=== PATIENT | male | born 1945 | race Caucasian/White ===

== ENCOUNTER 2020-09-16 08:37 | Day surgery (SDC) | payer MEDICARE, OTHER, SELFPAY ==
[2020-09-10 15:46] VITALS: BMI 24.3
--- NOTE | 2020-09-11 16:49 | MHC.SHP ---
Pre-Procedural Eval Section A The patient is an INPATIENT: No The History & Physical has been completed within 30 days and I have reviewed it.: Yes Section B Chief Complaint: Right Eye cataract Allergies: Allergies Allergy/AdvReac Type Severity Reaction Status Date / Time Penicillins Allergy Mild HIVES/FEVER Unverified 01/25/20 16:00 Plan Diagnosis/Plan: Unchanged I have reviewed the history and physical and performed a pertinent physical examination on my patient. No changes have occurred unless specified.
--- NOTE | 2020-09-13 09:45 | HO.ANESPROP2 ---
Documented by User: Danielle Parks 09/13/20 09:50 HPI - Anesthesia Eval Consult details Narrative: 75yo M for Right Cataract Extraction IOL Insertion PCP cleared No prev cataract on record PMFSH Past Medical History Medical History Allergic rhinitis Anxiety COVID-19 vaccine series completed Depression Diabetes mellitus Erectile dysfunction History of Clostridioides difficile colitis History of diverticulosis History of ETOH abuse Hx of varicose veins Hypercholesterolemia Osteoarthritis Raynauds syndrome Smoker Surgical History Surgical History History of esophagogastroduodenoscopy (EGD) Hx of appendectomy Hx of colonoscopy Hx of inguinal hernia repair Social History Social History Alcohol intake: former Year quit: 2018 Smoking Status: Current every day smoker Tobacco Type: Cigar Are you DNR?: No Advance Directives: No Advance Directives Information Provided: No Advance Directives on File: No Meds Allergies Allergy/AdvReac Type Severity Reaction Status Date / Time Penicillins Allergy Mild HIVES/FEVER Verified 09/16/20 09:52 Home Medications Medication Instructions Recorded Confirmed Last Taken Type atorvastatin 10 tab PO BEDTIME 09/10/20 09/10/20 Unknown History cetirizine 1 tab PO DAILY 09/10/20 09/10/20 Unknown History citalopram 20 tab PO DAILY 09/10/20 09/16/20 09/16/20 08:00 History disulfiram 1 tab PO DAILY 09/10/20 09/10/20 Unknown History metformin 500 tab PO BID 09/10/20 09/10/20 Unknown History Exam Exam Date and Time: September 13, 2020 0945 Height,Weight and Vital Signs: Height 5 ft 7 in Weight 70.307 kg Assessment and Plan Assessment Anesthesia Assessment: Chart Reviewed Documented by User: Coleen Coyle 09/16/20 10:38 PMFSH Past Medical History Medical History Allergic rhinitis Anxiety COVID-19 vaccine series completed Depression Diabetes mellitus Erectile dysfunction History of Clostridioides difficile colitis History of diverticulosis History of ETOH abuse Hx of varicose veins Hypercholesterolemia Osteoarthritis Raynauds syndrome Smoker Surgical History Surgical History History of esophagogastroduodenoscopy (EGD) Hx of appendectomy Hx of colonoscopy Hx of inguinal hernia repair Social History Social History Alcohol intake: former Year quit: 2018 Smoking Status: Current every day smoker Tobacco Type: Cigar Are you DNR?: No Advance Directives: No Advance Directives Information Provided: No Advance Directives on File: No Meds Allergies Allergy/AdvReac Type Severity Reaction Status Date / Time Penicillins Allergy Mild HIVES/FEVER Verified 09/16/20 09:52 Home Medications Medication Instructions Recorded Confirmed Last Taken Type atorvastatin 10 tab PO BEDTIME 09/10/20 09/10/20 Unknown History cetirizine 1 tab PO DAILY 09/10/20 09/10/20 Unknown History citalopram 20 tab PO DAILY 09/10/20 09/16/20 09/16/20 08:00 History disulfiram 1 tab PO DAILY 09/10/20 09/10/20 Unknown History metformin 500 tab PO BID 09/10/20 09/10/20 Unknown History Exam Airway Mallampati Class: I TM Dist: >3cm Neck ROM: Full Heart: RRR Lungs: CTA
[2020-09-16 09:54] VITALS: BP 121/67; PULSE 52; RESP 16; TEMP 35.9; O2SAT 96
[2020-09-16 09:59] LABS: Glucose, Whole Blood 113 mg/dL (60-115)
[2020-09-16] MEDS: Lactated Ringers 500 ML 50 ML IV (10:03)
[2020-09-16] MEDS: Tetracaine HCl/PF 0.5% Oph Sol 4 ML DROPS 1 DROP EYE-RIGHT (10:05)
[2020-09-16] MEDS: Tropicamide 1 % Ophth Sol 3 ML BTL 1 DROP EYE-RIGHT ×3 (10:07→10:13)
[2020-09-16] MEDS: Phenylephrine HCL 2.5% Oph SoL 2 ML BOTTLE 1 DROP EYE-RIGHT ×3 (10:09→10:15)
--- NOTE | 2020-09-16 11:05 | HO.PNOPHT ---
Ophthalmology Procedure Procedure Date of Service: 09/16/20 Ophthalmology Viscoelastic: Healon Duet Dual Pack Pro Ophthalmology Lenses: TECNIS [id number] (24) Procedure Notes: PREOPERATIVE DIAGNOSIS: Decreased visual acuity right eye secondary to cataract POSTOPERATIVE DIAGNOSIS: Same PROCEDURE: Right cataract extraction with multifocal intraocular lens insertion SURGEON: Luis Manuel Graves M.D. ANESTHESIA: Topical/MAC ESTIMATED BLOOD LOSS: None COMPLICATIONS: None After obtaining informed consent, the patient was brought to the operating room suite and placed in the supine position. After adequate sedation per anesthesia, topical drops of Tetracaine were given to the right eye. The eye was then prepped and draped in the usual sterile fashion. The operating room microscope was then positioned over the operative eye and a lid speculum placed. A paracentesis was created. Viscoelastic was then instilled into the anterior chamber. A three plane incision was then created temporally, utilizing a 2.85 mm keratome. Capsulotomy forceps were then utilized to create a circular tear capsulotomy. Hydrodissection and hydrodelineation were carried out until adequate mobilization of the nucleus occurred. Phacoemulsification was then utilized to remove the dense central nucleus followed by removal of the cortical material utilizing the automated aspiration irrigation unit. Viscoelastic was instilled into the posterior capsular bag followed by placement of a multifocal posterior chamber intraocular lens without difficulty. The residual Viscoelastic was then removed utilizing the automated IA machine. The wound was checked and found to be watertight. The patient tolerated the procedure well and the lid speculum was removed. Intracameral injection of Vigamox 0.1 mL followed by a subtenon injection of Kenalog-40 0.2 mL were administered. The patient will be seen in the a.m.
[2020-09-16 11:30] VITALS: BP 125/68; PULSE 56; RESP 20; TEMP 36.3; O2SAT 100
--- NOTE | 2020-09-16 12:57 | HO.POSTANES ---
Post Anesthesia Evaluation Post Anesthesia Evaluation Vital Signs: Vital Signs Temp Pulse Resp BP Pulse Ox 09/16/20 11:30 97.4 F 56 20 125/68 100 09/16/20 09:54 96.7 F L 52 16 121/67 96 Anesthesia: TIVA Mental Status: Awake Pain Control: Satisfactory Nausea/Vomiting: None Hydration: Adequate Anesthesia-Related Issues: No Anes. Related Issues
== END 2020-09-16 11:57 | disposition home or self-care (01) ==
PROVIDERS: PCP Internal Medicine; Visit Provider Ophthalmology
PROC: (CPT 66984; principal; 2020-09-16 11:40)
DX: H25.11 Age-related nuclear cataract, right eye (principal); H54.7 Unspecified visual loss; H35.4 Peripheral retinal degeneration; F32.9 Major depressive disorder, single episode, unspecified; I10 Essential (primary) hypertension; E11.9 Type 2 diabetes mellitus without complications; Z79.84 Long term (current) use of oral hypoglycemic drugs; Z79.899 Other long term (current) drug therapy; F17.200 Nicotine dependence, unspecified, uncomplicated; F10.10 Alcohol abuse, uncomplicated
CPT/HCPCS: 66984; 82947; J2250; J3300; V2788

== ENCOUNTER 2020-09-30 09:13 | Day surgery (SDC) | payer MEDICARE, OTHER, SELFPAY ==
[2020-09-10 15:48] VITALS: BMI 24.3
--- NOTE | 2020-09-26 08:17 | MHC.SHP ---
Pre-Procedural Eval Section A The patient is an INPATIENT: No The History & Physical has been completed within 30 days and I have reviewed it.: Yes Section B Chief Complaint: Left Eye Cataract Allergies: Allergies Allergy/AdvReac Type Severity Reaction Status Date / Time Penicillins Allergy Mild HIVES/FEVER Verified 09/16/20 09:52 Plan Diagnosis/Plan: Unchanged I have reviewed the history and physical and performed a pertinent physical examination on my patient. No changes have occurred unless specified.
--- NOTE | 2020-09-27 08:38 | HO.ANESPROP2 ---
Documented by User: Danielle Parks 09/27/20 08:38 HPI - Anesthesia Eval Consult details Narrative: 75yo M for Left Cataract Extraction IOL Insertion PCP cleared Right eye done 09/16/20: Midaz 2 PMFSH Past Medical History Medical History Allergic rhinitis Anxiety COVID-19 vaccine series completed Depression Diabetes mellitus Erectile dysfunction History of Clostridioides difficile colitis History of diverticulosis History of ETOH abuse Hx of varicose veins Hypercholesterolemia Osteoarthritis Raynauds syndrome Smoker Surgical History Surgical History History of esophagogastroduodenoscopy (EGD) Hx of appendectomy Hx of colonoscopy Hx of inguinal hernia repair Social History Social History Alcohol intake: former Year quit: 2018 Smoking Status: Current every day smoker Tobacco Type: Cigar Use of substances other than those prescribed or required for medical reasons: No Are you DNR?: No Advance Directives: No Advance Directives Information Provided: No Advance Directives on File: No Meds Allergies Allergy/AdvReac Type Severity Reaction Status Date / Time Penicillins Allergy Mild HIVES/FEVER Verified 09/30/20 09:30 Active Medications: Current Medications Generic Name Dose Route Start Last Admin Trade Name Freq PRN Reason Stop Dose Admin Povidone Iodine 1 appl 09/26/20 08:18 Povidone Iodine 5 % Ophth Soln 30 Ml Bottle EYE-LEFT PREOP PRN Pre-Op Surgical Implant Prophy Tetracaine HCl 1 drop 09/30/20 00:01 Tetracaine Hcl/Pf 0.5% Oph Gricel 4 Ml Drops EYE-LEFT 09/30/20 00:02 PREOP ONE Home Medications Medication Instructions Recorded Confirmed Last Taken Type atorvastatin 10 tab PO BEDTIME 09/10/20 09/10/20 Unknown History cetirizine 1 tab PO DAILY 09/10/20 09/10/20 09/30/20 07:30 History citalopram 20 tab PO DAILY 09/10/20 09/16/20 09/30/20 07:30 History disulfiram 1 tab PO DAILY 09/10/20 09/10/20 Unknown History metformin 500 tab PO BID 09/10/20 09/10/20 Unknown History Exam Exam Date and Time: September 27, 2020 0838 Height,Weight and Vital Signs: Height 5 ft 7 in Weight 70.307 kg Assessment and Plan Assessment Anesthesia Assessment: Chart Reviewed Documented by User: Yenny Anti 09/30/20 09:43 [facility] Past Medical History Medical History Allergic rhinitis Anxiety COVID-19 vaccine series completed Depression Diabetes mellitus Erectile dysfunction History of Clostridioides difficile colitis History of diverticulosis History of ETOH abuse Hx of varicose veins Hypercholesterolemia Osteoarthritis Raynauds syndrome Smoker Surgical History Surgical History History of esophagogastroduodenoscopy (EGD) Hx of appendectomy Hx of colonoscopy Hx of inguinal hernia repair Social History Social History Alcohol intake: former Year quit: 2018 Smoking Status: Current every day smoker Tobacco Type: Cigar Use of substances other than those prescribed or required for medical reasons: No Are you DNR?: No Advance Directives: No Advance Directives Information Provided: No Advance Directives on File: No Meds Allergies Allergy/AdvReac Type Severity Reaction Status Date / Time Penicillins Allergy Mild HIVES/FEVER Verified 09/30/20 09:30 Home Medications Medication Instructions Recorded Confirmed Last Taken Type atorvastatin 10 tab PO BEDTIME 09/10/20 09/10/20 Unknown History cetirizine 1 tab PO DAILY 09/10/20 09/10/20 09/30/20 07:30 History citalopram 20 tab PO DAILY 09/10/20 09/16/20 09/30/20 07:30 History disulfiram 1 tab PO DAILY 09/10/20 09/10/20 Unknown History metformin 500 tab PO BID 09/10/20 09/10/20 Unknown History Exam Airway Mallampati Class: II TM Dist: >3cm Neck ROM: Full Loose/Missing/Broken Teeth: No Heart: RRR Lungs: CTA Assessment and Plan Assessment Anesthesia Assessment: Anesthesia Plan Discussed Final Anesthetic Review NPO: Yes ASA Class: II Final Preanesthetic Review: Meds/Allgs Chart Reviewed, Consent Obtained/Reviewed and Anes Risks/Benef Reviewed Patient Risk: Low Procedure Risk: Low Anesthetic Plan Anesthetic Plan: MAC: Disposition: Standard PACU
[2020-09-30 09:47] VITALS: BP 132/68; PULSE 47; RESP 18; TEMP 36.3; O2SAT 99
[2020-09-30] MEDS: Lactated Ringers 500 ML 50 ML IV (09:57)
[2020-09-30] MEDS: Tetracaine HCl/PF 0.5% Oph Sol 4 ML DROPS 1 DROP EYE-LEFT (09:58)
[2020-09-30] MEDS: Tropicamide 1 % Ophth Sol 3 ML BTL 1 DROP EYE-LEFT ×3 (10:00→10:06)
[2020-09-30] MEDS: Phenylephrine HCL 2.5% Oph SoL 2 ML BOTTLE 1 DROP EYE-LEFT ×3 (10:02→10:08)
[2020-09-30 10:15] LABS: Glucose, Whole Blood 111 mg/dL (60-115)
--- NOTE | 2020-09-30 10:36 | HO.PNOPHT ---
Ophthalmology Procedure Procedure Date of Service: 09/30/20 Ophthalmology Viscoelastic: Healon Duet Dual Pack Pro Ophthalmology Lenses: TECNIS [id number] (24) Procedure Notes: PREOPERATIVE DIAGNOSIS: Decreased visual acuity left eye secondary to cataract POSTOPERATIVE DIAGNOSIS: Same PROCEDURE: Left cataract extraction with toric multifocal intraocular lens insertion axia 180 SURGEON: Luis Manuel Graves M.D. ANESTHESIA: Topical/MAC ESTIMATED BLOOD LOSS: None COMPLICATIONS: None After obtaining informed consent, the patient was brought to the operation room suite and placed in the supine position. After adequate sedation per anesthesia, topical drops of Tetracaine were given to the left eye. The eye was then prepped and draped in the usual sterile fashion. The operating room microscope was then positioned over the operative eye and a lid speculum placed. A paracentesis was created. Viscoelastic was then instilled into the anterior chamber. A three plane incision was then created temporally, utilizing a 2.85 mm keratome. Capsulotomy forceps were then utilized to create a circular tear capsulotomy. Hydrodissection and hydrodelineation were carried out until adequate mobilization of the nucleus occurred. Phacoemulsification was then utilized to remove the dense central nucleus followed by removal of the cortical material utilizing the automated aspiration irrigation unit. Viscoelastic was instilled into the posterior capsular bag followed by placement of a toric multifocal posterior chamber intraocular lens axis 180 degrees without difficulty. The residual Viscoelastic was then removed utilizing the automated IA machine. The wound was check and found to be watertight. The patient tolerated the procedure well and the lid speculum was removed. Intracameral injection of Vigamox 0.1 mL followed by a subtenon injection of Kenalog-40 0.2 mL were administered. The patient will be seen in the a.m.
[2020-09-30 11:07] VITALS: BP 144/7; PULSE 54; RESP 16; TEMP 36.2; O2SAT 98
== END 2020-09-30 11:09 | disposition home or self-care (01) ==
PROVIDERS: PCP Internal Medicine; Visit Provider Ophthalmology
PROC: (CPT 66984; principal; 2020-09-30 11:40)
DX: H25.12 Age-related nuclear cataract, left eye (principal); H54.7 Unspecified visual loss; I10 Essential (primary) hypertension; I73.00 Raynaud's syndrome without gangrene; J30.9 Allergic rhinitis, unspecified; G47.33 Obstructive sleep apnea (adult) (pediatric); F10.10 Alcohol abuse, uncomplicated; E11.9 Type 2 diabetes mellitus without complications; Z79.84 Long term (current) use of oral hypoglycemic drugs; Z79.899 Other long term (current) drug therapy; Z99.89 Dependence on other enabling machines and devices; Z88.0 Allergy status to penicillin; F17.200 Nicotine dependence, unspecified, uncomplicated
CPT/HCPCS: 66984; 82947; J2250; J3300; V2788

== ENCOUNTER 2021-03-13 15:00 | Outpatient (RCR) | payer MEDICARE, OTHER, SELFPAY | END 2021-04-02 16:00 | disposition home or self-care (01) | LOC: HO.OT 15:00 | PROVIDERS: PCP Internal Medicine; Visit Provider Plastic Surgery | DX: S66.222D Laceration of extensor muscle, fascia and tendon of left thumb at wrist and hand level, subsequent encounter (principal) | CPT/HCPCS: 97110; 97165; 97760 ==

== ENCOUNTER 2022-10-07 15:51 | Emergency (ER) | payer MEDICARE, OTHER, SELFPAY ==
--- NOTE | ~2022-10-07 | XR_ITS ---
EXAMINATION: XR first finger, RIGHT CLINICAL INFORMATION: Laceration COMPARISON: None available. TECHNIQUE: Three views of the right thumb. FINDINGS: There is calcification of the triangular fibrocartilage. There is some degenerative change with spurring about the first carpal metacarpal joint. There is soft tissue edema seen about the first interphalangeal joint and distal first finger. No radiopaque foreign body is seen and no gas within the soft tissues is evident. Soft tissue defect about the volar aspect of the first distal phalanx is noted. XR/XR finger RT min 2V IMPRESSION: Soft tissue laceration about the volar aspect of the distal phalanx of the thumb without underlying bony abnormality or radiopaque foreign body.
--- NOTE | 2022-10-07 16:02 | ED_ITS ---
HPI - General Adult General Chief complaint: Wound/Laceration Stated complaint: Wound on right thumb Time Seen by Provider: 10/07/22 19:11 Source: patient, RN notes reviewed and old records reviewed Mode of arrival: ambulatory Limitations: no limitations History of Present Illness HPI narrative: 77-year-old male presents for evaluation of a laceration to his right thumb. Patient reports that he was using a table saw when his hand slipped and he accidentally cut his right thumb Bleeding is controlled with dressing He reports his tetanus is up-to-date He is able to move the finger He reports mild, 6/10 pain Related Data Home Medications Medication Instructions Recorded Confirmed atorvastatin 10 mg tablet 10 tab PO BEDTIME 09/10/20 09/10/20 cetirizine 10 mg tablet 1 tab PO DAILY 09/10/20 09/10/20 citalopram 20 mg tablet 20 tab PO DAILY 09/10/20 09/16/20 disulfiram 250 mg tablet 1 tab PO DAILY 09/10/20 09/10/20 metformin 500 mg tablet 500 tab PO BID 09/10/20 09/10/20 Allergies Allergy/AdvReac Type Severity Reaction Status Date / Time Penicillins Allergy Mild HIVES/FEVER Verified 09/30/20 09:30 Review of Systems Integumentary/Breasts: Comments: Laceration to right thumb PMFSH Past Medical History Medical History Allergic rhinitis Anxiety COVID-19 vaccine series completed Depression Diabetes mellitus Erectile dysfunction History of Clostridioides difficile colitis History of diverticulosis History of ETOH abuse Hx of varicose veins Hypercholesterolemia Osteoarthritis Raynauds syndrome Smoker Surgical History History of esophagogastroduodenoscopy (EGD) Hx of appendectomy Hx of colonoscopy Hx of inguinal hernia repair Social History Social History Alcohol intake: former Year quit: 2019 Advance Directives: No Advance Directives Information Provided: No Physical Exam ED Vital Signs: Vital Signs - 24 hr 10/07/22 16:06 10/07/22 19:31 Temperature 98 F 98.0 F Pulse Rate 109 H 61 Respiratory Rate 18 18 Blood Pressure 109/63 157/93 H Pulse Oximetry 97 97 Oxygen Delivery Method Room Air Room Air BMI result Body Mass Index 25.8 Skin Other: 5 cm, jagged laceration to the ventral surface of the right thumb. There is visible subcutaneous tissue but no visible bone Extrem Other: Patient has full range of motion with flexion and extension of the right thumb at the MCP and interphalangeal joints. Course Course Course Narrative: This is an RME: Additional HPI, ROS, PE not included below will be deferred to primary provider. This is a [id number]-male, with a history of diabetes, presenting to the emergency department with a complaint of right thumb laceration which occurred 30 minutes ago. He cut his right thumb on a table saw at his home. Full thickne ss laceration to the right thumb distal end. No active bleeding. Distal sensation and circulation intact. Will need sutures. TDAP UTD. Plan: Xray right thumb ordered. Medications Administered Discontinued Medications Generic Name Dose Route Start Last Admin Trade Name Juan Daniel PRN Reason Stop Dose Admin Lidocaine HCl 5 ml 10/07/22 19:22 10/07/22 19:44 Lidocaine Hcl 1 % 20 Ml Vial INFILTRATI 10/07/22 19:23 5 ml ONCE ONE Administration Procedures Laceration Laceration 1: Site: hand Side (If applicable): right (Some) Size (cm): 5 Description: linear, irregular and contaminated Local Anesthetic: lidocaine 1% Amount of anesthesia used (mL): 8 Pre-repair: wound explored and irrigated extensively Skin layer closed with: nylon Size (cm): 5-0 Number of sutures: 6 Technique: simple, interrupted Medical Decision Making Medical Decision Making MDM Narrative: See procedure note for wound repair. Patient's tetanus is up-to-date per his report Discharge Plan Discharge Clinical Impression: Laceration Patient Disposition: Home, Self-Care Instructions: Laceration (ED) Additional Instructions: You had 6 sutures placed today. These can come out in 10 days You can do this with your primary doctor or by returning to the ER Keep the area clean and dry in the meantime Follow-up with your primary doctor Prescriptions: No Action metformin 500 mg tablet 500 tab PO BID cetirizine 10 mg tablet 1 tab PO DAILY atorvastatin 10 mg tablet 10 tab PO BEDTIME disulfiram 250 mg tablet 1 tab PO DAILY citalopram 20 mg tablet 20 tab PO DAILY
[2022-10-07 16:06] VITALS: BP 109/63; PULSE 109; RESP 18; TEMP 36.6; O2SAT 97; BMI 25.8
[2022-10-07 19:31] VITALS: BP 157/93; PULSE 61; RESP 18; TEMP 36.7; O2SAT 97
[2022-10-07] MEDS: Lidocaine HCl 1 % 20 ML VIAL 5 ML INFILTRATI (19:44)
== END 2022-10-07 20:39 | disposition home or self-care (01) ==
PROVIDERS: Emergency Provider Student in an Organized Health Care Education/Training Program; PCP Internal Medicine
DX: S61.011A Laceration without foreign body of right thumb without damage to nail, initial encounter (principal); W31.2XXA Contact with powered woodworking and forming machines, initial encounter; E11.9 Type 2 diabetes mellitus without complications; E78.00 Pure hypercholesterolemia, unspecified; Z87.891 Personal history of nicotine dependence; Y93.89 Activity, other specified; Y92.019 Unspecified place in single-family (private) house as the place of occurrence of the external cause; Y99.9 Unspecified external cause status
CPT/HCPCS: 12042; 73140; 99282; 99284

== ENCOUNTER 2023-10-06 10:56 | Emergency (ER) | payer MEDICARE, OTHER, SELFPAY ==
--- NOTE | 2023-10-06 | ECG_ITS ---
Test Reason : DIZZINESS Blood Pressure : / mmHG Vent. Rate : 071 BPM Atrial Rate : 071 BPM P-R Int : 152 ms QRS Dur : 100 ms QT Int : 432 ms P-R-T Axes : 073 074 061 degrees QTc Int : 469 ms Normal sinus rhythm Normal ECG When compared with ECG of 10-OCT-2008 12:56, No significant change was found Referred By: Generic ED Physician Electronically Signed By:ORI AMARAL
--- NOTE | ~2023-10-06 | CT_ITS ---
EXAMINATION: CT CERVICAL SPINE WITHOUT CONTRAST CLINICAL INFORMATION: Fall. Head trauma. COMPARISON: Cervical spine x-ray from 2006. TECHNIQUE: Axial images through the cervical spine without IV contrast. Sagittal and coronal reconstructions on the technologist workstation were performed. This CT examination was performed using dose optimization techniques as appropriate, variously including the following: *Automated exposure control *Adjustment of mA and/or kV according to patient size (this includes techniques or standardized protocols for targeted exams where dose is matched to indication/reason for exam; i.e. extremities or head) *Use of iterative reconstruction technique DLP: 295 mGy-cm FINDINGS: There is 4 mm anterior subluxation of C4 with respect to C5 and C7 with respect to T1. There is 2 mm anterior subluxation of C5 with respect to C6. This may be degenerative in nature. Bone alignment is otherwise normal. No fracture or dislocation. Multilevel degenerative spondylosis and degenerative disc disease greatest at C3-C4, and C7-T1. Degenerative changes at the C1 dens articulation. Bilateral multilevel facet arthritis. Prevertebral soft tissues are normal. There is bilateral carotid calcification. There is biapical pleural and parenchymal scarring. Lung apices are otherwise clear. CT/CT cervical spine wo IV con IMPRESSION: No fracture or dislocation. 4 mm anterior subluxation of C4 with respect to C5 C7 with respect to T1 and 2 mm anterior subluxation of C5 with respect to C6. This may be degenerative in nature. If there is clinical suspicion of acute soft tissue injury, cervical spine MRI would be recommended. Multilevel degenerative changes. Fleischner guidelines were followed.
--- NOTE | ~2023-10-06 | CT_ITS ---
EXAMINATION: CT HEAD WITHOUT CONTRAST CLINICAL INFORMATION: Fall. Head trauma. COMPARISON: Previous brain MRI from 2020 TECHNIQUE: Contiguous axial imaging was performed from the skull base to vertex without intravenous administration of contrast. This CT examination was performed using dose optimization techniques as appropriate, variously including the following: *Automated exposure control *Adjustment of mA and/or kV according to patient size (this includes techniques or standardized protocols for targeted exams where dose is matched to indication/reason for exam; i.e. extremities or head) *Use of iterative reconstruction technique DLP: 744 mGy-cm FINDINGS: There is no evidence of an extra-axial collection. There is no evidence of intra or extra-axial hemorrhage. The ventricles and extra-axial CSF spaces are slightly prominent suggestive of mild generalized atrophy. There is mild nonspecific periventricular white matter disease. No mass, mass effect or infarct. No skull fracture. Visualized paranasal sinuses, mastoid air cells and middle ears are clear. CT/CT head/brain wo IV con IMPRESSION: No acute findings.
[2023-10-06 11:04] VITALS: BP 100/58; BP 111/53; PULSE 70; PULSE 75; RESP 16; TEMP 36.6; O2SAT 97; O2SAT 98; BMI 25.8
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
[2023-10-06 11:31] LABS: MANUAL DIFF FLAG NO
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
[2023-10-06 11:33] LABS: Basophils Percent Auto 0.3 % (0-2); Eosinophils Absolute Auto 0.1 X10*3/uL (0.0-0.4); Eosinophils Percent Auto 1.7 % (0-4); Hematocrit 41.4 % (42.0-52.0); Hemoglobin 14.4 g/dl (14.0-18.0); Imm Gran Abs Auto 0.02 X10*3/uL (0.00-0.03); Imm Gran Pct Auto 0.3 % (0.0-0.4); Lymphocytes Absolute Auto 1.8 X10*3/uL (1.2-4.9); Lymphocytes Percent Auto 30.4 % (20-40); Mean Corpuscular HGB Conc 34.8 g/dl (31.0-36.0); Mean Corpuscular Hemoglobin 32.7 pg (27.0-33.0); Mean Corpuscular Volume 93.9 fL (80.0-98.0); Mean Platelet Volume 10.6 fL (9.4-12.4); Monocytes Absolute Auto 0.6 X10*3/uL (0.1-1.2); Monocytes Percent Auto 9.2 % (2-11); Neutrophils Absolute Auto 3.5 x10*3/uL (2.0-8.3); Neutrophils Percent Auto 58.1 % (45-73); Platelet Count 203 X10*3/uL (160-400); Red Blood Count 4.41 X10*6/uL (4.60-5.80); Red Cell Distribution Width 13.2 % (11.0-16.0)
[2023-10-06 11:51] LABS: Alanine Aminotransferase 26 U/L (0-40); Albumin Level 3.7 g/dL (3.5-5.0); Alkaline Phosphatase 72 U/L (39-117); Anion Gap 14 (12-20); Aspartate Amino Transferase 20 U/L (5-37); Bilirubin Total 0.2 mg/dL (0.0-1.0); Blood Urea Nitrogen 22 mg/dL (9-16); Calcium 9.6 mg/dL (8.4-10.2); Carbon Dioxide 22 mmol/L (22-29); Chloride 108 mmol/L (96-108); Creatinine Clr Calc Pharmacy 49.4; Estimated Glomerular Filt Rate > 60; Ethanol 25 mg/dL; Glucose Random 112 mg/dL (60-115); Sodium 140 mmol/L (135-145); Total Protein 6.4 g/dL (6.5-8.0)
[2023-10-06 12:02] LABS: Troponin-I High Sensitivity < 2.7 ng/L (<3.5-35.0)
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
--- OUTSIDE RECORDS SUMMARY | 2023-10-06 12:02 | XMS_ITS | Continuity of Care Document ---
Author Organization [facility] Josh Stevens Jorge lt Address [address] [place] [address]- Care Team Providers Care Coal Loader Name Role Phone Hansa URIAS, Pravin Hidalgo Primary Care Physician [phone] [facility]counter [facility]): 04/13/23 - 04/20/23 [facility] Josh Stevens Adult [address] [place] [address]- Encounter Diagnosis History of empyema of pleura(Discharge Diagnosis) - 04/13/23 History of community acquired pneumonia(Discharge Diagnosis) - 04/13/23 Constipation(Discharge Diagnosis) - 04/13/23 Attending Physician: Елена Kelly NP Allergies, Adverse Reactions, Alerts Substance Reaction Severity Status penicillins hives, itchiness Active Immunizations Given and Recorded Vaccine Date Status Refusal Reason SARS-CoV-2(COVID-19)mRNA-LNP vac([id number]) 03/08/23 Recorded influenza virus vaccine, inactivated 1 03/02/23 Gi avelina influenza virus vaccine, inactivated 02/20/22 Jaxson rded influenza virus vaccine, inactivated 02/21/21 Jaxson rded influenza virus vaccine, inactivated 02/07/20 Give [...] corded pneumococcal 20-valent conjugate vaccine 10/20/22 Given [id number] 12y+ bivalent booster vax 02/11/22 Recorded SARS-CoV-2 mRNA (nbxykkk-ovhz-sbmfi) vax 08/21/21 Recorded SARS-CoV-2 (COVID-19) mRNA BNT-162b2 [...] Pertussis (oldterm) 08/02/10 Give n 1Result Comment: [facility]: [id number] 2Location History: SHAM 3Result Comment: [facility]: [phone] EXP: [id number] 4Result Comment: [12/19/2013] #2 5Result Comment: [10/19/2013] #1 6Result Comment: [12/19/2013] #2 7Admin Note: [facility] Medications Aller-Brenton 10 mg oral tablet 1 tablet, By Mouth, Daily, # 90 tablet, 1 Refills, Maintenance, 01/14/23 10:32:00 EDT, [facility] #[id number], 170, cm, 11/12/22 8:55:00 EDT, Height, 73, kg, 05/28/22 13:32:00 EST, Dry Weight Start Date: 01/14/23 Status: Ordered aspirin 81 mg oral tablet 1 tablet = 81 mg, By Mouth, Daily, # 30 tablet, 0 Refills, Maintenance, Tablet Start Date: 08/03/11 Status: Ordered atorvastatin 10 mg oral tablet 1 tablet, By Mouth, Daily, # 90 tablet, 1 Refills, Maintenance, 02/21/23 21:20:00 EDT, [facility], 171, cm, 02/21/23 20:09:00 EDT, Height, 72, kg, 02/19/23 13:52:00 EDT, Dry Weight Start Date: 02/21/23 Status: Ordered citalopram 20 mg oral tablet See Instructions, TAKE 1 TABLET BY MOUTH EVERY DAY, # 90 tablet, 3 Refills, Maintenance, 12/21/22 15:35:00 EDT, [facility]/pharmacy #[id number], 170, cm, 11/12/22 8:55:00 [...] Daily, # 90 tablet, 3 Refills, Maintenance, 07/23/22 12:10:00 EDT, [facility], 170, cm, 05/28/22 13:32:00 EST, Height, 73, kg, 05/28/22 13:32:00 EST, Dry Weight Start Date: 07/23/22 Status: Ordered Fish Oil By Mouth, Daily, 0 Refills, Maintenance, 04/26/18 10:26:55 EST Start Date: 04/26/18 Status: Ordered Garlic Daily, 0 Refills, Maintenance, 04/26/18 10:28:16 EST Start Date: 04/26/18 Status: Ordered Gingko Biloba Daily, 0 Refills, Maintenance, 04/26/18 10:28:41 EST Start Date: 04/26/18 Status: Ordered Glucosamine & Chondroitin with MSM Daily, 0 Refills, Maintenance, 04/26/18 10:27:15 EST Start Date: 04/26/18 Status: Ordered metFORMIN 500 mg oral tablet 1 tablet = 500 mg, By Mouth, Daily, # 90 tablet, 3 Refills, Maintenance, 04/13/23 15:29:00 EST, [facility]/pharmacy #[id number], 171, cm, 04/13/23 15:06:00 [...] DM (diabetes mellitus), type 2 Confirmed Active Esophagogastroduodenoscopy [egd] with Closed Biopsy [...] 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 3colo 2008 polyp, repeat 2013 4colo 2018 5egd 2012 nl per pt. report 6colo 2018 7Abnormal MRI cervical spine, followed by Dr. De Leon. [id number] Diagnosis Diagnosis Type Effective Dates Health Status Clinical Service Informant History of empyema of pleura Discharge Diagnosis 04/13/23 History of community acquired pneumonia Discharge Diagnosis 04/13/23 Constipation Discharge Diagnosis 04/13/23 Vital Signs Most recent to oldest [Reference Range]: 1 Height 171 cm (04/13/23 3:06 PM) Weight 71.0 kg (04/13/23 3:06 PM) Oxygen Saturation [94-100 %] 97 % (04/13/23 3:06 PM) Pulse Rate [55-90 bpm] 62 bpm (04/13/23 3:06 PM) Body Mass Index [18.5-24.99 kg/m2] 24.28 kg/m2 (04/13/23 3:06 PM) Blood Pressure [90-138/55-84 mm Hg] 96/5 0mm Hg (04/13/23 3:06 PM) Respiratory Rate [16-30 br/min] 12 br/mi n *L* (04/13/23 3:06 PM) Temperature [96.8-100.4 DegF] 98.0 DegF (04/13/23 3:06 PM) Mode of Delivery (Oxygen) Room air (04/13/23 3:06 PM) Blood pressure sites Arm, left (04/13/23 3:06 PM) Temperature Route Oral (04/13/23 3:06 PM) Weight Obtained Via Standing scale (04/13/23 3:06 PM) Social History Social History Type Response Smoking Status Former smoker, quit more than 30 days ago entered on: 03/02/23 Sex Patient Care team information Care Team Personnel Name: Chelsea López RN Position: S RN Member Role: Primary Care Nurse Name: Miranda Castrejon RN Position: [facility] RN Member Role: Primary Care Nurse Name: Alexia Ortiz RN Position: S RN Member Role: Primary Care Nurse Name: Zoe Nunez Position: S RN Member Role: Primary Care Nurse Name: Robby Servin RN Position: S RN Member Role: Primary Care Nurse Name: Pravin Santo MD Position: [facility] Physician - Primary Care Member Role: PCP Address: Address: [address] [place] [address]- Name: Alyse Mckinney RN Position: [facility] RN Member Role: Primary Care Nurse Care Team Related Persons Name: JANNET BECK Address: home [address] [place] [address]
--- OUTSIDE RECORDS SUMMARY | 2023-10-06 12:02 | XMS_ITS | Continuity of Care Document ---
Author Organization [facility] Address [address] [place] [address] Matt se[address], [address] [place] [address]- Care Team Providers Care Clinical Systems Educator Name Role Phone Pravin Santo MD Primary Care Physician [facility]): 07[facility]07[facility]23 - 08/06/23 [facility] [address] [place] [address] Drive [address] [place] [address]- Attending Physician: Admchelsea, Brian Admitting Physician: Admtr, Brian Referring Physician: Admtr, Ar8 Allergies, Adverse Reactions, Alerts Substance Reaction Severity Status penicillins hives, itchiness Active Immunizations Given and Recorded Vaccine Date Status Refusal Reason SARS-CoV-2(COVID-19)mRNA-LNP vac([id number]) 03/08/23 Recorded influenza virus vaccine, inactivated 1 [...] corded pneumococcal 20-valent conjugate vaccine 10/20/22 Given [id number]-[id number] 12y+ bivalent booster vax 02/11/22 Recorded SARS-CoV-2 mRNA (bqajphc-gxbe-dicnc) vax 08/21/21 Recorded SARS-CoV-2 (COVID-19) mRNA BNT-162b2 [...] Pertussis (oldterm) 08/02/10 Give n 1Result Comment: [facility]: [id number] 2Location History: SHAM 3Result Comment: [facility]: [id number] EXP: [id number] 4Result Comment: [12/19/2013] #2 5Result Comment: [10/19/2013] #1 6Result Comment: [12/19/2013] #2 7Admin Note: [facility] Medications Albuterol (Eqv-Proventil HFA) 90 mcg/inh inhalation aerosol 2 puffs, Inhalation, Every 4 hours, PRN Wheezing/Shortness of Breath, # 1 each, 0 Refills, Maintenance, 06/29/23 9:56:00 EST, [facility], Partial fill upon patient request if the prescription is for a schedule II opioid drug., 171, cm, 0... Start Date: 06/29/23 Stop Date: 07/29/23 Status: Ordered Aller-Brenton 10 mg oral tablet 1 tablet, By Mouth, Daily, # 90 tablet, 1 Refills, Maintenance, 01/14/23 10:32:00 EDT, [facility] #[id number], 170, cm, 11/12/22 8:55:00 EDT, Height, 73, kg, 05/28/22 13:32:00 EST, Dry Weight Start Date: 01/14/23 Status: Ordered aspirin 81 mg oral tablet 1 tablet = 81 mg, By Mouth, Daily, # 30 tablet, 0 Refills, Maintenance, Tablet Start Date: 08/03/11 Status: Ordered atorvastatin 10 mg oral tablet 1 tablet, By Mouth, Daily, # 90 tablet, 1 Refills, Maintenance, 06/28/23 8:01:00 EST, [facility] ST[facility] 2020[facility], 171, cm, 06/22/23 7:29:00 EST, Height, 72, kg, 02/19/23 13:52:00 EDT, Dry Weight Start Date: 06/28/23 Status: Ordered betamethasone-clotrimazole 0.05%-1% topical cream 1 application, Topically, 2 times a day, # 45 Gm, 0 Refills, Maintenance, 05/27/23 9:29:00 EST, Cream, [facility]/pharmacy #[id number], Partial fill upon patient request if the prescription is for a schedule II opioid drug., 1 application Topically 2 times a day,... Start Date: 05/27/23 Status: Ordered citalopram 20 mg oral tablet See Instructions, TAKE 1 TABLET BY MOUTH EVERY DAY, # 90 tablet, 3 Refills, Maintenance, 12/21/22 15:35:00 EDT, [facility]/pharmacy #[id number], 170, cm, 11/12/22 8:55:00 EDT, Height, [...] tablet, 3 Refills, Maintenance, 06/01/23 9:17:00 EST, [facility] STORE 88433, 171, cm, 05/27/23 8:55:00 EST, Height, 72, kg, 02/19/23 13:52:00 EDT, Dry Weight Start Date: 06/01/23 Status: Ordered Fish Oil By Mouth, Daily, 0 Refills, Maintenance, 04/26/18 10:26:55 EST Start Date: 04/26/18 Status: Ordered Flonase Sensimist 27.5 mcg/inh nasal spray See Instructions, SPRAY 2 SPRAY INTO EACH NOSTRIL DAILY NEEDED FOR ALLERGY SYMPTOMS, # 9.1 mL, 11 Refills, Maintenance, 08/02/23 8:30:00 EDT, [facility] STORE 97828, 30, SPRAY 2 SPRAY INTO EACH NOSTRIL DAILY NEEDED FOR ALLERGY SYMPTOMS, 171, cm, ... Start Date: 08/02/23 Status: Ordered Garlic Daily, 0 Refills, Maintenance, [...] 06/29/23 9:46:00 EST, Tablet, [facility], Partial fill upon patient request if the prescription is for a schedule II opioid drug., 171, cm, 06/22/23 7:29:0... 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 3colo 2008 polyp, repeat 2012 4colo 2018 5egd 2012 nl per pt. [...] Care Nurse Name: Ángel Castrejon RN Position: S RN Member Role: Primary Care Nurse Name: Alexia Ortiz RN Position: S RN Member Role: Primary Care Nurse Name: Zoe Nunez Position: S RN Member Role: Primary Care Nurse Name: Pravin Santo MD Position: [facility] Physician - Primary Care Member Role: PCP Address: Address: [address] [place] [address]- Name: Alyse Mckinney RN Position: [facility] RN Member Role: Primary Care Nurse Care Team Related Persons Name: JANNET BECK Address: home [address] [place] [address]
--- OUTSIDE RECORDS SUMMARY | 2023-10-06 12:02 | XMS_ITS | Continuity of Care Document ---
Author Organization [facility] Josh Stevens Jorge lt Address [address] [place] [address]- Care Team Providers Care Transformer Inspector Name Role Phone Hansa URIAS, Pravin Hidalgo Primary Care Physician [facility]): 03/15/23 - 04/14/23 [facility] Josh Stevens Adult [address] [place] [address]- Allergies, Adverse Reactions, Alerts Substance Reaction Severity Status penicillins hives, itchiness Active Immunizations Given and Recorded Vaccine Date Status Refusal Reason SARS-CoV-2(COVID-19)mRNA-LNP vac([id number]) 03/08/23 Recorded influenza virus vaccine, inactivated 1 [...] corded pneumococcal 20-valent conjugate vaccine 10/20/22 Given [id number] 12y+ bivalent booster vax 02/11/22 Recorded SARS-CoV-2 mRNA (rxzrwmx-ljbo-swezg) vax 08/21/21 Recorded SARS-CoV-2 (COVID-19) mRNA BNT-162b2 [...] (oldterm) 08/02/10 Give n 1Result Comment: [facility]: [id number] 2Location History: SHAM 3Result Comment: [facility]: [id number] EXP: [id number] 4Result Comment: [12/19/2013] #2 5Result Comment: [10/19/2013] #1 6Result Comment: [12/19/2013] #2 7Admin Note: [facility] Medications Aller-Brenton 10 mg oral tablet 1 tablet, By Mouth, Daily, # 90 tablet, 1 Refills, Maintenance, 01/14/23 10:32:00 EDT, [facility] #[id number], 170, cm, 11/12/22 8:55:00 EDT, Height, 73, kg, 05/28/22 13:32:00 EST, Dry Weight Start Date: 01/14/23 Status: Ordered aspirin 81 mg oral tablet 1 tablet = 81 mg, By Mouth, Daily, # 30 tablet, 0 Refills, Maintenance, Tablet Start Date: 08/03/11 Status: Ordered atorvastatin 10 mg oral tablet 1 tablet, By Mouth, Daily, # 90 tablet, 1 Refills, Maintenance, 02/21/23 21:20:00 EDT, [facility] STORE 63158, 171, cm, 02/21/23 20:09:00 EDT, Height, 72, kg, 02/19/23 13:52:00 EDT, Dry Weight Start Date: 02/21/23 Status: Ordered citalopram 20 mg oral tablet See Instructions, TAKE 1 TABLET BY MOUTH EVERY DAY, # 90 tablet, 3 Refills, Maintenance, 12/21/22 15:35:00 EDT, [facility]/pharmacy #[id number], 170, cm, 11/12/22 [...] Refills, Maintenance, 07/23/22 12:10:00 EDT, [facility], 170, cm, 05/28/22 13:32:00 EST, Height, 73, [...] tablet, 3 Refills, Maintenance, 04/13/23 15:29:00 EST, [facility]/pharmacy #[id number], 171, cm, 04/13/23 [...] 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 3colo 2008 polyp, repeat 2012 4colo 2018 5egd 2012 nl per pt. report [id number] 7Abnormal MRI cervical spine, followed by Dr. De Leon. [id number] Social History Social History Type Response Smoking Status Former smoker, quit more than 30 days ago entered on: 03/02/23 Sex Patient Care team information Care Team Personnel Name: Chelsea López RN Position: S RN Member Role: Primary Care Nurse Name: Miranda Castrejon RN Position: S RN Member Role: Primary Care Nurse Name: Alexia Ortiz RN Position: S RN Member Role: Primary Care Nurse Name: Zoe Nunez Position: S RN Member Role: Primary Care Nurse Name: Robby Servin RN Position: S RN Member Role: Primary Care Nurse Name: Pravin Santo MD Position: S Physician - Primary Care Member Role: PCP Address: Address: [address] [place] [address]- Name: Alyse Mckinney RN Position: S RN Member Role: Primary Care Nurse Care Team Related Persons Name: JANNET BECK Address: home [address] [place] [address]
--- OUTSIDE RECORDS SUMMARY | 2023-10-06 12:02 | XMS_ITS | Continuity of Care Document ---
Author Organization [facility] Josh Stevens Jorge lt Address [address] [place] [address]- Care Team Providers Care Loom Cleaner Name Role Phone Hansa URIAS, Pravin Hidalgo Primary Care Physician [phone] [facility] 03[facility]10[facility]23 - 04/09/23 [facility] Josh Stevens Adult [address] [place] [address]- Allergies, Adverse Reactions, Alerts Substance Reaction Severity Status penicillins hives, itchiness Active Immunizations Given and Recorded Vaccine Date Status Refusal Reason SARS-CoV-2(COVID-19)mRNA-LNP vac([id number]) 03/08/23 Recorded influenza virus vaccine, inactivated 1 [...] corded pneumococcal 20-valent conjugate vaccine 10/20/22 Given [id number] 12y+ bivalent booster vax 02/11/22 Recorded SARS-CoV-2 mRNA (ezyuriv-swfs-dvhyh) vax 08/21/21 Recorded SARS-CoV-2 (COVID-19) mRNA BNT-162b2 [...] Pertussis (oldterm) 08/02/10 Give n 1Result Comment: [facility]: [id number] 2Location History: SHAM 3Result Comment: [facility]: 55471-466-96 EXP: [id number] 4Result Comment: [12/19/2013] #2 5Result Comment: [10/19/2013] #1 6Result Comment: [12/19/2013] #2 7Admin Note: [facility] Medications Aller-Brenton 10 mg oral tablet 1 tablet, By Mouth, Daily, # 90 tablet, 1 Refills, Maintenance, 01/14/23 10:32:00 EDT, [facility] #[id number], 170, cm, 11/12/22 8:55:00 EDT, Height, 73, kg, 05/28/22 13:32:00 EST, Dry Weight Start Date: 01/14/23 Status: Ordered aspirin 81 mg oral tablet 1 tablet = 81 mg, By Mouth, Daily, # 30 tablet, 0 Refills, Maintenance, Tablet Start Date: 08/03/11 Status: Ordered atorvastatin 10 mg oral tablet 1 tablet, By Mouth, Daily, # 90 tablet, 1 Refills, Maintenance, 02/21/23 21:20:00 EDT, [facility] STORE 93931, 171, cm, 02/21/23 20:09:00 EDT, Height, 72, kg, 02/19/23 13:52:00 EDT, Dry Weight Start Date: 02/21/23 Status: Ordered citalopram 20 mg oral tablet See Instructions, TAKE 1 TABLET BY MOUTH EVERY DAY, # 90 tablet, 3 Refills, Maintenance, 12/21/22 15:35:00 EDT, [facility]/pharmacy #[id number], 170, cm, 11/12/22 8:55:00 EDT, Height, [...] Refills, Maintenance, 07/23/22 12:10:00 EDT, [facility], 170, cm, 05/28/22 13:32:00 EST, Height, 73, [...] DAY, # 90 tablet, 3 Refills, Maintenance, 11/12/22 9:13:00 EDT, [facility], 170, cm, 11/12/22 8:55:00 EDT, Height, 73, kg, 05/28/22 13:32:00 EST, Dry Weight Start Date: 11/12/22 Status: Ordered Multivitamin Daily, Centrum silver, 0 Refills, Maintenance, 04/26/18 10:26:38 EST Start Date: 04/26/18 Status: Ordered turmeric By Mouth, Daily, 0 [...] inguinal hernia repair Confirmed Active History of varicose veins Confirmed [...] 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 [...] Primary Care Nurse Name: Zoe Nunez Position: [facility] RN Member Role: Primary Care Nurse Name: Robby Servin RN Position: [facility] RN Member Role: Primary Care Nurse Name: Pravin Santo MD Position: [facility] Physician - Primary Care Member Role: PCP Address: Address: [address] [place] [id number]- Name: Alyse Mckinney RN Position: [facility] RN Member Role: Primary Care Nurse Care Team Related Persons Name: ROSEMARYARASH JANNET Address: home [address] [place] [address]
--- OUTSIDE RECORDS SUMMARY | 2023-10-06 12:02 | XMS_ITS | Continuity of Care Document ---
Author Organization [facility] Josh Stevens Jorge lt Address [address] [place] [address]- Care Team Providers Care Group Insurance Specialist Name Role Phone Hansa URIAS, Pravin Hidalgo Primary Care Physician [phone] [facility] 05/[facility]23 - 06/30/23 [facility] Josh Stevens Adult [address] [place] [address]- Allergies, Adverse Reactions, Alerts Substance Reaction Severity Status penicillins hives, itchiness Active Immunizations Given and Recorded Vaccine Date Status Refusal Reason SARS-CoV-2(COVID-19)mRNA-LNP vac([id number]) 03/08/23 Recorded influenza virus vaccine, inactivated 1 [...] corded pneumococcal 20-valent conjugate vaccine 10/20/22 Given [id number]-DcH-6bTOE 12y+ bivalent booster vax 02/11/22 Recorded SARS-CoV-2 mRNA (twlsjwi-cndv-asjif) vax 08/21/21 Recorded SARS-CoV-2 (COVID-19) mRNA BNT-162b2 [...] Pertussis (oldterm) 08/02/10 Give n 1Result Comment: [facility]: [id number] 2Location History: SHAM 3Result Comment: [facility]: [phone] EXP: [id number] 4Result Comment: [12/19/2013] #2 5Result Comment: [10/19/2013] #1 6Result Comment: [12/19/2013] #2 7Admin Note: [facility] Medications Albuterol (Eqv-Proventil HFA) 90 mcg/inh inhalation [...] tablet, 1 Refills, Maintenance, 01/14/23 10:32:00 EDT, [facility] #[id number], 170, cm, 11/12/22 8:55:00 EDT, Height, 73, kg, 05/28/22 13:32:00 EST, Dry Weight Start Date: 01/14/23 Status: Ordered aspirin 81 mg oral tablet 1 tablet = 81 mg, By Mouth, Daily, # 30 tablet, 0 Refills, Maintenance, Tablet Start Date: 08/03/11 Status: Ordered atorvastatin 10 mg oral tablet 1 tablet, By Mouth, Daily, # 90 tablet, 1 Refills, Maintenance, 06/28/23 8:01:00 EST, [facility] STORE 38509, 171, cm, 06/22/23 7:29:00 EST, Height, 72, kg, 02/19/23 13:52:00 EDT, Dry Weight Start Date: 06/28/23 Status: Ordered betamethasone-clotrimazole 0.05%-1% topical cream 1 application, Topically, 2 times a day, # 45 Gm, 0 Refills, Maintenance, 05/27/23 9:29:00 EST, Cream, [facility]/pharmacy #[id number], Partial fill upon patient request if the prescription is for a schedule II opioid drug., 1 application Topically 2 times a day,... Start Date: 05/27/23 Status: Ordered citalopram 20 mg oral tablet See Instructions, TAKE 1 TABLET BY MOUTH EVERY DAY, # 90 tablet, 3 Refills, Maintenance, 12/21/22 15:35:00 EDT, [facility]/pharmacy #7111, 170, cm, 11/12/22 8:55:00 EDT, Height, [...] tablet, 3 Refills, Maintenance, 06/01/23 9:17:00 EST, [facility] STORE 37389, 171, cm, 05/27/23 8:55:00 EST, Height, 72, [...] 06/29/23 9:46:00 EST, Tablet, [facility], Partial fill upon patient request if the prescription is for a schedule II opioid drug., 171, cm, 06/22/23 7:29:0... Start Date: 06/29/23 Stop Date: 07/13/23 Status: Ordered metFORMIN 500 mg oral tablet 1 tablet = 500 mg, By Mouth, Daily, # 90 tablet, 3 Refills, Maintenance, 04/13/23 15:29:00 EST, [facility]/pharmacy #[id number], 171, cm, 04/13/23 15:06:00 EST, Height, 72, kg, 02/19/23 13:52:00 EDT, Dry Weight Start Date: 04/13/23 Status: Ordered Multivitamin Daily, Centrum silver, 0 Refills, Maintenance, 04/26/18 10:26:38 EST Start Date: 04/26/18 Status: Ordered Nucific Bior 4 Nucific Bior 4, See Instructions, Refills 0, Maintenance, 04/13/23 15:05:00 EST, Supply Start Date: 04/13/23 Status: Ordered predniSONE 20 mg oral tablet 2 tablet = 40 mg, By Mouth, Daily, for 7 days, # 14 tablet, 0 Refills, Acute 07/06/23 9:56:00 EST, 06/29/23 9:56:00 EST, Tablet, [facility], Partial fill upon patient request if the prescription is for a schedule II opioid drug., 171, cm... 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 [...] Team Personnel Name: Chelsea López RN Position: [facility] RN Member Role: Primary Care Nurse Name: Ángel Castrejon RN Position: S RN Member Role: Primary Care Nurse Name: Alexia Ortiz RN Position: S RN Member Role: Primary Care Nurse Name: Zoe Nunez Position: S RN Member Role: Primary Care Nurse Name: Pravin Santo MD Position: [facility] Physician - Primary Care Member Role: PCP Address: Address: [address] [place] [address]- Name: Alyse Mckinney RN Position: [facility] RN Member Role: Primary Care Nurse Care Team Related Persons Name: JANNET BECK Address: home [address] [place] [address]
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
--- OUTSIDE RECORDS SUMMARY | 2023-10-06 12:03 | XMS_ITS | Continuity of Care Document ---
Author Organization [facility] Address [address] [place] [address], [address] [place] [address]- Care Team Providers Care Medical Lab Tech Instructor Name Role Phone Hansa URIAS, Pravin Hidalgo Primary Care Physician [phone] Encounter [facility] Date(s): 04/05/23 - 04/12/23 [facility] [address] [place] [address], [address] [place], [place] [address] Attending Physician: Rom Henry DO Allergies, Adverse Reactions, Alerts Substance Reaction Severity Status penicillins hives, itchiness Active Immunizations Given and Recorded Vaccine Date Status Refusal Reason SARS-CoV-2(COVID-19)mRNA-LNP vac([id number]) 03/08/23 Recorded influenza virus vaccine, inactivated 1 [...] corded pneumococcal 20-valent conjugate vaccine 10/20/22 Given [id number] 12y+ bivalent booster vax 02/11/22 Recorded SARS-CoV-2 mRNA ([id number]) vax 08/21/21 Recorded SARS-CoV-2 (COVID-19) mRNA BNT-162b2 [...] Pertussis (oldterm) 08/02/10 Give n 1Result Comment: [facility]: [id number] 2Location History: SHAM 3Result Comment: [facility]: [id number] EXP: [id number] 4Result Comment: [12/19/2013] #2 5Result Comment: [10/19/2013] #1 6Result Comment: [12/19/2013] #2 7Admin Note: [facility] Medications Aller-Brenton 10 mg oral tablet 1 tablet, By Mouth, Daily, # 90 tablet, 1 Refills, Maintenance, 01/14/23 10:32:00 EDT, [facility][id number], 170, cm, 11/12/22 8:55:00 EDT, Height, 73, [...] Refills, Maintenance, 02/21/23 21:20:00 EDT, [facility], 171, cm, 02/21/23 20:09:00 EDT, Height, 72, kg, 02/19/23 13:52:00 EDT, Dry Weight Start Date: 02/21/23 Status: Ordered citalopram 20 mg oral tablet See Instructions, TAKE 1 TABLET BY MOUTH EVERY DAY, # 90 tablet, 3 Refills, Maintenance, 12/21/22 15:35:00 EDT, [facility]/pharmacy #[id number], 170, cm, 11/12/22 8:55:00 EDT, Height, [...] tablet, 3 Refills, Maintenance, 07/23/22 12:10:00 EDT, [facility] 47[facility], 170, cm, 05/28/22 13:32:00 EST, Height, 73, [...] DAY, # 90 tablet, 3 Refills, Maintenance, 04/12/23 12:27:00 EST, [facility], 171, cm, 04/05/23 16:01:00 EST, Height, 72, kg, 02/19/23 13:52:00 EDT, Dry Weight Start Date: 04/12/23 Status: Ordered Multivitamin Daily, Centrum silver, 0 [...] dependent type 2 diabetes mellitus Confirmed Active 75524; repeat 2023 2Colonoscopy 2013 normal, repeat 2018. 3colo 2008 polyp, repeat 2013 4colo 2018 5egd 2012 nl per pt. report 6colo 2018 7Abnormal MRI cervical spine, followed by Dr. De Leon. 8colo 2019 Vital Signs Most recent to oldest [Reference Range]: 1 Height 171 cm (04/05/23 4:01 PM) Weight 71.7 kg (04/05/23 4:01 PM) Oxygen Saturation [94-100 %] 96 % (04/05/23 4:01 PM) Pulse Rate [55-90 bpm] 83 bpm (04/05/23 4:01 PM) Body Mass Index [18.5-24.99 kg/m2] 24.52 kg/m2 (04/05/23 4:01 PM) Blood Pressure [90-138/55-84 mm Hg] 142/ 64mm Hg *H* (04/05/23 4:01 PM) Temperature [96.8-100.4 DegF] 97.6 DegF (04/05/23 4:01 PM) Mode of Delivery (Oxygen) Room air (04/05/23 4:01 PM) Blood pressure sites Arm, right (04/05/23 4:01 PM) Temperature Route Temporal (04/05/23 4:01 PM) Dry Weight Obtained Via Standing scale (04/05/23 4:01 PM) Social History Social History Type Response Smoking Status Former smoker, quit more than 30 days ago entered on: 03/02/23 Sex Patient Care team information Care Team Personnel Name: Chelsea López RN Position: [facility] RN Member Role: Primary Care Nurse Name: Miranda Castrejon RN Position: S RN Member Role: Primary Care Nurse Name: Alexia Ortiz RN Position: S RN Member Role: Primary Care Nurse Name: Zoe Nunez Position: S RN Member Role: Primary Care Nurse Name: Robby Servin RN Position: S RN Member Role: Primary Care Nurse Name: Pravin Santo MD Position: [facility] Physician - Primary Care Member Role: PCP Address: Address: [address] [place] [id number]- Name: Alyse Mckinney RN Position: [facility] RN Member Role: Primary Care Nurse Care Team Related Persons Name: SORAYASHAZIA STOKESARET Address: home [address] [place] [address]
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
--- OUTSIDE RECORDS SUMMARY | 2023-10-06 12:03 | XMS_ITS | Continuity of Care Document ---
Author Organization [facility] Address [address] [place] [address]- Care Team Providers Care Box Bender Name Role Phone Pravin Leon MD Primary Care Physician Encounter [facility] [place] Date(s): 07/14/19 - 07/24/19 [facility] [address] [place] [address]- [facility] Attending Physician: Brain Jacob Admitting Physician: AdmBrian tran Referring Physician: AdmtrBrian Allergies, Adverse Reactions, Alerts Substance Reaction Severity Status penicillins hives, itchiness Active Immunizations Given and Recorded Vaccine Date Status Refusal Reason Influenza Virus Vaccine (oldterm) 02/22/19 Recorde d zoster vaccine, inactivated 04/05/18 Given influenza virus vaccine, inactivated 02/10/18 Jaxson rded [...] #1 4Result Comment: [12/19/2013] #2 5Admin Note: [facility] Medications Antabuse 250 mg oral tablet 1 tablet = 250 mg, By Mouth, Daily, # 90 tablet, 3 Refills, Maintenance, 09/05/18 9:48:14 EDT, Tablet Start Date: 09/05/18 Status: Ordered aspirin 81 mg oral tablet 1 tablet = 81 mg, By Mouth, Daily, # 30 tablet, 0 Refills, Maintenance, Tablet Start Date: 08/03/11 Status: Ordered atorvastatin 10 mg oral tablet 1 tablet = 10 mg, By Mouth, Daily, # 90 tablet, 1 Refills, Maintenance, 06/22/19 10:52:00 EST, [facility], 170.18, cm, 05/30/19 14:26:00 EST, Height [...] Refills 11, Maintenance,TEST BS TID E11.9 FAX [phone], 01/30/19 11:03:21 EDT, Compound Start Date: 01/30/19 Status: Ordered CeleXA 20 mg oral tablet 20 mg, 1, tablet, By Mouth, Daily, PER DR LEON, # 90 tablet, Refills 3, Tot. Refills 3, Maintenance,10/05/18 16:12:00 EDT, Route to Pharmacy Electronically, [id number], [facility]/pharmacy #[id number] Start Date: 10/05/18 Stop Date: [...] 16 Gm, 6 Refills, Maintenance, 06/25/16 14:12:57, [place], 2 sprays Nares, Both Daily Start Date: 06/25/16 Status: Ordered Lancets See Instructions, # 100 each, Refills 5, Tot. Refills 5, Maintenance, tests bid -tid for dm type 2 250.00, 12/08/12 14:13:50, Compound Start Date: 12/08/12 Status: Ordered metFORMIN 500 mg oral tablet 1 tablet = 500 mg, By Mouth, Daily, # 90 tablet, 1 Refills, Maintenance, 05/07/19 9:36:00 EST, Tablet, [facility]/pharmacy #7111, 170.18, cm, 01/30/19 10:28:00 EDT, Height, 72.27, kg, 06/01/17 12:27:00 EST,Dry Weight Start Date: 05/07/19 Status: Ordered physical therapy physical therapy, See Instructions, # 1 each, Refills 0, Tot. Refills 0, Maintenance, evaluate and treat for left elbow pain, 05/30/19 14:54:00 EST, Compound Start Date: 05/30/19 Status: Ordered Viagra 50 mg oral tablet 1 tablet = 50 mg, By Mouth, Daily, 1 hour before sexual activity, # 10 tablet, 5 Refills, Maintenance, 06/07/19 16:28:00 EST, Tablet, [facility] # [facility], 170.18, cm, 05/30/19 14:26:00 [...] of colon(Confirmed) 8 Active Raynaud's Syndrome(Confirmed) Active Tobacco abuse(Confirmed) Active 94692; repeat 2023 2Colonoscopy 2012 normal, repeat 2017. 3colo 2008 polyp, repeat 2012 4colo 2018 5egd 2012 nl per pt. report 6colo 2019 7Abnormal MRI cervical spine, followed by Dr. De Leon. 8colo 2018 Social History Social History Type Response Smoking Status Current some day smo ker; Other: pipe; entered on: 04/16/14 Sex
--- OUTSIDE RECORDS SUMMARY | 2023-10-06 12:03 | XMS_ITS | Continuity of Care Document ---
Author Organization [facility] Rodney Jorge Address [address] [place] [address]- Care Team Providers Care Carbon Plant Grinder Name Role Phone Pravin Santo MD Primary Care Physician [facility] Date(s): 05/27/23 - 06/03/23 [facility] Adult [address] [place] [address]- Encounter Diagnosis Alcohol Abuse(Discharge Diagnosis) - 05/27/23 DM (diabetes mellitus), type 2(Discharge Diagnosis) - 05/27/23 Hypercholesterolemia(Discharge Diagnosis) - 05/27/23 Anxiety(Discharge Diagnosis) - 05/27/23 Attending Physician: Pravin Santo MD Allergies, Adverse Reactions, Alerts Substance Reaction Severity Status penicillins hives, itchiness Active Immunizations Given and Recorded Vaccine Date Status Refusal Reason SARS-CoV-2(COVID-19)mRNA-LNP vac([id number]) 03/08/23 Recorded influenza virus vaccine, inactivated 1 [...] corded pneumococcal 20-valent conjugate vaccine 10/20/22 Given [id number] 12y+ bivalent booster vax 02/11/22 Recorded SARS-CoV-2 mRNA ([id number]) vax 08/21/21 Recorded SARS-CoV-2 (COVID-19) mRNA BNT-162b2 [...] Pertussis (oldterm) 08/02/10 Give n 1Result Comment: [facility]: 38706-195-65 2Location History: SHAM 3Result Comment: [facility]: 38824-541-80 EXP: [id number] 4Result Comment: [12/19/2013] #2 5Result Comment: [10/19/2013] #1 6Result Comment: [12/19/2013] #2 7Admin Note: [facility] Medications Aller-Brenton 10 mg oral tablet 1 tablet, By Mouth, Daily, # 90 tablet, 1 Refills, Maintenance, 01/14/23 10:32:00 EDT, [id number], 170, cm, 11/12/22 8:55:00 EDT, Height, 73, [...] Refills, Maintenance, 02/21/23 21:20:00 EDT, [facility], 171, cm, 02/21/23 20:09:00 EDT, Height, 72, kg, 02/19/23 13:52:00 EDT, Dry Weight Start Date: 02/21/23 Status: Ordered betamethasone-clotrimazole 0.05%-1% topical cream 1 application, Topically, 2 times a day, # 45 Gm, 0 Refills, Maintenance, 05/27/23 9:29:00 EST, Cream, [facility]/pharmacy #[id number], Partial fill upon patient request if the prescription is for a schedule II opioid drug., 1 application Topically 2 times a day,... Start Date: 05/27/23 Status: Ordered citalopram 20 mg oral tablet See Instructions, TAKE 1 TABLET BY MOUTH EVERY DAY, # 90 tablet, 3 Refills, Maintenance, 12/21/22 15:35:00 EDT, [facility]/pharmacy #[id number], 170, cm, 11/12/22 8:55:00 [...] tablet, 3 Refills, Maintenance, 06/01/23 9:17:00 EST, [facility], 171, cm, 05/27/23 8:55:00 EST, Height, 72, [...] tablet, 3 Refills, Maintenance, 04/13/23 15:29:00 EST, [facility]/pharmacy #[id number], 171, cm, 04/13/23 15:06:00 [...] dependent type 2 diabetes mellitus Confirmed Active 25488; repeat 2023 2Colonoscopy 2012 normal, repeat 2017. 3colo 2007 polyp, repeat 2012 4colo 2018 5egd 2011 nl per pt. report [id number] 7Abnormal MRI cervical spine, followed by Dr. De Leon. [id number] Diagnosis Diagnosis Type Effective Dates Health Status Clinical Service Informant Alcohol Abuse Discharge Diagnosis 05/27/23 DM (diabetes mellitus), type 2 Discharge Diagnosis 05/27/23 Hypercholesterolemia Discharge Diagnosis 05/27/23 Anxiety Discharge Diagnosis 05/27/23 Vital Signs Most recent to oldest [Reference Range]: 1 Height 171 cm (05/27/23 8:55 AM) Weight 73.3 kg (05/27/23 8:55 AM) Oxygen Saturation [94-100 %] 96 % (05/27/23 8:55 AM) Pulse Rate [55-90 bpm] 57 bpm (05/27/23 8:55 AM) Body Mass Index [18.5-24.99 kg/m2] 25.07 kg/m2 *H* (05/27/23 8:55 AM) Blood Pressure [90-138/55-84 mm Hg] 136/ 64mm Hg (05/27/23 8:55 AM) Mode of Delivery (Oxygen) Room air (05/27/23 8:55 AM) Blood pressure sites Arm, left (05/27/23 8:55 AM) Weight Obtained Via Standing scale (05/27/23 8:55 AM) Social History Social History Type Response Smoking Status Former smoker, quit more than 30 days ago entered on: 03/02/23 Sex Note * Tea Thompson: PERFORM, SIGN, VERIFY Event Display: Patient Education/Instruction Authored Date: [id number] [facility] *BMP So Rodney Coreas Clinical Summary Name NATIVIDAD BECK Age 78 Years 1945 PCP Pravin Santo MD [id number] Visit Date 05/27/2023 08:54:00 Additional Instructions: Scheduled Appointments?? Future Appointments ?*[facility] [address] ?[place],??[place],??[address] ?Phone:??--?Fax:??-- ?Appt. Date:??07/05/2023?10:30 AM ?Scheduled Provider:??Rom Henry DO Follow-Up Instructions ?? With: Address: When: Pravin Santo MD In 6 months Comments: Physical examination Diagnosis Pure hypercholesterolemia, unspecified; Anxiety disorder, unspecified; Rash and other nonspecific skin eruption; Type 2 diabetes mellitus without complications; Alcohol abuse, uncomplicated Medications: Please continue your medications until treatment is completed or stopped by your provider. Discuss any questions related to medications with your provider. New Medications [facility]/pharmacy #[id number], [address], [place] [id number], [phone] Betamethasone-Clotrimazole Topical (betamethasone-clotrimazole 0.05%-1% topical cream) 1 joseph Topically twice a day. Refills: 0. Next Dose: Medications to Continue with No Changes These medications were not printed or sent to your pharmacy Aspirin (aspirin 81 mg oral tablet) 1 tab(s) Oral Daily. Refills: 0. Next Dose: Atorvastatin (atorvastatin 10 mg oral tablet) 1 tab(s) Oral Daily. Refills: 1. Next Dose: Calcium Citrate (Citracal Tablet) Daily. Next Dose: Cetirizine (Aller-Brenton 10 mg oral tablet) 1 tab(s) Oral Daily. Refills: 1. Next Dose: Chondroitin/Glucosamine/Methylsulfonylmethane (Glucosamine & Chondroitin with MSM) Daily. Next Dose: Citalopram (citalopram 20 mg oral tablet) TAKE 1 TABLET BY MOUTH EVERY DAY. Refills: 3. Next Dose: Disulfiram (disulfiram 250 mg oral tablet) 1 tab(s) Oral Daily. Refills: 3. Next Dose: Garlic Daily. Next Dose: Ginkgo (Gingko Biloba) Daily. Next Dose: Metformin (metFORMIN 500 mg oral tablet) 1 tab(s) Oral Daily. Refills: 3. Next Dose: Miscellaneous Rx (citirizine HCL 10 MG) Next Dose: Miscellaneous Rx (Nucific Bior 4) Next Dose: Multivitamin Daily. Centrum silver. Next Dose: Griffin-3 Polyunsaturated Fatty Acids (Fish Oil) Oral Daily. Next Dose: turmeric Oral Daily. Next Dose: Vitamin E Oral Daily. Next Dose: Allergy Info:?? penicillins Medications Given This Visit Future Orders ?PSA? Order Date:11/25/23?- Complete by?12/23/23 ?Hemoglobin A1C (Monitoring)? Order Date:11/25/23?- Complete by?12/23/23 ?CBC? Order Date:11/25/23?- Complete by?12/23/23 ?Lipid Panel? Order Date:11/25/23?- Complete by?12/23/23 ?Thyroid Panel? Order Date:11/25/23?- Complete by?12/23/23 ?Comprehensive Metabolic Panel? Order Date:11/25/23?- Complete by?12/23/23 ?Microalbumin Urine? Order Date:11/25/23?- Complete by?12/23/23 Vital Signs Height 171 cm Weight 73.3 kg BMI 25.07 kg/m2 Blood Pressure 136 mm Hg/64 mm Hg Temperature Pulse Rate 57 bpm Respiratory Rate 02 Sat Mode of Delivery 96 %/Room air You can now view a summary of your hospital visit from the comfort of your home through a free online portal called [employer]. [employer] is a website that allows you to securely view your medical information including discharge summary, medications and follow-up visits. ??You can alsosend a secure electronic message to your doctor???s office to request appointments, renew medications or just ask a question. You can enroll at [email or web address] or register during your next office visit. Disclaimer:?? The information provided is of a general nature and is intended to be used in conjunction with the recommendations and advice of your health care practitioner. ??Every effort has been made to ensure that the information provided is accurate and complete at the time it is provided to you however, as your needs change, or, as new ??information becomes available, different or additional instructions may be required. If you have questions, please consult with your primary care provider or pharmacist, as appropriate. ??This information is not intended to serve as substitution for assessment and evaluation by a qualified health care provider. If you do not have a primary care provider, you may find a [facility] provider by calling [facility] Link at [phone]. [facility], in keeping with [facility] guidance, no longer requires face masks for staff, patientsor visitors in most situations. Similar to time spent indoors at other locations, there is the chance that you were exposed to respiratory viruses during your time with us (such as flu or COVID-19).? If you develop symptoms concerning for a viral respiratory infection, please seek testing (and treatment if indicated) from your medical provider or home test kit. For information about the plan of care including goals and instructions for your diagnosis, please see the patient education orders section of this document. Patient Education Materials?? The content of this educational material or handout may have been modified, supplemented, or adapted from its original content and format to support your individualized medical care. Patient Care team information Care Team Personnel Name: Chelsea López RN Position: S RN Member Role: Primary Care Nurse Name: Miranda Castrejon RN Position: S RN Member Role: Primary Care Nurse Name: Alexia Ortiz RN Position: S RN Member Role: Primary Care Nurse Name: Zoe Nunez Position: S RN Member Role: Primary Care Nurse Name: Robby Servin RN Position: [facility] RN Member Role: Primary Care Nurse Name: Hansa URIAS, Pravin Hidalgo Position: S Physician - Primary Care Member Role: PCP Address: Address: [address] [place] [id number]- Name: Alyse Mckinney RN Position: [facility] RN Member Role: Primary Care Nurse Care Team Related Persons Name: KIRAN JANNET Address: home [address] [place] [address]
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
--- OUTSIDE RECORDS SUMMARY | 2023-10-06 12:03 | XMS_ITS | Continuity of Care Document ---
Author Organization [facility] Rodney Jorge lt Address [address] [place] [address]- Care Team Providers Care Wall Covering Installer Name Role Phone Pravin Santo MD Primary Care Physician [place] [facility]18[place]23 - 09/17/23 [facility] Josh Umanaley Adult [address] [place] [address]- Allergies, Adverse Reactions, Alerts Substance Reaction Severity Status penicillins hives, itchiness Active Immunizations Given and Recorded Vaccine Date Status Refusal Reason SARS-CoV-2(COVID-19)mRNA-LNP vac([id number]) 03/08/23 Recorded influenza virus vaccine, inactivated 1 [...] corded pneumococcal 20-valent conjugate vaccine 10/20/22 Given [id number] 12y+ bivalent booster vax 02/11/22 Recorded SARS-CoV-2 mRNA (voziknt-bjta-oyyhv) vax 08/21/21 Recorded SARS-CoV-2 (COVID-19) mRNA BNT-162b2 [...] Pertussis (oldterm) 08/02/10 Give n 1Result Comment: [facility]: [id number] 2Location History: SHAM 3Result Comment: [facility]: [id number] EXP: [id number] 4Result Comment: [12/19/2013] #2 5Result Comment: [10/19/2013] #1 6Result Comment: [12/19/2013] #2 7Admin Note: [facility] Medications Albuterol (Eqv-Proventil HFA) 90 mcg/inh [...] Daily, # 90 tablet, 1 Refills, Maintenance, 08/18/23 5:02:00 EDT, [facility] # 302, 171, cm, 06/22/23 7:29:00 EST, Height, 72, kg, 02/19/23 13:52:00 EDT, Dry Weight Start Date: 08/18/23 Status: Ordered aspirin 81 mg oral tablet 1 tablet = 81 mg, By Mouth, Daily, # 30 tablet, 0 Refills, Maintenance, Tablet Start Date: 08/03/11 Status: Ordered atorvastatin 10 mg oral tablet 1 tablet, By Mouth, Daily, # 90 tablet, 1 Refills, Maintenance, 06/28/23 8:01:00 EST, [facility], 171, cm, 06/22/23 7:29:00 EST, Height, 72, kg, 02/19/23 13:52:00 EDT, Dry Weight Start Date: 06/28/23 Status: Ordered betamethasone-clotrimazole 0.05%-1% topical cream 1 application, Topically, 2 times a day, # 45 Gm, 0 Refills, Maintenance, 05/27/23 9:29:00 EST, Cream, [facility]/pharmacy #[id number], Partial fill upon patient request if the prescription is for a schedule II opioid drug., 1 application Topically 2 times a day,... Start Date: 05/27/23 Status: Ordered citalopram 20 mg oral tablet See Instructions, TAKE 1 TABLET BY MOUTH EVERY DAY, # 90 tablet, 3 Refills, Maintenance, 12/21/22 15:35:00 EDT, [facility]/pharmacy #[id number], 170, cm, 11/12/22 8:55:00 [...] Refills, Maintenance, 06/01/23 9:17:00 EST, [facility], 171, cm, 05/27/23 8:55:00 EST, Height, 72, kg, 02/19/23 13:52:00 EDT, Dry Weight Start Date: 06/01/23 Status: Ordered Fish Oil By Mouth, Daily, 0 Refills, Maintenance, 04/26/18 10:26:55 EST Start Date: 04/26/18 Status: Ordered Flonase Sensimist 27.5 mcg/inh nasal spray See Instructions, SPRAY 2 SPRAY INTO EACH NOSTRIL DAILY NEEDED FOR ALLERGY SYMPTOMS, # 9.1 mL, 11 Refills, Maintenance, 08/02/23 8:30:00 EDT, [facility], 30, SPRAY 2 SPRAY INTO EACH NOSTRIL [...] 06/29/23 9:46:00 EST, Tablet, [facility], Partial fill upon patient request if the prescription is for a schedule II opioid drug., 171, cm, 06/22/23 7:29:0... Start Date: 06/29/23 Stop Date: 07/13/23 Status: Ordered metFORMIN 500 mg oral tablet 1 tablet = 500 mg, By Mouth, Daily, # 90 tablet, 3 Refills, Maintenance, 04/13/23 15:29:00 EST, [facility]/pharmacy #[id number], 171, cm, 04/13/23 15:06:00 [...] dependent type 2 diabetes mellitus Confirmed Active 59843; repeat 2023 2Colonoscopy 2012 normal, repeat 2017. [...] Team Personnel Name: Chelsea López RN Position: [facility] RN Member Role: Primary Care Nurse Name: Ángel Castrejon RN Position: [facility] RN Member Role: Primary Care Nurse Name: Alexia Ortiz RN Position: [facility] RN Member Role: Primary Care Nurse Name: Zoe Nunez Position: [facility] RN Member Role: Primary Care Nurse Name: Robby Servin RN Position: [facility] RN Member Role: Primary Care Nurse Name: Pravin Santo MD Position: [facility] Physician - Primary Care Member Role: PCP Address: Address: [address] [place] [address]- Name: Alyse Mckinney RN Position: [facility] RN Member Role: Primary Care Nurse Care Team Related Persons Name: JANNET BECK Address: home [address] [place] [address]
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
--- OUTSIDE RECORDS SUMMARY | 2023-10-06 12:03 | XMS_ITS | Continuity of Care Document ---
Author Organization [facility] Rodney Jorge Address [address] [place] [address]- Care Team Providers Care Pilot Can Router Name Role Phone Hansa URIAS, Pravin Hidalgo Primary Care Physician [facility] Date(s): 03/02/23 - 03/09/23 [facility] Marcell Adult [address] [place] [address]- Encounter Diagnosis CAP (community acquired pneumonia)(Discharge Diagnosis) - 03/02/23 Unsteady gait(Discharge Diagnosis) - 03/02/23 Hyponatremia(Discharge Diagnosis) - 03/02/23 Hypotension(Discharge Diagnosis) - 03/02/23 Attending Physician: Not on Staff, Attending MD Allergies, Adverse Reactions, Alerts Substance Reaction Severity Status penicillins hives, itchiness Active Immunizations Given and Recorded Vaccine Date Status Refusal Reason influenza virus vaccine, inactivated 1 03/02/23 Gi [...] corded pneumococcal 20-valent conjugate vaccine 10/20/22 Given [id number] 12y+ bivalent booster vax 02/11/22 Recorded SARS-CoV-2 mRNA (ehruhga-ptbe-bmwak) vax 08/21/21 Recorded SARS-CoV-2 (COVID-19) mRNA BNT-162b2 [...] Pertussis (oldterm) 08/02/10 Give n 1Result Comment: [facility]: [id number] 2Location History: SHAM 3Result Comment: [facility]: [id number] EXP: [id number] 4Result Comment: [12/19/2013] #2 5Result Comment: [10/19/2013] #1 6Result Comment: [12/19/2013] #2 7Admin Note: [facility] Medications Aller-Brenton 10 mg oral tablet 1 tablet, By Mouth, Daily, # 90 tablet, 1 Refills, Maintenance, 01/14/23 10:32:00 EDT, [facility] #[id number], 170, cm, 11/12/22 8:55:00 EDT, Height, 73, [...] Refills, Maintenance, 02/21/23 21:20:00 EDT, [facility], 171, cm, 02/21/23 20:09:00 EDT, Height, 72, kg, 02/19/23 13:52:00 EDT, Dry Weight Start Date: 02/21/23 Status: Ordered citalopram 20 mg oral tablet See Instructions, TAKE 1 TABLET BY MOUTH EVERY DAY, # 90 tablet, 3 Refills, Maintenance, 12/21/22 15:35:00 EDT, [facility]/pharmacy #[id number], 170, cm, 11/12/22 8:55:00 [...] Refills, Maintenance, 07/23/22 12:10:00 EDT, [facility], 170, cm, 05/28/22 13:32:00 EST, Height, 73, [...] 750 mg, By Mouth, Every 24 hours, first day will be 02/26. last day will be 04/05 if ID decides on 6 week course, # 39 tablet, 0 Refills, Acute 04/05/23 12:30:00 EST, 02/25/23 13:08:00 EDT, [facility]/pharmacy #7111, Partial fill upon patient requ... 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 3colo 2008 polyp, repeat 2013 4colo 2018 5egd 2012 nl per pt. report 6colo 2018 7Abnormal MRI cervical spine, followed by Dr. De Leon. 8c2018 Diagnosis Diagnosis Type Effective Dates Health Status Clinical Service Informant CAP (community acquired pneumonia) Discharge Diagnosis 03/02/23 Unsteady gait Discharge Diagnosis 03/02/23 Hyponatremia Discharge Diagnosis 03/02/23 Hypotension Discharge Diagnosis 03/02/23 Vital Signs Most recent to oldest [Reference Range]: 1 2 Height 171 cm (03/02/23 9:20 AM) 171 cm (03/02/23 8:55 AM) Weight 67.5 kg (03/02/23 8:55 AM) Oxygen Saturation [94-100 %] 100 % (03/02/23 9:20 AM) Pulse Rate [55-90 bpm] 66 bpm (03/02/23 8:55 AM) Body Mass Index [18.5-24.99 kg/m2] 23.08 kg/m2 (03/02/23 8:55 AM) Blood Pressure [90-138/55-84 mm Hg] 100/ 50mm Hg (03/02/23 8:55 AM) Respiratory Rate [16-30 br/min] 16 br/mi n (03/02/23 8:55 AM) Temperature [96.8-100.4 DegF] 98.0 DegF (03/02/23 8:55 AM) Mode of Delivery (Oxygen) Room air (03/02/23 9:20 AM) Room air (03/02/23 8:55 AM) Blood pressure sites Arm, right (03/02/23 8:55 AM) Temperature Route Oral (03/02/23 8:55 AM) Weight Obtained Via Standing scale (03/02/23 8:55 AM) Social History Social History Type Response Smoking Status Former smoker, quit more than 30 days ago entered on: 03/02/23 Sex Note * Kalli Ventura: PERFORM, SIGN, VERIFY Event Display: Patient Education/Instruction Authored Date: [id number] [facility] *BMP So [facility] Coreas Clinical Summary Name NATIVIDAD BECK Age 77 Years 1945 PCP Pravin Santo MD PCP Visit Date 03/02/2023 08:44:00 Additional Instructions: Scheduled Appointments?? Future Appointments ?[facility] ?[address]??[place],??[place],??[address] ?Phone:??[phone]?Fax:??-- ?Appt. Date:??03/02/2023?7:30 PM ?Scheduled Provider:??[facility] [address] ?[facility] [address] ?[place],??[place],??[address] ?Phone:??--?Fax:??-- ?Appt. Date:??03/29/2023?2:30 PM ?Scheduled Provider:??Elaine REED, Rom Fisher ?*BMP??[facility] ?[address],??[address] ?Phone:??--?Fax:??-- ?Appt. Date:??04/13/2023?3:40 PM ?Scheduled Provider:??Robin RAY , Елена Mike ?*Specialty??S[facility] ?Phone:??--?Fax:??-- ?Appt. Date:??04/15/2023?10:00 AM ?Scheduled Provider:??[employer] [facility] ?*BMP[facility] ?[address]??[facility],??[place],??[address] ?Phone:??--?Fax:??-- ?Appt. Date:??05/27/2023?8:50 AM ?Scheduled Provider:??Hansa URIAS, Pravin Hidalgo Follow-Up Instructions ?? With: Address: When: Robin RAY, Елена Mike [address] [facility] [place] [id number] Business (1) In 1 month Comments: 40 min Diagnosis Pyothorax without fistula Medications: Please continue your medications until treatment is completed or stopped by your provider. Discuss any questions related to medications with your provider. Medications to Continue with No Changes These [...] Dose: Ginkgo (Gingko Biloba) Daily. Next Dose: Levofloxacin (levoFLOXacin 750 mg oral tablet) 1 tab(s) Oral every 24 hours. first day will be 02/26. last day will be 04/05 if ID decides on 6 week course. Refills: 0. Next Dose: Metformin (metFORMIN 500 mg oral tablet) TAKE 1 TABLET BY MOUTH EVERY DAY. Refills: 3. Next Dose: Multivitamin Daily. Centrum silver. Next Dose: Erie-3 Polyunsaturated Fatty Acids (Fish Oil) Oral Daily. Next Dose: turmeric Oral Daily. Next Dose: Vitamin E Oral Daily. Next Dose: Allergy Info:?? penicillins Medications Given This Visit Future Orders ?C Reactive Protein? Order Date:03/02/23?- Complete by?03/04/23 ?Sedimentation Rate? Order Date:03/02/23?- Complete by?03/04/23 ?Comprehensive Metabolic Panel? Order Date:03/02/23?- Complete by?03/04/23 ?CBC w/ Differential? Order Date:03/02/23?- Complete by?03/04/23 ?C Reactive Protein? Order Date:03/09/23?- Complete by?03/11/23 ?CBC w/ Differential? Order Date:03/09/23?- Complete by?03/11/23 ?Comprehensive Metabolic Panel? Order Date:03/09/23?- Complete by?03/11/23 ?Sedimentation Rate? Order Date:03/09/23?- Complete by?03/11/23 ?Sedimentation Rate? Order Date:03/16/23?- Complete by?03/18/23 ?Comprehensive Metabolic Panel? Order Date:03/16/23?- Complete by?03/18/23 ?CBC w/ Differential? Order Date:03/16/23?- Complete by?03/18/23 ?C Reactive Protein? Order Date:03/16/23?- Complete by?03/18/23 ?CBC w/ Differential? Order Date:03/23/23?- Complete by?03/25/23 ?C Reactive Protein? Order Date:03/23/23?- Complete by?03/25/23 ?Comprehensive Metabolic Panel? Order Date:03/23/23?- Complete by?03/25/23 ?Sedimentation Rate? Order Date:03/23/23?- Complete by?03/25/23 Vital Signs Height 171 cm Weight 67.5 kg BMI 23.08 kg/m2 Blood Pressure 100 mm Hg/50 mm Hg Temperature 98.0 DegF Pulse Rate 66 bpm Respiratory Rate 16 br/min 02 Sat Mode of Delivery 100 %/Room air You can now view a summary of your hospital visit from the comfort of your home through a free online portal called [employer]. [employer] is a website that allows you to securely view your medical information including discharge summary, medications and follow-up visits. ??You can alsosend a secure electronic message to your doctor???s office to request appointments, renew medications or just ask a question. You can enroll at [email or web address] or register during your next office visit. [...] primary care provider, you may find a [facility] provider by calling [facility] [employer] Link at [phone]. [facility], in keeping with [facility] guidance, no longer requires face masks for [...] Care Nurse Name: Pravin Santo MD Position: [facility] Physician - Primary Care Member Role: PCP Address: Address: [address] [place] [address]- Name: Alyse Mckinney RN Position: S RN Member Role: Primary Care Nurse Care Team Related Persons Name: JANNET BECK Address: home [address] [place] [address]
--- OUTSIDE RECORDS SUMMARY | 2023-10-06 12:03 | XMS_ITS | Continuity of Care Document ---
Author Organization [facility] Josh Stevens Jorge Address [address] [place] [address]- Care Team Providers Care Lead Manufacturing Engineer Name Role Phone Hansa URIAS, Pravin Hidalgo Primary Care Physician [phone] [facility]counter [facility] Date[facility]s): 02/15/23 - 03/17/23 [facility] Josh Stevens Adult [address] [place] [address]- Allergies, Adverse Reactions, Alerts Substance Reaction Severity [...] corded pneumococcal 20-valent conjugate vaccine 10/20/22 Given [id number] 12y+ bivalent booster vax 02/11/22 Recorded SARS-CoV-2 mRNA (ktooqvn-ufrz-zjfff) vax 08/21/21 Recorded SARS-CoV-2 (COVID-19) mRNA BNT-162b2 [...] Pertussis (oldterm) 08/02/10 Give n 1Result Comment: [facility]: [id number] 2Location History: SHAM 3Result Comment: [facility]: [id number] EXP: [id number] 4Result Comment: [12/19/2013] #2 5Result Comment: [10/19/2013] #1 6Result Comment: [12/19/2013] #2 7Admin Note: [employer] [facility] Medications Aller-Brenton 10 mg oral tablet 1 tablet, By Mouth, Daily, # 90 tablet, 1 Refills, Maintenance, 01/14/23 10:32:00 EDT, [facility] #[id number], 170, cm, 11/12/22 8:55:00 EDT, Height, 73, [...] Refills, Maintenance, 02/21/23 21:20:00 EDT, [facility], 171, cm, 02/21/23 20:09:00 EDT, Height, 72, [...] tablet, 3 Refills, Maintenance, 07/23/22 12:10:00 EDT, [facility] 61520, 170, cm, 05/28/22 13:32:00 EST, Height, 73, [...] Acute 04/05/23 12:30:00 EST, 02/25/23 13:08:00 EDT, [facility]/pharmacy #3132, Partial fill upon patient requ... 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 [...] Care Nurse Name: Robby Servin RN Position: [facility] RN Member Role: Primary Care Nurse Name: Pravin Santo MD Position: [facility] Physician - Primary Care Member Role: PCP Address: Address: [address] [place] [address]- Name: Alyse Mckinney RN Position: [facility] RN Member Role: Primary Care Nurse Care Team Related Persons Name: JANNET BECK Address: home [address] [place] [address]
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
--- OUTSIDE RECORDS SUMMARY | 2023-10-06 12:04 | XMS_ITS | Continuity of Care Document ---
Author Organization [facility] Josh Stevens Jorge lt Address [address] [place] [address]- Care Team Providers Care Knit Goods Press Hand Name Role Phone Hansa URIAS, Pravin Hidalgo Primary Care Physician [facility]): 03/10/23 - 04/09/23 [facility] Josh Stevens Adult [address] [place] [address]- Allergies, Adverse Reactions, Alerts Substance Reaction Severity Status penicillins hives, itchiness Active Immunizations Given and Recorded Vaccine Date Status Refusal Reason SARS-CoV-2(COVID-19)mRNA-LNP vac([id number]) 03/08/23 Recorded influenza virus vaccine, inactivated 1 [...] corded pneumococcal 20-valent conjugate vaccine 10/20/22 Given [id number] 12y+ bivalent booster vax 02/11/22 Recorded SARS-CoV-2 mRNA (gekbgvy-uidh-dmxct) vax 08/21/21 Recorded SARS-CoV-2 (COVID-19) mRNA BNT-162b2 [...] Pertussis (oldterm) 08/02/10 Give n 1Result Comment: [facility]: [id number] 2Location History: SHAM 3Result Comment: [facility]: [id number] EXP: [id number] 4Result Comment: [12/19/2013] #2 5Result Comment: [10/19/2013] #1 6Result Comment: [12/19/2013] #2 7Admin Note: [facility] Medications Aller-Brenton 10 mg oral tablet 1 tablet, By Mouth, Daily, # 90 tablet, 1 Refills, Maintenance, 01/14/23 10:32:00 EDT, [facility] #[id number], 170, cm, 11/12/22 8:55:00 EDT, Height, 73, kg, 05/28/22 13:32:00 EST, Dry Weight Start Date: 01/14/23 Status: Ordered aspirin 81 mg oral tablet 1 tablet = 81 mg, By Mouth, Daily, # 30 tablet, 0 Refills, Maintenance, Tablet Start Date: 08/03/11 Status: Ordered atorvastatin 10 mg oral tablet 1 tablet, By Mouth, Daily, # 90 tablet, 1 Refills, Maintenance, 02/21/23 21:20:00 EDT, [facility] STORE 73428, 171, cm, 02/21/23 20:09:00 EDT, Height, 72, kg, 02/19/23 13:52:00 EDT, Dry Weight Start Date: 02/21/23 Status: Ordered citalopram 20 mg oral tablet See Instructions, TAKE 1 TABLET BY MOUTH EVERY DAY, # 90 tablet, 3 Refills, Maintenance, 12/21/22 15:35:00 EDT, [facility]/pharmacy #[id number], 170, cm, 11/12/22 8:55:00 EDT, [...] Refills, Maintenance, 07/23/22 12:10:00 EDT, [facility], 170, cm, 05/28/22 13:32:00 EST, Height, 73, [...] Refills, Maintenance, 11/12/22 9:13:00 EDT, [facility], 170, cm, 11/12/22 8:55:00 EDT, Height, 73, [...] 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 [...] Primary Care Nurse Name: Zoe Nunez Position: [facility] RN Member Role: Primary Care Nurse Name: Robby Servin RN Position: [facility] RN Member Role: Primary Care Nurse Name: Pravin Santo MD Position: [facility] Physician - Primary Care Member Role: PCP Address: Address: [address] [place] [address]- Name: Alyse Mckinney RN Position: [facility] RN Member Role: Primary Care Nurse Care Team Related Persons Name: ROSEMARYARASH JANNET Address: home [address] [place] [address]
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
--- OUTSIDE RECORDS SUMMARY | 2023-10-06 12:04 | XMS_ITS | Continuity of Care Document ---
Author Organization [facility] Rodney Jorge lt Address [address] [place] [address]- Care Team Providers Care Snow Technician Name Role Phone Pravin Santo MD Primary Care Physician [facility] Date[facility]s): 03/18[facility]23 - 04/17/23 [facility] Josh Umanaley Adult [address] [place] [address]- Allergies, Adverse Reactions, Alerts Substance Reaction Severity Status penicillins hives, itchiness Active Immunizations Given and Recorded Vaccine Date Status Refusal Reason SARS-CoV-2(COVID-19)mRNA-LNP vac([id number]) 03/08/23 Recorded influenza virus vaccine, inactivated 1 [...] corded pneumococcal 20-valent conjugate vaccine 10/20/22 Given [id number] 12y+ bivalent booster vax 02/11/22 Recorded SARS-CoV-2 mRNA (eogfejf-jeur-nmkax) vax 08/21/21 Recorded SARS-CoV-2 (COVID-19) mRNA BNT-162b2 [...] Pertussis (oldterm) 08/02/10 Give n 1Result Comment: [facility]: 05581-646-55 2Location History: SHAM 3Result Comment: [facility]: [id number] EXP: [id number] 4Result Comment: [12/19/2013] #2 5Result Comment: [10/19/2013] #1 6Result Comment: [12/19/2013] #2 7Admin Note: [facility] Medications Aller-Brenton 10 mg oral tablet 1 tablet, By Mouth, Daily, # 90 tablet, 1 Refills, Maintenance, 01/14/23 10:32:00 EDT, [facility] #[id number], 170, cm, 11/12/22 8:55:00 EDT, Height, 73, [...] Refills, Maintenance, 02/21/23 21:20:00 EDT, [facility], 171, cm, 02/21/23 20:09:00 EDT, Height, 72, kg, 02/19/23 13:52:00 EDT, Dry Weight Start Date: 02/21/23 Status: Ordered citalopram 20 mg oral tablet See Instructions, TAKE 1 TABLET BY MOUTH EVERY DAY, # 90 tablet, 3 Refills, Maintenance, 12/21/22 15:35:00 EDT, [facility]/pharmacy #7111, 170, cm, 11/12/22 8:55:00 EDT, [...] Refills, Maintenance, 07/23/22 12:10:00 EDT, [facility], 170, cm, 05/28/22 13:32:00 EST, Height, 73, [...] tablet, 3 Refills, Maintenance, 04/13/23 15:29:00 EST, 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 3colo 2008 polyp, repeat 2013 2018 5egd 2012 nl per pt. report 2018 7Abnormal MRI cervical spine, followed by [...] Care Nurse Name: Robby Servin RN Position: [facility] RN Member Role: Primary Care Nurse Name: Pravin Santo MD Position: [facility] Physician - Primary Care Member Role: PCP Address: Address: [address] [place] [address]- Name: Alyse Mckinney RN Position: S RN Member Role: Primary Care Nurse Care Team Related Persons Name: JANNET BECK Address: home [address] [place] [address]
--- OUTSIDE RECORDS SUMMARY | 2023-10-06 12:04 | XMS_ITS | Continuity of Care Document ---
Author Organization [facility] Josh Stevens Jorge lt Address [address] [place] [address]- Care Team Providers Care Gas Turbine Mechanic Name Role Phone Hansa URIAS, Pravin Hidalgo Primary Care Physician [facility] Date(s): 03/22/23 - 04/21/23 [facility] Josh Stevens Adult [address] [place] [address]- Allergies, Adverse Reactions, Alerts Substance Reaction Severity Status penicillins hives, itchiness Active Immunizations Given and Recorded Vaccine Date Status Refusal Reason SARS-CoV-2(COVID-19)mRNA-LNP vac([id number]) 03/08/23 Recorded influenza virus vaccine, inactivated 1 [...] corded pneumococcal 20-valent conjugate vaccine 10/20/22 Given [id number] 12y+ bivalent booster vax 02/11/22 Recorded SARS-CoV-2 mRNA (hljveih-sbcd-dvacs) vax 08/21/21 Recorded SARS-CoV-2 (COVID-19) mRNA BNT-162b2 [...] (oldterm) 08/02/10 Give n 1Result Comment: [facility]: 70421-926-80 2Location History: SHAM 3Result Comment: [facility]: 52043-363-47 EXP: [id number] 4Result Comment: [12/19/2013] #2 5Result Comment: [10/19/2013] #1 6Result Comment: [12/19/2013] #2 7Admin Note: [facility] Medications Aller-Brenton 10 mg oral tablet 1 tablet, By Mouth, Daily, # 90 tablet, 1 Refills, Maintenance, 01/14/23 10:32:00 EDT, [facility] #[id number], 170, cm, 11/12/22 8:55:00 EDT, Height, 73, kg, 05/28/22 13:32:00 EST, Dry Weight Start Date: 01/14/23 Status: Ordered aspirin 81 mg oral tablet 1 tablet = 81 mg, By Mouth, Daily, # 30 tablet, 0 Refills, Maintenance, Tablet Start Date: 08/03/11 Status: Ordered atorvastatin 10 mg oral tablet 1 tablet, By Mouth, Daily, # 90 tablet, 1 Refills, Maintenance, 02/21/23 21:20:00 EDT, [facility] STORE 52618, 171, cm, 02/21/23 20:09:00 EDT, Height, 72, kg, 02/19/23 13:52:00 EDT, Dry Weight Start Date: 02/21/23 Status: Ordered citalopram 20 mg oral tablet See Instructions, TAKE 1 TABLET BY MOUTH EVERY DAY, # 90 tablet, 3 Refills, Maintenance, 12/21/22 15:35:00 EDT, [facility]/pharmacy #7111, 170, cm, 11/12/22 8:55:00 EDT, [...] Refills, Maintenance, 07/23/22 12:10:00 EDT, [facility], 170, cm, 05/28/22 13:32:00 EST, Height, 73, [...] tablet, 3 Refills, Maintenance, 04/13/23 15:29:00 EST, 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 [...] Primary Care Member Role: PCP Address: Address: [address] [place] [address]- Name: Alyse Mckinney RN Position: S RN Member Role: Primary Care Nurse Care Team Related Persons Name: JANNET BECK Address: home [address] [place] [address]
--- OUTSIDE RECORDS SUMMARY | 2023-10-06 12:04 | XMS_ITS | Continuity of Care Document ---
Author Organization [facility] Address [address] [place] [address]- Care Team Providers Care Rv Technician Name Role Phone Hansa URIAS, Pravin Hidalgo Primary Care Physician [facility]s): 03/02/23 - 04/09/23 [facility] [address] [place] [address]- Attending Physician: Jacques Powell MD Admitting Physician: Jacques Powell MD Allergies, Adverse Reactions, Alerts Substance Reaction Severity Status penicillins hives, itchiness Active Immunizations Given and Recorded Vaccine Date Status Refusal Reason SARS-CoV-2(COVID-19)mRNA-LNP vac([id number]) 03/08/23 Recorded influenza virus vaccine, inactivated 1 [...] corded pneumococcal 20-valent conjugate vaccine 10/20/22 Given [id number]-GxY-3sVAL 12y+ bivalent booster vax 02/11/22 Recorded SARS-CoV-2 mRNA (zzispxi-ijne-yjrgv) vax 08/21/21 Recorded SARS-CoV-2 (COVID-19) mRNA BNT-162b2 [...] Pertussis (oldterm) 08/02/10 Give n 1Result Comment: [facility]: 02428-060-83 2Location History: SHAM 3Result Comment: [facility]: 75039-655-29 EXP: [id number] 4Result Comment: [12/19/2013] #2 5Result Comment: [10/19/2013] #1 6Result Comment: [12/19/2013] #2 7Admin Note: [employer] [facility] [employer] [facility] Medications Aller-Brenton 10 mg oral tablet 1 tablet, By Mouth, Daily, # 90 tablet, 1 Refills, Maintenance, 01/14/23 10:32:00 EDT, [facility] #66003, 170, cm, 11/12/22 8:55:00 EDT, Height, 73, [...] Refills, Maintenance, 02/21/23 21:20:00 EDT, [facility], 171, cm, 02/21/23 20:09:00 EDT, Height, 72, kg, 02/19/23 13:52:00 EDT, Dry Weight Start Date: 02/21/23 Status: Ordered citalopram 20 mg oral tablet See Instructions, TAKE 1 TABLET BY MOUTH EVERY DAY, # 90 tablet, 3 Refills, Maintenance, 12/21/22 15:35:00 EDT, [facility]/pharmacy #7111, 170, cm, 11/12/22 8:55:00 EDT, Height, [...] tablet, 3 Refills, Maintenance, 07/23/22 12:10:00 EDT, [facility] STORE 71962, 170, cm, 05/28/22 13:32:00 EST, Height, 73, [...] Refills, Maintenance, 11/12/22 9:13:00 EDT, [facility], 170, cm, 11/12/22 8:55:00 EDT, Height, 73, [...] dependent type 2 diabetes mellitus Confirmed Active 17870; repeat 2023 2Colonoscopy 2013 normal, repeat 2017. [...] Care Nurse Name: Pravin Santo MD Position: [facility] Physician - Primary Care Member Role: PCP Address: Address: [address] [place] [address]- Name: Alyse Mckinney RN Position: S RN Member Role: Primary Care Nurse Care Team Related Persons Name: JANNET BECK Address: home [address] [place] [address]
--- OUTSIDE RECORDS SUMMARY | 2023-10-06 12:04 | XMS_ITS | Continuity of Care Document ---
Author Organization [facility] Rodney Jorge lt Address [address] [place] [address]- Care Team Providers Care Central Supply Technician Name Role Phone Pravin Santo MD Primary Care Physician [facility]): [facility]23 - 07/22/23 [facility] Rodney Adult [address] [place] [address]- Attending Physician: Admchelsea, Brian Admitting Physician: AdmtrBrian Referring Physician: Admtr, Ar8 Allergies, Adverse Reactions, Alerts Substance Reaction Severity Status penicillins hives, itchiness Active Immunizations Given and Recorded Vaccine Date Status Refusal Reason SARS-CoV-2(COVID-19)mRNA-LNP vac([id number]) 03/08/23 Recorded influenza virus vaccine, inactivated 1 03/02/23 Gi aevlina influenza virus vaccine, inactivated 02/20/22 Jaxson rded [...] corded pneumococcal 20-valent conjugate vaccine 10/20/22 Given [id number] 12y+ bivalent booster vax 02/11/22 Recorded SARS-CoV-2 mRNA (tyzprcg-kano-wfvqg) vax 08/21/21 Recorded SARS-CoV-2 (COVID-19) mRNA BNT-162b2 [...] AFF[facility]: [id number] 2Location History: SHAM 3Result Comment: [facility]: [phone] EXP: [id number] Comment: [12/19/2013] #2 5Result Comment: [10/19/2013] #1 6Result Comment: [12/19/2013] #2 7Admin Note: [facility] Medications Albuterol (Eqv-Proventil HFA) 90 mcg/inh inhalation aerosol 2 puffs, Inhalation, Every 4 hours, PRN Wheezing/Shortness of Breath, # 1 each, 0 Refills, Maintenance, 06/29/23 9:56:00 EST, [facility], Partial fill upon patient request if the prescription is for a schedule II opioid drug., 171, cm, 0... Start Date: 06/29/23 Stop Date: 07/29/23 Status: Ordered Aller-Brenton 10 mg oral tablet 1 tablet, By Mouth, Daily, # 90 tablet, 1 Refills, Maintenance, 01/14/23 10:32:00 EDT, [facility] #[id number], 170, cm, 11/12/22 8:55:00 EDT, Height, 73, kg, 05/28/22 13:32:00 EST, Dry Weight Start Date: 01/14/23 Status: Ordered aspirin 81 mg oral tablet 1 tablet = 81 mg, By Mouth, Daily, # 30 tablet, 0 Refills, Maintenance, Tablet Start Date: 08/03/11 Status: Ordered atorvastatin 10 mg oral tablet 1 tablet, By Mouth, Daily, # 90 tablet, 1 Refills, Maintenance, 06/28/23 8:01:00 EST, [facility] STORE [facility]58, 171, cm, 06/22/23 7:29:00 EST, Height, 72, kg, 02/19/23 13:52:00 EDT, Dry Weight Start Date: 06/28/23 Status: Ordered betamethasone-clotrimazole 0.05%-1% topical cream 1 application, Topically, 2 times a day, # 45 Gm, 0 Refills, Maintenance, 05/27/23 9:29:00 EST, Cream, [facility]/pharmacy #[id number], Partial fill upon patient request if the prescription is for a schedule II opioid drug., 1 application Topically 2 times a day,... Start Date: 05/27/23 Status: Ordered citalopram 20 mg oral tablet See Instructions, TAKE 1 TABLET BY MOUTH EVERY DAY, # 90 tablet, 3 Refills, Maintenance, 12/21/22 15:35:00 EDT, [facility]/pharmacy #[id number], 170, cm, 11/12/22 8:55:00 EDT, [...] tablet, 3 Refills, Maintenance, 06/01/23 9:17:00 EST, [facility] STORE 07907, 171, cm, 05/27/23 8:55:00 EST, Height, 72, [...] 06/29/23 9:46:00 EST, Tablet, [facility], Partial fill upon patient request if the prescription is for a schedule II opioid drug., 171, cm, 06/22/23 7:29:0... 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 3colo 2008 polyp, repeat 2012 4colo 2019 5egd 2012 nl per pt. report 6colo 2018 7Abnormal MRI cervical spine, followed by Dr. De Leon. 8colo 2018 Social History Social History Type Response Smoking Status Former smoker, quit more than 30 days ago entered on: 03/02/23 Sex History and physical note * Monique Neumann: PERFORM Event Display: History and Physical Hospital Authored Date: EKG study * Event Display: EKG Authored Date: Laboratory * Event Display: Non BH Lab Results Authored Date: * Event Display: Non BH Lab Results Authored Date: * Event Display: Non BH Lab Results Authored Date: Radiology * Event Display: MRI Head, Non- BH Authored Date: * Event Display: Radiology Result Scanned Authored Date: * Event Display: Radiology Result Scanned Authored Date: * Madison Wilson: PERFORM Event Display: Radiology Results Scanned Authored Date: Note * Romelia Mariscal RN: VERIFY, PERFORM, SIGN Event Display: Clinical Summary Authored Date: Patient: NATIVIDAD BECK Age: 73 years Sex: Male : 1945 Associated Diagnoses: None Author: Romelia Mariscal RN Dear Natividad : General Lab Results Other Results ALL RESULT SECTIONS 01/19/2018 8:12 EDT Malb/Creat Ratio <3.8 mg/Gm Urine Creat For Micro Alb 157.3 mg/dL Micro-Albumin <6.0 mg/L 01/19/2018 8:11 EDT WBC 6.1 k/mm3 Hgb 16.4 Gm/dL Hct 48.4 % Platelet Count 206 k/mm3 RBC 4.73 m/mm3 MCV 102.3 femtoliters H MCH 34.7 pg H MCHC 33.9 g/dL MPV 10.7 femtoliters Nucleated RBC (Automated) 0.0 #/100 WBC'S RDW-SD 54.0 femtoliters H Abs. NRBC 0.0 k/mm3 Sodium 138 mmol/L Potassium 5.1 mmol/L Chloride 99 mmol/L Bicarbonate Level 26 mmol/L Anion Gap 13 Glucose Level 112 mg/dL H Hemoglobin A1C (Monitoring) 5.9 % BUN 16 mg/dL Creatinine-Blood 0.9 mg/dL Estimated GFR, Non 86 ML/MIN/1.73 M2 Estimated GFR, 99 ML/MIN/1.73 M2 Calcium 9.3 mg/dL Protein, Total 6.3 Gm/dL Albumin 4.2 Gm/dL AG Ratio 2.0 Alkaline Phosphatase 71 units/L AST (SGOT) 36 units/L ALT (SGPT) 39 units/L Bilirubin, Total 0.6 mg/dL Cholesterol 155 mg/dL Triglycerides 54 mg/dL HDL Cholesterol 90 mg/dL LDL Cholesterol 54 mg/dL Non HDL Cholesterol 65 mg/dL TSH 2.48 mIU/mL Free T4 1.35 ng/dL If you have any questions, please call our office. Sincerely, Dr. Santo Patient Care team information Care Team Personnel Name: Chelsea López RN Position: S RN Member Role: Primary Care Nurse Name: Ángel Castrejon RN Position: S RN Member Role: Primary Care Nurse Name: Alexia Ortiz RN Position: S RN Member Role: Primary Care Nurse Name: Zoe Nunez Position: S RN Member Role: Primary Care Nurse Name: Pravin Santo MD Position: [facility] Physician - Primary Care Member Role: PCP Address: Address: [address] [place] [address]- Name: Alyse Mckinney RN Position: [facility] RN Member Role: Primary Care Nurse Care Team Related Persons Name: JANNET BECK Address: home [address] [place] [address]
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
--- OUTSIDE RECORDS SUMMARY | 2023-10-06 12:04 | XMS_ITS | Continuity of Care Document ---
Author Organization [facility] Josh Stevens Jorge lt Address [address] [place] [address]- Care Team Providers Care Resident Services Coordinator Name Role Phone Pravin Santo MD Primary Care Physician [facility] 03[facility]19[facility]23 - 04/18/23 [facility] Josh Stevens Adult [address] [place] [address]- Allergies, Adverse Reactions, Alerts Substance Reaction Severity Status penicillins hives, itchiness Active Immunizations Given and Recorded Vaccine Date Status Refusal Reason SARS-CoV-2(COVID-19)mRNA-LNP vac([id number]) 03/08/23 Recorded influenza virus vaccine, inactivated 1 [...] corded pneumococcal 20-valent conjugate vaccine 10/20/22 Given [id number] 12y+ bivalent booster vax 02/11/22 Recorded SARS-CoV-2 mRNA (ulmrxer-fqvu-ollzv) vax 08/21/21 Recorded SARS-CoV-2 (COVID-19) mRNA BNT-162b2 [...] 08/02/10 Give n 1Result Comment: [facility]: [id number] 2Location History: SHAM 3Result Comment: [facility]: [id number] EXP: [id number] 4Result Comment: [12/19/2013] #2 5Result Comment: [10/19/2013] #1 6Result Comment: [12/19/2013] #2 7Admin Note: [facility] Medications Aller-Brenton 10 mg oral tablet 1 tablet, By Mouth, Daily, # 90 tablet, 1 Refills, Maintenance, 01/14/23 10:32:00 EDT, [facility] #[id number], 170, cm, 11/12/22 8:55:00 EDT, Height, 73, [...] Refills, Maintenance, 02/21/23 21:20:00 EDT, [facility], 171, cm, 02/21/23 20:09:00 EDT, Height, 72, kg, 02/19/23 13:52:00 EDT, Dry Weight Start Date: 02/21/23 Status: Ordered citalopram 20 mg oral tablet See Instructions, TAKE 1 TABLET BY MOUTH EVERY DAY, # 90 tablet, 3 Refills, Maintenance, 12/21/22 15:35:00 EDT, [facility]/pharmacy #[id number], 170, cm, 11/12/22 8:55:00 [...] Refills, Maintenance, 07/23/22 12:10:00 EDT, [facility], 170, cm, 05/28/22 13:32:00 EST, Height, 73, [...] 3 Refills, Maintenance, 04/13/23 15:29:00 EST, [facility]/pharmacy #[id number], 171, cm, 04/13/23 15:06:00 [...] dependent type 2 diabetes mellitus Confirmed Active 79615; repeat 2023 2Colonoscopy 2012 normal, repeat 2017. [...] Primary Care Member Role: PCP Address: Address: [address] [place] [address]- Name: Alyse Mckinney RN Position: S RN Member Role: Primary Care Nurse Care Team Related Persons Name: JANNET BECK Address: home [address] [place] [address]
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
--- OUTSIDE RECORDS SUMMARY | 2023-10-06 12:04 | XMS_ITS | Continuity of Care Document ---
Author Organization [facility] oJsh Stevens Jorge lt Address [address] [place] [address]- Care Team Providers Care Research Chief Engineer Name Role Phone Hansa URIAS, Pravin Hidalgo Primary Care Physician Encounter [facility] [place] Date(s): 10/13/22 - 11/12/22 [facility]ney Adult [address] [place] [address]- Allergies, Adverse Reactions, Alerts Substance Reaction Severity [...] virus vaccine, inactivated 1 01/08/13 Re corded [id number] 12y+ bivalent booster vax 02/11/22 Recorded SARS-CoV-2 mRNA (lwdgnuo-vgta-xfiom) vax 08/21/21 Recorded SARS-CoV-2 (COVID-19) mRNA BNT-162b2 [...] Give n 1Location History: SHAM 2Result Comment: [facility]: [id number] EXP: [id number] 3Result Comment: [12/19/2013] #2 4Result Comment: [10/19/2013] #1 5Result Comment: [12/19/2013] #2 6Admin Note: [employer] [facility] Medications Aller-Brenton 10 mg oral tablet 1 tablet, By Mouth, Daily, # 90 tablet, 1 Refills, Maintenance, 07/23/22 13:04:00 EDT, [facility] #[id number], 170, cm, 05/28/22 13:32:00 EST, Height, 73, kg, 05/28/22 13:32:00 EST, Dry Weight Start Date: 07/23/22 Status: Ordered aspirin 81 mg oral tablet 1 tablet = 81 mg, By Mouth, Daily, # 30 tablet, 0 Refills, Maintenance, Tablet Start Date: 08/03/11 Status: Ordered atorvastatin 10 mg oral tablet 1 tablet, By Mouth, Daily, # 90 tablet, 1 Refills, Maintenance, 08/10/22 13:53:00 EDT, [facility], 170, cm, 08/06/22 8:30:00 EDT, Height, 73, [...] Refills 11, Maintenance,TEST BS TID E11.9 FAX [phone], 01/30/19 11:03:21 EDT, Compound Start Date: 01/30/19 Status: Ordered Cialis 5 mg oral tablet 1 tablet = 5 mg, By Mouth, Daily, at the same time every day, # 90 tablet, 3 Refills, Maintenance, 11/12/22 9:12:00 EDT, Tablet, [facility] # 302, Partial fill upon patient request if the prescription is for a schedule II opioid drug., 170, cm, 0... Start Date: 11/12/22 Stop Date: 11/07/23 Status: Ordered citalopram 20 mg oral tablet See Instructions, TAKE 1 TABLET BY MOUTH EVERY DAY, # 90 tablet, 3 Refills, Maintenance, 11/12/22 9:12:00 EDT, [facility], 170, cm, 11/12/22 8:55:00 EDT, Height, 73, kg, 05/28/22 13:32:00 EST, Dry Weight Start Date: 11/12/22 Status: Ordered Citracal Tablet Daily, Refills 0, [...] tablet, 3 Refills, Maintenance, 07/23/22 12:10:00 EDT, [facility], 170, cm, 05/28/22 13:32:00 EST, Height, 73, kg, 05/28/22 13:32:00 EST, Dry Weight Start Date: 07/23/22 Status: Ordered Fish Oil By Mouth, Daily, 0 Refills, Maintenance, 04/26/18 10:26:55 EST Start Date: 04/26/18 Status: Ordered Flonase 50 mcg/inh nasal spray 2 sprays, Nares, Both, Daily, # 16 Gm, 6 Refills, Maintenance, 06/25/16 14:12:57, [place], 2 sprays Nares, Both Daily Start Date: [...] Refills, Maintenance, 11/12/22 9:13:00 EDT, [facility], 170, cm, 11/12/22 8:55:00 EDT, Height, 73, [...] EST, Supply Start Date: 05/08/22 Status: Ordered turmeric By Mouth, Daily, 0 [...] hypothyroidism Confirmed Active Tobacco abuse Confirmed Active 83254; repeat 2023 2Colonoscopy 2012 normal, repeat 2017. [...] Team Personnel Name: Chelsea López RN Position: [facility] RN Member Role: Primary Care Nurse Name: Pravin Santo MD Position: [facility] Physician - Primary Care Member Role: PCP Address: Address: [address] [place] [address]- Care Team Related Persons Name: JANNET BECK Address: home [address] [place] [address]
--- OUTSIDE RECORDS SUMMARY | 2023-10-06 12:04 | XMS_ITS | Continuity of Care Document ---
Author Organization [facility] Josh Stevens Jorge Address [address] [place] [address]- Care Team Providers Care Industrial Machine Assembler Name Role Phone Pravin Santo MD Primary Care Physician Encounter [facility] [place] Date(s): 02/18/23 - 02/25/23 [facility] Adult [address] [place] [address]- Encounter Diagnosis Pneumonia(Discharge Diagnosis) - 02/18/23 Attending Physician: Rowan RAY, Shy Cardenas Referring Physician: Pravin Santo MD Allergies, Adverse [...] virus vaccine, inactivated 1 01/08/13 Re corded [id number] 12y+ bivalent booster vax 02/11/22 Recorded SARS-CoV-2 mRNA (alwmtew-lxqb-yruks) vax 08/21/21 Recorded SARS-CoV-2 (COVID-19) mRNA BNT-162b2 [...] Give n 1Location History: SHAM 2Result Comment: [facility]: [id number] EXP: [id number] 3Result Comment: [12/19/2013] #2 4Result Comment: [10/19/2013] #1 5Result Comment: [12/19/2013] #2 6Admin Note: [facility] Medications Aller-Brenton 10 mg oral tablet 1 tablet, By Mouth, Daily, # 90 tablet, 1 Refills, Maintenance, 01/14/23 10:32:00 EDT, [facility] #[id number], 170, cm, 11/12/22 8:55:00 EDT, Height, 73, [...] Refills, Maintenance, 02/21/23 21:20:00 EDT, [facility], 171, cm, 02/21/23 20:09:00 EDT, Height, 72, kg, 02/19/23 13:52:00 EDT, Dry Weight Start Date: 02/21/23 Status: Ordered Cialis 5 mg oral tablet 1 tablet = 5 mg, By Mouth, Daily, at the same time every day, # 90 tablet, 3 Refills, Maintenance, 11/12/22 9:12:00 EDT, Tablet, [facility] # 302, Partial fill upon patient request if the prescription is for a schedule II opioid drug., 170, cm, 0... Start Date: 11/12/22 Stop Date: 11/07/23 Status: Ordered citalopram 20 mg oral tablet See Instructions, TAKE 1 TABLET BY MOUTH EVERY DAY, # 90 tablet, 3 Refills, Maintenance, 12/21/22 15:35:00 EDT, [facility]/pharmacy #7111, 170, cm, 11/12/22 8:55:00 EDT, Height, 73, kg, 05/28/22 13:32:00 EST, Dry Weight Start Date: 12/21/22 Status: Ordered Citracal Tablet Daily, Refills 0, Maintenance, 04/26/18 10:30:42 EST Start Date: 04/26/18 Status: Ordered disulfiram 250 mg oral tablet 1 tablet, By Mouth, Daily, # 90 tablet, 3 Refills, Maintenance, 07/23/22 12:10:00 EDT, [facility], 170, cm, 05/28/22 13:32:00 EST, Height, 73, kg, 05/28/22 13:32:00 EST, Dry Weight Start Date: 07/23/22 Status: Ordered Fish Oil By Mouth, Daily, 0 Refills, Maintenance, 04/26/18 10:26:55 EST Start Date: 04/26/18 Status: Ordered fluticasone 27.5 mcg/inh nasal spray 2 sprays, Nares, Both, Daily, PRN for allergy symptoms, # 10 Gm, 0 Refills, Maintenance, 02/04/23 13:13:00 EDT, [place], [facility]/pharmacy #7111, Partial fill upon patient request if the prescription is fora schedule II opioid drug., 2 sprays Nares, Both Da... Start Date: 02/04/23 Status: Ordered Garlic Daily, 0 Refills, Maintenance, [...] Acute 04/05/23 12:30:00 EST, 02/25/23 13:08:00 EDT, [facility]/pharmacy #[id number], Partial fill upon patient requ... Start Date: 02/25/23 Stop Date: 04/05/23 Status: Ordered metFORMIN 500 mg oral tablet See Instructions, TAKE 1 TABLET BY MOUTH EVERY DAY, # 90 tablet, 3 Refills, Maintenance, 11/12/22 9:13:00 EDT, [facility], 170, cm, 11/12/22 8:55:00 EDT, Height, 73, kg, 05/28/22 13:32:00 EST, Dry Weight Start Date: 11/12/22 Status: Ordered Multivitamin Daily, Centrum silver, 0 Refills, Maintenance, 04/26/18 10:26:38 EST Start Date: 04/26/18 Status: Ordered ProAir HFA 90 mcg/inh inhalation aerosol with adapter 2, puffs, Inhalation, Every 6 hours, PRN, # 8.5 Gm, Refills 1, Tot. Refills 1, Maintenance, 02/04/23 13:12:00 EDT, Aerosol, Route to Pharmacy Electronically, [id number], [facility]/pharmacy #[id number], 170, cm, 02/04/23 12:56:00 EDT, Hei... 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 3colo 2008 polyp, repeat 2012 4colo 2018 5egd 2011 nl per pt. report 2018 7Abnormal MRI cervical spine, followed by Dr. De Leon. 8colo 2018 Diagnosis Diagnosis Type Effective Dates Health Status Clini janene Service Informant Pneumonia Discharge Diagnosis 02/18/23 Vital Signs Most recent to oldest [Reference Range]: 1 Height 170 cm (02/18/23 1:15 PM) Weight 70.8 kg (02/18/23 1:15 PM) Oxygen Saturation [94-100 %] 92 % *L* (02/18/23 1:15 PM) Pulse Rate [55-90 bpm] 88 bpm (02/18/23 1:15 PM) Body Mass Index [18.5-24.99 kg/m2] 24.5 kg/m2 (02/18/23 1:15 PM) Blood Pressure [90-138/55-84 mm Hg] 134/ 74mm Hg (02/18/23 1:15 PM) Temperature [96.8-100.4 DegF] 99.9 DegF (02/18/23 1:15 PM) Mode of Delivery (Oxygen) Room air (02/18/23 1:15 PM) Blood pressure sites Arm, left (02/18/23 1:15 PM) Temperature Route Oral (02/18/23 1:15 PM) Weight Obtained Via Standing scale (02/18/23 1:15 PM) Social History Social History Type Response [...] Care Nurse Name: Robby Servin RN Position: [facility] RN Member Role: Primary Care Nurse Name: Pravin Santo MD Position: [facility] Physician - Primary Care Member Role: PCP Address: Address: [address] [place] [id number]- Name: Alyse Mckinney RN Position: [facility] RN Member Role: Primary Care Nurse Care Team Related Persons Name: JANNET BECK Address: home [address] [place] [address]
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
--- OUTSIDE RECORDS SUMMARY | 2023-10-06 12:04 | XMS_ITS | Continuity of Care Document ---
Author Organization [facility] r[facility] Address [address] [place] [address] [address], [address] [place] [address]- Care Team Providers Care Labor Standards Director Name Role Phone Pravin Santo MD Primary Care Physician [phone] Encounter [facility] Date(s): 02/25/23 - 03/27/23 [facility] [address] [place] [address] Drive, [address] [place] [address]- Allergies, Adverse Reactions, Alerts Substance Reaction Severity Status penicillins hives, itchiness Active Immunizations Given and Recorded Vaccine Date Status Refusal Reason SARS-CoV-2(COVID-19)mRNA-LNP vac([id number]) 03/08/23 Recorded influenza virus vaccine, inactivated 1 [...] corded pneumococcal 20-valent conjugate vaccine 10/20/22 Given [id number]-PvZ-3tZAF 12y+ bivalent booster vax 02/11/22 Recorded SARS-CoV-2 mRNA (qpueggn-ecfg-tueez) vax 08/21/21 Recorded SARS-CoV-2 (COVID-19) mRNA BNT-162b2 [...] Pertussis (oldterm) 08/02/10 Give n 1Result Comment: [facility]: [id number] 2Location History: SHAM 3Result Comment: [facility]: [id number] EXP: [id number] 4Result Comment: [12/19/2013] #2 5Result Comment: [10/19/2013] #1 6Result Comment: [12/19/2013] #2 7Admin Note: [employer] [facility] Medications Aller-Brenton 10 mg oral tablet 1 tablet, By Mouth, Daily, # 90 tablet, 1 Refills, Maintenance, 01/14/23 10:32:00 EDT, [facility] #[id number], 170, cm, 11/12/22 8:55:00 EDT, Height, 73, [...] Refills, Maintenance, 02/21/23 21:20:00 EDT, [facility], 171, cm, 02/21/23 20:09:00 EDT, Height, 72, [...] Refills, Maintenance, 07/23/22 12:10:00 EDT, [facility], 170, cm, 05/28/22 13:32:00 EST, Height, 73, [...] Acute 04/05/23 12:30:00 EST, 02/25/23 13:08:00 EDT, [facility]/pharmacy #7111, Partial fill upon patient requ... 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 [...] Care Nurse Name: Pravin Santo MD Position: [facility] Physician - Primary Care Member Role: PCP Address: Address: [address] [place] [address]- Name: Alyse Mckinney RN Position: [facility] RN Member Role: Primary Care Nurse Care Team Related Persons Name: JANNET BECK Address: home [address] [place] [address]
--- OUTSIDE RECORDS SUMMARY | 2023-10-06 12:05 | XMS_ITS | Continuity of Care Document ---
Author Organization [facility] Josh Stevens Jorge lt Address [address] [place] [address]- Care Team Providers Care Looper Operator Name Role Phone Pravin Santo MD Primary Care Physician Encounter [facility] Date(s): 11/12/22 - 11/19/22 [facility] Rodney Adult [address] [place] [address]- Encounter Diagnosis ED (erectile dysfunction)(Discharge Diagnosis) - 11/12/22 Attending Physician: Pravin Santo MD Allergies, Adverse [...] Jaxson rded influenza virus vaccine, inactivated 06/14/17 Jaxosn rded influenza virus vaccine, inactivated 02/25/17 Jaxson rded influenza virus vaccine, inactivated 06/25/16 Give n influenza virus vaccine, inactivated 06/20/15 Give n influenza virus vaccine, inactivated 06/20/14 Give n influenza virus vaccine, inactivated 1 01/08/13 Re corded QZHQ-MpP-3tHZE 12y+ bivalent booster vax 02/11/22 Recorded SARS-CoV-2 mRNA (zhfcexo-qafz-waalz) vax 08/21/21 Recorded SARS-CoV-2 (COVID-19) mRNA BNT-162b2 [...] n 1Location History: SHAM 2Result Comment: [facility]: [id number] EXP: [id number] 3Result Comment: [12/19/2013] #2 4Result Comment: [10/19/2013] #1 5Result Comment: [12/19/2013] #2 6Admin Note: [facility] Medications Aller-Brenton 10 mg oral tablet 1 tablet, By Mouth, Daily, # 90 tablet, 1 Refills, Maintenance, 07/23/22 13:04:00 EDT, [facility] #[id number], 170, cm, 05/28/22 13:32:00 EST, Height, 73, [...] Refills, Maintenance, 08/10/22 13:53:00 EDT, [facility], 170, cm, 08/06/22 8:30:00 EDT, Height, 73, [...] Refills 11, Maintenance,TEST BS TID E11.9 FAX [phone], 01/30/19 11:03:21 EDT, Compound Start Date: 01/30/19 Status: Ordered Cialis 5 mg oral tablet 1 tablet = 5 mg, By Mouth, Daily, at the same time every day, # 90 tablet, 3 Refills, Maintenance, 11/12/22 9:12:00 EDT, Tablet, [facility] # [id number], Partial fill upon patient request if the prescription is for a schedule II opioid drug., 170, cm, 0... Start Date: 11/12/22 Stop Date: 11/07/23 Status: Ordered citalopram 20 mg oral tablet See Instructions, TAKE 1 TABLET BY MOUTH EVERY DAY, # 90 tablet, 3 Refills, Maintenance, 11/12/22 9:12:00 EDT, [facility], 170, cm, 11/12/22 8:55:00 EDT, Height, 73, [...] tablet, 3 Refills, Maintenance, 07/23/22 12:10:00 EDT, [facility], 170, cm, 05/28/22 13:32:00 EST, Height, 73, kg, 05/28/22 13:32:00 EST, Dry Weight Start Date: 07/23/22 Status: Ordered Fish Oil By Mouth, Daily, 0 Refills, Maintenance, 04/26/18 10:26:55 EST Start Date: 04/26/18 Status: Ordered Flonase 50 mcg/inh nasal spray 2 sprays, Nares, Both, Daily, # 16 Gm, 6 Refills, Maintenance, 06/25/16 14:12:57, [place], 2 sprays Nares, Both Daily Start Date: [...] Refills, Maintenance, 11/12/22 9:13:00 EDT, [facility], 170, cm, 11/12/22 8:55:00 EDT, Height, 73, [...] hypothyroidism Confirmed Active Tobacco abuse Confirmed Active 95238; repeat 2023 2Colonoscopy 2013 normal, repeat 2017. 3colo 2008 polyp, repeat 2013 4colo 2018 5egd 2012 nl per pt. report 6colo 2018 7Abnormal MRI cervical spine, followed by Dr. De Leon. [id number] Diagnosis Diagnosis Type Effective Dates Health Status Cl inical Service Informant ED (erectile dysfunction) Discharge Diagnosis 11/12/22 Vital Signs Most recent to oldest [Reference Range]: 1 Height 170 cm (11/12/22 8:55 AM) Weight 73.4 kg (11/12/22 8:55 AM) Oxygen Saturation [94-100 %] 97 % (11/12/22 8:55 AM) Pulse Rate [55-90 bpm] 62 bpm (11/12/22 8:55 AM) Body Mass Index [18.5-24.99 kg/m2] 25.4 kg/m2 *H* (11/12/22 8:55 AM) Blood Pressure [90-138/55-84 mm Hg] 116/ 62mm Hg (11/12/22 8:55 AM) Mode of Delivery (Oxygen) Room air (11/12/22 8:55 AM) Blood pressure sites Arm, left (11/12/22 8:55 AM) Weight Obtained Via Standing scale (11/12/22 8:55 AM) Social History Social History Type Response Smoking Status Cigars or pipes raulito y within last 30 days entered on: 05/28/22 Sex Patient Care team information Care Team Personnel Name: Chelsea López RN Position: [facility] RN Member Role: Primary Care Nurse Name: Pravin Santo MD Position: [facility] Physician - Primary Care Member Role: PCP Address: Address: [address] [place] [address]- Care Team Related Persons Name: JANNET BECK Address: home [address] [place] [address]
--- OUTSIDE RECORDS SUMMARY | 2023-10-06 12:05 | XMS_ITS | Continuity of Care Document ---
Author Organization [facility] Rodney Jorge lt Address [address] [place] [address]- Care Team Providers Care Welding Machine Operator Arc Name Role Phone Pravin Santo MD Primary Care Physician Encounter [facility] Date(s): 04/05/23 - 05/05/23 [facility] Josh Umanaley Adult [address] [place] [address]- Allergies, Adverse Reactions, Alerts Substance Reaction Severity Status penicillins hives, itchiness Active Immunizations Given and Recorded Vaccine Date Status Refusal Reason SARS-CoV-2(COVID-19)mRNA-LNP vac([id number]) 03/08/23 Recorded influenza virus vaccine, inactivated 1 [...] corded pneumococcal 20-valent conjugate vaccine 10/20/22 Given [id number] 12y+ bivalent booster vax 02/11/22 Recorded SARS-CoV-2 mRNA (ymzwqtz-lunu-bsudy) vax 08/21/21 Recorded SARS-CoV-2 (COVID-19) mRNA BNT-162b2 [...] Pertussis (oldterm) 08/02/10 Give n 1Result Comment: [facility]: [id number] 2Location History: SHAM 3Result Comment: [facility]: [id number] EXP: [id number] 4Result Comment: [12/19/2013] #2 5Result Comment: [10/19/2013] #1 6Result Comment: [12/19/2013] #2 7Admin Note: [employer] [facility] Medications Aller-Brenton 10 mg oral tablet 1 tablet, By Mouth, Daily, # 90 tablet, 1 Refills, Maintenance, 01/14/23 10:32:00 EDT, [facility] #[id number], 170, cm, 11/12/22 8:55:00 EDT, Height, 73, [...] Refills, Maintenance, 02/21/23 21:20:00 EDT, [facility], 171, cm, 02/21/23 20:09:00 EDT, Height, 72, kg, 02/19/23 13:52:00 EDT, Dry Weight Start Date: 02/21/23 Status: Ordered citalopram 20 mg oral tablet See Instructions, TAKE 1 TABLET BY MOUTH EVERY DAY, # 90 tablet, 3 Refills, Maintenance, 12/21/22 15:35:00 EDT, [facility]/pharmacy #7111, 170, cm, 11/12/22 8:55:00 EDT, [...] Refills, Maintenance, 07/23/22 12:10:00 EDT, [facility], 170, cm, 05/28/22 13:32:00 EST, Height, 73, [...] tablet, 3 Refills, Maintenance, 04/13/23 15:29:00 EST, [facility]/pharmacy #7111, 171, cm, 04/13/23 15:06:00 EST, [...] 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 [...] Care Nurse Name: Robby Servin RN Position: [facility] RN Member Role: Primary Care Nurse Name: Pravin Santo MD Position: [facility] Physician - Primary Care Member Role: PCP Address: Address: [address] [place] [address]- Name: Alyse Mckinney RN Position: S RN Member Role: Primary Care Nurse Care Team Related Persons Name: JANNET BECK Address: home [address] [place] [address]
--- OUTSIDE RECORDS SUMMARY | 2023-10-06 12:05 | XMS_ITS | Continuity of Care Document ---
Author Organization [facility] Josh Stevens Jorge lt Address [address] [place] [address]- Care Team Providers Care Student Teaching Coordinator Name Role Phone Hansa URIAS, Pravin Hidalgo Primary Care Physician [facility]counter [facility] Date(s): 03/10/23 - 04/09/23 [facility] Josh Stevens Adult [address] [place] [address]- Allergies, Adverse Reactions, Alerts Substance Reaction Severity Status penicillins hives, itchiness Active Immunizations Given and Recorded Vaccine Date Status Refusal Reason SARS-CoV-2(COVID-19)mRNA-LNP vac([id number]) 03/08/23 Recorded influenza virus vaccine, inactivated 1 [...] corded pneumococcal 20-valent conjugate vaccine 10/20/22 Given [id number]-[id number] 12y+ bivalent booster vax 02/11/22 Recorded SARS-CoV-2 mRNA (zrxkfee-epkr-efudi) vax 08/21/21 Recorded SARS-CoV-2 (COVID-19) mRNA BNT-162b2 [...] (oldterm) 08/02/10 Give n 1Result Comment: [facility]: [id number] 2Location History: SHAM 3Result Comment: [facility]: [id number] EXP: [id number] 4Result Comment: [12/19/2013] #2 5Result Comment: [10/19/2013] #1 6Result Comment: [12/19/2013] #2 7Admin Note: [employer] [facility] Medications Aller-Brenton 10 mg oral tablet 1 tablet, By Mouth, Daily, # 90 tablet, 1 Refills, Maintenance, 01/14/23 10:32:00 EDT, [facility] #[id number], 170, cm, 11/12/22 8:55:00 EDT, Height, 73, kg, 05/28/22 13:32:00 EST, Dry Weight Start Date: 01/14/23 Status: Ordered aspirin 81 mg oral tablet 1 tablet = 81 mg, By Mouth, Daily, # 30 tablet, 0 Refills, Maintenance, Tablet Start Date: 08/03/11 Status: Ordered atorvastatin 10 mg oral tablet 1 tablet, By Mouth, Daily, # 90 tablet, 1 Refills, Maintenance, 02/21/23 21:20:00 EDT, [facility] 195[facility], 171, cm, 02/21/23 20:09:00 EDT, Height, 72, kg, 02/19/23 13:52:00 EDT, Dry Weight Start Date: 02/21/23 Status: Ordered citalopram 20 mg oral tablet See Instructions, TAKE 1 TABLET BY MOUTH EVERY DAY, # 90 tablet, 3 Refills, Maintenance, 12/21/22 15:35:00 EDT, [facility]/pharmacy #[id number], 170, cm, 11/12/22 8:55:00 EDT, [...] Refills, Maintenance, 07/23/22 12:10:00 EDT, [facility], 170, cm, 05/28/22 13:32:00 EST, Height, 73, [...] Refills, Maintenance, 11/12/22 9:13:00 EDT, [facility], 170, cm, 11/12/22 8:55:00 EDT, Height, 73, [...] 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 [...] Primary Care Nurse Name: Zoe Nunez Position: [facility] RN Member Role: Primary Care Nurse Name: Robby Servin RN Position: [facility] RN Member Role: Primary Care Nurse Name: Pravin Santo MD Position: [facility] Physician - Primary Care Member Role: PCP Address: Address: [address] [place] [address]- Name: Alyse Mckinney RN Position: [facility] RN Member Role: Primary Care Nurse Care Team Related Persons Name: ROSEMARYARASH JANNET Address: home [address] [place] [address]
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
--- OUTSIDE RECORDS SUMMARY | 2023-10-06 12:06 | XMS_ITS | Continuity of Care Document ---
Author Organization [facility] [place] Jorge lt Address [address] [place] [address]- Care Team Providers Care Manager Traffic Name Role Phone Pravin Santo MD Primary Care Physician [phone] Encounter [facility] Date(s): 05/08/22 - 06/07/22 [facility] [place] Adult [address] [place] [address]- Attending Physician: AdmBrian tran Admitting Physician: AdmtrBrian Referring Physician: Admtr, Ar8 Allergies, Adverse Reactions, Alerts Substance Reaction Severity Status penicillins hives, itchiness Active Immunizations Given and Recorded Vaccine Date Status Refusal Reason influenza virus vaccine, inactivated 02/20/22 Jaxson rded [...] virus vaccine, inactivated 1 01/08/13 Re corded [id number]-[id number] 12y+ bivalent booster vax 02/11/22 Recorded SARS-CoV-2 mRNA (kfxaeiz-gekh-jpxvi) vax 08/21/21 Recorded SARS-CoV-2 (COVID-19) mRNA BNT-162b2 [...] Give n 1Location History: SHAM 2Result Comment: [facility]: [id number] EXP: [id number] 3Result Comment: [12/19/2013] #2 4Result Comment: [10/19/2013] #1 5Result Comment: [12/19/2013] #2 6Admin Note: [facility] Medications Aller-Brenton 10 mg oral tablet 1 tablet, By Mouth, Daily, # 90 tablet, 1 Refills, Maintenance, 01/30/22 12:41:00 EDT, [facility] #[id number], 170, cm, 11/04/21 13:58:00 EDT, Height, 69.4, kg, 12/26/20 9:13:00 EDT, Dry Weight Start Date: 01/30/22 Status: Ordered aspirin 81 mg oral tablet 1 tablet = 81 mg, By Mouth, Daily, # 30 tablet, 0 Refills, Maintenance, Tablet Start Date: 08/03/11 Status: Ordered atorvastatin 10 mg oral tablet 1 tablet, By Mouth, Daily, # 90 tablet, 1 Refills, 02/09/22 12:12:00 EDT, [facility]/pharmacy #7111, 170, cm, 11/04/21 13:58:00 EDT, Height, 69.4, kg, 12/26/20 9:13:00 EDT, Dry Weight Start Date: 02/09/22 Status: Ordered Maria E Ascensia Breeze 2 [...] Refills 11, Maintenance,TEST BS TID E11.9 FAX [phone], 01/30/19 11:03:21 EDT, Compound Start Date: 01/30/19 Status: Ordered citalopram 20 mg oral tablet 1 tablet, By Mouth, Daily, # 90 tablet, 1 Refills, [facility] 10[facility], 170, cm, 11/04/21 13:58:00 EDT,Height, 69.4, kg, 12/26/20 9:13:00 EDT, Dry Weight Start Date: 12/04/21 Status: Ordered Citracal Tablet Daily, Refills 0, [...] Daily, # 90 tablet, 1 Refills, Maintenance, 01/05/22 8:40:00 EDT, [facility], 170, cm, 11/04/21 13:58:00 EDT, Height, 69.4, kg, 12/26/20 9:13:00 EDT, Dry Weight Start Date: 01/05/22 Status: Ordered Fish Oil By Mouth, Daily, 0 Refills, Maintenance, 04/26/18 10:26:55 EST Start Date: 04/26/18 Status: Ordered Flonase 50 mcg/inh nasal spray 2 sprays, Nares, Both, Daily, # 16 Gm, 6 Refills, Maintenance, 06/25/16 14:12:57, [place], 2 sprays Nares, Both Daily Start Date: [...] Daily, # 90 tablet, 1 Refills, Maintenance, 03/14/22 6:22:00 EDT, [facility]/pharmacy #[id number], 170, cm, 11/04/21 13:58:00 EDT, Height, 69.4, kg, 12/26/20 9:13:00 EDT, Dry Weight Start Date: 03/14/22 Status: Ordered Multivitamin Daily, Centrum silver, 0 [...] 5 Refills, Maintenance, 11/04/21 14:16:00 EDT, Tablet, [facility] # 302, Partial fill upon patient [...] inhalation Confirmed Active Tobacco abuse Confirmed Active 17743; repeat 2023 2Colonoscopy 2012 normal, repeat 2017. 3colo 2008 polyp, repeat 2012 4colo 2018 5egd 2012 nl per pt. report 6colo 2018 7Abnormal MRI cervical spine, followed by Dr. De Leon. 8colo 2018 Social History Social History Type Response Smoking Status Cigars or pipes raulito y within last 30 days entered on: 05/28/22 Sex History and physical note * Monique Neumann: PERFORM Event Display: History and Physical Hospital Authored Date: EKG study * Event Display: EKG Authored Date: Note * Event Display: MRI Head, Non- BH Authored Date: * Event Display: Non BH Lab Results Authored Date: * Event Display: Non BH Lab Results Authored Date: * Event Display: Non BH Lab Results Authored Date: * Romelia Mariscal RN: VERIFY, PERFORM, SIGN Event Display: Clinical Summary Authored Date: Patient: ZANDER BECK Age: 73 years Sex: Male : 1945 Associated Diagnoses: None Author: Romelia Mariscal RN Dear Zander : General Lab Results Other Results ALL [...] please call our office. Sincerely, Dr. Santo * Event Display: Radiology Result Scanned Authored Date: * Event Display: Radiology Result Scanned Authored Date: * Madison Wilson: PERFORM Event Display: Radiology Results Scanned Authored Date: [id number] Patient Care team information Care Team Personnel Name: Chelsea López RN Position: [facility] RN Member Role: Primary Care Nurse Name: Pravin Santo MD Position: [facility] Primary Care Physician Member Role: PCP Address: Address: [address] [place] [address]- Care Team Related Persons Name: JANNET BECK Address: home [address] [place] [address]
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
--- OUTSIDE RECORDS SUMMARY | 2023-10-06 12:06 | XMS_ITS | Continuity of Care Document ---
Author Organization [facility] Jorge Address [address] [place] [address]- Care Team Providers Care Maintenance Clerk Name Role Phone Pravin Leon MD Primary Care Physician [phone] Encounter [facility] Date(s): 08/01/19 - 08/08/19 [facility] Adult [address] [place] [address]- [facility] Encounter Diagnosis DM (diabetes mellitus), type 2(Discharge Diagnosis) - 08/01/19 Hypercholesterolemia(Discharge Diagnosis) - 08/01/19 Anxiety(Discharge Diagnosis) - 08/01/19 Depression(Discharge Diagnosis) - 08/01/19 Alcohol Abuse(Discharge Diagnosis) - 08/01/19 Attending Physician: Pravin Leon MD Allergies, Adverse [...] #1 4Result Comment: [12/19/2013] #2 5Admin Note: [employer] [facility] Medications Antabuse 250 mg oral tablet 1 [...] tablet, 1 Refills, Maintenance, 06/22/19 10:52:00 EST, [facility]/pharmacy #7111, 170.18, cm, 05/30/19 14:26:00 EST, [...] Refills 11, Maintenance,TEST BS TID E11.9 FAX [phone], 01/30/19 11:03:21 EDT, Compound Start Date: 01/30/19 Status: Ordered CeleXA 20 mg oral tablet 20 mg, 1, tablet, By Mouth, Daily, PER DR LEON, # 90 tablet, Refills 3, Tot. Refills 3, Maintenance,10/05/18 16:12:00 EDT, Route to Pharmacy Electronically, [id number], [facility]/pharmacy #[id number] Start Date: 10/05/18 Stop Date: [...] 16 Gm, 6 Refills, Maintenance, 06/25/16 14:12:57, [place], 2 sprays Nares, Both Daily Start Date: 06/25/16 Status: Ordered Lancets See Instructions, # 100 each, Refills 5, Tot. Refills 5, Maintenance, tests bid -tid for dm type 2 250.00, 12/08/12 14:13:50, Compound Start Date: 12/08/12 Status: Ordered metFORMIN 500 mg oral tablet 1 tablet = 500 mg, By Mouth, Daily, # 90 tablet, 1 Refills, Maintenance, 05/07/19 9:36:00 EST, Tablet, [facility]/pharmacy #7111, 170.18, cm, 01/30/19 10:28:00 EDT, Height, 72.27, kg, 06/01/17 12:27:00 EST,Dry Weight Start Date: 05/07/19 Status: Ordered Viagra 50 mg oral tablet 1 tablet = 50 mg, By Mouth, Daily, 1 hour before sexual activity, # 10 tablet, 5 Refills, Maintenance, 06/07/19 16:28:00 EST, Tablet, [facility] # [facility], 170.18, cm, 05/30/19 14:26:00 [...] Active Raynaud's Syndrome(Confirmed) Active Tobacco abuse(Confirmed) Active 30123; repeat 2023 2Colonoscopy 2013 normal, repeat 2017. 3colo 2008 polyp, repeat 2012 4colo 2019 5egd 2012 nl per pt. report 6colo 2019 7Abnormal MRI cervical spine, followed by Dr. De Leon. 8colo 2018 Diagnosis Diagnosis Type Effective Dates Health Status Clinical Service Informant DM (diabetes mellitus), type 2 Discharge Diagnosis 08/01/19 Hypercholesterolemia Discharge Diagnosis 08/01/19 Anxiety Discharge Diagnosis 08/01/19 Depression Discharge Diagnosis 08/01/19 Alcohol Abuse Discharge Diagnosis 08/01/19 Vital Signs Most recent to oldest [Reference Range]: 1 Height 170.18 cm (08/01/19 12:21 PM) Weight 77.4 kg (08/01/19 12:21 PM) Oxygen Saturation [94-100 %] 97 % (08/01/19 12: PM) Pulse Rate [55-90 bpm] 90 bpm (08/01/19 12:21 PM) Body Mass Index [18.5-24.99] 26.73 *H* (08/01/19 12: PM) Blood Pressure [90-138/55-84 mm Hg] 110/ 66mm Hg (08/01/19 12:21 PM) Temperature [96.8-100.4 DegF] 98.5 DegF (08/01/19 12:21 PM) Mode of Delivery (Oxygen) Room air (08/01/19 12:21 PM) Blood pressure sites Arm, left (08/01/19 12:21 PM) Temperature Route Oral (08/01/19 12:21 PM) Weight Obtained Via Standing scale (08/01/19 12:21 PM) Social History Social History Type Response Smoking Status Current some day smo ker; Other: pipe; entered on: 04/16/14 Sex
--- OUTSIDE RECORDS SUMMARY | 2023-10-06 12:06 | XMS_ITS | Continuity of Care Document ---
Author Organization [facility] Josh Stevens Jorge lt Address [address] [place] [address]- Care Team Providers Care Automation Lead Name Role Phone Pravin Satno MD Primary Care Physician Encounter [facility] Date(s): 10/20/22 - 10/27/22 [facility] Rodney Adult [address] [place] [address]- Attending Physician: Pravin Santo MD Allergies, Adverse [...] virus vaccine, inactivated 1 01/08/13 Re corded [id number] 12y+ bivalent booster vax 02/11/22 Recorded SARS-CoV-2 mRNA (dftunhx-dbkz-tqwrc) vax 08/21/21 Recorded SARS-CoV-2 (COVID-19) mRNA BNT-162b2 [...] n 1Location History: SHAM 2Result Comment: [facility]: 07117-977-59 EXP: [id number] 3Result Comment: [12/19/2013] #2 4Result Comment: [10/19/2013] #1 5Result Comment: [12/19/2013] #2 6Admin Note: [employer] [facility] Medications Aller-Brenton 10 mg oral tablet 1 tablet, By Mouth, Daily, # 90 tablet, 1 Refills, Maintenance, 07/23/22 13:04:00 EDT, [facility] #[id number], 170, cm, 05/28/22 13:32:00 EST, Height, 73, kg, 05/28/22 13:32:00 EST, Dry Weight Start Date: 07/23/22 Status: Ordered aspirin 81 mg oral tablet 1 tablet = 81 mg, By Mouth, Daily, # 30 tablet, 0 Refills, Maintenance, Tablet Start Date: 08/03/11 Status: Ordered atorvastatin 10 mg oral tablet 1 tablet, By Mouth, Daily, # 90 tablet, 1 Refills, Maintenance, 08/10/22 13:53:00 EDT, [facility], 170, cm, 08/06/22 8:30:00 EDT, Height, 73, [...] Ordered MARIA E BREEZE 2 TEST STRIPS MAIRA E BREEZE 2 TEST STRIPS, See Instructions, # 100 each, Refills 11, Tot. Refills 11, Maintenance,TEST BS TID E11.9 FAX [phone], 01/30/19 11:03:21 EDT, Compound Start Date: 01/30/19 Status: Ordered citalopram 20 mg oral tablet 1 tablet, By Mouth, Daily, # 90 tablet, 1 Refills, 07/03/22 14:35:00 EST, [facility]/pharmacy #7111, 170, cm, 05/28/22 13:32:00 EST, Height, [...] tablet, 3 Refills, Maintenance, 07/23/22 12:10:00 EDT, [facility], 170, cm, 05/28/22 13:32:00 EST, Height, 73, kg, 05/28/22 13:32:00 EST, Dry Weight Start Date: 07/23/22 Status: Ordered Fish Oil By Mouth, Daily, 0 Refills, Maintenance, 04/26/18 10:26:55 EST Start Date: 04/26/18 Status: Ordered Flonase 50 mcg/inh nasal spray 2 sprays, Nares, Both, Daily, # 16 Gm, 6 Refills, Maintenance, 06/25/16 14:12:57, [place], 2 sprays Nares, Both Daily Start Date: [...] tablet, 1 Refills, Maintenance, 09/23/22 16:12:00 EDT, [facility], 170, cm, 08/06/22 8:30:00 EDT, Height, 73, [...] 5 Refills, Maintenance, 11/04/21 14:16:00 EDT, Tablet, [facility] # 302, Partial fill upon patient [...] inhalation Confirmed Active Tobacco abuse Confirmed Active 39248; repeat 2023 2Colonoscopy 2012 normal, repeat 2017. 3colo 2008 polyp, repeat 2012 4colo 2018 5egd 2011 nl per pt. report 6colo 2018 7Abnormal MRI cervical spine, followed by Dr. De Leon. [id number] Vital Signs Most recent to oldest [Reference Range]: 1 Height 170 cm (10/20/22 4:10 PM) Weight 75.5 kg (10/20/22 4:10 PM) Oxygen Saturation [94-100 %] 97 % (10/20/22 4:10 PM) Pulse Rate [55-90 bpm] 72 bpm (10/20/22 4:10 PM) Body Mass Index [18.5-24.99 kg/m2] 26.12 kg/m2 *H* (10/20/22 4:10 PM) Blood Pressure [90-138/55-84 mm Hg] 100/ 66mm Hg (10/20/22 4:10 PM) Mode of Delivery (Oxygen) Room air (10/20/22 4:10 PM) Blood pressure sites Arm, left (10/20/22 4:10 PM) Social History Social History Type Response Smoking Status Cigars or pipes raulito y within last 30 days entered on: 05/28/22 Sex Patient Care team information Care Team Personnel Name: Rene MARIN, [place] Position: [facility] RN Member Role: Primary Care Nurse Name: Hansa URIAS, Pravin Hidalgo Position: [facility] Physician - Primary Care Member Role: PCP Address: Address: [address] [place] [address]- Care Team Related Persons Name: JANNET BECK Address: home [address] [place] [address]
--- OUTSIDE RECORDS SUMMARY | 2023-10-06 12:06 | XMS_ITS | Continuity of Care Document ---
Author Organization [facility] Josh Stevens Jorge lt Address [address] [place] [address]- Care Team Providers Care Director Of Coding Name Role Phone Pravin Santo MD Primary Care Physician [phone] [facility] Date[facility]s): 03/19/23 - 04/18/23 [facility] Josh Stevens Adult [address] [place] [address]- Allergies, Adverse Reactions, Alerts Substance Reaction Severity Status penicillins hives, itchiness Active Immunizations Given and Recorded Vaccine Date Status Refusal Reason SARS-CoV-2(COVID-19)mRNA-LNP vac([id number]) 03/08/23 Recorded influenza virus vaccine, inactivated 1 [...] corded pneumococcal 20-valent conjugate vaccine 10/20/22 Given [id number] 12y+ bivalent booster vax 02/11/22 Recorded SARS-CoV-2 mRNA (bwcpfna-uimm-gxzzp) vax 08/21/21 Recorded SARS-CoV-2 (COVID-19) mRNA BNT-162b2 [...] Pertussis (oldterm) 08/02/10 Give n 1Result Comment: [facility]: 60461-620-20 2Location History: SHAM 3Result Comment: [facility]: [id number] EXP: [id number] 4Result Comment: [12/19/2013] #2 5Result Comment: [10/19/2013] #1 6Result Comment: [12/19/2013] #2 7Admin Note: [employer] [facility] Medications Aller-Brenton 10 mg oral tablet 1 tablet, By Mouth, Daily, # 90 tablet, 1 Refills, Maintenance, 01/14/23 10:32:00 EDT, [facility] #[id number], 170, cm, 11/12/22 8:55:00 EDT, Height, 73, [...] Refills, Maintenance, 02/21/23 21:20:00 EDT, [facility], 171, cm, 02/21/23 20:09:00 EDT, Height, 72, [...] Refills, Maintenance, 07/23/22 12:10:00 EDT, [facility], 170, cm, 05/28/22 13:32:00 EST, Height, 73, [...] dependent type 2 diabetes mellitus Confirmed Active 08384; repeat 2023 2Colonoscopy 2012 normal, repeat 2017. [...] Care Nurse Name: Robby Servin RN Position: [facility] RN Member Role: Primary Care Nurse Name: Pravin Santo MD Position: [facility] Physician - Primary Care Member Role: PCP Address: Address: [address] [place] [id number]- Name: Alyse Mckinney RN Position: S RN Member Role: Primary Care Nurse Care Team Related Persons Name: JANNET BECK Address: home [address] [place] [address]
--- OUTSIDE RECORDS SUMMARY | 2023-10-06 12:06 | XMS_ITS | Continuity of Care Document ---
Author Organization [facility] y Address [address] [place] [address]- Care Team Providers Care Chemist Helper Name Role Phone Pravin Santo MD Primary Care Physician Encounter [facility] Date(s): 02/28/23 - 05/15/23 [facility] [address] [place] [address]- Attending Physician: Jacques Powell MD Admitting Physician: Jacques Powell MD Allergies, Adverse Reactions, Alerts Substance Reaction Severity Status penicillins hives, itchiness Active Immunizations Given and Recorded Vaccine Date Status Refusal Reason SARS-CoV-2(COVID-19)mRNA-LNP vac([id number]) 03/08/23 Recorded influenza virus vaccine, inactivated 1 [...] corded pneumococcal 20-valent conjugate vaccine 10/20/22 Given [id number] 12y+ bivalent booster vax 02/11/22 Recorded SARS-CoV-2 mRNA (fvojxmh-mccu-fymep) vax 08/21/21 Recorded SARS-CoV-2 (COVID-19) mRNA BNT-162b2 [...] Pertussis (oldterm) 08/02/10 Give n 1Result Comment: [facility]: [id number] 2Location History: SHAM 3Result Comment: [facility]: [id number] EXP: [id number] Comment: [12/19/2013] #2 5Result Comment: [10/19/2013] #1 6Result Comment: [12/19/2013] #2 7Admin Note: [facility] Medications Aller-Brenton 10 mg oral tablet 1 tablet, By Mouth, Daily, # 90 tablet, 1 Refills, Maintenance, 01/14/23 10:32:00 EDT, [facility] #46237, 170, cm, 11/12/22 8:55:00 EDT, Height, 73, [...] Refills, Maintenance, 02/21/23 21:20:00 EDT, [facility], 171, cm, 02/21/23 20:09:00 EDT, Height, 72, [...] Refills, Maintenance, 07/23/22 12:10:00 EDT, [facility], 170, cm, 05/28/22 13:32:00 EST, Height, 73, [...] tablet, 3 Refills, Maintenance, 04/13/23 15:29:00 EST, [facility]/pharmacy #7111, 171, cm, 04/13/23 15:06:00 EST, Height, [...] 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 [...] Primary Care Member Role: PCP Address: Address: [address] [place] [id number]- Name: Alyse Mckinney RN Position: S RN Member Role: Primary Care Nurse Care Team Related Persons Name: JANNET BECK Address: home [address] [place] [address]
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
--- OUTSIDE RECORDS SUMMARY | 2023-10-06 12:06 | XMS_ITS | Continuity of Care Document ---
Author Organization [facility] Rodney Jorge lt Address [address] [place] [address]- Care Team Providers Care Linseed Cake Trimmer Name Role Phone Pravin Santo MD Primary Care Physician Encounter [facility] Date(s): 03/30/23 - 04/29/23 [facility] [place] [address] [place] [address]- Allergies, Adverse Reactions, Alerts Substance Reaction Severity Status penicillins hives, itchiness Active Immunizations Given and Recorded Vaccine Date Status Refusal Reason SARS-CoV-2(COVID-19)mRNA-LNP vac([id number]) 03/08/23 Recorded influenza virus vaccine, inactivated 1 [...] corded pneumococcal 20-valent conjugate vaccine 10/20/22 Given [id number] 12y+ bivalent booster vax 02/11/22 Recorded SARS-CoV-2 mRNA ([id number]) vax 08/21/21 Recorded SARS-CoV-2 (COVID-19) mRNA BNT-162b2 [...] Give n 1Result Comment: [facility]: [phone] 2Location History: SHAM 3Result Comment: [facility]: [phone] EXP: [id number] 4Result Comment: [12/19/2013] #2 5Result Comment: [10/19/2013] #1 6Result Comment: [12/19/2013] #2 7Admin Note: [facility] Medications Aller-Brenton 10 mg oral tablet 1 tablet, By Mouth, Daily, # 90 tablet, 1 Refills, Maintenance, 01/14/23 10:32:00 EDT, [id number], 170, cm, 11/12/22 8:55:00 EDT, Height, 73, [...] Refills, Maintenance, 02/21/23 21:20:00 EDT, [facility], 171, cm, 02/21/23 20:09:00 EDT, Height, 72, kg, 02/19/23 13:52:00 EDT, Dry Weight Start Date: 02/21/23 Status: Ordered citalopram 20 mg oral tablet See Instructions, TAKE 1 TABLET BY MOUTH EVERY DAY, # 90 tablet, 3 Refills, Maintenance, 12/21/22 15:35:00 EDT, [facility]/pharmacy #[id number], 170, cm, 11/12/22 8:55:00 EDT, [...] Refills, Maintenance, 07/23/22 12:10:00 EDT, [facility], 170, cm, 05/28/22 13:32:00 EST, Height, 73, [...] tablet, 3 Refills, Maintenance, 04/13/23 15:29:00 EST, [facility]/pharmacy #[id number], 171, cm, 04/13/23 15:06:00 EST, [...] dependent type 2 diabetes mellitus Confirmed Active 57546; repeat 2023 2Colonoscopy 2012 normal, repeat 2017. [...] Care Nurse Name: Robby Servin RN Position: [facility] RN Member Role: Primary Care Nurse Name: Pravin Santo MD Position: [facility] Physician - Primary Care Member Role: PCP Address: Address: [address] [place] [id number]- Name: Alyse Mckinney RN Position: S RN Member Role: Primary Care Nurse Care Team Related Persons Name: JANNET BECK Address: home [address] [place] [address]
--- OUTSIDE RECORDS SUMMARY | 2023-10-06 12:06 | XMS_ITS | Continuity of Care Document ---
Author Organization [facility] ter Address [address] [place] [id number]- Care Team Providers Care Window Dresser Name Role Phone Pravin Santo MD Primary Care Physician Encounter [facility] Date(s): 02/19/23 - 02/25/[address] [id number] Discharge Disposition: A-D/C Home Attending Physician: Christine Collado MD Admitting Physician: Linsey Rooney MD Referring Physician: Not on Staff, Referring [...] virus vaccine, inactivated 1 01/08/13 Re corded [id number] 12y+ bivalent booster vax 02/11/22 Recorded SARS-CoV-2 mRNA ([id number]) vax 08/21/21 Recorded SARS-CoV-2 (COVID-19) mRNA BNT-162b2 [...] 2Result Comment: [facility]: [id number] EXP: [id number] 3Result Comment: [12/19/2013] #2 4Result Comment: [10/19/2013] #1 5Result Comment: [12/19/2013] #2 6Admin Note: [facility] Medications Aller-Brenton 10 mg oral tablet 1 tablet, By Mouth, Daily, # 90 tablet, 1 Refills, Maintenance, 01/14/23 10:32:00 EDT, [facility] #[id number], 170, cm, 11/12/22 8:55:00 EDT, Height, 73, [...] Refills, Maintenance, 02/21/23 21:20:00 EDT, [id number], 171, cm, 02/21/23 20:09:00 EDT, Height, 72, kg, 02/19/23 13:52:00 EDT, Dry Weight Start Date: 02/21/23 Status: Ordered Cialis 5 mg oral tablet 1 tablet = 5 mg, By Mouth, Daily, at the same time every day, # 90 tablet, 3 Refills, Maintenance, 11/12/22 9:12:00 EDT, Tablet, [facility] # [id number], Partial fill [...] Refills, Maintenance, 07/23/22 12:10:00 EDT, [id number], 170, cm, 05/28/22 13:32:00 EST, Height, 73, kg, 05/28/22 13:32:00 EST, Dry Weight Start Date: 07/23/22 Status: Ordered Fish Oil By Mouth, Daily, 0 Refills, Maintenance, 04/26/18 10:26:55 EST Start Date: 04/26/18 Status: Ordered fluticasone 27.5 mcg/inh nasal spray 2 sprays, Nares, Both, Daily, PRN for allergy symptoms, # 10 Gm, 0 Refills, Maintenance, 02/04/23 13:13:00 EDT, [place], [facility]/pharmacy #[id number], Partial fill upon patient [...] Acute 04/05/23 12:30:00 EST, 02/25/23 13:08:00 EDT, [facility]/pharmacy #[id number], Partial fill upon patient requ... Start Date: 02/25/23 Stop Date: 04/05/23 Status: Ordered metFORMIN 500 mg oral tablet See Instructions, TAKE 1 TABLET BY MOUTH EVERY DAY, # 90 tablet, 3 Refills, Maintenance, 11/12/22 9:13:00 EDT, [id number], 170, cm, 11/12/22 8:55:00 EDT, Height, 73, [...] 13:12:00 EDT, Aerosol, Route to Pharmacy Electronically, [id number], [facility]/pharmacy #[id number], 170, cm, 02/04/23 12:56:00 EDT, Hei... 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 3colo 2008 polyp, repeat 2012 4colo 2018 5egd 2011 nl per pt. report [id number] 7Abnormal MRI cervical spine, followed by Dr. De Leon. 8colo 2018 Results Orders for Microbiology Reports Name Date Sputum Culture w/ Gram Smear 02/20/23 Anaerobic Culture 02/20/23 Sterile Body Fluid Culture W/ Gram Smear 02/20/23 Blood Culture 02/19/23 Blood Culture #2 02/19/23 Microbiology Reports TEST:Sputum Culture STATUS:Auth (Verified) BODY SITE: SOURCE:EXPECT COLLECTED DATE/TIME:02/20/23 8:00 PM Sputum Culture SPECIMEN DESCRIPTION : EXPECTORATED SPUTUM SPECIAL REQUESTS : NONE GRAM STAIN : 3+ POLYMORPHONUCLEAR LEUKOCYTES 1+ SQ.EPITHELIAL CELLS 1+ GRAM POSITIVE COCCI 1+ GRAM POSITIVE RODS CULTURE : 2+ NORMAL FANY REPORT STATUS : FINAL 02/23/2023 TEST:Anaerobic Culture STATUS:Auth (Verified) BODY SITE: SOURCE:BODY F COLLECTED DATE/TIME:02/20/23 2:00 PM Anaerobic Culture SPECIMEN DESCRIPTION : BODY FLUID PLEURAL CAVITY LEFT SPECIAL REQUESTS : NONE CULTURE : NO ANAEROBES ISOLATED REPORT STATUS : FINAL 02/22/2023 TEST:Sterile Fluid Culture STATUS:Auth (Verified) BODY SITE: SOURCE:PLEURA COLLECTED DATE/TIME:02/20/23 2:00 PM Sterile Fluid Culture SPECIMEN DESCRIPTION : PLEURAL FLUID LEFT SPECIAL REQUESTS : NONE GRAM STAIN : 3+ POLYMORPHONUCLEAR LEUKOCYTES NO ORGANISMS SEEN CULTURE : 2+ STREPTOCOCCUS INTERMEDIUS This isolate was identified using Maldi-TOF system CRITICAL VALUE CALLED AND VERIFIED BY READBACK FOR: STREPTOCOCCUS INTERMEDIUS TO [id number] AT 1330 02/21/23 AT [id number] BY 157. REPORT STATUS : FINAL 02/23/2023 ORGANISM 2+ STREPTOCOCCUS INTERMEDIUS This isolate was identified using Maldi-TOF system METHOD ETEST GRADIENT STRIP (MCG/ML) PENICILLIN 0.047 SUSCEPTIBLE CEFTRIAXONE 0.064 SUSCEPTIBLE TEST:Blood Culture, Second Order STATUS:Auth (Verified) BODY SITE: SOURCE:Blood COLLECTED DATE/TIME:02/19/23 3:06 PM Blood Culture, Second Order SPECIMEN DESCRIPTION : BLOOD LT HAND SPECIAL REQUESTS : NONE CULTURE : NO GROWTH 5 DAYS. REPORT STATUS : FINAL 02/24/2023 TEST:Blood Culture STATUS:Auth (Verified) BODY SITE: SOURCE:Blood COLLECTED DATE/TIME:02/19/23 3:02 PM Blood Culture SPECIMEN DESCRIPTION : BLOOD RT HAND SPECIAL REQUESTS : NONE CULTURE : NO GROWTH 5 DAYS. REPORT STATUS : FINAL 02/24/2023 Radiology Reports (Most Recent Ten) * Exam Date Time Procedure Performing Provider Status 02/25/23 5:54 AM Chest 2 Views Frontal and Lat Javy Naranjo; Auth (Verified) Notes: (Chest 2 Views Frontal and Lat) Reason For Exam: Follow-Up Pleural Effusion RESULT: Chest 2 Views Frontal and Lat Chest 2 Views Frontal and Lat Reason: Follow-Up Pleural Effusion; Clinical Question(s): Pleural Effusion COMPARISON: CXR 02/23/2023, CT chest 02/24/2023 FINDINGS: LINES AND TUBES: Left basilar thoracostomy tube has been slightly pulled back since the prior examination.. LUNGS AND PLEURA: Unchanged small loculated left hydropneumothorax and left lower lobe consolidation. Hazy opacities in the right lower lobe, most likely atelectasis. No pleural effusion. No pneumothorax. HEART, MEDIASTINUM AND MICHEAL: Heart is normal in size. Normal mediastinal and hilar contour. BONES AND SOFT TISSUES: No acute abnormality. Several old healed left-sided rib fractures are again seen unchanged. IMPRESSION: Unchanged small left hydropneumothorax and left lower lobe consolidation. I have personally reviewed the images and I agree with this report. WSN: [id number] Ordering Physician: Hilda Perez Dictated By: Camacho Zurita MD Dictated Date/Time: 02/25/23 10:10 a Reviewed By: Grady Espitia MD, V Signed By: Grady Espitia MD, V Signed Date/Time: 02/25/23 10:15 am Transcribed By: ADELFO Transcribed Date/Time: 02/25/23 10:05 am * Exam Date Time Procedure Performing Provider Status 02/24/23 6:[address] Chest W/ Contrast Denny Strickland; Auth (Verified) Notes: (CT Chest W/ Contrast) Reason For Exam: Infection RESULT: CT Chest W/ Contrast CT Chest W/ Contrast INDICATION/CLINICAL QUESTION: Infection; Clinical Question(s): Abscess Empyema; Order Comment. COMPARISON: Multiple recent exams. TECHNIQUE: Helical CT scan of the chest with IV contrast, formatted in 3 planes. Weight-based protocol was performed using automatic exposure control. 75 cc Omnipaque 300 contrast. CTDIvol Body: 4.80mGy, DLP Body: 222 mGy*cm. FINDINGS: CELL FEED DEPARTMENT SUPERVISOR VIEW FINDINGS, LINES AND TUBES: Left posterior basilar pleural drain remains in place. TRACHEA AND MAIN BRONCHI: Patent without evidence of tracheal or endobronchial lesion. LUNGS AND PLEURA: Mild/moderate emphysematous changes are suggested. Near complete collapse left lower lobe with central consolidative opacity in the basilar segments largely unchanged from 02/21/2023, marginally improved from 02/19/2023. Decreasing pleural effusion, no pleural thickening or enhancement is identified to suggest an empyema. There are residual loculated foci of pleural fluid, 1 superiorly along the major fissure axial image 40 series 201 measuring 4.4 cm in transverse dimension, fluid extends caudally along the major with 2 loculated components at the left lung base, one medially and one laterally both visualized on axial image 66 series 201. The lateral collection appears to contain a small amount of gas and connects with a more linear loculated hydropneumothorax laterally along the pleural space, best seen axial image 49 series 201. AORTA: No evidence of aortic aneurysm. MEDIASTINUM and MICHEAL: Borderline enlarged subcarinal and left hilar adenopathy, subcarinal region node measuring 1.6 cm short axis dimension. Normal heart size, mild biatrial dilatation with extensive coronary arterial calcification. No pericardial effusion. CHEST WALL SOFT TISSUES: Normal. DIAPHRAGM AND UPPER ABDOMEN: Distal esophagus appears somewhat thickened. BONES: No acute abnormalities, no suspicious osseous lesions. There are some old healed left-sided rib fractures. IMPRESSION: 1. Dramatic improvement in the left-sided pleural effusion with residual loculated hydropneumothorax as noted without evidence of empyema or abscess. 2. Persistent near complete collapse and/or consolidation the left lower lobe concerning for pneumonia. WSN: [id number] Ordering Physician: Hilda Perez Dictated By: Gaston Ha MD Dictated Date/Time: 02/24/23 9:30 am Reviewed By: Gaston Ha MD Signed By: Gaston Ha MD Signed Date/Time: 02/24/23 9:30 am Transcribed By: ADELFO Transcribed Date/Time: 02/24/23 9:17 am * Exam Date Time Procedure Performing Provider Status 02/23/23 5:37 AM Chest 2 Views Frontal and Lat Jaron Pruitt (Verified) Notes: (Chest 2 Views Frontal and Lat) Reason For Exam: Follow-Up Pleural Effusion RESULT: Chest 2 Views Frontal and Lat Chest 2 Views Frontal and Lat CLINICAL INDICATION: Reason: Follow-Up Pleural Effusion; Clinical Question(s): Pleural Effusion COMPARISON: Prior radiographs, most recently 02/22/2023 as well as chest CT from 02/21/2023. FINDINGS: Left basilar pleural pigtail catheter is again seen. Small to moderate residual left pleural effusion is again seen. Tiny bubble of air is seen along the previously loculated component along the lateral hemithorax consistent with hydropneumothorax. Adjacent dense left lower lobe consolidation is noted. Linear atelectasis is seen at the right lateral lung base. The right lung is otherwise clear. Cardiomediastinal silhouette is stable. Hilar contours are normal. No acute osseous abnormality is noted. IMPRESSION: Left hydropneumothorax at the lung base is similar to previous day. WSN: [id number] Ordering Physician: Hilda Perez Dictated By: Mitzi Allen MD Dictated Date/Time: 02/23/23 8:56 am Reviewed By: Mitzi Allen MD Signed By: Mitzi Allen MD Signed Date/Time: 02/23/23 8:56 am Transcribed By: CSB Transcribed Date/Time: 02/23/23 8:54 am * Exam Date Time Procedure Performing Provider Status 02/22/23 6:10 AM Chest 2 Views Frontal and Lat Marnie Fleming; Auth (Verified) Notes: (Chest 2 Views Frontal and Lat) Reason For Exam: Follow-Up Pleural Effusion RESULT: Chest 2 Views Frontal and Lat Chest 2 Views Frontal and Lat Reason: Follow-Up Pleural Effusion; Clinical Question(s): Pleural Effusion COMPARISON: CXR and CT 02/21/2023 FINDINGS: LINES AND TUBES: Left basilar thoracostomy tube. LUNGS AND PLEURA: Previously seen rounded opacity in the left hemithorax representing loculated right pleural effusion has essentially resolved. Small-moderate residual left pleural effusion. Left basilar consolidation/atelectasis unchanged. Clear right lung. No pneumothorax. HEART, MEDIASTINUM AND MICHEAL: Heart is normal in size. Normal mediastinal and hilar contour. BONES AND SOFT TISSUES: No acute abnormality. IMPRESSION: Improved loculated component of the left pleural effusion. Small-moderate residual left layering pleural effusion. Unchanged left basilar consolidation/atelectasis. I have personally reviewed the images and I agree with this report. WSN: [id number] Ordering Physician: Mendy Ramirez Dictated By: Camacho Zurita MD Dictated Date/Time: 02/22/23 11:23 a Reviewed By: Grady Espitia MD, V Signed By: Grady Espitia MD, V Signed Date/Time: 02/22/23 11:28 am Transcribed By: CSB Transcribed Date/Time: 02/22/23 10:57 am * Exam Date Time Procedure Performing Provider Status 02/21/23 7:[address] Chest W/ Contrast Elisa Fleming; Auth (Verified) Notes: (CT Chest W/ Contrast) Reason For Exam: loculated effusion;Other: RESULT: CT Chest W/ Contrast CT Chest W/ Contrast Reason: loculated effusion; Clinical Question(s): Other:; Order Comment: TECHNIQUE: Helical CT scan of the chest with IV contrast, formatted in 3 planes. Weight-based protocol was performed using automatic exposure control. CTDIvol Body: 5.30 mGy, DLP Body: 216 mGy*cm. COMPARISON: CT pleural drainage 02/20/2023, CT chest 02/19/2023 FINDINGS: TOPOGRAM, LINES AND TUBES: Left basilar pleural drainage catheter in place entering between the 9thand 10th ribs. TRACHEA AND MAIN BRONCHI: Mild mucus debris within the trachea. Major airways otherwise patent. LUNGS AND PLEURA: There is a persistent large loculated left pleural effusion with partial collapseof the left upper lobe and near complete collapse of the left lower lobe. There is patchy hypodensity within the left lower lobe atelectasis representing underlying pneumonia. The basilar chest tube is posterior to this collapsed/consolidated left lower lobe, and the pleural effusion at this level is decreased in size, now small and with surrounding post instrumentation foci of gas. However, the remaining larger portion of the loculated pleural effusion throughout the mid-upper hemithorax is similar in size measuring 16.7 cm in superior inferior dimension (series 202 image 54). Smooth pleuralthickening noted about the basilar portion of the pleural collection, similar to prior. Of note, the left basilar pleural effusion does appear contiguous with the larger more superior loculated component. Moderate centrilobular emphysema throughout the right lung. Few few patchy groundglass opacities inthe right upper lobe, unchanged. Scattered areas of right lung linear subsegmental atelectasis. No pneumothorax. MEDIASTINUM AND MICHEAL: Simple fluid density along left anterior mediastinum has decreased in size measuring 1.6 x 5.8 cm (series 201 image 45), previously up to 6.7 cm. Visualized thyroid gland is normal. Multiple mildly prominent lower paratracheal, subcarinal and left perihilar lymph nodes, similar to prior study and presumably reactive. A 1.2 cm centrally hypodense left hilar lymph node is unchanged (series 2 on image 59). Esophagus is nondistended. HEART AND VESSELS: Heart is normal in size. No pericardial effusion. Severe coronary artery calcifications. Thoracic aorta is nonaneurysmal. Mild aortic calcifications. Pulmonary arteries are normal in caliber. DIAPHRAGM AND UPPER ABDOMEN: Subcentimeter left hepatic hypodensity is unchanged. CHEST WALL: Unremarkable. BONES: Multilevel degenerative changes involve the spine. No acute osseous abnormality. IMPRESSION: 1. Status post left basilar pleural drainage tube placement with decrease in basilar component of pleural effusion. Unchanged large loculated component of left pleural effusion involving mid-upper chest measuring 16.7 cm superior inferior dimension. 2. Near-complete collapse of left lower lobe with underlying pneumonia, similar to prior. 3. Presumably reactive mediastinal and left hilar lymphadenopathy. Attention to these lymph nodes recommended at the time of future surveillance imaging. WSN: [id number] Ordering Physician: Mendy Ramirez Dictated By: Reinaldo Cadet MD Dictated Date/Time: 02/21/23 9:22 pm Reviewed By: Reinaldo Cadet MD Signed By: Reinaldo Cadet MD Signed Date/Time: 02/21/23 9:22 pm Transcribed By: ADELFO Transcribed Date/Time: 02/21/23 9:06 pm * Exam Date Time Procedure Performing Provider Status 02/21/23 5:28 AM Chest 2 Views Fronta l and Lat Maribeth Ramsey; Auth (Verified) Notes: (Chest 2 Views Frontal and Lat) Reason For Exam: Follow-Up Pleural Effusion RESULT: Chest 2 Views Frontal and Lat PROCEDURE: Chest 2 Views Frontal and Lat INDICATION: 77 years old Male with Reason: Follow-Up Pleural Effusion; Clinical Question(s): Pleural Effusion. COMPARISON: Chest radiograph 2011 through yesterday, enhanced February 19, 2023. FINDINGS: AP and lateral upright views of the chest obtained. Lines and tubes:New inferior posterior LEFT pleural catheter noted ending posteromedially. Lungs and pleura: New inferior LEFT pleural catheter is likely within the more inferior component of a large previously noted loculated LEFT pleural effusion. Unfortunately, the more superior component which is enlarged, measuring at least 20.6 cm No correlate is unchanged suggesting it does not communicate with the drained portion of the loculated effusion. RIGHT lung remains hyperinflated consistent with emphysema and clear. Mild new linear atelectasis noted laterally in the RIGHT midlung. Consolidation is noted in the LEFT lower lobe inferiorly likely representing is persistent compressiveatelectasis. Lungs otherwise clear. .No evidence of pneumothorax. Heart, mediastinum and micheal: Mild tortuosity and calcification of the thoracic aorta noted. No cardiomegaly or pulmonary venous hypertension. Bones and soft tissues: Mild to moderate degenerative changes of the LEFT AC joint. Evidence of prior partial resection of the lateral aspect of the RIGHT clavicle. Moderate osteopenia. Mild anteriorwedge compression fracture of the mid thoracic vertebra unchanged as 2013. IMPRESSION: 1. Inferior LEFT pleural catheter drains the inferior component of the large loculated LEFT pleuraleffusion but a large component located more superiorly is unchanged. Additional more superior LEFT pleural drainage is likely requested.. No evidence of pneumothorax. Persisting compressive atelectasis inferior LEFT lower lobe. 2. Mild new linear atelectasis RIGHT midlung. 3. Evidence of emphysema. Thank you for allowing me to participate in the care of this patient. An actionable message (Yellow) has been communicated via the [employer] system on 02/21/2023 10:29 AM, Message ID [id number]. WSN: [id number] Ordering Physician: Mendy Ramirez Dictated By: Indio Mann MD Dictated Date/Time: 02/21/23 10:29 a Reviewed By: Indio Mann MD Signed By: Indio Mann MD Signed Date/Time: 02/21/23 10:29 am Transcribed By: ADELFO Transcribed Date/Time: 02/21/23 10:15 am * Exam Date Time Procedure Performing Provider Status 02/20/23 2:23 PM IR End of Case Report Au th (Verified) IR End of Case Report * Exam Date Time Procedure Performing Provider Status 02/20/23 2:[address] Pleural Drainage w/dwelling cath Samaria Fleming; Auth (Verified) Notes: (CT Pleural Drainage w/dwelling cath) Reason For Exam: left pleural effusion CT Pleural Drainage w/dwelling cath Patient: NATIVIDAD BECK Study Date: 02/20/2023 Performing: Isabel Yost MD Referring: : 1945 Age: 77 Gender: MALE PROCEDURE: CT-guided left chest drainage catheter placement. INDICATION: 77 yo patient with persistent pneumonia despite antibiotics, large left pleural effusion on CT, suggestion of locaulation, IR consulted for left chest catheter placement. CASHIER COURTESY BOOTH(S): Isabel Yost MD ANESTHESIA: 1% Lidocaine was administered for local anesthesia. Fentanyl 50 mcg IV RADIATION DOSE: Total Exam DLP: 1014.24 mGy-cm TECHNIQUE: Informed consent was obtained from the patient after discussion of the risks, benefits and alternatives of the procedure. A pre-procedure timeout was performed per protocol, confirming patient identity, planned procedure, laterality and additional relevant details. A limited CT scan of the left chest was performed using automatic tube current modulation to optimize dose parameters. Suitable access site in the left back was identified, marked, prepped, and draped in standard fashion. Maximum sterile barrier technique was used throughout the procedure. 1% Lidocaine was used for local analgesia. After administering local analgesia, a 19 ga introducer needle was advanced into the basilar collection using intermittent CT fluoroscopic guidance. Once needle position was confirmed, an 0.035 guidewire was placed. Wire position was confirmed with imaging. The tract was dilated and a 12 Fr non-locking drainage catheter was placed. Catheter position was confirmed with repeat imaging. Specimen was obtained for requested studies. The catheter was secured to the skin with a 2-0 Prolene suture. A post-procedural scan was obtained, demonstrating the catheter in the expected position, no soft tissue hematoma visualized. The catheter was connected to Pleurevac drainage and a dressing was applied. Estimated blood loss was minimal. A sample was sent for requested studies. COMPLICATIONS: The patient tolerated the procedure well and in stable condition. There were no immediate complications. IMPRESSION: CT-guided placement of a 12 Fr non-locking drainage catheter in the basilar component of a large left pleural effusion. PLAN: Initial catheter care as ordered. Return to [address] and resume care as per the primary team. Thoracic Surgery to utilize catheter for lytic therapy. Signed By Isabel Yost MD On 02/20/2023 14:53:00 Signed By Isabel Yost MD On 02/20/2023 14:53:00 Isabel Yost MD Equipment : [employer] CATHETER 12FR NONLOCK RESOLVE MAQUET ATRIUM PLEURA VAC CHEST TUBE Dictated By: Isabel Yost MD Dictated Date/Time: 02/20/23 2:23 pm Reviewed By: Isabel Yost MD Signed By: Isabel Yost MD Signed Date/Time: 02/20/23 2:23 pm Transcribed By: SP Transcribed Date/Time: 02/20/23 2:23 pm * Exam Date Time Procedure Performing Provider Status 02/20/23 6:15 AM Chest 2 Views Frontal and Lat Marnie Pruitt; Auth (Verified) Notes: (Chest 2 Views Frontal and Lat) Reason For Exam: Shortness of Breath RESULT: Chest 2 Views Frontal and Lat Chest 2 Views Frontal and Lat Reason: Shortness of Breath; Clinical Question(s): Pleural Effusion COMPARISON: [facility], most recent dated 02/19/2023 FINDINGS: LINES AND TUBES: None. LUNGS AND PLEURA: Decrease in the loculated left pleural effusion which is still large in size, with improved aeration of the left upper lung , compared to the recent prior chest regressed. No focal opacity in the right lung. No right pleural effusion. Normal pulmonary vascularity. No pneumothorax. HEART, MEDIASTINUM AND MICHEAL: Heart is normal in size. Normal mediastinal and hilar contour. BONES AND SOFT TISSUES: No acute abnormality. IMPRESSION: Slight interval decrease in size of the large loculated left pleural effusion with improved aeration of the left upper lung when compared to the radiograph from 02/19/2023. Please refer to the recentCT chest for better characterization. No focal opacity in the right lung. No pneumothorax. WSN: [id number] Ordering Physician: Kayy Castillo Dictated By: Mallory Fatima MD Dictated Date/Time: 02/20/23 9:39 am Reviewed By: Mallory Fatima MD Signed By: Mallory Fatima MD Signed Date/Time: 02/20/23 9:39 am Transcribed By: DAELFO Transcribed Date/Time: 02/20/23 9:36 am * Exam Date Time Procedure Performing Provider Status 02/19/23 3:[address] Chest W/ Contrast Meme Dempsey; Auth (Verified) Notes: (CT Chest W/ Contrast) Reason For Exam: ?empyema;Other: RESULT: CT Chest W/ Contrast CT Chest W/ Contrast INDICATION: Pt. reports shortness of breath since x1 week. pt. reports that he was seen in urgent care yesteday and per pt. he was diagnosed with left sided PNA, prescribed levoflaxatin 750mg every 24 hours.; Reason: ?empyema; Clinical Question(s): Interstitial Alveolar Infiltration; TECHNIQUE: Helical CT scan of the chest with IV contrast, formatted in 3 planes. 75 cc of [id number] was administered intravenously. Weight-based protocol was performed using automatic exposure control. CTDIvol Body: 5.00 mGy, DLP Body: 226 mGy*cm. COMPARISON: Chest radiographs from earlier today and 02/18/2023. FINDINGS: Forming And Assembling Supervisor view findings, lines and tubes: None. Trachea and airways: Patent without evidence of tracheal or endobronchial lesion. Lungs and pleura: Significant volume loss within the left hemithorax. There is a large loculated pleural effusion. There is compressive atelectasis involving the left lower lobe as well as areas of heterogeneous low attenuation with possible thick poorly defined wall on image 85 of series 201 and lower lobe air bronchogram. Mild right basilar atelectasis with bandlike scarring. Chronic centrilobular emphysematous changes in the right upper lobe. No pneumothorax. Mediastinum and micheal: There is a simple fluid density extending along the anterior mediastinum measuring 2.6 x 6.7 x 5.5 cm (series 201 cm image 43 and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 BLOOD COUNT & DIFF ? Event Name?? Event Result?? Date/Time?? WBC 21.6 k/mm3??High 02/19/23 12:37:00 RBC 3.91 m/mm3??Low 02/19/23 12:37:00 Hgb 12.8 Gm/dL??Low 02/19/23 12:37:00 Hct 37 %??Low 02/19/23 12:37:00 MCV 94.6 femtoliters??High 02/19/23 12:37:00 MCH 32.7 pg 02/19/23 12:37:00 MCHC 34.6 g/dL 02/19/23 12:37:00 Platelet Count 393 k/mm3 02/19/23 12:37:00 MPV 10 femtoliters 02/19/23 12:37:00 Nucleated RBC (Automated) 0 #/100 WBC'S 02/19/23 12:37:00 ? CHEM GENERAL ? Event Name?? Event Result?? Date/Time?? Sodium 132 mmol/L??Low 02/19/23 12:37:00 Chloride 94 mmol/L??Low 02/19/23 12:37:00 Bicarbonate Level 28 mmol/L 02/19/23 12:37:00 Anion Gap 10 02/19/23 12:37:00 Glucose Level 146 mg/dL??High 02/19/23 12:37:00 BUN 18 mg/dL 02/19/23 12:37:00 Creatinine-Blood 0.9 mg/dL 02/19/23 12:37:00 ? * Rom Henry DO: PERFORM Event Display: Consultation Note Authored Date: [id number] ATTENDING ADDENDUM I have personally seen and examined this patient on 02/20/2023. I agree with the above history and physical exam findings. I have additionally personally reviewed this patient's lab results and imaging studies. I agree with the assessment and plan as documented in the note below with the following addendum. ?? Patient is a 77-year-old male??who has been dealing??with??a pneumonia for the last several weeks.?? He was treated first with azithromycin and then with levofloxacin without success.?? He presented to the ED overnight??after outpatient chest x-ray showed a large left-sided pleural effusion.?? CT chest obtained in the emergency department demonstrates??a large loculated left-sided pleural effusion.?? The patient is complaining subjectively of shortness of breath??which has been ongoing for the last several weeks. ??At this time, recommendation is to proceed with placement of a pigtail pleuraldrain??and likely intrapleural thrombolytic therapy.?? Once the drain is in place, pleural fluid??should be sent for standard pleural fluid studies (pH, glucose, cell count,??LDH, protein), as well as for culture and Gram stain.?? Thoracic surgery will follow for drain management. ??Remainder of care per medical service. ?? Please contact the thoracic surgery service ([phone]) or my office with any questions. ?? Rom Henry DO, FACS Thoracic Surgeon ?? Division of Thoracic Surgery Department of Surgery [address] [place] [address] () [phone] Note * Betty Londono LPN: PERFORM Event Display: Discharge/Transfer Note Hospital Authored Date: [id number] Nursing Discharge Note Entered On: 02/25/2023 18:01 EDT Performed On: 02/25/2023 18:01 EDT by Betty Londono LPN Nursing Discharge Note 2 Discharge Time : 02/25/2023 14:40 EDT Discharge Level of Care at Discharge : Home/[facility] Patient Left Unit Via : Wheelchair Patient Accompanied Off Unit with : Significant other DC Instructions Provided & Signed by Pt : Yes Patient Understands D/C Instructions : Yes Patient Instructions Discharge Signed : Yes Did Pt have Specialty Bed or Wound Vac : No Betty Londono LPN - 02/25/2023 18:01 EDT * Elvia URIAS, Gloria: PERFORM Event Display: Discharge/Transfer Note Hospital Authored Date: [id number] Patient: ??NATIVIDAD BECK ? Age:??77 Years?Sex:??Male?:??1945?? Patient Information Discharge Location: A Primary Care Physician: Pravin Santo MD Admit Date/Time: 02/19/23 16:11 Discharge Disposition Discharge Disposition: Home: No Services Discharge Diagnosis Community acquired pneumonia (J18.9) Empyema of lung (J86.9) Lung abscess (J85.2) Acute respiratory failure with hypoxia (J96.01) Non-insulin dependent type 2 diabetes mellitus (E11.9) ?? _ Discharge Medications Albuterol (ProAir HFA 90 mcg/inh inhalation aerosol with adapter)?2?puff(s)?Inhalation?Every 6 hours?as needed?for wheezing Aspirin (aspirin 81 mg oral tablet)?1?tab(s)?81?Milligram?By Mouth?Daily Atorvastatin (atorvastatin 10 mg oral tablet)?1?tab(s)?By Mouth?Daily Calcium Citrate (Citracal Tablet)?Daily Cetirizine (Aller-Brenton 10 mg oral tablet)?1?tab(s)?By Mouth?Daily Chondroitin/Glucosamine/Methylsulfonylmethane (Glucosamine & Chondroitin with MSM)?Daily Citalopram (citalopram 20 mg oral tablet)?See Instructions?TAKE 1 TABLET BY MOUTH EVERY DAY Disulfiram (disulfiram 250 mg oral tablet)?1?tab(s)?By Mouth?Daily Fluticasone Nasal (fluticasone 27.5 mcg/inh nasal spray)?2?spray(s)?Nares, Both?Daily?as needed?for allergy symptoms Garlic?Daily Ginkgo (Gingko Biloba)?Daily Levofloxacin (levoFLOXacin 750 mg oral tablet)?1?tab(s)?750?Milligram?By Mouth?Every 24 hours?first day will be 02/26. last day will be 04/05 if ID decides on 6 week course Metformin (metFORMIN 500 mg oral tablet)?See Instructions?TAKE 1 TABLET BY MOUTH EVERY DAY Multivitamin?Daily?Centrum silver Hanna-3 Polyunsaturated Fatty Acids (Fish Oil)?By Mouth?Daily tadalafil (Cialis 5 mg oral tablet)?1?tab(s)?5?Milligram?By Mouth?Daily?for 90?Days?at the same time every day turmeric?By Mouth?Daily Vitamin E?By Mouth?Daily ? Durable Medical Equipment CPAP/BiPAP Mask Type: Full (02/23/23) CPAP/BiPAP Mask Size: Large (02/23/23) Ambulatory devices needed: Walker (02/24/23) ? Medications Started Levofloxacin (levoFLOXacin 750 mg oral tablet)?1?tab(s)?750?Milligram?By Mouth?Every 24 hours?first day will be 02/26. last day will be 04/05 if ID decides on 6 week course Medications Discontinued None Doses Changed None PCP Follow-Up/Heads-Up Weekly CBC, BMP, ESR and CRP to check trends before appt with ID 3 weeks after discharge. First??week lab script given to the patient to complete on 03/04 ?? Future Appointments Wednesday 2:30 PM EST ?? With: Elaine REED, Rom Fisher Where: [facility] Thoracic Surgery [address] [place] [address]- Status: Pending Hospital Course Mr. Beck is a 77-year-old male with past medical history of diabetes mellitus type 2, hyperlipidemia, current cigar use,??and alcohol use in remission who presented to??the [facility] ED on 02/19/23??for 3 weeks of persistent cough despite a full course of Z-judd outpatient treatment for pneumonia.??He??was found to have empyema thoracis on the left side.??He underwent chest tube placement with thoracic surgery with tPA/Dornase prophylaxis.??Sterile fluid cultures??resulted in??Streptococcus intermedius and he was transitioned from Vancomycin to Ceftriaxone. Resolution of empyema was tracked with daily chest x- rays and frequent chest CTs with chest tube removal on 02/25/23.??The patient was clinically improved and hemodynamically stable at time of discharge.??Per ID recommendations, he??was discharged on 750 mg PO Levofloxacin for a total of 4- 6 weeks starting on 10/16/23. He will need weekly CBC, BMP, ESR, and CRP as well as outpatient ID??follow-up??in 3 weeks where they will determine length and duration of antibiotic course. ?? Objective Assessment and Plan ?? Acute respiratory failure with hypoxia (J96.01): Community acquired pneumonia (J18.9): Left sided Empyema of lung (J86.9): Patient presented with shortness of breath along with productive cough after outpatient antibiotic therapy for pneumonia. Initial CT chest concerning for left loculated pleural effusion and patient had??thoracocentesis on 02/20/2023 by IR??with indwelling chest tube placement and pleural fluid analysis suggested empyema thoracis.??Preliminary fluid culture grew Streptococcus intermedius. Sensitive to ceftriaxone and PCN. Patient allergic to penicillin so patient was started on course of ceftriaxone. Patient was also on supplemental oxygen??initially and later weaned??to maintain saturation greater than 94%. He also had??treatment with incentive spirometry, pulmonary toilet, acapella. Subsequently the patient did not have much drain output and required tPA/dornase infusions which helped drainage starting on 02/22.??Repeat CT chest on 02/24 reported dramatic improvement in the left-sided pleural effusion with residual loculated hydropneumothorax as noted without evidence of empyema or abscess. The patient's leukocytosis gradually trended down during the hospitalization and normalized at time of discharge. ID recommended total course of 4-6 weeks of antibiotic treatment from time of significant chest tube drainage on 02/22.??They will follow up with the patient 3 weeks after discharge and adjust antibiotic course accordingly. They also recommend weekly CBC,??BMP, ESR, and CRP labwork until they see the patient. - Continue levofloxacin 750mg daily for 4-6 weeks - PCP to do weekly CBC, BMP, ESR and CRP - first set of labs for 03/04 given to the patient upon discharge - F/u with ID outpatient in 3 weeks after discharge ?? Acute moderate hyponatremia Initial Na 132. Likely hypovolemic hyponatremia. Patient was started on NS gentle hydration and daily BMP was monitored. Hyponatremia resolved at time of discharge. - F/u with PCP - Weekly BMP ?? Mood disorder Patient continued on citalopram. F/u with PCP. ?? Hyperlipidemia Patient continued??on statin. F/u with PCP. ? Non-insulin dependent type 2 diabetes mellitus (E11.9): ?? Patient on??sliding scale insulin with hypoglycemic measures. Restarted metformin at discharge. F/uwith PCP. ?? BAILEE Patient started on??CPAP QHS. CT surgery said okay to use with chest tube in place. F/u with PCP. ? . Physical Exam Constitutional: Alert, in no distress. Mental Status: Oriented to person, place and time. Head: Normocephalic. Eyes: Extraocular muscles intact. Ear, Nose and Throat: Oropharynx clear, mucous membranes moist. Ears and nose without masses, lesions or deformities. Trachea midline. Neck: Supple, full range of motion. Respiratory: Clear to auscultation. No wheezing, rales or rhonchi. Cardiovascular: Regular rate and rhythm. No murmurs, rubs or gallops. Gastrointestinal: Abdomen soft, non-tender, non-distended. Normal bowel sounds. Neurologic: Cranial nerves II-XII grossly intact. No focal neurological deficits.??Moves all extremities spontaneously. Skin: No rashes or lesions. No petechiae or purpura.?? Musculoskeletal: No cyanosis or clubbing. No gross deformities. Normal range of motion. Consultants Thoracic surgery Infectious disease Follow-Up Appointments Added Follow Up ?Time Frame ?Comments Rom Henry?03/25/2023 14:30?You need to make an appointment for a CT scan of your chest prior to follow up with Dr Henry. ??Please call [phone] to schedule the appointment. [facility] Infectious Disease?3 ?? Weeks Pravin Santo MD?1 week: call to discuss follow up visit Patient Instructions Diagnosis and what happened in the hospital You came into the hospital because of a cough after completing??a course of antibiotics to treat pneumonia at home. You were found to have a complicated pneumonia that required drainage of a fluid collection surrounding your left lung with a chest tube. You were monitored over several days with X-rays and CAT scans and continuously improved and the chest tube was removed. The infectious disease team recommends??going home to continue a regimen of antibiotics to make sure that the pneumonia is fully treated and does not come back. ?? Antibiotic to take at home They are recommending??levofloxacin 750mg for a total of 4-6 weeks starting 02/22. This is the only??change we are making to your medication list.??There are no interactions with your other medications, however, we would like you not to take??your calcium citrate at the same time because it can interfere with the antibiotic's absorption. Please??separate the two??medications by about 3 hours.??Wewill prescribe 6 weeks worth of the antibiotic and you will need to follow up with infectious disease in 3 weeks to re-evaluate and narrow down the stop date for the antibiotics. ?? Lab work to complete In the meantime, they would like you to coordinate with your primary care physician to complete weekly lab work which we will notify him of. We have given to you a paper prescription with the first set of labs to complete next week in case??you are unable to get an appointment with him next week. Post Discharge Care Discharge ?02/25/23 13:10:00 EDT Discharge Prescriptions ?ePrescribed, only prescribed antibiotic, 02/25/23 13:10:00 EDT Results Discharge Labs BLOOD COUNT & DIFF WBC 10.0 k/mm3 ()?? 02/25/2023 02:55 RBC 3.57 m/mm3 (Low)?? 02/25/2023 02:55 Hgb 11.2 Gm/dL (Low)?? 02/25/2023 02:55 Hct 33.3 % (Low)?? 02/25/2023 02:55 MCV 93.3 femtoliters ()?? 02/25/2023 02:55 MCH 31.4 pg ()?? 02/25/2023 02:55 MCHC 33.6 g/dL ()?? 02/25/2023 02:55 Platelet Count 417 k/mm3 ()?? 02/25/2023 02:55 RDW-SD 45.5 femtoliters ()?? 02/25/2023 02:55 MPV 9.4 femtoliters ()?? 02/25/2023 02:55 Nucleated RBC (Automated) 0.0 #/100 WBC'S ()?? 02/25/2023 02:55 Abs. NRBC 0.0 k/mm3 ()?? 02/25/2023 02:55 Abs. Neut 7.3 k/mm3 (High)?? 02/25/2023 02:55 Abs. Lymph 1.4 k/mm3 ()?? 02/25/2023 02:55 Abs. Rice 0.9 k/mm3 ()?? 02/25/2023 02:55 Abs. Eo 0.2 k/mm3 ()?? 02/25/2023 02:55 Abs. Baso 0.0 k/mm3 ()?? 02/25/2023 02:55 Neut % 73.2 % ()?? 02/25/2023 02:55 Lymph % 14.4 % (Low)?? 02/25/2023 02:55 Rice % 8.5 % ()?? 02/25/2023 02:55 Eos % 1.6 % ()?? 02/25/2023 02:55 Baso % 0.2 % ()?? 02/25/2023 02:55 Band % 2.6 % ()?? 02/19/2023 12:37 Platelet Estimate ADEQUATE ()?? 02/19/2023 12:37 Imm Gran 2.1 % ()?? 02/25/2023 02:55 Abs. Imm Gran 0.2 k/mm3 ()?? 02/25/2023 02:55 ?? CARDIAC High Sensitivity Troponin (HSTnT) 16 ng/L ()?? 02/19/2023 12:37 ? CHEM GENERAL Sodium 134 mmol/L ()?? 02/25/2023 02:55 Potassium 4.3 mmol/L ()?? 02/25/2023 02:55 Chloride 101 mmol/L ()?? 02/25/2023 02:55 Bicarbonate Level 25 mmol/L ()?? 02/25/2023 02:55 Anion Gap 8 ()?? 02/25/2023 02:55 Glucose Level 160 mg/dL (High)?? 02/25/2023 02:55 Glucose, POC 185 mg/dL (High)?? 02/25/2023 11:39 BUN 12 mg/dL ()?? 02/25/2023 02:55 Creatinine-Blood 0.7 mg/dL ()?? 02/25/2023 02:55 Estimated GFR Creatinine 97 ML/MIN/1.73 M2 ()?? 02/25/2023 02:55 Calcium 8.2 mg/dL (Low)?? 02/25/2023 02:55 Phosphorus 3.5 mg/dL ()?? 02/20/2023 03:58 Magnesium 1.9 mg/dL ()?? 02/24/2023 03:47 Protein, Total 4.9 Gm/dL (Low)?? 02/20/2023 03:58 Albumin 2.6 Gm/dL (Low)?? 02/20/2023 03:58 AG Ratio 1.1 ()?? 02/20/2023 03:58 Alkaline Phosphatase 91 units/L ()?? 02/20/2023 03:58 AST (SGOT) 31 units/L ()?? 02/20/2023 03:58 ALT (SGPT) 23 units/L ()?? 02/20/2023 03:58 Bilirubin, Total 0.2 mg/dL ()?? 02/20/2023 03:58 Lactate 1.1 mmol/L ()?? 02/19/2023 14:20 C-Reactive Protein 6.7 mg/dL (High)?? 02/25/2023 02:55 ?? COAG INR 1.1 ()?? 02/20/2023 03:58 Protime (PT) 11.6 seconds (High)?? 02/20/2023 03:58 ?? FLUID STUDIES Color, Fluid MALIKA ()?? 02/20/2023 14:00 Appearance, Fluid HAZY ()?? 02/20/2023 14:00 WBC, Fluid 48234 per Cubic Millimeter ()?? 02/20/2023 14:00 RBC, Fluid 74850 per Cubic Millimeter ()?? 02/20/2023 14:00 Seg, Fluid 99 % ()?? 02/20/2023 14:00 Lymph, Fluid 1 % ()?? 02/20/2023 14:00 Fluid pH <6.8 ()?? 02/20/2023 14:00 Glucose, Fluid <2 mg/dL ()?? 02/20/2023 14:00 LDH, Fluid 2343 units/L ()?? 02/20/2023 14:00 ? HEME OTHER Sed Rate 55 mm/hr (High)?? 02/25/2023 02:55 Hold Blue Top SPECIMEN DISCARDED AFTER 4 HOURS. ()?? 02/19/2023 12:37 ?? SEROLOGY INF DISEASE Legionella pneumophila Antigen NEGATIVE ()?? 02/21/2023 00:19 S. Pneumococcus Urinary Ag NEGATIVE ()?? 02/21/2023 00:19 ?? URINE OTHER Est Creatinine Clearance 84.88 mL/min ()?? 02/25/2023 03:27 ? VIROLOGY COVID-19 by RT-PCR NEGATIVE ()?? 02/19/2023 16:15 ? Microbiology ?? Blood Culture?? Completed?? Source: Blood Body Site: ?? Collected Dt/Tm: 02/19/2023 14:16 Last Updated Dt/Tm: 02/19/2023 14:16 ?SPECIMEN DESCRIPTION : BLOOD RT HANDSPECIAL REQUESTS : NONECULTURE : NO GROWTH 5 DAYS.REPORT STATUS : FINAL 02/24/2023 Blood Culture #2?? Completed?? Source: Blood Body Site: ?? Collected Dt/Tm: 02/19/2023 14:16 Last Updated Dt/Tm: 02/19/2023 14:16 ?SPECIMEN DESCRIPTION : BLOOD LT HANDSPECIAL REQUESTS : NONECULTURE : NO GROWTH 5 DAYS.REPORT STATUS : FINAL 02/24/2023 COVID-19 (Novel Coronavirus), Rapid PCR?? Completed?? Source: Nasal Body Site: Nose Collected Dt/Tm: 02/19/2023 16:03 Last Updated Dt/Tm: 02/19/2023 17:46 Sputum Culture w/ Gram Smear?? Completed?? Source: Sputum Expectorated Body Site: ?? Collected Dt/Tm: 02/20/2023 19:47 Last Updated Dt/Tm: 02/20/2023 19:47 ?SPECIMEN DESCRIPTION : EXPECTORATED SPUTUMSPECIAL REQUESTS : NONEGRAM STAIN : 3+ POLYMORPHONUCLEAR LEUKOCYTES ?1+ SQ.EPITHELIAL CELLS ?1+ GRAM POSITIVE COCCI ?1+ GRAM POSITIVE RODSCULTURE : 2+ NORMAL FLORAREPORT STATUS : FINAL 02/23/2023 Anaerobic Culture?? Completed?? Source: Body Fluid Body Site: Pleural Cavity Collected Dt/Tm: 02/20/2023 13:06 Last Updated Dt/Tm: 02/20/2023 13:06 ?SPECIMEN DESCRIPTION : BODY FLUID PLEURAL CAVITY LEFTSPECIAL REQUESTS : NONECULTURE : NO ANAEROBES ISOLATEDREPORT STATUS : FINAL 02/22/2023 Sterile Body Fluid Culture W/ Gram Smear?? Completed?? Source: Pleural Fluid Body Site: ?? Collected Dt/Tm: 02/20/2023 13:06 Last Updated Dt/Tm: 02/20/2023 13:06 ?SPECIMEN DESCRIPTION : PLEURAL FLUID LEFTSPECIAL REQUESTS : NONEGRAM STAIN : 3+ POLYMORPHONUCLEAR LEUKOCYTES ?NO ORGANISMS SEENCULTURE : 2+ STREPTOCOCCUS INTERMEDIUS ??This isolate was identified using Maldi-TOF ? system ?CRITICAL VALUE CALLED AND VERIFIED BY READBACK FOR: ??STREPTOCOCCUS ? INTERMEDIUS TO [id number] AT 1330 02/21/23 AT [id number] BY 157.REPORTSTATUS : FINAL 02/23/2023ORGANISM ? 2+ STREPTOCOCCUS INTERMEDIUS ??This isolate was? identified using Maldi-TOF systemMETHOD ? ETEST GRADIENT STRIP (MCG/ML)PENICILLIN ? 0.047 SUSCEPTIBLECEFTRIAXONE ?0.064 SUSCEPTIBLE ? 45??minutes spent on discharge ?? Chlo?MD [facility] Internal Medicine & Pediatrics PGY-1 [facility]??[address] ?? Patient seen and plan discussed with attending, Dr. Collado * Christine Collado MD M: PERFORM Event Display: Discharge/Transfer Note Hospital Authored Date: [id number] Attending Attestation: I have seen and evaluated this patient.?? I have discussed the case and its management with the resident and agree with the findings and plan as documented in the resident???s note. Appreciate ID recs re abx. Discussed ID recs at length with pt and at bedside, They prefer Levofloxain over an IV option. Also reviewed that per pharmacy Levofloxacin should not be taken within 2 hours of calcium-containing supplements. * Betty Londono LPN: PERFORM Event Display: Patient Education/Instruction Authored Date: [id number] Inpatient Adult Discharge Instructions [address] [address] Name: NATIVIDAD BECK : 1945 Visit: 02/19/2023 16:11:00 Current Date: 02/25/2023 13:58 Account: [id number] Inpatient Adult Discharge Instructions We would like to thank you for allowing us to assist you with your healthcare needs. The following includes patient education materials and information regarding your injury/illness. Our entire staffstrives to provide an excellent experience for our patients and their families. PLEASE ENSURE YOU FOLLOW-UP PER THE INSTRUCTIONS BELOW! ?? YOUR OPINION IS IMPORTANT TO US! Please complete the survey you may receive by mail or email. Your feedback will be used to make improvements to the healthcare experiences of our patients and their families. Surveys are administered by [employer] ?? If further treatment with your primary care physician or another doctor is recommended, it is important for you to keep the appointment. Call your primary care physician or return to the Emergency Department immediately if your condition worsens, fails to improve, or new symptoms develop. If you need to find a doctor, you can call [facility] for a referral at [phone] or toll free at [phone]) or log in to [email or web address].. ?? [facility], in keeping with [facility] guidance, no longer requires face masks for staff, patientsor visitors in most situations. Similiar to time spent indoors at other locations, there is the chance that you were exposed to repiratory viruses during your time with us (such as flu or COVID-19). If you develop symptoms concerning for a viral respiratory infection, please seek testing (and treatment if indicated) from your medical provider or home test kit. ?? You can view and manage your care through the patient portal or by using a health care joseph of your choosing. [facility] is a website that allows you to securely view your medical information including your hospital discharge summary, office visit summaries, medications and follow-up visits. You can also request appointments, renew medications, and request access to your medical information using a health care joseph of your choosing, or just ask a question. You can enroll at [email or web address] or register during your next office visit. You have been discharged from [facility], Patient Care Unit: D6A. If you have any questions regarding these instructions after you leave, please call us and we will be happy to assist you. [facility] Your Care Team Attending Physician Tobias URIAS, Christine Lindsay Consulting Providers Andre URIAS, Jacques Daniels; Rom Henry DO Discharging Providers Gloria Gan MD Reason for Admission EMPYEMA PLEURAL EFFUSION Your Diagnosis Community acquired pneumonia Empyema of lung Lung abscess Acute respiratory failure with hypoxia Non-insulin dependent type 2 diabetes mellitus Tests Performed Below is a partial list of the tests performed during your hospitalization. You may have had other tests and procedures not included in this list. Please discuss all test results with your provider. Basic Metabolic Panel C-REACTIVE PROTEIN CBC CBC w/ Differential Cell Count and Differential Fluid COVID-19 (Novel Coronavirus), Rapid PCR Glucose Fluid GLUCOSE POC High??Sensitivity??Troponin T Hold Blue Top Tube INR Lactate Level LDH Fluid Legionella Antigen Urine Magnesium Level pH Fluid PHOSPHORUS SEDIMENTATION RATE,AUTOMATED Strep Pneumoniae Urinary Ag Chest CT W/ Contrast CT Chest W/ IV Contrast CT Pleural Drainage w/dwelling cath CXR W/ Frontal and Lat XR Chest 2 Views Frontal and Lat Primary Care Provider Pravin Santo MD Advance Directive Health Care Proxy on File Yes - Health Care Proxy Discharge Vitals Temperature: 98 DegF Height: 171 cm Pulse Rate: 78 bpm Weight: 72 kg Respiratory Rate: 16 br/min Body Mass Index: 24.62 kg/m2 Systolic Blood Pressure: 109 mm Hg Body surface area: 1.85 Diastolic Blood Pressure: 62 mm Hg ?? Oxygen Saturation: 98 % ?? Studies Pending All tests and labs ordered during this hospital stay have been completed unless listed below. Please discuss all pending results with your provider listed above in these instructions. ?? Add On Lab Order Comprehensive Metabolic Panel What to do next Instructions From Your Doctor Diagnosis and what happened in the hospital You came into the hospital because of a cough after completing??a course of antibiotics to treat pneumonia at home. You were found to have a complicated pneumonia that required drainage of a fluid collection surrounding your left lung with a chest tube. You were monitored over several days with X-rays and CAT scans and continuously improved and the chest tube was removed. The infectious disease team recommends??going home to continue a regimen of antibiotics to make sure that the pneumonia is fully treated and does not come back. ?? Antibiotic to take at home They are recommending??levofloxacin 750mg for a total of 4-6 weeks starting 02/22. This is the only??change we are making to your medication list.??There are no interactions with your other medications, however, we would like you not to take??your calcium citrate at the same time because it can interfere with the antibiotic's absorption. Please??separate the two??medications by about 3 hours.??Wewill prescribe 6 weeks worth of the antibiotic and you will need to follow up with infectious disease in 3 weeks to re-evaluate and narrow down the stop date for the antibiotics. ?? Lab work to complete In the meantime, they would like you to coordinate with your primary care physician to complete weekly lab work which we will notify him of. We have given to you a paper prescription with the first set of labs to complete next week in case??you are unable to get an appointment with him next week. Discharge Orders Scheduled Follow-Up Appointments Wednesday 2:30 PM EST ?? With: Rom Henry DO Where: [facility] [address] [place] [address]- Status: Pending You Need to Schedule the Following Appointments Follow

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
--- OUTSIDE RECORDS SUMMARY | 2023-10-06 12:07 | XMS_ITS | Continuity of Care Document ---
Author Organization [facility] Jorge Address [address] [place] [address]- Care Team Providers Care Network Intelligence Analyst Name Role Phone Hansa URIAS, Pravin Hidalgo Primary Care Physician Encounter [facility] Date(s): 05/30/19 - 06/09/19 [facility] Adult [address] [place] [address]- [facility] Attending Physician: Admtr, Terry8 Admitting Physician: Admtr, Ar8 Referring Physician: Admtr, Ar8 Allergies, Adverse Reactions, [...] #1 4Result Comment: [12/19/2013] #2 5Admin Note: [facility] Medications Antabuse 250 mg oral [...] Daily, # 90 tablet, 3 Refills, Maintenance, Route to Pharmacy Electronically, [id number], [facility]/pharmacy #[id number] Start Date: 05/16/18 Status: Ordered Maria E Ascensia Breeze 2 [...] Refills 11, Maintenance,TEST BS TID E11.9 FAX [phone], 01/30/19 11:03:21 EDT, Compound Start Date: 01/30/19 Status: Ordered CeleXA 20 mg oral tablet 20 mg, 1, tablet, By Mouth, Daily, PER DR LEON, # 90 tablet, Refills 3, Tot. Refills 3, Maintenance,10/05/18 16:12:00 EDT, Route to Pharmacy Electronically, [id number], [facility]/pharmacy #[id number] Start Date: 10/05/18 Stop Date: 09/30/19 [...] 16 Gm, 6 Refills, Maintenance, 06/25/16 14:12:57, [place], 2 sprays Nares, Both Daily Start Date: 06/25/16 Status: Ordered Lancets See Instructions, # 100 each, Refills 5, Tot. Refills 5, Maintenance, tests bid -tid for dm type 2 250.00, 12/08/12 14:13:50, Compound Start Date: 12/08/12 Status: Ordered metFORMIN 500 mg oral tablet 1 tablet = 500 mg, By Mouth, Daily, # 90 tablet, 1 Refills, Maintenance, 05/07/19 9:36:00 EST, Tablet, [facility]/pharmacy #[id number], 170.18, cm, 01/30/19 10:28:00 EDT, Height, [...] 5 Refills, Maintenance, 06/07/19 16:28:00 EST, Tablet, [facility], 170.18, cm, 05/30/19 14:26:00 [...] Active Raynaud's Syndrome(Confirmed) Active Tobacco abuse(Confirmed) Active 03301; repeat 2023 2Colonoscopy 2012 normal, repeat 2017. 3colo 2008 polyp, repeat 2013 4colo 2019 5egd 2012 nl per pt. report 6colo 2019 7Abnormal MRI cervical spine, followed by Dr. De Leon. 8colo 2018 Social History Social History Type Response Smoking Status Current some day smo ker; Other: pipe; entered on: 04/16/14 Sex
--- OUTSIDE RECORDS SUMMARY | 2023-10-06 12:07 | XMS_ITS | Continuity of Care Document ---
Author Organization [facility] Rives Jorge lt Address [address] [place] [address]- Care Team Providers Care Survey Analyst Name Role Phone Hansa URIAS, Pravin Hidalgo Primary Care Physician [place] [facility] [place]14[place]19 [place] 07/21/19 [facility] Adult [address] [place] [address]- [facility] Encounter Diagnosis Viral URI(Discharge Diagnosis) - 07/14/19 Attending Physician: Reinaldo Dai Allergies, Adverse Reactions, Alerts Substance Reaction Severity [...] #1 4Result Comment: [12/19/2013] #2 5Admin Note: [facility] [place] Medications Antabuse 250 mg oral tablet 1 [...] tablet, 1 Refills, Maintenance, 06/22/19 10:52:00 EST, [facility]/pharmacy #[id number], 170.18, cm, 05/30/19 14:26:00 EST, Height [...] Refills 11, Maintenance,TEST BS TID E11.9 FAX [phone], 01/30/19 11:03:21 EDT, Compound Start Date: 01/30/19 Status: Ordered CeleXA 20 mg oral tablet 20 mg, 1, tablet, By Mouth, Daily, PER DR LEON, # 90 tablet, Refills 3, Tot. Refills 3, Maintenance,10/05/18 16:12:00 EDT, Route to Pharmacy Electronically, [id number], [facility]/pharmacy #[id number] Start Date: 10/05/18 Stop Date: 09/30/19 [...] 16 Gm, 6 Refills, Maintenance, 06/25/16 14:12:57, [place], 2 sprays Nares, Both Daily Start Date: 06/25/16 Status: Ordered Lancets See Instructions, # 100 each, Refills 5, Tot. Refills 5, Maintenance, tests bid -tid for dm type 2 250.00, 12/08/12 14:13:50, Compound Start Date: 12/08/12 Status: Ordered metFORMIN 500 mg oral tablet 1 tablet = 500 mg, By Mouth, Daily, # 90 tablet, 1 Refills, Maintenance, 05/07/19 9:36:00 EST, Tablet, [facility]/pharmacy #[id number], 170.18, cm, 01/30/19 10:28:00 EDT, Height, [...] 5 Refills, Maintenance, 06/07/19 16:28:00 EST, Tablet, [facility] # 302, 170.18, cm, 05/30/19 14:26:00 [...] Active Raynaud's Syndrome(Confirmed) Active Tobacco abuse(Confirmed) Active 45414; repeat 2023 2Colonoscopy 2012 normal, repeat 2017. 3colo 2008 polyp, repeat 2012 4colo 2018 5egd 2012 nl per pt. report 6colo 2018 7Abnormal MRI cervical spine, followed by Dr. De Leon. 8colo 2018 Diagnosis Diagnosis Type Effective Dates Health Status Clini janene Service Informant Viral URI Discharge Diagnosis 07/14/19 Vital Signs Most recent to oldest [Reference Range]: 1 Height 170.18 cm (07/14/19 3:05 PM) Weight 77.5 kg (07/14/19 3:05 PM) Oxygen Saturation [94-100 %] 95 % (07/14/19 3:05 PM) Pulse Rate [55-90 bpm] 60 bpm (07/14/19 3:05 PM) Body Mass Index [18.5-24.99] 26.76 *H* (07/14/19 3:05 PM) Blood Pressure [90-138/55-84 mm Hg] 110/ 62mm Hg (07/14/19 3:05 PM) Respiratory Rate [16-30 br/min] 16 br/mi n (07/14/19 3:05 PM) Temperature [96.8-100.4 DegF] 98.1 DegF (07/14/19 3:05 PM) Mode of Delivery (Oxygen) Room air (07/14/19 3:05 PM) Blood pressure sites Arm, left (07/14/19 3:05 PM) Temperature Route Oral (07/14/19 3:05 PM) Weight Obtained Via Standing scale (07/14/19 3:05 PM) Social History Social History Type Response Smoking Status Current some day smo ker; Other: pipe; entered on: 04/16/14 Sex
--- OUTSIDE RECORDS SUMMARY | 2023-10-06 12:07 | XMS_ITS | Continuity of Care Document ---
Author Organization [facility] Jorge lt Address [address] [place] [address]- Care Team Providers Care Trader Name Role Phone Pravin Santo MD Primary Care Physician [phone] [place] [facility] [place](s[place] 04/13/23 - 05/13/23 [facility] Adult [address] [place] [address]- Attending Physician: Brian Jacob Admitting Physician: AdmBrian tran Referring Physician: AdmtrBrian Allergies, Adverse Reactions, Alerts Substance Reaction Severity Status penicillins hives, itchiness Active Immunizations Given and Recorded Vaccine Date Status Refusal Reason SARS-CoV-2(COVID-19)mRNA-LNP vac([id number]) 03/08/23 Recorded influenza virus vaccine, inactivated 1 [...] corded pneumococcal 20-valent conjugate vaccine 10/20/22 Given [id number] 12y+ bivalent booster vax 02/11/22 Recorded SARS-CoV-2 mRNA (gnnsudp-wlqa-figzc) vax 08/21/21 Recorded SARS-CoV-2 (COVID-19) mRNA BNT-162b2 [...] Give n 1Result Comment: [facility]: [id number] 2Location History: SHAM 3Result Comment: [facility]: [id number] EXP: [id number] 4Result Comment: [12/19/2013] #2 5Result Comment: [10/19/2013] #1 6Result Comment: [12/19/2013] #2 7Admin Note: [facility] Medications Aller-Brenton 10 mg oral tablet 1 tablet, By Mouth, Daily, # 90 tablet, 1 Refills, Maintenance, 01/14/23 10:32:00 EDT, [facility] #[id number], 170, cm, 11/12/22 8:55:00 EDT, Height, 73, [...] Refills, Maintenance, 02/21/23 21:20:00 EDT, [facility], 171, cm, 02/21/23 20:09:00 EDT, Height, 72, kg, 02/19/23 13:52:00 EDT, Dry Weight Start Date: 02/21/23 Status: Ordered citalopram 20 mg oral tablet See Instructions, TAKE 1 TABLET BY MOUTH EVERY DAY, # 90 tablet, 3 Refills, Maintenance, 12/21/22 15:35:00 EDT, [facility]/pharmacy #[id number], 170, cm, 11/12/22 8:55:00 EDT, [...] tablet, 3 Refills, Maintenance, 07/23/22 12:10:00 EDT, [facility], 170, cm, 05/28/22 13:32:00 EST, Height, 73, [...] tablet, 3 Refills, Maintenance, 04/13/23 15:29:00 EST, [facility], 171, cm, 04/13/23 15:06:00 EST, Height, [...] 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 [...] Radiology Result Scanned Authored Date: * Madison Wislon: PERFORM Event Display: Radiology Results Scanned Authored [...] Team Personnel Name: Chelsea López RN Position: [facility] RN Member Role: Primary Care Nurse Name: Miranda Castrejon RN Position: [facility] RN Member Role: Primary Care Nurse Name: Alexia Ortiz RN Position: [facility] RN Member Role: Primary Care Nurse Name: Zoe Nunez Position: S RN Member Role: Primary Care Nurse Name: Robby Servin RN Position: [facility] RN Member Role: Primary Care Nurse Name: Pravin Santo MD Position: [facility] Physician - Primary Care Member Role: PCP Address: Address: [address] [place] [address]- [place] Name: Alyse Mckinney RN Position: [facility] RN Member Role: Primary Care Nurse Care Team Related Persons Name: JANNET BECK Address: home [address] [place] [address]
--- OUTSIDE RECORDS SUMMARY | 2023-10-06 12:07 | XMS_ITS | Continuity of Care Document ---
Author Organization [facility] Josh Stevens Jorge lt Address [address] [place] [address]- Care Team Providers Care Heater Mechanic Name Role Phone Pravin Santo MD Primary Care Physician [place] [facility] [place] 05/08/22 - 05/15/22 [facility] Adult [address] [place] [address]- Attending Physician: Pravin Santo MD Allergies, Adverse [...] virus vaccine, inactivated 1 01/08/13 Re corded [id number] 12y+ bivalent booster vax 02/11/22 Recorded SARS-CoV-2 mRNA (poakgam-bzoz-iluzg) vax 08/21/21 Recorded SARS-CoV-2 (COVID-19) mRNA BNT-162b2 [...] [facility]: [id number] EXP: [id number] 3Result Comment: [12/19/2013] #2 4Result Comment: [10/19/2013] #1 5Result Comment: [12/19/2013] #2 6Admin Note: [facility] Medications Aller-Brenton 10 mg oral tablet 1 tablet, By Mouth, Daily, # 90 tablet, 1 Refills, Maintenance, 01/30/22 12:41:00 EDT, [facility] #[id number], 170, cm, 11/04/21 13:58:00 EDT, Height, 69.4, kg, 12/26/20 9:13:00 EDT, Dry Weight Start Date: 01/30/22 Status: Ordered aspirin 81 mg oral tablet 1 tablet = 81 mg, By Mouth, Daily, # 30 tablet, 0 Refills, Maintenance, Tablet Start Date: 08/03/11 Status: Ordered atorvastatin 10 mg oral tablet 1 tablet, By Mouth, Daily, # 90 tablet, 1 Refills, 02/09/22 12:12:00 EDT, [facility]/pharmacy #7111, 170, cm, 11/04/21 13:58:00 EDT, Height, [...] Refills 11, Maintenance,TEST BS TID E11.9 FAX [phone], 01/30/19 11:03:21 EDT, Compound Start Date: 01/30/19 Status: Ordered citalopram 20 mg oral tablet 1 tablet, By Mouth, Daily, # 90 tablet, 1 Refills, [facility], 170, cm, 11/04/21 13:58:00 EDT,Height, 69.4, kg, [...] Refills, Maintenance, 01/05/22 8:40:00 EDT, [facility], 170, cm, 11/04/21 13:58:00 EDT, Height, 69.4, kg, 12/26/20 9:13:00 EDT, Dry Weight Start Date: 01/05/22 Status: Ordered Fish Oil By Mouth, Daily, 0 Refills, Maintenance, 04/26/18 10:26:55 EST Start Date: 04/26/18 Status: Ordered Flonase 50 mcg/inh nasal spray 2 sprays, Nares, Both, Daily, # 16 Gm, 6 Refills, Maintenance, 06/25/16 14:12:57, [place], 2 sprays Nares, Both Daily Start Date: [...] tablet, 1 Refills, Maintenance, 03/14/22 6:22:00 EDT, [facility]/pharmacy #[id number], 170, cm, 11/04/21 13:58:00 EDT, Height, [...] 5 Refills, Maintenance, 11/04/21 14:16:00 EDT, Tablet, [facility] # 302, Partial fill upon patient [...] inhalation Confirmed Active Tobacco abuse Confirmed Active 05679; repeat 2023 2Colonoscopy 2012 normal, repeat 2017. 3colo 2008 polyp, repeat 2012 4colo 2018 5egd 2011 nl per pt. report [id number] 7Abnormal MRI cervical spine, followed by Dr. De Leon. 8c2018 Vital Signs Most recent to oldest [Reference Range]: 1 Height 170 cm (05/08/22 2:39 PM) Weight 70 kg (05/08/22 2:39 PM) Body Mass Index [18.5-24.99 kg/m2] 24.22 kg/m2 (05/08/22 2:39 PM) Weight Obtained Via Patient/family state d (05/08/22 2:39 PM) Social History Social History Type Response Smoking Status Current some day smo ker; Other: pipe; entered on: 04/16/14 Sex Patient Care team information Care Team Personnel Name: Rene MARIN, Chelsea Position: [facility] RN Member Role: Primary Care Nurse Name: Pravin Santo MD Position: [facility] Primary Care Physician Member Role: PCP Address: Address: [address] [place] [address]- Care Team Related Persons Name: JANNET BECK Address: home [address] [place] [address]
--- OUTSIDE RECORDS SUMMARY | 2023-10-06 12:07 | XMS_ITS | Continuity of Care Document ---
Author Organization [facility] Josh Stevens Jorge lt Address [address] [place] [address]- Care Team Providers Care Mill Set Up Name Role Phone Pravin Santo MD Primary Care Physician [phone] [place] [facility] [place] 03/31/23 [facility] Josh Stevens Adult [address] [place] [address]- Attending Physician: Pravin Santo MD Allergies, Adverse Reactions, Alerts Substance Reaction Severity Status penicillins hives, itchiness Active Immunizations Given and Recorded Vaccine Date Status Refusal Reason SARS-CoV-2(COVID-19)mRNA-LNP vac(vtj199) 03/08/23 Recorded influenza virus vaccine, inactivated 1 [...] corded pneumococcal 20-valent conjugate vaccine 10/20/22 Given [id number] 12y+ bivalent booster vax 02/11/22 Recorded SARS-CoV-2 mRNA (xsrccqn-rjkn-evneb) vax 4/14/22 Recorded SARS-CoV-2 (COVID-19) mRNA BNT-162b2 vac 02/21/21 [...] Pertussis (oldterm) 08/02/10 Give n 1Result Comment: [facility]: [id number] 2Location History: SHAM 3Result Comment: [facility]: [id number] EXP: [id number] 4Result Comment: [12/19/2013] #2 5Result Comment: [10/19/2013] #1 6Result Comment: [12/19/2013] #2 7Admin Note: [employer] [facility] Medications Aller-Brenton 10 mg oral tablet 1 tablet, By Mouth, Daily, # 90 tablet, 1 Refills, Maintenance, 01/14/23 10:32:00 EDT, [facility] #[id number], 170, cm, 11/12/22 8:55:00 EDT, Height, 73, [...] Refills, Maintenance, 02/21/23 21:20:00 EDT, [facility], 171, cm, 02/21/23 20:09:00 EDT, Height, 72, kg, 02/19/23 13:52:00 EDT, Dry Weight Start Date: 02/21/23 Status: Ordered citalopram 20 mg oral tablet See Instructions, TAKE 1 TABLET BY MOUTH EVERY DAY, # 90 tablet, 3 Refills, Maintenance, 12/21/22 15:35:00 EDT, [facility]/pharmacy #[id number], 170, cm, 11/12/22 [...] Refills, Maintenance, 07/23/22 12:10:00 EDT, [facility], 170, cm, 05/28/22 13:32:00 EST, Height, 73, [...] Acute 04/05/23 12:30:00 EST, 02/25/23 13:08:00 EDT, [facility]/pharmacy #0600, Partial fill upon patient requ... 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 3colo 2008 polyp, repeat 2013 4colo 2018 5egd 2012 nl per pt. report 6colo 2018 7Abnormal MRI cervical spine, followed by Dr. De Leon. 8c2018 Vital Signs Most recent to oldest [Reference Range]: 1 Height 171 cm (03/24/23 8:40 AM) Weight 71.2 kg (03/24/23 8:40 AM) Oxygen Saturation [94-100 %] 98 % (03/24/23 8:40 AM) Pulse Rate [55-90 bpm] 72 bpm (03/24/23 8:40 AM) Body Mass Index [18.5-24.99 kg/m2] 24.35 kg/m2 (03/24/23 8:40 AM) Blood Pressure [90-138/55-84 mm Hg] 122/ 70mm Hg (03/24/23 8:40 AM) Mode of Delivery (Oxygen) Room air (03/24/23 8:40 AM) Blood pressure sites Arm, left (03/24/23 8:40 AM) Weight Obtained Via Standing scale (03/24/23 8:40 AM) Social History Social History Type Response [...] Primary Care Member Role: PCP Address: Address: [address] [place] [address]- Name: Alyse Mckinney RN Position: S RN Member Role: Primary Care Nurse Care Team Related Persons Name: JANNET BECK Address: home [address] [place] [address]
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
--- OUTSIDE RECORDS SUMMARY | 2023-10-06 12:07 | XMS_ITS | Continuity of Care Document ---
Author Organization [facility] Rodney Jorge lt Address [address] [place] [address]- Care Team Providers Care Railroad Car Letterer Name Role Phone Pravin Santo MD Primary Care Physician [phone] Encounter [facility] [place] Date(s): 06/29/23 - 07/29/23 [facility] Josh Umanaley Adult [address] [place] [address]- Allergies, Adverse Reactions, Alerts Substance Reaction Severity Status penicillins hives, itchiness Active Immunizations Given and Recorded Vaccine Date Status Refusal Reason SARS-CoV-2(COVID-19)mRNA-LNP vac([id number]) 03/08/23 Recorded influenza virus vaccine, inactivated 1 [...] corded pneumococcal 20-valent conjugate vaccine 10/20/22 Given [id number] 12y+ bivalent booster vax 02/11/22 Recorded SARS-CoV-2 mRNA (ggcldpu-lliy-cganv) vax 08/21/21 Recorded SARS-CoV-2 (COVID-19) mRNA BNT-162b2 [...] n 1Result Comment: [facility]: [id number] 2Location History: SHAM 3Result Comment: [facility]: [id number] EXP: [id number] 4Result Comment: [12/19/2013] #2 5Result Comment: [10/19/2013] #1 6Result Comment: [12/19/2013] #2 7Admin Note: Face++ [facility] Medications Albuterol (Eqv-Proventil HFA) 90 mcg/inh [...] 10:32:00 EDT, [facility] #[id number], 170, cm, 11/12/22 8:55:00 EDT, Height, 73, kg, 05/28/22 13:32:00 EST, Dry Weight Start Date: 01/14/23 Status: Ordered aspirin 81 mg oral tablet 1 tablet = 81 mg, By Mouth, Daily, # 30 tablet, 0 Refills, Maintenance, Tablet Start Date: 08/03/11 Status: Ordered atorvastatin 10 mg oral tablet 1 tablet, By Mouth, Daily, # 90 tablet, 1 Refills, Maintenance, 06/28/23 8:01:00 EST, [facility] STORE 50887, 171, cm, 06/22/23 7:29:00 EST, Height, 72, kg, 02/19/23 13:52:00 EDT, Dry Weight Start Date: 06/28/23 Status: Ordered betamethasone-clotrimazole 0.05%-1% topical cream 1 application, Topically, 2 times a day, # 45 Gm, 0 Refills, Maintenance, 05/27/23 9:29:00 EST, Cream, [facility]/pharmacy #[id number], Partial fill upon patient request if the prescription is for a schedule II opioid drug., 1 application Topically 2 times a day,... Start Date: 05/27/23 Status: Ordered citalopram 20 mg oral tablet See Instructions, TAKE 1 TABLET BY MOUTH EVERY DAY, # 90 tablet, 3 Refills, Maintenance, 12/21/22 15:35:00 EDT, [facility]/pharmacy #[id number], 170, cm, 11/12/22 [...] tablet, 3 Refills, Maintenance, 06/01/23 9:17:00 EST, [facility] STORE 68322, 171, cm, 05/27/23 8:55:00 EST, Height, 72, [...] 06/29/23 9:46:00 EST, Tablet, [facility], Partial fill upon patient request if the prescription is for a schedule II opioid drug., 171, cm, 06/22/23 7:29:0... 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 [...] Team Personnel Name: Chelsea López RN Position: [facility] RN Member Role: Primary Care Nurse Name: Ángel Castrejon RN Position: S RN Member Role: Primary Care Nurse Name: Alexia Ortiz RN Position: S RN Member Role: Primary Care Nurse Name: Zoe Nunez Position: S RN Member Role: Primary Care Nurse Name: Pravin Santo MD Position: S Physician - Primary Care Member Role: PCP Address: Address: [address] [place] [address] [id number] Name: Hank MARIN, Alyse Position: S RN Member Role: Primary Care Nurse Care Team Related Persons Name: JANNET BECK Address: home [address] [place] [address]
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
--- OUTSIDE RECORDS SUMMARY | 2023-10-06 12:07 | XMS_ITS | Continuity of Care Document ---
Author Organization [facility] Josh Stevens Jorge lt Address [address] [place] [address]- Care Team Providers Care Baseball Pitcher Name Role Phone Hansa URIAS, Pravin Hidalgo Primary Care Physician [facility]counter [facility] Date(s): 03/05/23 - 04/04/23 [facility] Josh Stevens Adult [address] [place] [address]- Allergies, Adverse Reactions, Alerts Substance Reaction Severity Status penicillins hives, itchiness Active Immunizations Given and Recorded Vaccine Date Status Refusal Reason SARS-CoV-2(COVID-19)mRNA-LNP vac([id number]) 03/08/23 Recorded influenza virus vaccine, inactivated 1 [...] corded pneumococcal 20-valent conjugate vaccine 10/20/22 Given [id number] 12y+ bivalent booster vax 02/11/22 Recorded SARS-CoV-2 mRNA (iqpuxug-pzoe-nayge) vax 08/21/21 Recorded SARS-CoV-2 (COVID-19) mRNA BNT-162b2 [...] Pertussis (oldterm) 08/02/10 Give n 1Result Comment: [facility]: 36630-157-19 2Location History: SHAM 3Result Comment: [facility]: [id number] EXP: [id number] 4Result Comment: [12/19/2013] #2 5Result Comment: [10/19/2013] #1 6Result Comment: [12/19/2013] #2 7Admin Note: [facility] Medications Aller-Brenton 10 mg oral tablet 1 tablet, By Mouth, Daily, # 90 tablet, 1 Refills, Maintenance, 01/14/23 10:32:00 EDT, [facility] #[id number], 170, cm, 11/12/22 8:55:00 EDT, Height, 73, [...] EDT, [facility] STORE 15442, 171, cm, 02/21/23 20:09:00 EDT, Height, 72, [...] Refills, Maintenance, 07/23/22 12:10:00 EDT, [facility], 170, cm, 05/28/22 13:32:00 EST, Height, 73, [...] 04/05/23 12:30:00 EST, 02/25/23 13:08:00 EDT, [facility]/pharmacy #[id number], Partial fill upon patient requ... 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 3colo 2008 polyp, repeat 2013 4colo 2018 5egd 2012 nl per pt. report 6c2018 7Abnormal MRI cervical spine, followed by Dr. De Leon. 8c2018 Social History Social History Type Response Smoking Status Former smoker, quit more than 30 days ago entered on: 03/02/23 Sex Patient Care team information Care Team Personnel Name: Chelsea López RN Position: [facility] RN Member Role: Primary Care Nurse Name: Miranda Castrejon RN Position: S RN Member Role: Primary Care Nurse Name: Alexia Ortiz RN Position: S RN Member Role: Primary Care Nurse Name: Zeo Nunez Position: [facility] RN Member Role: Primary Care Nurse Name: Robby Servin RN Position: [facility] RN Member Role: Primary Care Nurse Name: Pravin Santo MD Position: [facility] Physician - Primary Care Member Role: PCP Address: Address: [address] [place] [address]- Name: Alyse Mckinney RN Position: [facility] RN Member Role: Primary Care Nurse Care Team Related Persons Name: JANNET BECK Address: home [address] [place] [address]
--- OUTSIDE RECORDS SUMMARY | 2023-10-06 12:07 | XMS_ITS | Continuity of Care Document ---
Author Organization [facility] Address [address] [place] [address]- Care Team Providers Care Evs Tech Name Role Phone Hansa URIAS, Pravin Hidalgo Primary Care Physician En[place] [facility] [place] Date(s): 06/07/19 - 06/20/[address] [address]- [facility] Discharge Disposition: A-D/C Home Attending Physician: Pravin Leon MD Admitting Physician: Pravin Leon MD Referring Physician: Pravin Leon MD Allergies, [...] #1 4Result Comment: [12/19/2013] #2 5Admin Note: [facility] Medications Antabuse 250 mg oral [...] 3 Refills, Maintenance, Route to Pharmacy Electronically, [id number], [facility]/pharmacy #[id number] Start Date: 05/16/18 Status: Ordered Maria [...] Refills 11, Maintenance,TEST BS TID E11.9 FAX [phone], 01/30/19 11:03:21 EDT, Compound Start Date: 01/30/19 Status: Ordered CeleXA 20 mg oral tablet 20 mg, 1, tablet, By Mouth, Daily, PER DR LEON, # 90 tablet, Refills 3, Tot. Refills 3, Maintenance,10/05/18 16:12:00 EDT, Route to Pharmacy Electronically, [id number], [facility]/pharmacy #[id number] Start Date: 10/05/18 Stop Date: [...] 16 Gm, 6 Refills, Maintenance, 06/25/16 14:12:57, [place], 2 sprays Nares, Both Daily Start Date: 06/25/16 Status: Ordered Lancets See Instructions, # 100 each, Refills 5, Tot. Refills 5, Maintenance, tests bid -tid for dm type 2 250.00, 12/08/12 14:13:50, Compound Start Date: 12/08/12 Status: Ordered metFORMIN 500 mg oral tablet 1 tablet = 500 mg, By Mouth, Daily, # 90 tablet, 1 Refills, Maintenance, 05/07/19 9:36:00 EST, Tablet, [facility]/pharmacy #[id number], 170.18, cm, 01/30/19 10:28:00 EDT, [...] 5 Refills, Maintenance, 06/07/19 16:28:00 EST, Tablet, [facility] # 302, 170.18, cm, 05/30/19 14:26:00 [...] Active Raynaud's Syndrome(Confirmed) Active Tobacco abuse(Confirmed) Active 21088; repeat 2023 2Colonoscopy 2013 normal, repeat 2017. 3colo 2008 polyp, repeat 2012 4colo 2018 5egd 2012 nl per pt. report 6colo 2018 7Abnormal MRI cervical spine, followed by Dr. De Leon. 8colo 2018 Social History Social History Type Response Smoking Status Current some day smo ker; Other: pipe; entered on: 04/16/14 Sex
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
--- OUTSIDE RECORDS SUMMARY | 2023-10-06 12:07 | XMS_ITS | Continuity of Care Document ---
Author Organization [facility] Josh Stevens Jorge lt Address [address] [place] [address]- Care Team Providers Care Sample Sewer Name Role Phone Hansa URIAS, Pravin Hidalgo Primary Care Physician Encounter [facility] Date(s): 06/22/23 - 06/29/23 [facility] Josh Stevens Adult [address] [place] [address]- Encounter Diagnosis Cough(Discharge Diagnosis) - 06/22/23 Hypercholesterolemia(Discharge Diagnosis) - 06/22/23 History of empyema of pleura(Discharge Diagnosis) - 06/22/23 DM (diabetes mellitus), type 2(Discharge Diagnosis) - 06/22/23 Attending Physician: Lyric Maki NP Referring Physician: Dieter URIAS, Charles Fisher Allergies, Adverse Reactions, Alerts Substance Reaction Severity Status penicillins hives, itchiness Active Immunizations Given and Recorded Vaccine Date Status Refusal Reason SARS-CoV-2(COVID-19)mRNA-LNP vac(ijv293) 03/08/23 Recorded influenza virus vaccine, inactivated 1 [...] corded pneumococcal 20-valent conjugate vaccine 10/20/22 Given [id number] 12y+ bivalent booster vax 02/11/22 Recorded SARS-CoV-2 mRNA (mjqxokt-ssex-tdvgh) vax 08/21/21 Recorded SARS-CoV-2 (COVID-19) mRNA BNT-162b2 [...] 08/02/10 Give n 1Result Comment: [facility]: 14807-547-10 2Location History: SHAM 3Result Comment: [facility]: 71424-951-50 EXP: [id number] 4Result Comment: [12/19/2013] #2 5Result Comment: [10/19/2013] #1 6Result Comment: [12/19/2013] #2 7Admin Note: [facility] Medications Albuterol (Eqv-Proventil HFA) 90 mcg/inh inhalation aerosol 2 puffs, Inhalation, Every 4 hours, PRN Wheezing/Shortness of Breath, # 1 each, 0 Refills, Maintenance, 06/29/23 9:56:00 EST, [facility], Partial fill upon patient request if the prescription is for a schedule II opioid drug., 171, cm, 0... Start Date: 06/29/23 Stop Date: 07/29/23 Status: Ordered Aller-Brenton 10 mg oral tablet 1 tablet, By Mouth, Daily, # 90 tablet, 1 Refills, Maintenance, 01/14/23 10:32:00 EDT, [facility] #[id number], 170, cm, 11/12/22 8:55:00 EDT, Height, 73, kg, 05/28/22 13:32:00 EST, Dry Weight Start Date: 01/14/23 Status: Ordered aspirin 81 mg oral tablet 1 tablet = 81 mg, By Mouth, Daily, # 30 tablet, 0 Refills, Maintenance, Tablet Start Date: 08/03/11 Status: Ordered atorvastatin 10 mg oral tablet 1 tablet, By Mouth, Daily, # 90 tablet, 1 Refills, Maintenance, 06/28/23 8:01:00 EST, [facility] STORE 89684, 171, cm, 06/22/23 7:29:00 EST, Height, 72, kg, 02/19/23 13:52:00 EDT, Dry Weight Start Date: 06/28/23 Status: Ordered betamethasone-clotrimazole 0.05%-1% topical cream 1 application, Topically, 2 times a day, # 45 Gm, 0 Refills, Maintenance, 05/27/23 9:29:00 EST, Cream, [facility]/pharmacy #[id number], Partial fill upon [...] tablet, 3 Refills, Maintenance, 06/01/23 9:17:00 EST, [facility] STORE 14750, 171, cm, 05/27/23 8:55:00 EST, Height, 72, [...] 06/29/23 9:46:00 EST, Tablet, [facility], Partial fill upon patient request if the [...] 9:56:00 EST, Tablet, [facility], Partial fill upon patient request if [...] 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 3colo 2008 polyp, repeat 2013 4colo 2018 5egd 2012 nl per pt. report 6colo 2018 7Abnormal MRI cervical spine, followed by Dr. De Leon. 8colo 2018 Diagnosis Diagnosis Type Effective Dates Health Status Clinical Service Informant Cough Discharge Diagnosis 06/22/23 Hypercholesterolemia Discharge Diagnosis 06/22/23 History of empyema of pleura Discharge Diagnosis 06/22/23 DM (diabetes mellitus), type 2 Discharge Diagnosis 06/22/23 Vital Signs Most recent to oldest [Reference Range]: 1 Height 171 cm (06/22/23 7:29 AM) Weight 73.5 kg (06/22/23 7:29 AM) Oxygen Saturation [94-100 %] 95 % (06/22/23 7:29 AM) Pulse Rate [55-90 bpm] 68 bpm (06/22/23 7:29 AM) Body Mass Index [18.5-24.99 kg/m2] 25.14 kg/m2 *H* (06/22/23 7:29 AM) Blood Pressure [90-138/55-84 mm Hg] 118/ 70mm Hg (06/22/23 7:29 AM) Blood pressure sites Arm, left (06/22/23 7:29 AM) Weight Obtained Via Standing scale (06/22/23 7:29 AM) Social History Social History Type Response Smoking Status Former smoker, quit more than 30 days ago entered on: 03/02/23 Sex Note * Donna Tea: PERFORM, SIGN, VERIFY Event Display: Patient Education/Instruction Authored Date: [id number] [facility] *BMP So Rodney Coreas Clinical Summary Name NATIVIDAD BECK Age 78 Years 1945 PCP Hansa URIAS, Pravin Hidalgo PCP Visit Date 06/22/2023 07:27:00 Additional Instructions: Scheduled Appointments?? Future Appointments ?[facility] ?[address]??[place],??[place],??[address] ?Phone:??[phone]?Fax:??-- ?Appt. Date:??06/23/2023?1:00 PM ?Scheduled Provider:??[facility] [address] [facility] [address] ?[place],??[place],??[address] ?Phone:??--?Fax:??-- ?Appt. Date:??07/08/2023?11:30 AM ?Scheduled Provider:??Elaine REED, Rom Fisher Follow-Up Instructions ?? Diagnosis Medications: Please continue your medications until treatment [...] tab(s) Oral Daily. Refills: 1. Next Dose: Betamethasone-Clotrimazole Topical (betamethasone-clotrimazole 0.05%-1% topical cream) 1 joseph Topically twice a day. Refills: 0. Next Dose: Calcium Citrate (Citracal Tablet) Daily. [...] Dose: Multivitamin Daily. Centrum silver. Next Dose: [place]-3 Polyunsaturated Fatty Acids (Fish Oil) Oral Daily. Next Dose: turmeric Oral Daily. Next Dose: Vitamin E Oral Daily. Next Dose: Allergy Info:?? penicillins Medications Given This Visit Future Orders ?No future orders Vital Signs Height 171 cm Weight 73.5 kg BMI 25.14 kg/m2 Blood Pressure 118 mm Hg/70 mm Hg Temperature Pulse Rate 68 bpm Respiratory Rate 02 Sat Mode of Delivery 95 %/ You can now view a summary of your hospital visit from the comfort of your home through a free online portal called [employer]. [employer] is a website that allows you to securely view your medical information including discharge summary, medications and follow-up visits. ??You can alsosend a secure electronic message to your doctor???s office to request appointments, renew medications or just ask a question. You can enroll at [email or web address] or register during your next office [...] primary care provider, you may find a [facility] provider by calling [facility] Link at [phone]. [facility], in keeping with [facility] guidance, no longer requires face masks [...] Primary Care Member Role: PCP Address: Address: [address] [place] [address]- Name: Alyse Mckinney RN Position: S RN Member Role: Primary Care Nurse Care Team Related Persons Name: JANNET BECK Address: home [address] [place] [address]
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
--- OUTSIDE RECORDS SUMMARY | 2023-10-06 12:07 | XMS_ITS | Continuity of Care Document ---
Author Organization [facility] Jorge lt Address [address] [place] [address]- Care Team Providers Care Technical Support Technician Name Role Phone Pravin Santo MD Primary Care Physician [place] [facility] [place](s): 06/23/23 - 07/23/23 [facility] Adult [address] [place] [address]- Allergies, Adverse Reactions, Alerts Substance Reaction Severity Status penicillins hives, itchiness Active Immunizations Given and Recorded Vaccine Date Status Refusal Reason SARS-CoV-2(COVID-19)mRNA-LNP vac(ras121) 03/08/23 Recorded influenza virus vaccine, inactivated 1 [...] corded pneumococcal 20-valent conjugate vaccine 10/20/22 Given [id number] 12y+ bivalent booster vax 02/11/22 Recorded SARS-CoV-2 mRNA (xcuvxug-vung-xetxn) vax 08/21/21 Recorded SARS-CoV-2 (COVID-19) mRNA BNT-162b2 [...] (oldterm) 08/02/10 Give n 1Result Comment: [facility]: 27591-722-57 2Location History: SHAM 3Result Comment: [facility]: [id number] EXP: [id number] 4Result Comment: [12/19/2013] #2 5Result Comment: [10/19/2013] #1 6Result Comment: [12/19/2013] #2 7Admin Note: [employer] [facility] Medications Albuterol (Eqv-Proventil HFA) 90 mcg/inh [...] tablet, 1 Refills, Maintenance, 01/14/23 10:32:00 EDT, [facility] #[id number], 170, cm, 11/12/22 8:55:00 EDT, Height, 73, kg, 05/28/22 13:32:00 EST, Dry Weight Start Date: 01/14/23 Status: Ordered aspirin 81 mg oral tablet 1 tablet = 81 mg, By Mouth, Daily, # 30 tablet, 0 Refills, Maintenance, Tablet Start Date: 08/03/11 Status: Ordered atorvastatin 10 mg oral tablet 1 tablet, By Mouth, Daily, # 90 tablet, 1 Refills, Maintenance, 06/28/23 8:01:00 EST, [facility] STORE 8[facility], 171, cm, 06/22/23 7:29:00 EST, Height, 72, kg, 02/19/23 13:52:00 EDT, Dry Weight Start Date: 06/28/23 Status: Ordered betamethasone-clotrimazole 0.05%-1% topical cream 1 application, Topically, 2 times a day, # 45 Gm, 0 Refills, Maintenance, 05/27/23 9:29:00 EST, Cream, [facility]/pharmacy #7111, Partial fill upon patient request if the prescription is for a schedule II opioid drug., 1 application Topically 2 times a day,... Start Date: 05/27/23 Status: Ordered citalopram 20 mg oral tablet See Instructions, TAKE 1 TABLET BY MOUTH EVERY DAY, # 90 tablet, 3 Refills, Maintenance, 12/21/22 15:35:00 EDT, [facility]/pharmacy #[id number], 170, cm, 11/12/22 8:55:00 EDT, [...] tablet, 3 Refills, Maintenance, 06/01/23 9:17:00 EST, [facility]ORE 12803, 171, cm, 05/27/23 8:55:00 EST, Height, 72, [...] 06/29/23 9:46:00 EST, Tablet, [facility], Partial fill upon patient request if the prescription is for a schedule II opioid drug., 171, cm, 06/22/23 7:29:0... 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 [...] Team Personnel Name: Chelsea López RN Position: [facility] RN Member Role: Primary Care Nurse Name: Ángel Castrejon RN Position: S RN Member Role: Primary Care Nurse Name: Alexia Ortiz RN Position: S RN Member Role: Primary Care Nurse Name: Zoe Nunez Position: S RN Member Role: Primary Care Nurse Name: Pravin Santo MD Position: S Physician - Primary Care Member Role: PCP Address: Address: [address] [place] [id number] Name: Hank MARIN, Alyse Position: S RN Member Role: Primary Care Nurse Care Team Related Persons Name: JNANET BECK Address: home [address] [place] [address]
--- OUTSIDE RECORDS SUMMARY | 2023-10-06 12:07 | XMS_ITS | Continuity of Care Document ---
Author Organization [facility] Address [address] [place] [address] [address], [address] [place] [address]- Care Team Providers Care Learning Disabilities Specialist Name Role Phone Pravin Santo MD Primary Care Physician [phone] Encounter [facility] Date(s): 03/29/23 - 04/28/23 [facility] [address] [place] [address] Drive, [address] [place] [address]- Allergies, Adverse Reactions, Alerts Substance Reaction Severity Status penicillins hives, itchiness Active Immunizations Given and Recorded Vaccine Date Status Refusal Reason SARS-CoV-2(COVID-19)mRNA-LNP vac(rph694) 03/08/23 Recorded influenza virus vaccine, inactivated 1 [...] corded pneumococcal 20-valent conjugate vaccine 10/20/22 Given [id number] 12y+ bivalent booster vax 02/11/22 Recorded SARS-CoV-2 mRNA (iztnlax-kfek-wrbrv) vax 08/21/21 Recorded SARS-CoV-2 (COVID-19) mRNA BNT-162b2 [...] (oldterm) 08/02/10 Give n 1Result Comment: [facility]: 75389-755-23 2Location History: SHAM 3Result Comment: [facility]: [id number] EXP: [id number] 4Result Comment: [12/19/2013] #2 5Result Comment: [10/19/2013] #1 6Result Comment: [12/19/2013] #2 7Admin Note: [employer] [facility] Medications Aller-Brenton 10 mg oral tablet 1 tablet, By Mouth, Daily, # 90 tablet, 1 Refills, Maintenance, 01/14/23 10:32:00 EDT, [facility] #[id number], 170, cm, 11/12/22 8:55:00 EDT, Height, 73, [...] Refills, Maintenance, 02/21/23 21:20:00 EDT, [facility], 171, cm, 02/21/23 20:09:00 EDT, Height, 72, [...] Refills, Maintenance, 07/23/22 12:10:00 EDT, [facility], 170, cm, 05/28/22 13:32:00 EST, Height, 73, [...] 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 3colo 2008 polyp, repeat 2013 4c2018 5egd 2012 nl per pt. report 6c2018 [...] Primary Care Member Role: PCP Address: Address: [address] [place] [id number]- [place] Name: Alyse Mckinney RN Position: S RN Member Role: Primary Care Nurse Care Team Related Persons Name: JANNET BECK Address: home [address] [place] [address]
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
--- OUTSIDE RECORDS SUMMARY | 2023-10-06 12:07 | XMS_ITS | Continuity of Care Document ---
Author Organization [facility] y Address [address] [place] [address]- Care Team Providers Care Underwriting Intern Name Role Phone Pravin Santo MD Primary Care Physician [place] [facility] [place](s): 03/26/23 - 04/25/23 [facility] [address] [place] [address]- Attending Physician: Brian Jacob Admitting Physician: Brian Jacob Referring Physician: AdmtrBrian Allergies, Adverse Reactions, Alerts Substance Reaction Severity Status penicillins hives, itchiness Active Immunizations Given and Recorded Vaccine Date Status Refusal Reason SARS-CoV-2(COVID-19)mRNA-LNP vac([id number]) 03/08/23 Recorded influenza virus vaccine, inactivated 1 [...] corded pneumococcal 20-valent conjugate vaccine 10/20/22 Given [id number] 12y+ bivalent booster vax 02/11/22 Recorded SARS-CoV-2 mRNA (ebkynbs-zmnm-arsxn) vax 08/21/21 Recorded SARS-CoV-2 (COVID-19) mRNA BNT-162b2 [...] Pertussis (oldterm) 08/02/10 Give n 1Result Comment: [facility]: [id number] 2Location History: SHAM 3Result Comment: [facility]: [id number] EXP: [id number] 4Result Comment: [12/19/2013] #2 5Result Comment: [10/19/2013] #1 6Result Comment: [12/19/2013] #2 7Admin Note: [employer] [facility] Medications Aller-Brenton 10 mg oral tablet 1 tablet, By Mouth, Daily, # 90 tablet, 1 Refills, Maintenance, 01/14/23 10:32:00 EDT, [facility] #[id number], 170, cm, 11/12/22 8:55:00 EDT, Height, 73, [...] Refills, Maintenance, 02/21/23 21:20:00 EDT, [facility], 171, cm, 02/21/23 20:09:00 EDT, Height, 72, kg, 02/19/23 13:52:00 EDT, Dry Weight Start Date: 02/21/23 Status: Ordered citalopram 20 mg oral tablet See Instructions, TAKE 1 TABLET BY MOUTH EVERY DAY, # 90 tablet, 3 Refills, Maintenance, 12/21/22 15:35:00 EDT, [facility]/pharmacy #[id number], 170, cm, 11/12/22 8:55:00 [...] tablet, 3 Refills, Maintenance, 07/23/22 12:10:00 EDT, [facility] STORE 83480, 170, cm, 05/28/22 13:32:00 EST, Height, 73, [...] 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 [...] Primary Care Member Role: PCP Address: Address: [address] [place] [address]- Name: Alyse Mckinney RN Position: S RN Member Role: Primary Care Nurse Care Team Related Persons Name: JANNET BECK Address: home [address] [place] [address]
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
--- OUTSIDE RECORDS SUMMARY | 2023-10-06 12:08 | XMS_ITS | Continuity of Care Document ---
Author Organization [facility] Address [address] [place] [address]- Care Team Providers Care Senior Environmental Engineer Name Role Phone Pravin Santo MD Primary Care Physician [place] [facility] Date(s): 04/20/23 - 05/20/[address] [address]- Attending Physician: Brian Jacob Admitting Physician: AdmtrBrian Referring Physician: Admtr Ar8 Allergies, Adverse Reactions, Alerts Substance Reaction Severity Status penicillins hives, itchiness Active Immunizations Given and Recorded Vaccine Date Status Refusal Reason SARS-CoV-2(COVID-19)mRNA-LNP vac([id number]) 03/08/23 Recorded influenza virus vaccine, inactivated 1 [...] corded pneumococcal 20-valent conjugate vaccine 10/20/22 Given [id number] 12y+ bivalent booster vax 02/11/22 Recorded SARS-CoV-2 mRNA (bictwog-ynpc-dpmjs) vax 08/21/21 Recorded SARS-CoV-2 (COVID-19) mRNA BNT-162b2 [...] (oldterm) 08/02/10 Give n 1Result Comment: [facility]: [id number] 2Location History: SHAM 3Result Comment: [facility]: 04858-788-33 EXP: [id number] 4Result Comment: [12/19/2013] #2 5Result Comment: [10/19/2013] #1 6Result Comment: [12/19/2013] #2 7Admin Note: [email or web address] [facility] Medications Aller-Brenton 10 mg oral tablet 1 tablet, By Mouth, Daily, # 90 tablet, 1 Refills, Maintenance, 01/14/23 10:32:00 EDT, [facility] #33281, 170, cm, 11/12/22 8:55:00 EDT, Height, 73, [...] Refills, Maintenance, 02/21/23 21:20:00 EDT, [facility], 171, cm, 02/21/23 20:09:00 EDT, Height, 72, kg, 02/19/23 13:52:00 EDT, Dry Weight Start Date: 02/21/23 Status: Ordered citalopram 20 mg oral tablet See Instructions, TAKE 1 TABLET BY MOUTH EVERY DAY, # 90 tablet, 3 Refills, Maintenance, 12/21/22 15:35:00 EDT, [facility]/pharmacy #7111, 170, cm, 11/12/22 8:55:00 EDT, [...] tablet, 3 Refills, Maintenance, 07/23/22 12:10:00 EDT, [facility] STORE 95232, 170, cm, 05/28/22 13:32:00 EST, Height, 73, [...] 3 Refills, Maintenance, 04/13/23 15:29:00 EST, [facility]/pharmacy #7111, 171, cm, 04/13/23 15:06:00 EST, [...] dependent type 2 diabetes mellitus Confirmed Active 18092; repeat 2023 2Colonoscopy 2013 normal, repeat 2017. [...] Care Nurse Name: Pravin Santo MD Position: [facility] Physician - Primary Care Member Role: PCP Address: Address: [address] [place] [address]- Name: Alyse Mckinney RN Position: S RN Member Role: Primary Care Nurse Care Team Related Persons Name: JANNET BECK Address: home [address] [place] [address]
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
--- OUTSIDE RECORDS SUMMARY | 2023-10-06 12:08 | XMS_ITS | Continuity of Care Document ---
Author Organization [facility] Rodney Jorge lt Address [address] [place] [address]- Care Team Providers Care Sales Floor Team Member Name Role Phone Pravin Santo MD Primary Care Physician Encounter [facility] Date(s): 06/26/23 - 07/26/23 [facility] [place] Adult [address] [place] [address]- Allergies, Adverse Reactions, Alerts Substance Reaction Severity Status penicillins hives, itchiness Active Immunizations Given and Recorded Vaccine Date Status Refusal Reason SARS-CoV-2(COVID-19)mRNA-LNP vac([id number]) 03/08/23 Recorded influenza virus vaccine, inactivated 1 [...] corded pneumococcal 20-valent conjugate vaccine 10/20/22 Given [id number] 12y+ bivalent booster vax 02/11/22 Recorded SARS-CoV-2 mRNA (lmpdazc-xepa-bgtgz) vax 08/21/21 Recorded SARS-CoV-2 (COVID-19) mRNA BNT-162b2 [...] 1Result Comment: [facility]: [id number] 2Location History: SHAM 3Result Comment: [facility]: [id number] EXP: [id number] 4Result Comment: [12/19/2013] #2 5Result Comment: [10/19/2013] #1 6Result Comment: [12/19/2013] #2 7Admin Note: [facility] Medications Albuterol (Eqv-Proventil HFA) 90 mcg/inh inhalation [...] [facility] #[id number], 170, cm, 11/12/22 8:55:00 EDT, Height, 73, [...] 06/28/23 8:01:00 EST, [facility], 171, cm, 06/22/23 7:29:00 EST, Height, 72, [...] 06/01/23 9:17:00 EST, [facility]ORE 76320, 171, cm, 05/27/23 8:55:00 EST, Height, 72, [...] 06/29/23 9:46:00 EST, Tablet, [facility], Partial fill upon patient request if the [...] 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 [...] Team Personnel Name: Chelsea López RN Position: [facility] RN Member Role: Primary Care Nurse Name: Ángel Castrejon RN Position: S RN Member Role: Primary Care Nurse Name: Alexia Ortiz RN Position: S RN Member Role: Primary Care Nurse Name: Zoe Nunez Position: S RN Member Role: Primary Care Nurse Name: Pravin Santo MD Position: [facility] Physician - Primary Care Member Role: PCP Address: Address: [address] [place] [address]- Name: Hank MARIN, Alyse Position: S RN Member Role: Primary Care Nurse Care Team Related Persons Name: JANNET BECK Address: home [address] [place] [address]
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
--- OUTSIDE RECORDS SUMMARY | 2023-10-06 12:08 | XMS_ITS | Continuity of Care Document ---
Author Organization [facility] Jorge Address [address] [place] [address]- Care Team Providers Care Showroom Sales Consultant Name Role Phone Pravin Leon MD Primary Care Physician [phone] [facility]counter [facility] Date[facility]s): 05/30/19 - 06/06/19 [facility] Adult [address] [place] [address]- [facility] Attending Physician: Pravin Leon MD Allergies, Adverse [...] #1 4Result Comment: [12/19/2013] #2 5Admin Note: [facility] Medications Antabuse 250 mg oral tablet [...] 3 Refills, Maintenance, Route to Pharmacy Electronically, [id number], [facility]/pharmacy #[id number] Start Date: 05/16/18 Status: Ordered Maria [...] Refills 11, Maintenance,TEST BS TID E11.9 FAX [phone], 01/30/19 11:03:21 EDT, Compound Start Date: 01/30/19 Status: Ordered CeleXA 20 mg oral tablet 20 mg, 1, tablet, By Mouth, Daily, PER DR LEON, # 90 tablet, Refills 3, Tot. Refills 3, Maintenance,10/05/18 16:12:00 EDT, Route to Pharmacy Electronically, [id number], [facility]/pharmacy #[id number] Start Date: 10/05/18 Stop Date: 09/30/19 [...] 16 Gm, 6 Refills, Maintenance, 06/25/16 14:12:57, [place], 2 sprays Nares, Both Daily Start Date: 06/25/16 Status: Ordered Lancets See Instructions, # 100 each, Refills 5, Tot. Refills 5, Maintenance, tests bid -tid for dm type 2 250.00, 12/08/12 14:13:50, Compound Start Date: 12/08/12 Status: Ordered metFORMIN 500 mg oral tablet 1 tablet = 500 mg, By Mouth, Daily, # 90 tablet, 1 Refills, Maintenance, 05/07/19 9:36:00 EST, Tablet, [facility]/pharmacy #7111, 170.18, cm, 01/30/19 10:28:00 EDT, Height, 72.27, kg, 06/01/17 12:27:00 EST,Dry Weight Start Date: 05/07/19 Status: Ordered physical therapy physical therapy, See Instructions, # 1 each, Refills 0, Tot. Refills 0, Maintenance, evaluate and treat for left elbow pain, 05/30/19 14:54:00 EST, Compound Start Date: 05/30/19 Status: Ordered ZyrTEC 10 mg oral tablet [...] Active Raynaud's Syndrome(Confirmed) Active Tobacco abuse(Confirmed) Active 92800; repeat 2023 2Colonoscopy 2013 normal, repeat 2017. 3colo 2008 polyp, repeat 2012 4colo 2018 5egd 2011 nl per pt. report 6colo 2018 7Abnormal MRI cervical spine, followed by Dr. De Leon. 8colo 2018 Vital Signs Most recent to oldest [Reference Range]: 1 Height 170.18 cm (05/30/19 2:26 PM) Weight 78.0 kg (05/30/19 2:26 PM) Oxygen Saturation [94-100 %] 96 % (05/30/19 2:26 PM) Pulse Rate [55-90 bpm] 56 bpm (05/30/19 2:26 PM) Body Mass Index [18.5-24.99] 26.93 *H* (05/30/19 2:26 PM) Blood Pressure [90-138/55-84 mm Hg] 102/ 60mm Hg (05/30/19 2:26 PM) Mode of Delivery (Oxygen) Room air (05/30/19 2:26 PM) Blood pressure sites Arm, left (05/30/19 2:26 PM) Weight Obtained Via Standing scale (05/30/19 2:26 PM) Social History Social History Type Response Smoking Status Current some day smo ker; Other: pipe; entered on: 04/16/14 Sex
--- OUTSIDE RECORDS SUMMARY | 2023-10-06 12:08 | XMS_ITS | Continuity of Care Document ---
Author Organization [facility] Rodney Jorge lt Address [address] [place] [address]- Care Team Providers Care Forgesmith Name Role Phone Pravin Santo MD Primary Care Physician Encounter [facility] Date(s): 04/12/23 - 05/12/23 [facility] Adult [address] [place] [address]- Allergies, Adverse Reactions, Alerts Substance Reaction Severity Status penicillins hives, itchiness Active Immunizations Given and Recorded Vaccine Date Status Refusal Reason SARS-CoV-2(COVID-19)mRNA-LNP vac([id number]) 03/08/23 Recorded influenza virus vaccine, inactivated 1 [...] corded pneumococcal 20-valent conjugate vaccine 10/20/22 Given [id number]-JjK-5zVKS 12y+ bivalent booster vax 02/11/22 Recorded SARS-CoV-2 mRNA (vdkjuul-ygwl-nttry) vax 08/21/21 Recorded SARS-CoV-2 (COVID-19) mRNA BNT-162b2 [...] Pertussis (oldterm) 08/02/10 Give n 1Result Comment: [facility]: [id number] 2Location History: SHAM 3Result Comment: [facility]: [id number] EXP: [id number] 4Result Comment: [12/19/2013] #2 5Result Comment: [10/19/2013] #1 6Result Comment: [12/19/2013] #2 7Admin Note: [facility] Medications Aller-Brenton 10 mg oral tablet 1 tablet, By Mouth, Daily, # 90 tablet, 1 Refills, Maintenance, 01/14/23 10:32:00 EDT, [facility] #[id number], 170, cm, 11/12/22 8:55:00 EDT, Height, 73, [...] Refills, Maintenance, 02/21/23 21:20:00 EDT, [facility], 171, cm, 02/21/23 20:09:00 EDT, Height, 72, [...] Refills, Maintenance, 07/23/22 12:10:00 EDT, [facility], 170, cm, 05/28/22 13:32:00 EST, Height, 73, [...] 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 3colo 2008 polyp, repeat 2012 2018 5egd 2012 nl per pt. report [...] Care Nurse Name: Pravin Santo MD Position: [facility] Physician - Primary Care Member Role: PCP Address: Address: [address] [place] [address]- Name: Alyse Mckinney RN Position: [facility] RN Member Role: Primary Care Nurse Care Team Related Persons Name: JANNET BECK Address: home [address] [place] [address]
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
--- OUTSIDE RECORDS SUMMARY | 2023-10-06 12:08 | XMS_ITS | Continuity of Care Document ---
Author Organization [facility] Address [address] [place] [address]- Care Team Providers Care Behavioral Pediatrician Name Role Phone Hansa URIAS, Pravin Hidalgo Primary Care Physician [facility] Date[facility] 03[facility]23 - 04/25/23 [facility] [address] [place] [address]- Attending Physician: Brian Jacob Admitting Physician: AdmBrian tran Referring Physician: AdmtrBrian Allergies, Adverse Reactions, Alerts Substance Reaction Severity Status penicillins hives, itchiness Active Immunizations Given and Recorded Vaccine Date Status Refusal Reason SARS-CoV-2(COVID-19)mRNA-LNP vac([id number]) 03/08/23 Recorded influenza virus vaccine, inactivated 1 [...] corded pneumococcal 20-valent conjugate vaccine 10/20/22 Given NYOZ-NvF-6wEFK 12y+ bivalent booster vax 02/11/22 Recorded SARS-CoV-2 mRNA (oykypks-tbme-ktlck) vax 08/21/21 Recorded SARS-CoV-2 (COVID-19) mRNA BNT-162b2 [...] 1Result Comment: [facility]: [id number] 2Location History: SHAM 3Result Comment: [facility]: [id number] EXP: [id number] 4Result Comment: [12/19/2013] #2 5Result Comment: [10/19/2013] #1 6Result Comment: [12/19/2013] #2 7Admin Note: [facility] Medications Aller-[place] 10 mg oral tablet 1 tablet, By Mouth, Daily, # 90 tablet, 1 Refills, Maintenance, 01/14/23 10:32:00 EDT, [facility] #54874, 170, cm, 11/12/22 8:55:00 EDT, Height, 73, [...] Refills, Maintenance, 02/21/23 21:20:00 EDT, [facility], 171, cm, 02/21/23 20:09:00 EDT, Height, 72, kg, 02/19/23 13:52:00 EDT, Dry Weight Start Date: 02/21/23 Status: Ordered citalopram 20 mg oral tablet See Instructions, TAKE 1 TABLET BY MOUTH EVERY DAY, # 90 tablet, 3 Refills, Maintenance, 12/21/22 15:35:00 EDT, [facility]/pharmacy #7111, 170, cm, 11/12/22 8:55:00 EDT, [...] Refills, Maintenance, 07/23/22 12:10:00 EDT, [facility], 170, cm, 05/28/22 13:32:00 EST, Height, 73, [...] tablet, 3 Refills, Maintenance, 04/13/23 15:29:00 EST, [facility]/pharmacy #7111, 171, cm, 04/13/23 15:06:00 EST, [...] 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 [...] Care Member Role: PCP Address: Address: [address] [place] [address]- Name: Alyse Mckinney RN Position: [facility] RN Member Role: Primary Care Nurse Care Team Related Persons Name: JANNET BECK Address: home [address] [place] [address]
--- OUTSIDE RECORDS SUMMARY | 2023-10-06 12:08 | XMS_ITS | Continuity of Care Document ---
Author Organization [facility] Jorge Address [address] [place] [address]- Care Team Providers Care Supervisor Kennel Name Role Phone Hansa URIAS, Pravin Hidalgo Primary Care Physician [facility] Date[facility]s): 10/07/22 - 11/06/22 [facility] Adult [address] [place] [address]- Allergies, Adverse Reactions, Alerts Substance Reaction Severity [...] virus vaccine, inactivated 1 01/08/13 Re corded [id number]-RhE-[id number] 12y+ bivalent booster vax 02/11/22 Recorded SARS-CoV-2 mRNA (kzamtke-zwkk-udlyy) vax 08/21/21 Recorded SARS-CoV-2 (COVID-19) mRNA BNT-162b2 [...] History: SHAM 2Result Comment: [facility]: [id number] EXP: [id number] 3Result Comment: [12/19/2013] #2 4Result Comment: [10/19/2013] #1 5Result Comment: [12/19/2013] #2 6Admin Note: [facility] Medications Aller-[place] 10 mg oral tablet 1 tablet, By Mouth, Daily, # 90 tablet, 1 Refills, Maintenance, 07/23/22 13:04:00 EDT, [facility] #90075, 170, cm, 05/28/22 13:32:00 EST, Height, 73, kg, 05/28/22 13:32:00 EST, Dry Weight Start Date: 07/23/22 Status: Ordered aspirin 81 mg oral tablet 1 tablet = 81 mg, By Mouth, Daily, # 30 tablet, 0 Refills, Maintenance, Tablet Start Date: 08/03/11 Status: Ordered atorvastatin 10 mg oral tablet 1 tablet, By Mouth, Daily, # 90 tablet, 1 Refills, Maintenance, 08/10/22 13:53:00 EDT, [facility], 170, cm, 08/06/22 8:30:00 EDT, Height, 73, [...] Refills 11, Maintenance,TEST BS TID E11.9 FAX [phone], 01/30/19 11:03:21 EDT, Compound Start Date: 01/30/19 Status: Ordered citalopram 20 mg oral tablet 1 tablet, By Mouth, Daily, # 90 tablet, 1 Refills, 07/03/22 14:35:00 EST, [facility]/pharmacy #7111, 170, cm, 05/28/22 13:32:00 EST, Height, [...] tablet, 3 Refills, Maintenance, 07/23/22 12:10:00 EDT, [facility], 170, cm, 05/28/22 13:32:00 EST, Height, 73, kg, 05/28/22 13:32:00 EST, Dry Weight Start Date: 07/23/22 Status: Ordered Fish Oil By Mouth, Daily, 0 Refills, Maintenance, 04/26/18 10:26:55 EST Start Date: 04/26/18 Status: Ordered Flonase 50 mcg/inh nasal spray 2 sprays, Nares, Both, Daily, # 16 Gm, 6 Refills, Maintenance, 06/25/16 14:12:57, [place], 2 sprays Nares, Both Daily Start Date: [...] tablet, 1 Refills, Maintenance, 09/23/22 16:12:00 EDT, [facility], 170, cm, 08/06/22 8:30:00 EDT, Height, 73, [...] 5 Refills, Maintenance, 11/04/21 14:16:00 EDT, Tablet, [facility] # 302, Partial fill upon patient [...] inhalation Confirmed Active Tobacco abuse Confirmed Active 49897; repeat 2023 2Colonoscopy 2013 normal, repeat 2017. [...] Team Personnel Name: Chelsea López RN Position: [facility] RN Member Role: Primary Care Nurse Name: Hansa URIAS, Pravin Hidalgo Position: [facility] Physician - Primary Care Member Role: PCP Address: Address: [address] [place] [address]- Care Team Related Persons Name: JANNET BECK Address: home [address] [place] [address]
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
--- OUTSIDE RECORDS SUMMARY | 2023-10-06 12:08 | XMS_ITS | Continuity of Care Document ---
Author Organization [facility] Jorge Address [address] [place] [address]- Care Team Providers Care Billet Assembler Name Role Phone Hansa URIAS, Pravin Hidalgo Primary Care Physician [phone] Encounter [facility] Date(s): 09/18/19 - 09/25/19 [facility] Adult [address] [place] [address]- [facility] Encounter Diagnosis Alcohol Abuse(Discharge Diagnosis) - 09/18/19 Attending Physician: Not on Staff, Attending MD [...] #1 4Result Comment: [12/19/2013] #2 5Admin Note: [facility] Medications aspirin 81 mg oral tablet 1 tablet = 81 mg, By Mouth, Daily, # 30 tablet, 0 Refills, Maintenance, Tablet Start Date: 08/03/11 Status: Ordered atorvastatin 10 mg oral tablet 1 tablet = 10 mg, By Mouth, Daily, # 90 tablet, 1 Refills, Maintenance, 06/22/19 10:52:00 EST, [facility]/pharmacy #7111, 170.18, cm, 05/30/19 14:26:00 EST, [...] Refills 11, Maintenance,TEST BS TID E11.9 FAX [phone], 01/30/19 11:03:21 EDT, Compound Start Date: 01/30/19 Status: Ordered CeleXA 20 mg oral tablet 20 mg, 1, tablet, By Mouth, Daily, PER DR LEON, # 90 tablet, Refills 3, Tot. Refills 3, Maintenance,10/05/18 16:12:00 EDT, Route to Pharmacy Electronically, [id number], [facility]/pharmacy #[id number] Start Date: 10/05/18 Stop Date: 09/30/19 [...] 16 Gm, 6 Refills, Maintenance, 06/25/16 14:12:57, [place], 2 sprays Nares, Both Daily Start Date: 06/25/16 Status: Ordered Lancets See Instructions, # 100 each, Refills 5, Tot. Refills 5, Maintenance, tests bid -tid for dm type 2 250.00, 12/08/12 14:13:50, Compound Start Date: 12/08/12 Status: Ordered metFORMIN 500 mg oral tablet 1 tablet = 500 mg, By Mouth, Daily, # 90 tablet, 1 Refills, Maintenance, 05/07/19 9:36:00 EST, Tablet, [facility]/pharmacy #7111, 170.18, cm, 01/30/19 10:28:00 EDT, Height, 72.27, kg, 06/01/17 12:27:00 EST,Dry Weight Start Date: 05/07/19 Status: Ordered naltrexone 50 mg oral tablet 1 tablet = 50 mg, By Mouth, Daily, REPLACES DISULFIRAM, # 90 tablet, 1 Refills, Maintenance, 09/18/19 9:34:00 EDT, Tablet, [facility]/pharmacy #7111, 170.18, cm, 09/18/19 8:43:00 EDT, Height Start Date: 09/18/19 Status: Ordered Viagra 50 mg oral tablet 1 tablet = 50 mg, By Mouth, Daily, 1 hour before sexual activity, # 10 tablet, 5 Refills, Maintenance, 06/07/19 16:28:00 EST, Tablet, [facility] # 302, 170.18, cm, 05/30/19 14:26:00 [...] Active Raynaud's Syndrome(Confirmed) Active Tobacco abuse(Confirmed) Active 92276; repeat 2023 2Colonoscopy 2012 normal, repeat 2017. 3colo 2008 polyp, repeat 2012 4colo 2018 5egd 2012 nl per pt. report 6colo 2018 7Abnormal MRI cervical spine, followed by Dr. De Leon. 8colo 2018 Diagnosis Diagnosis Type Effective Dates Health Status Cl inical Service Informant Alcohol Abuse Discharge Diagnosis 09/18/19 Vital Signs Most recent to oldest [Reference Range]: 1 Height 170.18 cm (09/18/19 8:43 AM) Social History Social History Type Response Smoking Status Current some day smo ker; Other: pipe; entered on: 04/16/14 Sex
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
--- OUTSIDE RECORDS SUMMARY | 2023-10-06 12:08 | XMS_ITS | Continuity of Care Document ---
Author Organization [facility] Jorge lt Address [address] [place] [address]- Care Team Providers Care Floor Mechanic Name Role Phone Pravin Santo MD Primary Care Physician Encounter [facility] Date(s): 03/18/23 - 04/17/23 [facility] Adult [address] [place] [address]- Allergies, Adverse Reactions, Alerts Substance Reaction Severity Status penicillins hives, itchiness Active Immunizations Given and Recorded Vaccine Date Status Refusal Reason SARS-CoV-2(COVID-19)mRNA-LNP vac([id number]) 03/08/23 Recorded influenza virus vaccine, inactivated 1 [...] corded pneumococcal 20-valent conjugate vaccine 10/20/22 Given [id number] 12y+ bivalent booster vax 02/11/22 Recorded SARS-CoV-2 mRNA (qbodavp-pgsh-gqznj) vax 08/21/21 Recorded SARS-CoV-2 (COVID-19) mRNA BNT-162b2 [...] Comment: [facility]: [id number] 2Location History: SHAM 3Result Comment: [facility]: [id number] EXP: [id number] 4Result Comment: [12/19/2013] #2 5Result Comment: [10/19/2013] #1 6Result Comment: [12/19/2013] #2 7Admin Note: [facility] Medications Aller-Brenton 10 mg oral tablet 1 tablet, By Mouth, Daily, # 90 tablet, 1 Refills, Maintenance, 01/14/23 10:32:00 EDT, [facility] #[id number], 170, cm, 11/12/22 8:55:00 EDT, Height, 73, [...] Refills, Maintenance, 02/21/23 21:20:00 EDT, [facility], 171, cm, 02/21/23 20:09:00 EDT, Height, 72, kg, 02/19/23 13:52:00 EDT, Dry Weight Start Date: 02/21/23 Status: Ordered citalopram 20 mg oral tablet See Instructions, TAKE 1 TABLET BY MOUTH EVERY DAY, # 90 tablet, 3 Refills, Maintenance, 12/21/22 15:35:00 EDT, [facility]/pharmacy #[id number], 170, cm, 11/12/22 8:55:00 EDT, Height, [...] Refills, Maintenance, 07/23/22 12:10:00 EDT, [facility], 170, cm, 05/28/22 13:32:00 EST, Height, 73, [...] tablet, 3 Refills, Maintenance, 04/13/23 15:29:00 EST, [facility]/pharmacy #[id number], 171, cm, 04/13/23 15:06:00 EST, Height, [...] 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 [...] Care Nurse Name: Robby Servin RN Position: [facility] RN Member Role: Primary Care Nurse Name: Pravin Santo MD Position: [facility] Physician - Primary Care Member Role: PCP Address: Address: [address] [place] [address]- Name: Alyse Mckinney RN Position: S RN Member Role: Primary Care Nurse Care Team Related Persons Name: JANNET BECK Address: home [address] [place] [address]
--- OUTSIDE RECORDS SUMMARY | 2023-10-06 12:08 | XMS_ITS | Continuity of Care Document ---
Author Organization [facility] Jorge Address [address] [place] [address]- Care Team Providers Care Member Of Parliament Name Role Phone Hansa URIAS, Pravin Hidalgo Primary Care Physician Encounter [facility] Date(s): 05/22/19 - 06/22/19 [facility] Adult [address] [place] [address]- [facility] Attending Physician: Елена Kelly NP Referring Physician: [...] #1 4Result Comment: [12/19/2013] #2 5Admin Note: [facility] Medications Antabuse 250 mg oral tablet [...] Refills 11, Maintenance,TEST BS TID E11.9 FAX [phone], 01/30/19 11:03:21 EDT, Compound Start Date: 01/30/19 Status: Ordered CeleXA 20 mg oral tablet 20 mg, 1, tablet, By Mouth, Daily, PER DR LEON, # 90 tablet, Refills 3, Tot. Refills 3, Maintenance,10/05/18 16:12:00 EDT, Route to Pharmacy Electronically, [id number], [facility]/pharmacy #[id number] Start Date: 10/05/18 [...] 16 Gm, 6 Refills, Maintenance, 06/25/16 14:12:57, [place], 2 sprays Nares, Both Daily Start Date: [...] 5 Refills, Maintenance, 06/07/19 16:28:00 EST, Tablet, [facility] # 302, 170.18, cm, 05/30/19 14:26:00 [...] Active Raynaud's Syndrome(Confirmed) Active Tobacco abuse(Confirmed) Active 83435; repeat 2023 2Colonoscopy 2012 normal, repeat 2017. 3colo 2008 polyp, repeat 2013 4colo 2019 5egd 2012 nl per pt. report 6colo 2019 7Abnormal MRI cervical spine, followed by Dr. De Leon. 8colo 2018 Social History Social History Type Response Smoking Status Current some day smo ker; Other: pipe; entered on: 04/16/14 Sex
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
--- OUTSIDE RECORDS SUMMARY | 2023-10-06 12:08 | XMS_ITS | Continuity of Care Document ---
Author Organization [facility] Address [address] [place] [address] [address] [place] [address]- Care Team Providers Care Fire Prevention Research Engineer Name Role Phone Pravin Santo MD Primary Care Physician [phone] Encounter [facility] Date(s): 05/26/22 - 06/25/22 [facility] [address] [place] [address]- Allergies, Adverse Reactions, Alerts Substance Reaction Severity [...] virus vaccine, inactivated 1 01/08/13 Re corded [id number] 12y+ bivalent booster vax 02/11/22 Recorded SARS-CoV-2 mRNA (hrelecn-syqg-qissd) vax 08/21/21 Recorded SARS-CoV-2 (COVID-19) mRNA BNT-162b2 [...] Give n 1Location History: SHAM 2Result Comment: [facility]: [id number] EXP: [id number] 3Result Comment: [12/19/2013] #2 4Result Comment: [10/19/2013] #1 5Result Comment: [12/19/2013] #2 6Admin Note: [facility] Medications Aller-Brenton 10 mg oral tablet 1 tablet, By Mouth, Daily, # 90 tablet, 1 Refills, Maintenance, 01/30/22 12:41:00 EDT, [facility] #[id number], 170, cm, 11/04/21 13:58:00 EDT, Height, 69.4, kg, 12/26/20 9:13:00 EDT, Dry Weight Start Date: 01/30/22 Status: Ordered aspirin 81 mg oral tablet 1 tablet = 81 mg, By Mouth, Daily, # 30 tablet, 0 Refills, Maintenance, Tablet Start Date: 08/03/11 Status: Ordered atorvastatin 10 mg oral tablet 1 tablet, By Mouth, Daily, # 90 tablet, 1 Refills, 02/09/22 12:12:00 EDT, [facility]/pharmacy #7111, 170, cm, 11/04/21 13:58:00 EDT, [...] Refills 11, Maintenance,TEST BS TID E11.9 FAX [phone], 01/30/19 11:03:21 EDT, Compound Start Date: 01/30/19 Status: Ordered citalopram 20 mg oral tablet 1 tablet, By Mouth, Daily, # 90 tablet, 1 Refills, [facility], 170, cm, 11/04/21 13:58:00 EDT,Height, 69.4, kg, [...] Refills, Maintenance, 01/05/22 8:40:00 EDT, [facility], 170, cm, 11/04/21 13:58:00 EDT, Height, 69.4, kg, 12/26/20 9:13:00 EDT, Dry Weight Start Date: 01/05/22 Status: Ordered Fish Oil By Mouth, Daily, 0 Refills, Maintenance, 04/26/18 10:26:55 EST Start Date: 04/26/18 Status: Ordered Flonase 50 mcg/inh nasal spray 2 sprays, Nares, Both, Daily, # 16 Gm, 6 Refills, Maintenance, 06/25/16 14:12:57, [place], 2 sprays Nares, Both Daily Start Date: [...] tablet, 1 Refills, Maintenance, 03/14/22 6:22:00 EDT, [facility]/pharmacy #7111, 170, cm, 11/04/21 13:58:00 EDT, [...] 5 Refills, Maintenance, 11/04/21 14:16:00 EDT, Tablet, [facility] # [facility], Partial fill upon patient [...] inhalation Confirmed Active Tobacco abuse Confirmed Active 70828; repeat 2023 2Colonoscopy 2012 normal, repeat 2017. [...] Team Personnel Name: Chelsea López RN Position: [facility] RN Member Role: Primary Care Nurse Name: Pravin Santo MD Position: [facility] Primary Care Physician Member Role: PCP Address: Address: [address] [place] [address]- Care Team Related Persons Name: JANNET BECK Address: home [address] [place] [address]
--- OUTSIDE RECORDS SUMMARY | 2023-10-06 12:08 | XMS_ITS | Continuity of Care Document ---
Author Organization [facility] Josh Stevens Jorge lt Address [address] [place] [address]- Care Team Providers Care Highway Research Engineer Name Role Phone Hansa URIAS, Pravin Hidalgo Primary Care Physician [phone] Encounter [facility] Date(s): 06/15/22 - 07/15/22 [facility] [address] [place] [address]- Allergies, Adverse Reactions, Alerts Substance Reaction Severity [...] virus vaccine, inactivated 1 01/08/13 Re corded [id number] 12y+ bivalent booster vax 02/11/22 Recorded SARS-CoV-2 mRNA (ohnwbfr-ccwj-wndvf) vax 08/21/21 Recorded SARS-CoV-2 (COVID-19) mRNA BNT-162b2 [...] Give n 1Location History: SHAM 2Result Comment: [facility]: [id number] EXP: [id number] 3Result Comment: [12/19/2013] #2 4Result Comment: [10/19/2013] #1 5Result Comment: [12/19/2013] #2 6Admin Note: [facility] Medications Aller-Brenton 10 mg oral tablet 1 tablet, By Mouth, Daily, # 90 tablet, 1 Refills, Maintenance, 01/30/22 12:41:00 EDT, [facility] #66566, 170, cm, 11/04/21 13:58:00 EDT, Height, 69.4, kg, 12/26/20 9:13:00 EDT, Dry Weight Start Date: 01/30/22 Status: Ordered aspirin 81 mg oral tablet 1 tablet = 81 mg, By Mouth, Daily, # 30 tablet, 0 Refills, Maintenance, Tablet Start Date: 08/03/11 Status: Ordered atorvastatin 10 mg oral tablet 1 tablet, By Mouth, Daily, # 90 tablet, 1 Refills, 02/09/22 12:12:00 EDT, [facility]/pharmacy #7111, 170, cm, 11/04/21 13:58:00 EDT, Height, [...] Refills 11, Maintenance,TEST BS TID E11.9 FAX [phone], 01/30/19 11:03:21 EDT, Compound Start Date: 01/30/19 Status: Ordered citalopram 20 mg oral tablet 1 tablet, By Mouth, Daily, # 90 tablet, 1 Refills, 07/03/22 14:35:00 EST, [facility]/pharmacy #7111, 170, cm, 05/28/22 13:32:00 EST, Height, [...] Refills, Maintenance, 01/05/22 8:40:00 EDT, [facility], 170, cm, 11/04/21 13:58:00 EDT, Height, 69.4, kg, 12/26/20 9:13:00 EDT, Dry Weight Start Date: 01/05/22 Status: Ordered Fish Oil By Mouth, Daily, 0 Refills, Maintenance, 04/26/18 10:26:55 EST Start Date: 04/26/18 Status: Ordered Flonase 50 mcg/inh nasal spray 2 sprays, Nares, Both, Daily, # 16 Gm, 6 Refills, Maintenance, 06/25/16 14:12:57, [place], 2 sprays Nares, Both Daily Start Date: [...] tablet, 1 Refills, Maintenance, 03/14/22 6:22:00 EDT, [facility]/pharmacy #7111, 170, cm, 11/04/21 13:58:00 EDT, Height, [...] 5 Refills, Maintenance, 11/04/21 14:16:00 EDT, Tablet, [facility] # 302, Partial fill upon patient [...] inhalation Confirmed Active Tobacco abuse Confirmed Active 33680; repeat 2023 2Colonoscopy 2012 normal, repeat 2017. [...] Team Personnel Name: Chelsea López RN Position: [facility] RN Member Role: Primary Care Nurse Name: Pravin Santo MD Position: [facility] Primary Care Physician Member Role: PCP Address: Address: [address] [place] [address]- Care Team Related Persons Name: JANNET BECK Address: home [address] [place] [address]
--- OUTSIDE RECORDS SUMMARY | 2023-10-06 12:08 | XMS_ITS | Continuity of Care Document ---
Author Organization [facility] Address [address] [place] [address]- Care Team Providers Care Metal Mine Inspector Name Role Phone Hansa URIAS, Pravin Hidalgo Primary Care Physician [facility]counter [facility] Date(s): 03/02/23 - 04/11/23 [facility] [address] [place] [address]- Attending Physician: Jacques Powell MD Admitting Physician: Jacques Powell MD Allergies, Adverse Reactions, Alerts Substance Reaction Severity Status penicillins hives, itchiness Active Immunizations Given and Recorded Vaccine Date Status Refusal Reason SARS-CoV-2(COVID-19)mRNA-LNP vac(tos326) 03/08/23 Recorded influenza virus vaccine, inactivated 1 [...] corded pneumococcal 20-valent conjugate vaccine 10/20/22 Given [id number] 12y+ bivalent booster vax 02/11/22 Recorded SARS-CoV-2 mRNA (svuevlj-aurj-jfzck) vax 08/21/21 Recorded SARS-CoV-2 (COVID-19) mRNA BNT-162b2 [...] (oldterm) 08/02/10 Give n 1Result Comment: [facility]: [id number] 2Location History: SHAM 3Result Comment: [facility]: [id number] EXP: [id number] [phone] Comment: [12/19/2013] #2 5Result Comment: [10/19/2013] #1 6Result Comment: [12/19/2013] #2 7Admin Note: [employer] [facility] Medications Aller-Brenton 10 mg oral tablet 1 tablet, By Mouth, Daily, # 90 tablet, 1 Refills, Maintenance, 01/14/23 10:32:00 EDT, [facility] #[id number], 170, cm, 11/12/22 8:55:00 EDT, Height, 73, [...] Refills, Maintenance, 02/21/23 21:20:00 EDT, [facility], 171, cm, 02/21/23 20:09:00 EDT, Height, 72, kg, 02/19/23 13:52:00 EDT, Dry Weight Start Date: 02/21/23 Status: Ordered citalopram 20 mg oral tablet See Instructions, TAKE 1 TABLET BY MOUTH EVERY DAY, # 90 tablet, 3 Refills, Maintenance, 12/21/22 15:35:00 EDT, [facility] #[id number], 170, cm, 11/12/22 8:55:00 [...] tablet, 3 Refills, Maintenance, 07/23/22 12:10:00 EDT, [facility], 170, cm, 05/28/22 13:32:00 EST, Height, 73, [...] Refills, Maintenance, 11/12/22 9:13:00 EDT, [facility], 170, cm, 11/12/22 8:55:00 EDT, Height, 73, [...] dependent type 2 diabetes mellitus Confirmed Active 42942; repeat 2023 2Colonoscopy 2012 normal, repeat 2017. [...] Primary Care Member Role: PCP Address: Address: [address] [place] [address]- Name: Alyse Mckinney RN Position: S RN Member Role: Primary Care Nurse Care Team Related Persons Name: JANNET BECK Address: home [address] [place] [address]
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
--- OUTSIDE RECORDS SUMMARY | 2023-10-06 12:09 | XMS_ITS | Patient Health Record ---
Author Organization [facility] Address [address] [address] Care Team Providers Care Associate Dean Of Students Name Role Phone Pravin Santo MD Primary Care Provider Unavailabl e Black, Cyndee Unavailable [phone] ALLERGIES Allergen (clinical drug ingredient) Drug/Non Drug Allergy documented on EMR Reaction Allergy Type Onset Date Status amoxicillin Amoxicillin Unknown Drug Allergy Act kiana Penicillin Unknown Drug Allergy Active Pollen Pollen hay fever symptoms Allergy Active RESULTS Component Value Reference Range Notes HEMOGLOBIN A1C (GLYCOHEMOGLO BIN) Reviewed date:11/05/2022 09:30:53 AM Interpretation: Performing Lab: Notes/Report: TOTAL HEMOGLOBIN (HGBA1C) 6.9 HEMOGLOBIN A1C (HH) HEMOGLOBIN A1C % (HH) ESTIMATED AVG GLUCOSE REASON FOR REFERRAL No Information MEDICATIONS Medication SIG (Take, Route, Frequency, Duration) Notes Start Date End Date Status Ginkgo Biloba Active Extra Depth Orthopedic Shoes (1 Pair) with Customized Heat Molded Multidensity Innersoles (3 Pair) as directed Dx: NIDDM/Polyneuropathy (E11.42), Hammertoe Foot Deformity (M20.41,M20.42), Preulcerative Skin Lesion(s) (L85.1 Active Extra Depth Orthopedic Shoes (1 Pair) with Customized Heat Molded Multidensity Innersoles (3 Pair) as directed Dx: NIDDM/Polyneuropathy (E11.42), Hammertoe Foot Deformity (M20.41,M20.42), Preulcerative Skin Lesion(s) (L85.1 10/26/2016 Not-Taking Mini Fish Oil Active metFORMIN HCl 500 MG 1 tablet with meals Orally Twice a day Active Citalopram Hydrobromide Active amLODIPine Besylate Not-Taking Cetirizine HCl Activ e Garlic Active Osteo Bi-Flex Adv Double St Not-Taking Citracal +D3 Active Disulfiram 250 MG 1 tablet Orally Once a day Active Extra Depth Orthopedic Shoes (1 Pair) with Customized Heat Molded Multidensity Innersoles (3 Pair) as directed Dx: NIDDM/Polyneuropathy (E11.42), Hammertoe Foot Deformity (M20.41,M20.42), Preulcerative Skin Lesion(s) (L85.1 07/19/2017 Active Vitamin E Active Turmeric Active Centrum Silver Activ e Aspir-81 Active Atorvastatin Calcium 10 MG 1 tablet Orally Once a day Active Glucosamine Active IMMUNIZATIONS Vaccine Route Administration Date Status Comme nts Influenza Unknown 02/18/2016 Administered Influenza Unknown 02/05/2017 Administered Influenza Unknown 01/08/2018 Administered SOCIAL HISTORY Tobacco Use: Social History Observation Description Date Details (start date - stop date) Current Smoker NA - NA Sex Assigned At : Social History Observation Description Sex Assigned At Unknown Tobacco Use/Smoking Question Answer Notes Are you a: current smoker How often do you smoke cigarettes? every day How many cigarettes a day do you smoke? 5 or les s How soon after you wake up d o you smoke your first cigarette? after 60 minutes Are you interested in quitting? Not ready to davey t Additional Findings: Tobacco User Light cigarett e smoker ((1-9 cigs/day) Alcohol Screen Question Answer Notes Did you have a drink containing alcohol in the p ast year? Yes Points 0 Interpretation Negative Tobacco use other than smoking: Question Answer Notes Are you an other tobacco user? No PROBLEMS Problem Type ICD Code Onset Dates Problem Status W/U Status Risk SNOMED Code Notes Problem Other hammer toe(s) (acquired), right foot (M20.41) Active confirmed Acquired hamme r toe of right foot (5836951291741793 ) Problem Other hammer toe(s) (acquired), left foot (M20.42) Active confirmed Acquired hamme r toe of left foot (8240339543136968 ) Problem Other hammer toe(s) (acquired), right foot (M20.41) Active confirmed Acquired hamme r toe of right foot (8082702991500154 ) Problem Type 2 diabetes mellitus with diabetic polyneuropathy (E11.42) Active confirmed Polyneuropathy due to type 2 diabetes mellitus (206619814) VITAL SIGNS Height 5 ft 7 in in 11/05/2022 Weight 160 lbs 11/05/2022 BMI 25.06 kg/m2 11/05/2022 PROCEDURES Procedure Date Ordered Date Performed Result Body Sit e 26060-POCSMZY NAIL, 1-5 11/05/2022 N/A 44909-YBYU SKIN LESIONS, 2 TO 4 11/05/2022 N/A Encounters Encounter Location Date Provider Diagnosis [facility] [address] 11/05/2022 Cyndee Seo Other hammer toe(s) (acquired), right foot M20.41 ; Other hammer toe(s) (acquired), left foot M20.42 ; Type 2 diabetes mellitus with diabetic polyneuropathy E11.42 ; Pain in right toe(s) M79.674 and Tinea unguium B35.[address] [facility] [address] 11/05/2022 Cyndee Seo ASSESSMENTS Encounter Date Diagnosis Assessment Notes Treatment Notes Treatment Clinical Notes 11/05/2022 Other hammer toe(s) (acquired), right foot (ICD-10 - M20.41) 11/05/2022 Other hammer toe(s) (acquired), left foot (ICD-10 - M20.42) 11/05/2022 Type 2 diabetes mellitus with diabetic polyneuropathy (ICD-10 - E11.42) Patient Educated with: DIABETIC FOOT CARE INSTRUCTIONS.pdf (DIABETIC FOOT CARE INSTRUCTIONS.pdf ) 11/05/2022 Pain in right toe(s) (ICD-10 - M79.674) 11/05/2022 Tinea unguium (ICD-1 0 - B35.1) PLAN OF TREATMENT Pending Test Test Name Order Date X ray : Foot, right 3V 10/26/2016 33316-BYJOJXF NAIL, 1-02/25/2017 63363-POOYRUG NAIL, 1-07/19/2017 13161-ZETKUSC NAIL, 1-05/27/2017 93621-UCVGFTX NAIL, 1-11/18/2017 20461-EMTXIRF NAIL, 1-5 08/18/2018 54368-TCVHQMB NAIL, 1-5 10/24/2020 27198-AQALTFS NAIL, 1-5 10/30/2021 38806-CNANMIH NAIL, 1-5 11/05/2022 28384 I&D ABSCESS- SIMPLE,SINGLE 022 64759-LUKW SKIN LESIONS, 2 TO 4 11/06/19 54894-HYNJ SKIN LESION 2016 26548-DKHP SKIN LESION 10/24/2020 02217-SXTF SKIN LESION 10/30/2021 18933-TITZ SKIN LESION 05/27/2017 04360-WRNY SKIN LESION 02/25/2017 18644-QENA SKIN LESION 10/26/2016 99292-SCFF SKIN LESION 08/18/2018 73369-EJVC SKIN LESION 07/19/2017 04338-YTLM SKIN LESION 11/18/2017 28533-TRML NAIL(S) 11/18/2017 33927-VESV NAIL(S) 08/18/2018 28532-OEDC NAIL(S) 07/19/2017 52243-LTVD NAIL(S) 05/27/2017 46742-OTTP NAIL(S) 10/24/2020 93085-WUIA NAIL(S) 10/30/2021 59884- Removal of Foreign Body, Subcut 0 10/26/2016 Next Appt Details Provider Name:Cyndee Seo , 11/18/2023 01:00:00 PM, [address] [facility], [place], [address], Insurance Providers Payer Name Payer Address Payer Phone Subscriber Number Group Number Insured Name Patient Relationship to Insured Coverage Start Date Coverage End Date Medicare National Govt [id number] [address] [facility] [address] [id number] Zander Mcdermott Self - patient is the insured [facility] [address] [place] [address] [id number] Zander Mcdermott Self - patient is the insured MEDICAL (GENERAL) HISTORY Medical History History ICD Code Anxiety type II diabetes Measles Numbness Raynauds syndrome Surgical History Surgery Date(Month/Year) hernia perforated appendix Surgery right knee 04/25/17 cataract surgery 09/10/20,09/30/20
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
--- OUTSIDE RECORDS SUMMARY | 2023-10-06 12:09 | XMS_ITS | Continuity of Care Document ---
Author Organization [facility] Josh Stevens Jorge lt Address [address] [place] [address]- Care Team Providers Care Band Sewer Name Role Phone Pravin Santo MD Primary Care Physician [place] [facility] Date(s): 02/04/23 - 02/11/23 [facility] [address] [place] [address]- Encounter Diagnosis Cough(Discharge Diagnosis) - 02/04/23 Attending Physician: Елена Kelly NP Referring Physician: Pravin Santo MD Allergies, Adverse [...] virus vaccine, inactivated 1 01/08/13 Re corded [id number]-[id number] 12y+ bivalent booster vax 02/11/22 Recorded SARS-CoV-2 mRNA (wfmzems-kuqv-hzbvz) vax 08/21/21 Recorded SARS-CoV-2 (COVID-19) mRNA BNT-162b2 [...] Give n 1Location History: SHAM 2Result Comment: [facility]: [id number] EXP: [id number] [phone] Comment: [12/19/2013] #2 4Result Comment: [10/19/2013] #1 5Result Comment: [12/19/2013] #2 6Admin Note: [employer] [facility] Medications Aller-Brenton 10 mg oral tablet 1 tablet, By Mouth, Daily, # 90 tablet, 1 Refills, Maintenance, 01/14/23 10:32:00 EDT, [facility] #[id number], 170, cm, 11/12/22 8:55:00 EDT, Height, 73, [...] Refills, Maintenance, 08/10/22 13:53:00 EDT, [facility], 170, cm, 08/06/22 8:30:00 EDT, Height, 73, [...] Refills 11, Maintenance,TEST BS TID E11.9 FAX [phone], 01/30/19 11:03:21 EDT, Compound Start Date: 01/30/19 Status: Ordered Cialis 5 mg oral tablet 1 tablet = 5 mg, By Mouth, Daily, at the same time every day, # 90 tablet, 3 Refills, Maintenance, 11/12/22 9:12:00 EDT, Tablet, [facility] # 302, Partial fill upon patient request if the prescription is for a schedule II opioid drug., 170, cm, 0... Start Date: 11/12/22 Stop Date: 11/07/23 Status: Ordered citalopram 20 mg oral tablet See Instructions, TAKE 1 TABLET BY MOUTH EVERY DAY, # 90 tablet, 3 Refills, Maintenance, 12/21/22 15:35:00 EDT, [facility]/pharmacy #7111, 170, cm, 11/12/22 8:55:00 [...] Refills, Maintenance, 07/23/22 12:10:00 EDT, [facility], 170, cm, 05/28/22 13:32:00 EST, Height, 73, kg, 05/28/22 13:32:00 EST, Dry Weight Start Date: 07/23/22 Status: Ordered Fish Oil By Mouth, Daily, 0 Refills, Maintenance, 04/26/18 10:26:55 EST Start Date: 04/26/18 Status: Ordered fluticasone 27.5 mcg/inh nasal spray 2 sprays, Nares, Both, Daily, PRN for allergy symptoms, # 10 Gm, 0 Refills, Maintenance, 02/04/23 13:13:00 EDT, [place], [facility]/pharmacy #[id number], Partial fill upon patient [...] Refills, Maintenance, 11/12/22 9:13:00 EDT, [facility], 170, cm, 11/12/22 8:55:00 EDT, Height, 73, [...] EST, Supply Start Date: 05/08/22 Status: Ordered ProAir HFA 90 mcg/inh inhalation aerosol with adapter 2, puffs, Inhalation, Every 6 hours, PRN, # 8.5 Gm, Refills 1, Tot. Refills 1, Maintenance, 02/04/23 13:12:00 EDT, Aerosol, Route to Pharmacy Electronically, [id number], [facility]/pharmacy #7111, 170, cm, 02/04/23 12:56:00 EDT, Hei... Start Date: 02/04/23 Status: Ordered turmeric By Mouth, Daily, 0 Refills, Maintenance, 04/26/18 10:28:30 EST Start Date: 04/26/18 Status: Ordered Vitamin E By Mouth, Daily, 0 Refills, Maintenance, 04/26/18 10:26:46 EST Start Date: 04/26/18 Status: Ordered Zithromax 250 mg oral tablet 1 pack/packet, By Mouth, Once, # 6 tablet, 0 Refills, Soft Stop, 02/10/23 12:03:00 EDT, Tablet, [facility]/pharmacy #7111, Partial fill upon patient request if the prescription is for a schedule II opioid drug., 170, cm, 02/04/23 12:56:00 EDT, Height, 73, kg... Start Date: 02/10/23 Status: Ordered Problem List Condition Confirmation Course [...] hypothyroidism Confirmed Active Tobacco abuse Confirmed Active 46891; repeat 2023 2Colonoscopy 2013 normal, repeat 2017. 3colo 2008 polyp, repeat 2013 4colo 2018 5egd 2012 nl per pt. report 6colo 2018 7Abnormal MRI cervical spine, followed by Dr. De Leon. 8colo 2018 Diagnosis Diagnosis Type Effective Dates Health Status Clini janene Service Informant Cough Discharge Diagnosis 02/04/23 Vital Signs Most recent to oldest [Reference Range]: 1 Height 170 cm (02/04/23 12:56 PM) Weight 72.7 kg (02/04/23 12:56 PM) Oxygen Saturation [94-100 %] 96 % (02/04/23 12:56 PM) Pulse Rate [55-90 bpm] 42 bpm *L* (02/04/23 12:56 PM) Body Mass Index [18.5-24.99 kg/m2] 25.16 kg/m2 *H* (02/04/23 12:56 PM) Blood Pressure [90-138/55-84 mm Hg] 110/ 62mm Hg (02/04/23 12:56 PM) Respiratory Rate [16-30 br/min] 16 br/mi n (02/04/23 12:56 PM) Temperature [96.8-100.4 DegF] 98.7 DegF (02/04/23 12:56 PM) Mode of Delivery (Oxygen) Room air (02/04/23 12:56 PM) Blood pressure sites Arm, right (02/04/23 12:56 PM) Temperature Route Oral (02/04/23 12:56 PM) Weight Obtained Via Standing scale (02/04/23 12:56 PM) Social History Social History Type Response Smoking Status Cigars or pipes raulito y within last 30 days entered on: 05/28/22 Sex Patient Care team information Care Team Personnel Name: Chelsea López RN Position: [facility] RN Member Role: Primary Care Nurse Name: Pravin Santo MD Position: [facility] Physician - Primary Care Member Role: PCP Address: Address: [address] [place] [address]- Care Team Related Persons Name: JANNET BECK Address: home [address] [place] [address]
--- OUTSIDE RECORDS SUMMARY | 2023-10-06 12:09 | XMS_ITS | Continuity of Care Document ---
Author Organization [facility] Josh Stevens Jorge lt Address [address] [place] [address]- Care Team Providers Care Home Specialist Name Role Phone Hansa URIAS, Pravin Hidalgo Primary Care Physician [facility] Date[facility]): 03/04/23 - 04/03/23 [facility] Josh Stevens Adult [address] [place] [address]- Allergies, Adverse Reactions, Alerts Substance Reaction Severity Status penicillins hives, itchiness Active Immunizations Given and Recorded Vaccine Date Status Refusal Reason SARS-CoV-2(COVID-19)mRNA-LNP vac([id number]) 03/08/23 Recorded influenza virus vaccine, inactivated 1 [...] corded pneumococcal 20-valent conjugate vaccine 10/20/22 Given [id number] 12y+ bivalent booster vax 02/11/22 Recorded SARS-CoV-2 mRNA ([id number]) vax 08/21/21 Recorded SARS-CoV-2 (COVID-19) mRNA BNT-162b2 [...] Pertussis (oldterm) 08/02/10 Give n 1Result Comment: [facility]: 42241-781-97 2Location History: SHAM 3Result Comment: [facility]: 10798-721-07 EXP: [id number] 4Result Comment: [12/19/2013] #2 5Result Comment: [10/19/2013] #1 6Result Comment: [12/19/2013] #2 7Admin Note: [facility] Medications Aller-Brenton 10 mg oral tablet 1 tablet, By Mouth, Daily, # 90 tablet, 1 Refills, Maintenance, 01/14/23 10:32:00 EDT, [id number], 170, cm, 11/12/22 8:55:00 EDT, Height, 73, kg, 05/28/22 13:32:00 EST, Dry Weight Start Date: 01/14/23 Status: Ordered aspirin 81 mg oral tablet 1 tablet = 81 mg, By Mouth, Daily, # 30 tablet, 0 Refills, Maintenance, Tablet Start Date: 08/03/11 Status: Ordered atorvastatin 10 mg oral tablet 1 tablet, By Mouth, Daily, # 90 tablet, 1 Refills, Maintenance, 02/21/23 21:20:00 EDT, [id number], 171, cm, 02/21/23 20:09:00 EDT, Height, 72, kg, 02/19/23 13:52:00 EDT, Dry Weight Start Date: 02/21/23 Status: Ordered citalopram 20 mg oral tablet See Instructions, TAKE 1 TABLET BY MOUTH EVERY DAY, # 90 tablet, 3 Refills, Maintenance, 12/21/22 15:35:00 EDT, [facility]/pharmacy #[id number], 170, cm, 11/12/22 8:55:00 EDT, [...] Refills, Maintenance, 07/23/22 12:10:00 EDT, [id number], 170, cm, 05/28/22 13:32:00 EST, Height, 73, [...] Acute 04/05/23 12:30:00 EST, 02/25/23 13:08:00 EDT, [facility]/pharmacy #[id number], Partial fill upon patient requ... Start Date: 02/25/23 Stop Date: 04/05/23 Status: Ordered metFORMIN 500 mg oral tablet See Instructions, TAKE 1 TABLET BY MOUTH EVERY DAY, # 90 tablet, 3 Refills, Maintenance, 11/12/22 9:13:00 EDT, [id number], 170, cm, 11/12/22 8:55:00 EDT, Height, 73, [...] dependent type 2 diabetes mellitus Confirmed Active 21419; repeat 2023 2Colonoscopy 2013 normal, repeat 2017. [...] Primary Care Nurse Name: Zoe Nunez Position: [facility] RN Member Role: Primary Care Nurse Name: Robby Servin RN Position: [facility] RN Member Role: Primary Care Nurse Name: Pravin Santo MD Position: [facility] Physician - Primary Care Member Role: PCP Address: Address: [address] [place] [address]- Name: Alyse Mckinney RN Position: [facility] RN Member Role: Primary Care Nurse Care Team Related Persons Name: JANNET BECK Address: home [address] [place] [address]
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
[2023-10-06 12:28] LABS: Appearance Urine Cloudy; Color Urine Yellow; Glucose Urine UA Negative (Negative); Leukocyte Esterase Urine Negative (Negative); Nitrite Urine Negative (Negative); PH 7.5 (5.0-9.0); UMIC TRIGGER UACC YES; Urine Blood Negative (Negative); Urine Ketones Negative (Negative); Urine Protein 30 (1+) mg/dL (Neg-Trace)
[2023-10-06 12:33] LABS: RBC Urine 0-2 /HPF (0-2); WBC Urine 0-5 /HPF (0-5)
[2023-10-06 12:34] LABS: Bacteria Urine None Seen (None Seen); Hyaline Casts Urine 0-2 /LPF (0-2); Other Crystals Urine Present; Squamous Epithelial Cell Urine 0-2 /HPF (0-2)
[2023-10-06 13:37] VITALS: BP 147/77; PULSE 59; RESP 16; TEMP 36.6; O2SAT 98
--- NOTE | 2023-10-06 13:37 | PC.NURSE ---
vss and up to date. pt waiting for CT results at this time. remains in c-collar. respirations remain even/unlabored. call grove placed within reach.
--- NOTE | 2023-10-06 16:10 | PC.NURSE ---
pt continues to wait for CT results at this time. orthostatic vital signs intervention still on worksheet d/t pt remaining in c-collar. respirations remain even and unlabored. plan of care ongoing. call grove placed within reach.
[2023-10-06 16:15] VITALS: BP 135/75; PULSE 68; RESP 16; TEMP 37; O2SAT 98
[2023-10-06 19:40] VITALS: BP 135/75; PULSE 68; RESP 16; TEMP 37; O2SAT 98
== END 2023-10-06 19:40 | disposition home or self-care (01) ==
PROVIDERS: Physician Assistant Medical; Emergency Provider Emergency Medicine; PCP Internal Medicine
DX: F10.120 Alcohol abuse with intoxication, uncomplicated (principal); Y90.1 Blood alcohol level of 20-39 mg/100 ml; S00.511A Abrasion of lip, initial encounter; V43.52XA Car driver injured in collision with other type car in traffic accident, initial encounter; Y93.89 Activity, other specified; Y92.410 Unspecified street and highway as the place of occurrence of the external cause; Y99.8 Other external cause status
CPT/HCPCS: 36415; 70450; 72125; 80053; 80307; 81001; 84484; 85025; 93005; 99284; 99285

== ENCOUNTER → 2023-10-06 11:12 | Outpatient (BNV) | payer MEDICARE, OTHER, SELFPAY | PROVIDERS: Emergency Provider Emergency Medicine; PCP Internal Medicine; Visit Provider Internal Medicine | DX: R42 Dizziness and giddiness (principal) | CPT/HCPCS: 93010 ==

== ENCOUNTER 2023-12-20 10:48 | Day surgery (SDC) | payer MEDICARE, OTHER, SELFPAY ==
[2023-12-16 13:13] VITALS: BMI 24.6
--- NOTE | 2023-12-17 09:13 | HO.ANESPROP2 ---
Documented by User: Danielle Parks NP 12/17/23 09:14 HPI - Anesthesia Eval Consult details Narrative: 78yo M for Colonoscopy PMFSH Past Medical History Medical History BAILEE (obstructive sleep apnea) Empyema of lung Hx of Clostridium difficile infection Cervical disc disease COVID-19 vaccine series completed Smoker Raynauds syndrome Osteoarthritis Hypercholesterolemia Hx of varicose veins Erectile dysfunction Diabetes mellitus History of diverticulosis Depression History of Clostridioides difficile colitis Anxiety History of ETOH abuse Allergic rhinitis Surgical History Surgical History Hx of varicose vein ligation and stripping Hx of knee surgery Hx of bilateral cataract extraction Hx of inguinal hernia repair History of esophagogastroduodenoscopy (EGD) Hx of colonoscopy Hx of appendectomy Social History Social History Household Members: Spouse Alcohol intake: current Alcohol intake frequency: does not drink Alcohol type: wine Comment: fell off ladder 08/2020 rib injury Patient Tobacco Use Status: Current everyday Tobacco user Tobacco use type: Cigar Are you DNR?: No Advance Directives: No Advance Directives Information Provided: Yes Meds Allergies Allergy/AdvReac Type Severity Reaction Status Date / Time Penicillins Allergy Mild HIVES/FEVER Verified 10/06/23 11:05 Home Medications ?Medication ?Instructions ?Recorded ?Confirmed ?Last Taken ?Type atorvastatin 10 mg tablet 10 tab PO BEDTIME 09/10/20 12/16/23 Unknown History cetirizine 10 mg tablet 1 tab PO DAILY 09/10/20 12/16/23 09/30/20 07:30 History citalopram 20 mg tablet 20 tab PO DAILY 09/10/20 12/16/23 09/30/20 07:30 History disulfiram 250 mg tablet 1 tab PO DAILY 09/10/20 12/16/23 Unknown History metformin 500 mg tablet 500 tab PO BID 09/10/20 12/16/23 Unknown History aspirin 81 mg tablet,delayed 81 mg PO DAILY 12/16/23 12/16/23 12/12/23 History release calcium carb,cit ER 600 mg-vit D3 1 tab PO DAILY 12/16/23 12/16/23 Unknown History 12.5 mcg (500 unit) tablet,ext.rel (Citracal-D3 Slow Release) garlic 1,000 mg capsule 1,000 mg PO DAILY 12/16/23 12/16/23 12/12/23 History ginkgo biloba leaf extract 60 mg 60 mg PO DAILY 12/16/23 12/16/23 12/12/23 History capsule magnesium oxide 400 mg PO DAILY 12/16/23 12/16/23 12/12/23 History multivitamin 1 tab PO DAILY 12/16/23 12/16/23 Unknown History omega-3s 720 mg-dha 300 mg-epa 360 1 cap PO DAILY 12/16/23 12/16/23 12/12/23 History mg-fish oil 1,200 mg capsule turmeric root extract 500 mg tablet 500 mg PO DAILY 12/16/23 12/16/23 12/12/23 History vitamin E acetate 134 mg (200 268 mg PO DAILY 12/16/23 12/16/23 12/12/23 History unit) capsule Exam Height,Weight and Vital Signs: Height 5 ft 7.25 in Weight 71.668 kg Pertinent Lab Results Pertinent Lab Results: Laboratory Tests 10/06/23 11:28 WBC 6.0 Hgb 14.4 Hct 41.4 L Plt Count 203 Sodium 140 Potassium 4.0 Chloride 108 Carbon Dioxide 22 BUN 22 H Creatinine 1.17 Assessment and Plan Assessment Anesthesia Assessment: Chart Reviewed Documented by User: Denise Leonardo MD 12/20/23 12:23 [facility] Past Medical History Medical History BAILEE (obstructive sleep apnea) Empyema of lung Hx of Clostridium difficile infection Cervical disc disease COVID-19 vaccine series completed Smoker Raynauds syndrome Osteoarthritis Hypercholesterolemia Hx of varicose veins Erectile dysfunction Diabetes mellitus History of diverticulosis Depression History of Clostridioides difficile colitis Anxiety History of ETOH abuse Allergic rhinitis Family History Family history of problems with anesthesia: No Surgical History Surgical History Hx of varicose vein ligation and stripping Hx of knee surgery Hx of bilateral cataract extraction Hx of inguinal hernia repair History of esophagogastroduodenoscopy (EGD) Hx of colonoscopy Hx of appendectomy History of Problems with Anesthesia: No Social History Social History Household Members: Spouse Alcohol intake: current Alcohol intake frequency: does not drink Alcohol type: wine Comment: fell off ladder 08/2020 rib injury Patient Tobacco Use Status: Current everyday Tobacco user Tobacco use type: Cigar Are you DNR?: No Advance Directives: No Advance Directives Information Provided: Yes Meds Allergies Allergy/AdvReac Type Severity Reaction Status Date / Time Penicillins Allergy Mild HIVES/FEVER Verified 10/06/23 11:05 Home Medications ?Medication ?Instructions ?Recorded ?Confirmed ?Last Taken ?Type atorvastatin 10 mg tablet 10 tab PO BEDTIME 09/10/20 12/16/23 Unknown History cetirizine 10 mg tablet 1 tab PO DAILY 09/10/20 12/16/23 09/30/20 07:30 History citalopram 20 mg tablet 20 tab PO DAILY 09/10/20 12/16/23 09/30/20 07:30 History disulfiram 250 mg tablet 1 tab PO DAILY 09/10/20 12/16/23 Unknown History metformin 500 mg tablet 500 tab PO BID 09/10/20 12/16/23 Unknown History aspirin 81 mg tablet,delayed 81 mg PO DAILY 12/16/23 12/16/23 12/12/23 History release calcium carb,cit ER 600 mg-vit D3 1 tab PO DAILY 12/16/23 12/16/23 Unknown History 12.5 mcg (500 unit) tablet,ext.rel (Citracal-D3 Slow Release) garlic 1,000 mg capsule 1,000 mg PO DAILY 12/16/23 12/16/23 12/12/23 History ginkgo biloba leaf extract 60 mg 60 mg PO DAILY 12/16/23 12/16/23 12/12/23 History capsule magnesium oxide 400 mg PO DAILY 12/16/23 12/16/23 12/12/23 History multivitamin 1 tab PO DAILY 12/16/23 12/16/23 Unknown History omega-3s 720 mg-dha 300 mg-epa 360 1 cap PO DAILY 12/16/23 12/16/23 12/12/23 History mg-fish oil 1,200 mg capsule turmeric root extract 500 mg tablet 500 mg PO DAILY 12/16/23 12/16/23 12/12/23 History vitamin E acetate 134 mg (200 268 mg PO DAILY 12/16/23 12/16/23 12/12/23 History unit) capsule Exam Height,Weight and Vital Signs: Height 5 ft 7.25 in Weight 71.668 kg Vital Signs Temp Pulse Resp BP Pulse Ox O2 Del Method 12/20/23 10:51 98.3 F 54 18 134/67 97 Room Air Pertinent Lab Results Pertinent Lab Results: Laboratory Tests 10/06/23 11:28 WBC 6.0 Hgb 14.4 Hct 41.4 L Plt Count 203 Sodium 140 Potassium 4.0 Chloride 108 Carbon Dioxide 22 BUN 22 H Creatinine 1.17 Lab Results 12/20/23 Range/Units 10:57 POC Glucose 92 (60-115) mg/dL Airway Mallampati Class: Patient Non-Cooperative TM Dist: >3cm Neck ROM: Full Loose/Missing/Broken Teeth: No (Denies broken, loose, missing teeth) Heart: RRR Lungs: CTAB Assessment and Plan Assessment Anesthesia Assessment: Anesthesia Plan Discussed and Chart Reviewed Final Anesthetic Review Family History of Problems with Anesthesia: No History of Problems with Anesthesia: No NPO: Yes ASA Class: III Final Preanesthetic Review: No Changes in Pt Med Stat, Meds/Allgs Chart Reviewed, Consent Obtained/Reviewed and Anes Risks/Benef Reviewed Patient Risk: Intermediate Procedure Risk: Low Assessment/Block/Sedation in SS: Assess/Block/Sedation-SS Anesthetic Plan Anesthetic Plan: TIVA Disposition: Standard PACU
[2023-12-20 10:51] VITALS: BP 134/67; PULSE 54; RESP 18; TEMP 36.8; O2SAT 97
[2023-12-20 11:02] LABS: Glucose, Whole Blood 92 mg/dL (60-115)
[2023-12-20] MEDS: Lactated Ringers 1,000 ML 100 ML IVCONT (11:12)
[2023-12-20 14:07] VITALS: BP 92/49; PULSE 58; RESP 16; TEMP 36.1; O2SAT 97
--- NOTE | 2023-12-20 14:11 | PM.OP ---
Brief Operative Note Date of Service: 12/20/23 Pre-op diagnosis: Screening Post-op diagnosis: other (Diverticulosis, Cecal AVM) Procedure: Colonoscopy to the cecum Surgeon: Jarrod Pathak MD Anesthesia: MAC Was an Patient Services Clerk used for this Procedure?: No Estimated blood loss (mL): 0 Pathology: none sent Condition: stable Disposition: PACU
[2023-12-20 14:22] VITALS: BP 139/80; PULSE 56; RESP 18; TEMP 36.1; O2SAT 96
--- NOTE | 2023-12-21 00:38 | OP_ITS ---
DATE OF SERVICE: 12/20/2023 SURGEON: Jarrod Pathak MD INDICATIONS: The patient presents for evaluation of personal history of tubular adenoma of the colon, family history of colorectal cancer, and need for colorectal cancer screening. Full consent has been obtained from him for this, including risks of bleeding and perforation. PREOPERATIVE DIAGNOSIS: POSTOPERATIVE DIAGNOSIS: PROCEDURE PERFORMED: Colonoscopy to cecum. ESTIMATED BLOOD LOSS: COMPLICATIONS: ANESTHESIA: ASSISTANTS: SPECIMENS: PREOPERATIVE DIAGNOSES: Colorectal cancer screening, personal history of tubular adenoma of the colon, and family history of colon cancer. POSTOPERATIVE DIAGNOSES: Colorectal cancer screening, personal history of tubular adenoma of the colon, and family history of colon cancer, diverticulosis, internal hemorrhoids, nonbleeding angiodysplasia of cecum. DESCRIPTION OF PROCEDURE: The patient was placed in the left lateral decubitus position. The digital rectal exam revealed no abnormalities. The Olympus video pediatric colonoscope was entered into the rectum and advanced easily to the cecum. Once in the cecum, I did identify normal-appearing cecal pouch with appendiceal orifice and a normal-appearing ileocecal valve. There was a nonbleeding angiodysplasia in the cecum. The remainder of the cecum appeared normal without any sign of mass or ulceration. The scope was then slowly withdrawn assessing all mucosal surfaces carefully. Preparation was excellent. I did not visualize any sign of polyps, other angiodysplasias, nor colitis. There was a moderate amount of sigmoid diverticulosis. In the rectum, scope was retroflexed visualizing some internal hemorrhoids, but no other pathology. The rectal mucosa appeared normal. Scope was straightened and withdrawn from the patient. He tolerated the procedure well and was returned to the recovery area in stable condition. IMPRESSION: 1. Diverticulosis. 2. Nonbleeding angiodysplasia of cecum. 3. Internal hemorrhoids. PLAN: Given today's negative exam and his age, I do not think he would need any further screening colonoscopies. He was advised that he could resume his aspirin and fish oil and turmeric today. He will see me on a p.r.n. basis. MD MAYKEL Hoover/MARIA E / [phone]
== END 2023-12-20 15:08 | disposition home or self-care (01) ==
PROVIDERS: PCP Internal Medicine; Visit Provider Internal Medicine
PROC: 0DJD8ZZ Inspection of Lower Intestinal Tract, Via Natural or Artificial Opening Endoscopic (ICD-10-PCS; CPT 45378; principal; 2023-12-20 12:50)
DX: Z12.11 Encounter for screening for malignant neoplasm of colon (principal); Z86.010 Personal history of colon polyps; Z80.0 Family history of malignant neoplasm of digestive organs; K57.30 Diverticulosis of large intestine without perforation or abscess without bleeding; K55.20 Angiodysplasia of colon without hemorrhage; K64.8 Other hemorrhoids; E78.5 Hyperlipidemia, unspecified; E11.9 Type 2 diabetes mellitus without complications; J86.9 Pyothorax without fistula; F10.11 Alcohol abuse, in remission; Z79.82 Long term (current) use of aspirin; Z79.84 Long term (current) use of oral hypoglycemic drugs; Z79.899 Other long term (current) drug therapy; Z98.890 Other specified postprocedural states
CPT/HCPCS: G0105; 82947; J2704

== ENCOUNTER 2024-08-21 13:29 | Emergency (ER) | payer MEDICARE, OTHER, SELFPAY ==
--- NOTE | ~2024-08-21 | CT_ITS ---
EXAMINATION: CT HEAD WITHOUT IV CONTRAST HISTORY: near syncope. TECHNIQUE: Unenhanced helical CT of the head was performed per standard departmental protocol. Coronal and sagittal reformats of the head were also evaluated. One or more of the following techniques was used for dose reduction: Automated exposure control, adjustment of the mA and/or kV according to patient size, use of iterative reconstruction technique. DLP: 720 mGy-cm COMPARISON: There are no prior studies for comparison. FINDINGS: BRAIN: There is diffuse prominence of the ventricular system and cortical sulci, consistent with atrophy. Periventricular and subcortical white matter hypodensities are noted which are nonspecific, but often seen in the setting of small vessel ischemic disease. There is no mass effect or midline shift. No intra- or extra-axial fluid collections are identified. SINUSES: The visualized paranasal sinuses are clear. The mastoid air cells and middle ear cavities are well pneumatized. ORBITS: The visualized orbits are unremarkable. BONES/SOFT TISSUES: The extracranial soft tissues are unremarkable. The calvarium is intact. No suspicious lytic or sclerotic lesions. CT/CT head/brain wo IV con IMPRESSION: No acute intracranial abnormality. Electronically signed by: Jarrod Diallo MD 08/21/2024 02:57 PM EDT
--- NOTE | 2024-08-21 13:37 | ED_ITS ---
HPI - General Adult General Chief complaint: Syncope Stated complaint: muscle spasms, used marijuana, A&Ox1 Time Seen by Provider: 08/21/24 13:37 Source: patient and EMS Mode of arrival: EMS Limitations: no limitations History of Present Illness ED Provider: Darling Hartmann PA-C HPI narrative: 79-year-old male with PMHx T2DM, HLD, alcohol use disorder, and marijuana use presenting to the ED from home following an episode of possible syncope. Patient is a poor historian and unable to recall the events of what brought him here. Patient's at bedside is also somewhat of a poor historian, however, did provide the majority of the history. Patient himself reports he was smoking a cigar this morning around 10am, followed by smoking marijuana from his pipe, and then was in the kitchen when he felt his BP drop, but is not sure what happened after. Reports marijuana is from dispensary. His reports he was making his cereal when she witnessed him become shaky/unsteady/lost balance, and guided him to a chair. She reports he may have lost consciousness , had slurred speech, and seemed incoherent/confused/lethargic, so called 911. Patient denies fevers, sore throat, CP, SOB, abd pain, N/V/D, dysuria/burning sensation/hematuria, numbness/tingling, recent illness/sick contacts. Denies fall/trauma, other complaints, including muscle spasms, back pain. Denies alcohol use, recent medication changes. At the time of my evaluation, patient A&Ox4, states he feels normal and reports he seems back to his baseline. Related Data Home Medications ?Medication ?Instructions ?Recorded ?Confirmed atorvastatin 10 mg tablet 10 tab PO BEDTIME 09/10/20 12/16/23 cetirizine 10 mg tablet 1 tab PO DAILY 09/10/20 12/16/23 citalopram 20 mg tablet 20 tab PO DAILY 09/10/20 12/16/23 disulfiram 250 mg tablet 1 tab PO DAILY 09/10/20 12/16/23 metformin 500 mg tablet 500 tab PO BID 09/10/20 12/16/23 aspirin 81 mg tablet,delayed 81 mg PO DAILY 12/16/23 12/16/23 release calcium ER 600 mg (as carb,cit)-D3 1 tab PO DAILY 12/16/23 12/16/23 12.5 mcg (500 unit) tablet, ext.rel (Citracal-D3 Slow Release) garlic 1,000 mg capsule 1,000 mg PO DAILY 12/16/23 12/16/23 ginkgo biloba leaf extract 60 mg 60 mg PO DAILY 12/16/23 12/16/23 capsule magnesium oxide 400 mg PO DAILY 12/16/23 12/16/23 multivitamin 1 tab PO DAILY 12/16/23 12/16/23 omega-3s 720 mg-dha 300 mg-epa 360 1 cap PO DAILY 12/16/23 12/16/23 mg-fish oil 1,200 mg capsule turmeric root extract 500 mg tablet 500 mg PO DAILY 12/16/23 12/16/23 vitamin E acetate 134 mg (200 268 mg PO DAILY 12/16/23 12/16/23 unit) capsule Allergies Allergy/AdvReac Type Severity Reaction Status Date / Time Penicillins Allergy Mild HIVES/FEVER Verified 08/21/24 13:52 Review of Systems 2 Constitutional: Constitutional: Reports no additional constitutional complaints, Denies chills, Denies fever(s) and Denies night sweats Eyes: Eyes: Reports no additional eye complaints, Denies blurry vision, Denies change in vision, Denies diplopia, Denies eye discharge, Denies loss of vision and Denies eye pain ENT: Denies dizziness Cardiovascular: Cardiovascular: Reports no additional cardiovascular complaints, Denies chest pain, Denies lightheadedness, Denies Loss of Consciousness and Denies dyspnea Respiratory: Respiratory: Reports no additional respiratory complaints and Denies dyspnea Gastrointestinal: Gastrointestinal: Reports no additional gastrointestinal complaints, Denies abdominal pain, Denies melena, Denies hematochezia, Denies change in bowel habits and Denies change in stool character Genitourinary: Genitourinary: Reports no additional male genitourinary complaints, Denies hematuria, Denies oliguria, Denies difficulty urinating, Denies dysuria, Denies urinary frequency, Denies urinary hesitancy, Denies urinary incontinence and Denies urinary urgency Musculoskeletal: Musculoskeletal: Reports no additional musculoskeletal complaints, Denies numbness and Denies tingling Neurologic: Denies dizziness, Denies loss of vision, Denies numbness and Denies tingling Comments: episode of near syncope Psychiatric: Psychiatric: Reports no additional psychiatric complaints Endocrine: Endocrine: Reports no additional endocrine complaints Hematologic/Lymphatic: Hematologic/Lymphatic: Reports no additional hematologic/lymphatic complaints Allergic/Immunologic: Allergic/Immunologic: Reports no additional allergic/immunologic complaints PMFSH Past Medical History Attestation statement: The following information was validated with the patient. (all information validated with the patient's ) Source: old records reviewed, obtained from family (patient's provided additional history and confirmed the history provided by the patient. ) and nursing notes reviewed Medical History BAILEE (obstructive sleep apnea) Empyema of lung Hx of Clostridium difficile infection Cervical disc disease COVID-19 vaccine series completed Smoker Raynauds syndrome Osteoarthritis Hypercholesterolemia Hx of varicose veins Erectile dysfunction Diabetes mellitus History of diverticulosis Depression History of Clostridioides difficile colitis Anxiety History of ETOH abuse Allergic rhinitis Surgical History Hx of varicose vein ligation and stripping Hx of knee surgery Hx of bilateral cataract extraction Hx of inguinal hernia repair History of esophagogastroduodenoscopy (EGD) Hx of colonoscopy Hx of appendectomy Social History Social History Household Members: Spouse Unable to assess alcohol history related to: Unable to respond Alcohol intake: former Year quit: 2018 Comment: fell off ladder 08/2020 rib injury Patient Tobacco Use Status: Current everyday Tobacco user Tobacco use type: Cigar Smoked in Last 30 Days: No Use of substances other than those prescribed or required for medical reasons: Yes Substance Use Type: Marijuana Substance Use Frequency: Occasionally Advance Directives: No Advance Directives Information Provided: Yes Do you have a plan to hurt others: No Plan Physical Exam ED Vital Signs: Vital Signs - 24 hr 08/21/24 13:51 08/21/24 14:01 08/21/24 15:03 Temperature 98.6 F Pulse Rate 53 Respiratory Rate 18 18 Blood Pressure 137/70 Pulse Oximetry 97 97 Oxygen Delivery Method Room Air Room Air BMI result Body Mass Index 25.2 Const General: cooperative, no acute distress, alert and awake Nutritional Appearance: well nourished Orientation/consciousness: patient oriented x3 Limitations: no limitations HENMT Head: Yes normal to inspection, Yes atraumatic, No abrasion and No laceration Ears: hearing grossly normal bilaterally and external ears normal General nose exam: Normal external nose present, no nasal discharge noted and no epistaxis Face and sinus: Yes normal facial exam, No abrasion and No laceration Mouth: Normal oral and palatal mucosa present, no drooling and no muffled voice Eyes General: appearance normal, both eyes and all related structures Periorbital: periorbital findings normal Eyelids: Yes eyelids normal Conjunctivae: conjunctivae normal Pupils: Equal, round and reactive pupils present EOM: EOMs intact bilaterally Neck Other: No ttp over neck. No lesions/lacerations/bleeding noted. Neck: Yes normal visual inspection, Yes full ROM and Yes no lymphadenopathy Chest Chest palpation & inspection: normal inspection of the chest Resp Effort & Inspection: normal respiratory effort and able to speak in complete sentences Cardio Rate: regular rate Rhythm: regular rhythm GI Inspection: Yes normal to inspection and No abdominal wall ecchymosis Palpation (GI): Soft to palpation, nontender, no guarding and not rigid General: Yes no CVA tenderness Back/Spine/Pelvis Back: no CVA tenderness Cervical Spine: cervical ROM normal Neuro Other: Patient slow to answer questions, often taking 15s pause to respond, reports this is baseline and normal for patient General: patient oriented x3, moves all extremities and CN's II-XI intact bilaterally Cranial nerves: Yes Equal, round and reactive pupils present Cognition (Neuro): normal cognition Motor exam (neuro): 5/5 motor strength present throughout Sensory Exam: Normal double simultaneous stimulation for sensation Extrem General: Yes normal to inspection, Yes full ROM and Yes capillary refill normal Psych Appearance: grossly normal Mental Status: mental status grossly normal Speech and movement: No Slurred speech present Affect: normal affect Attitude: cooperative Thought process: Normal thought process present Thought content: Normal thought content present Insight: Good insight present (Psych) NIH Stroke Scale Internal: Initial- Upon Arrival Level of Consciousness: Alert Level of Consciousness Questions: Answers both questions correctly Level of Consciousness Commands: Performs both tasks correctly Best Gaze: Normal Visual: No visual loss Facial Palsy: Normal Motor Arm (Right): No drift Motor Arm (Left): No drift Motor Leg (Right): No drift Motor Leg (Left): No drift Limb Ataxia: Absent Sensory: Normal Best Language: No aphasia Dysarthia: Normal Extinction and Inattention: No abnormality Score: 0 Medications Administered Discontinued Medications Generic Name Dose Route Start Last Admin Trade Name Juan Daniel PRN Reason Stop Dose Admin Sodium Chloride 1,000 mls @ 999 mls/hr 08/21/24 14:15 08/21/24 15:18 Ns IV 08/21/24 15:15 Infused .Q1H1M CHEMA Infusion Medical Decision Making Medical Decision Making [facility] Narrative: Patient is a 79 year old assigned male at with a history of alcohol use disorder, DM, HLD, and marijuana use presenting to the emergency department today after a near syncopal event. Patient's physical exam was unremarkable and consistent with his baseline. Patient's blood work showed a very mildly elevated potassium but was otherwise unremarkable. Patient's urine showed no acute process. Patient's EKG was unremarkable. Patient's CT head showed no acute process. Patient's clinical presentation is most consistent with near syncope in the setting of marijuana use. I explained my physical exam findings as well as all test results to the patient and the patient's . I answered all questions asked by the patient and the patient's . Patient received IV fluids while in the department. Patient maintained that he has no complaints and feels fine. I stressed the importance of the patient following up with his primary care provider. I stressed the importance of the patient returning to the emergency department immediately if his symptoms were to worsen or if he were to develop any dizziness, shortness of breath, difficulty breathing, chest pain, blurry vision, loss of vision, nausea, vomiting, abdominal pain, fever, chills, back pain, or any other complaints. Patient and the patient's verbalized agreement and understanding with this treatment plan and discharge. Differential Diagnosis Differential Diagnoses: The differential diagnosis associated with the presentation includes Near syncope Marijuana use Admission/Observation Consideration of admission/observation: Escalation of care including admission/observation considered Patient would have been admitted to the hospital had his work up had any findings where hospital admission was appropriate and his clinical presentation warranted hospital admission. Lab Data [facility] Lab Attestation statement: I reviewed the patient's lab results. My interpretation of these results are in the [facility] Rationale portion of this note. 08/21/24 14:04 08/21/24 14:04 Labs: Lab Results 08/21/24 08/21/24 Range/Units 14:04 15:16 WBC 6.7 (4.8-10.8) X10*3/uL RBC 4.10 L (4.60-5.80) X10*6/uL Hgb 13.6 L (14.0-18.0) g/dl Hct 39.8 L (42.0-52.0) % MCV 97.1 (80.0-98.0) fL MCH 33.2 H (27.0-33.0) pg MCHC 34.2 (31.0-36.0) g/dl RDW 13.6 (11.0-16.0) % Plt Count 159 L (160-400) X10*3/uL MPV 11.1 (9.4-12.4) fL Immature Gran % (Auto) 0.3 (0.0-0.4) % Neut % (Auto) 66.0 (45-73) % Lymph % (Auto) 23.4 (20-40) % Rush % (Auto) 8.5 (2-11) % Eos % (Auto) 1.5 (0-4) % Baso % (Auto) 0.3 (0-2) % Lymph # (Auto) 1.6 (1.2-4.9) X10*3/uL Rush # (Auto) 0.6 (0.1-1.2) X10*3/uL Eos # (Auto) 0.1 (0.0-0.4) X10*3/uL Baso # (Auto) 0.0 (0.0-0.2) X10*3/uL Abs Immat Gran (auto) 0.02 (0.00-0.03) X10*3/uL Absolute Neuts (auto) 4.4 (2.0-8.3) x10*3/uL Absolute Nucleated RBC 0.000 (0.0-0.012) X10*3/uL Nucleated RBC % (auto) 0.0 (0.0-0.2) /100WBC PT 11.8 (10.9-12.4) SEC INR 1.0 (0.9-1.1) Sodium 139 (135-145) mmol/L Potassium 5.3 H D (3.3-5.1) mmol/L Chloride 110 H (96-108) mmol/L Carbon Dioxide 24 (22-29) mmol/L Anion Gap 10 L (12-20) BUN 18 H (9-16) mg/dL Creatinine 1.00 (0.5-1.4) mg/dL Estim Creat Clear Calc 56.9 Estimated GFR > 60 Random Glucose 139 H (60-115) mg/dL Calcium 8.7 D (8.4-10.2) mg/dL Magnesium 1.8 (1.6-2.6) mg/dL Total Bilirubin 0.3 (0.0-1.0) mg/dL AST 29 (5-37) U/L ALT 32 (0-40) U/L Alkaline Phosphatase 92 (39-117) U/L Troponin I High Sens < 2.7 (<3.5-35.0) ng/L Total Protein 6.0 L (6.5-8.0) g/dL Albumin 3.5 (3.5-5.0) g/dL Urine Color Yellow Urine Appearance Clear Urine pH 8.5 (5.0-9.0) Ur Specific Pride 1.015 (1.005-1.025) Urine Protein Trace (Neg-Trace) mg/dL Urine Glucose (UA) Negative (Negative) mg/dL Urine Ketones Negative (Negative) mg/dL Urine Blood Negative (Negative) Urine Nitrite Negative (Negative) Ur Leukocyte Esterase Negative (Negative) Urine Opiates Screen Not Detected (Not Detect) Ur Buprenorphine Scrn Not Detected (Not Detect) ng/mL Ur Oxycodone Screen Not Detected (Not Detect) ng/mL Urine Methadone Screen Not Detected (Not Detect) ng/mL Urine Fentanyl Screen Not Detected (Not Detect) Ur Barbiturates Screen Not Detected (Not Detect) Ur Phencyclidine Scrn Not Detected (Not Detect) Ur Amphetamines Screen Not Detected (Not Detect) U Benzodiazepines Scrn Not Detected (Not Detect) Urine Cocaine Screen Not Detected (Not Detect) U Marijuana (THC) Screen POSITIVE H (Not Detect) Independent Interpretation I performed an independent interpretation of an: EKG and CT Scan Interpretation: My interpretation is in agreement with the radiologist's impression of this imaging study. L Report Number: [id number]: Total DLP = 720.00 mGy-cm EXAMINATION: CT HEAD WITHOUT IV CONTRAST HISTORY: near syncope. TECHNIQUE: Unenhanced helical CT of the head was performed per standard departmental protocol. Coronal and sagittal reformats of the head were also evaluated. One or more of the following techniques was used for dose reduction: Automated exposure control, adjustment of the mA and/or kV according to patient size, use of iterative reconstruction technique. DLP: 720 mGy-cm COMPARISON: There are no prior studies for comparison. FINDINGS: BRAIN: There is diffuse prominence of the ventricular system and cortical sulci, consistent with atrophy. Periventricular and subcortical white matter hypodensities are noted which are nonspecific, but often seen in the setting of small vessel ischemic disease. There is no mass effect or midline shift. No intra- or extra-axial fluid collections are identified. SINUSES: The visualized paranasal sinuses are clear. The mastoid air cells and middle ear cavities are well pneumatized. ORBITS: The visualized orbits are unremarkable. BONES/SOFT TISSUES: The extracranial soft tissues are unremarkable. The calvarium is intact. No suspicious lytic or sclerotic lesions. CT/CT head/brain wo IV con IMPRESSION: No acute intracranial abnormality. Electronically signed by: Jarrod Diallo MD 08/21/2024 02:57 PM EDT RP Dictated By: Jarrod Diallo MD Signed By: Electronically signed by Jarrod Diallo MD 08/21/24 1457 I independently interpreted this EKG and am in agreement with the below findings: Vent. Rate: 59 BPM Atrial Rate: 59 BPM P-R Int: 144 ms QRS Dur: 88 ms QT Int: 444 ms P-R-T Axes: 73 77 51 degrees QTcB Int: 439 ms Sinus bradycardia with Premature atrial complexes with Aberrant conduction DD/ 1343 Radiology Impression Discussion of test interpretation with radiology: I have reviewed the radiologist's reading. Independent Historian Clinical information obtained from an independent historian. History obtained from or confirmed by: Spouse (patient's provided additional history and confirmed the history provided by hte patient. ) and EMS (EMS provided additional history and confirmed the history provided by the patient. ) Critical Care Time Critical Care Time Critical Care Time: Yes Total Critical Care Time: 36 Attestation: I spent 36 minutes of Critical Care Time with this patient. This does not include time spent on separately reported billable procedures. Discharge Plan Discharge Clinical Impression: Near syncope, Marijuana use Patient Disposition: Home, Self-Care Instructions: Near Syncope (ED) Additional Instructions: Your work up today was reassuring there is no emergent process causing your symptoms. Please consider using less marijuana at a time. Follow up with your primary care provider. Return to the emergency department immediately if your symptoms worsen or if you develop any numbness, tingling, dizziness, shortness of breath, difficulty breathing, chest pain, blurry vision, loss of vision, nausea, vomiting, abdominal pain, fever, chills, back pain, or any other complaints. Please see the information below about our Patient Portal. If you are not yet enrolled in the [facility] Patient Portal, you will receive an enrollment email invitation following your visit to any [facility] setting. You may also self-enroll in the Patient Portal by visiting our website: [email or web address] The following information is required to access the Patient Portal: - Your [facility] Medical Record Number - Your personal home email address (must match what is in your electronic medical record, Registration staff can assist with this) - Name - Date of Capabilities of the Patient Portal: - Message some providers - View upcoming appointments - Access your health summary, medical history, and visit history - View current conditions and allergies - View procedure and lab results - View your medications, including guidelines, side effects, and precautions - Complete pre-appointment questionnaires requested by your provider - Ready summary reports of your office visits and procedures To access the Patient Portal Mobile [employer], follow these directions: - Search Online Agility in the [employer]i Store or Google Play Store - Download the [employer]i - Search for [facility] - Enter your login/password Prescriptions: No Action metformin 500 mg tablet 500 tab PO BID cetirizine 10 mg tablet 1 tab PO DAILY atorvastatin 10 mg tablet 10 tab PO BEDTIME disulfiram 250 mg tablet 1 tab PO DAILY citalopram 20 mg tablet 20 tab PO DAILY multivitamin Tablet 1 tab PO DAILY aspirin [Aspirin Low-Strength] 81 mg Tablet,Delayed Release (Dr/Ec) 81 mg PO DAILY garlic 1,000 mg Capsule 1,000 mg PO DAILY ginkgo biloba leaf extract 60 mg Capsule 60 mg PO DAILY Rx Instructions: give with meal/snack calcium carb, citrate-vit D3 [Citracal-D3 Slow Release] 600 mg-12.5 mcg (500 unit) Tablet Extended Release 1 tab PO DAILY vitamin E acetate 134 mg (200 unit) Capsule 268 mg PO DAILY [id number]-epa-fish oil [Fish Oil] 720-1,200 mg Capsule 1 cap PO DAILY magnesium oxide 400 mg magnesium Tablet 400 mg PO DAILY turmeric root extract 500 mg Tablet 500 mg PO DAILY Referrals: Pravin Snato MD [Primary Care Provider] - Print Language: Panamanian
--- NOTE | 2024-08-21 13:40 | ECG_ITS ---
Test Reason : SYNCOPE Blood Pressure : */* mmHG Vent. Rate : 59 BPM Atrial Rate : 59 BPM P-R Int : 144 ms QRS Dur : 88 ms QT Int : 444 ms P-R-T Axes : 73 77 51 degrees QTcB Int : 439 ms Sinus bradycardia with Premature atrial complexes with Aberrant conduction Otherwise normal ECG When compared with ECG of 06-Oct-2023 11:12, Aberrant conduction is now Present Referred By: Skye Arreguin Electronically Signed By: GUERLINE TORRES MD
[2024-08-21 13:46] VITALS: BP 129/64; PULSE 62; O2SAT 97
[2024-08-21 13:51] VITALS: BP 137/70; PULSE 53; RESP 18; TEMP 37; O2SAT 97; BMI 25.2
[2024-08-21 14:01] VITALS: PULSE 61; O2SAT 97
[2024-08-21 14:08] LABS: MANUAL DIFF FLAG NO
[2024-08-21 14:13] LABS: Basophils Percent Auto 0.3 % (0-2); Eosinophils Absolute Auto 0.1 X10*3/uL (0.0-0.4); Eosinophils Percent Auto 1.5 % (0-4); Hematocrit 39.8 % (42.0-52.0); Hemoglobin 13.6 g/dl (14.0-18.0); Imm Gran Abs Auto 0.02 X10*3/uL (0.00-0.03); Imm Gran Pct Auto 0.3 % (0.0-0.4); Lymphocytes Absolute Auto 1.6 X10*3/uL (1.2-4.9); Lymphocytes Percent Auto 23.4 % (20-40); Mean Corpuscular HGB Conc 34.2 g/dl (31.0-36.0); Mean Corpuscular Hemoglobin 33.2 pg (27.0-33.0); Mean Corpuscular Volume 97.1 fL (80.0-98.0); Mean Platelet Volume 11.1 fL (9.4-12.4); Monocytes Absolute Auto 0.6 X10*3/uL (0.1-1.2); Monocytes Percent Auto 8.5 % (2-11); Neutrophils Absolute Auto 4.4 x10*3/uL (2.0-8.3); Platelet Count 159 X10*3/uL (160-400); Red Cell Distribution Width 13.6 % (11.0-16.0); White Blood Count 6.7 X10*3/uL (4.8-10.8)
[2024-08-21 14:15] LABS: Prothrombin Time 11.8 SEC (10.9-12.4)
[2024-08-21] MEDS: 0.9 % Sodium Chloride 1,000 ML 999 ML IV (14:23)
[2024-08-21 14:25] LABS: Alanine Aminotransferase 32 U/L (0-40); Albumin Level 3.5 g/dL (3.5-5.0); Alkaline Phosphatase 92 U/L (39-117); Anion Gap 10 (12-20); Aspartate Amino Transferase 29 U/L (5-37); Bilirubin Total 0.3 mg/dL (0.0-1.0); Blood Urea Nitrogen 18 mg/dL (9-16); Calcium 8.7 mg/dL (8.4-10.2); Carbon Dioxide 24 mmol/L (22-29); Chloride 110 mmol/L (96-108); Creatinine Clr Calc Pharmacy 56.9; Estimated Glomerular Filt Rate > 60; Glucose Random 139 mg/dL (60-115); Potassium 5.3 mmol/L (3.3-5.1); Sodium 139 mmol/L (135-145)
[2024-08-21 14:30] LABS: Troponin-I High Sensitivity < 2.7 ng/L (<3.5-35.0)
[2024-08-21 14:45] LABS: Magnesium 1.8 mg/dL (1.6-2.6)
[2024-08-21 15:03] VITALS: RESP 18
[2024-08-21 15:24] LABS: Appearance Urine Clear; Color Urine Yellow; Glucose Urine UA Negative (Negative); Leukocyte Esterase Urine Negative (Negative); Nitrite Urine Negative (Negative); PH 8.5 (5.0-9.0); Specific Gravity - Urine 1.015 (1.005-1.025); Urine Blood Negative (Negative); Urine Ketones Negative (Negative); Urine Protein Trace mg/dL (Neg-Trace)
[2024-08-21 15:33] LABS: Amphetamine Screen Urine Not Detected (Not Detect); Barbiturates, Urine Not Detected (Not Detect); Benzodiazepines Screen Urine Not Detected (Not Detect); Buprenorphine Scr Not Detected (Not Detect); Cannabinoid Screen Urine POSITIVE (Not Detect); Cocaine Screen Urine Not Detected (Not Detect); Fentanyl, urine Not Detected (Not Detect); Methadone Screen, Urine Not Detected (Not Detect); Opiate Screen Urine Not Detected (Not Detect); Oxycodone Screen Urine Not Detected (Not Detect); Phencyclidine Screen Urine Not Detected (Not Detect)
[2024-08-21 15:48] VITALS: BP 145/83; PULSE 65; RESP 16; TEMP 36.8; O2SAT 96
--- OUTSIDE RECORDS SUMMARY | 2024-08-21 17:23 | XMS_ITS | Clinical Summary ---
Author Organization [facility] Address [address] [place] [address] Care Team Providers Care Digital Photographic Printer Name Role Phone Pravin Santo Primary Care Provider [phone] Allergies Active Allergy Reactions Criticality Noted Date Comments Penicillins 02/07/2014 Medications SIMVASTATIN 40 MG Tab 1 tablet daily 01/29/2014 Active METFORMIN HCL 500 MG Tab 1 tablet daily 12/20/2013 Active CITALOPRAM HYDROBROMIDE 20 MG Tab 1 tablet daily 01/16/2014 Active DISULFIRAM 250 MG Tab 1 tablet daily 01/09/2014 Active CETIRIZINE HCL 10 MG Tab 1 tablet daily 01/16/2014 Active Aspirin 81 MG Tab 1 TABLET DAILY Active Active Problems No known active problems Social History Tobacco Use Types Packs/Day Years Used Date Smoking Tobacco: Never Assessed Sex and Gender Information Value Date Recorded Sex Assigned at Not on file Legal Sex Male 3:36 PM EDT Gender Identity Not on file Sexual Orientation Not on file Plan of Treatment Health Maintenance Due Date Last Done Comments Hepatitis C Screening 1945 DTaP/Tdap/Td (1 - Tdap) 1964 Pneumococcal 50+ years (1 of 1 - PCV) 1996 Zoster (Shingrix) (1 of 2) 1996 RSV (1 - 1-dose 75+ series) 2021 COVID-19 Vaccine ( - 2023-2 5 season) 2024 Influenza (#1) 2024 HPV Vaccine Aged Out No longer eligi ble based on patient's age to complete this topic Hep A Aged Out No longer eligi ble based on patient's age to complete this topic Hep B Aged Out No longer eligi ble based on patient's age to complete this topic Hib Aged Out No longer eligi ble based on patient's age to complete this topic Meningococcal ACWY Aged Out No longer eligible based on patient's age to complete this topic Zoster (Zostavax) Discontinued Insurance * Guarantor: ZANDER BECK Account Type Relation to Patient Date of Phone Billing Address Personal/Family [address] [place] [address] MEDICARE PART B FFS MEDICARE-SUPPLEMENTAL Care Teams Digital Photographic Printer Relationship Specialty Start Date End Date Pravin Santo [facility] [address] [place] [address] PCP - General Internal Medicine 02/08/14
--- OUTSIDE RECORDS SUMMARY | 2024-08-21 17:23 | XMS_ITS ---
Author Organization [facility] Address [address] [place] [address] Care Team Providers Care Supply Planner Name Role Phone Pravin Santo MD Primary Care Provider Unavailmasha Seo, Cyndee Unavailable [phone] REASON FOR VISIT BUY Formula 7 Encounters Encounter Location Date Provider Diagnosis [address] [address] 11/18/2023 Cyndee Seo Plan Of Treatment Next Appt Details Provider Name:Cyndee Seo , 11/16/2024 01:30:00 PM, [address] [place], [address], Progress Notes * Zander BECKDOB: [birth year] (78 yo M)Acc No.[id number]:11/18/2023 Patient:?Zander Beck :1945???Age:78 Y???Sex:Male Address:[address] [place] [address], [facility] [place] [address] * true * Date:? Generated for Printi ng/Faxing/eTransmitting on:?08/21/2024 05:23 PM EDT
--- OUTSIDE RECORDS SUMMARY | 2024-08-21 17:23 | XMS_ITS ---
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 Name Role Phone Hansa URIAS, Pravin Primary Care Provider Jarrod Block [phone] REASON FOR VISIT screening,hx polyps,fam hx colon cancer Problems Problem Type SNOMED Code ICD Code Onset Dates Problem Status W/U Status Risk Notes Problem History of polyp of colon (situation) (415204663) Personal history of colonic polyps (Z86.010) Active confirmed Problem Diverticular disease of colon (476549438) Diverticulosis of large intestine without perforation or abscess without bleeding (K57.30) Active confirmed Encounters Encounter Location Date Provider Diagnosis [facility] [place] [address] [place] [phone] 12/20/2023 Jarrod Pathak Encounter for scre ening [...] NATIVIDAD BECK EDOB: [birth year] (79 yo M)Acc No.[id number]:12/20/2023 COLON WITH MAC Patient:?NATIVIDAD BECK Provider:?Jarrod Pathak MD :1945???Age:78 Y???Sex:Male Tavo e:12/20/2023 Address:[address] [place] [address], [id number] Pcp:Pravin Santo MD Subjective: * Chief Complaints: * ???1. Screening,hx polyps,fa m hx colon cancer. * Medical History:? Objective: * Vitals:? Assessment: * Assessment: 1.?Encounter for screening c olonoscopy - Z12.11 (Primary)???2.?Personal history of colonic polyps - Z86.010???3.?Angiodysplasia - K55.20???4.?Diverticulosis of large intestine without perforation or abscess without bleeding - K57.30 ??5.?Other hemorrhoids - K64.8??? Plan: * Treatment: * Procedure Codes:?G0105 COLOR EC CANCR SCR; COLNSCPY HI RISK, 0529F INTRVL 3+YRS PTS CLNSCP DOCD, Modifiers: 8P , 0528F RCMND FLW-UP 10 YRS DOCD, Modifiers: 1P * Preventive Medicine:? ??JANETT Screening:?Colonoscopy?Was interval between colonoscopies three years or more??Yes,?Was last colonoscopy performed three or more years ago??Yes.? * * The named appointment provid er may or may not be the originator of this progress note, and it is not deemed complete until electronically signed by the appointment provider. Sign off status: Pending * Provider:?Jarrod Pathak MD Date:? 024 Generated for Jamarcus conner/Karsten/eTransmitting on:?08/21/2024 05:22 PM EDT
--- OUTSIDE RECORDS SUMMARY | 2024-08-21 17:23 | XMS_ITS | Patient Health Record ---
Author Organization [facility] Address [address] [place] [address] Care Team Providers Care Zinc Plate Grainer Name Role Phone Pravin Santo MD Primary Care Provider Jarrod Block [phone] Allergies Allergen (clinical drug ingredient) Drug/Non Drug Allergy documented on EMR Reaction Allergy Type Onset Date Status Penicillin Unknown Drug Allergy Active Results Component Value Reference Range Notes Glucose, Whole Blood Reviewed date:12/20/2023 10:53:05 PM Interpretation: Performing Lab:[facility], [address] [place] [id number] Notes/Report: Glucose, Whole Blood 92 60-115 mg/dL METER # : [id number] Reason For Referral No Information Medications Medication SIG (Take, Route, Frequency, Duration) Notes Start Date End Date Status Disulfiram 250 MG 1 tablet Orally Once a day for 30 day(s) Active Atorvastatin Calcium 10 MG 1 tablet Oral ly Once a day for 30 day(s) Active Citalopram Hydrobromide 20 MG 1 tablet Orally Once a day Active Magnesium 400 MG as directed Orally Active Multi Vitamin/Minerals - as directed Orally QD Active Mini Fish Oil 645 MG as directed Orally Active Cetirizine HCl 10 MG 1 tablet Orally Onc e a day Active Garlic 1000 MG as directed Orally e very day Active Citracal + D 400mg 1 po QD A ctive Aspir-81 81 MG 1 tablet Orally Once a day Active Turmeric 500 MG as directed Orally QD Active metFORMIN HCl 500 MG 1 tablet with a shiva l Orally Once a day Active Qmvj-Tgajg-ODE-Boswellia-Vi t D - as directed Orally Active Ginkgo Biloba 60 MG as directed Orally qd Active Vitamin E 400 UNIT 1 capsule Orally Onc e a day Active Immunizations Vaccine Route Administration Date Status Comme nts Influenza Unknown 02/15/2018 Administered Influenza Unknown 03/02/2023 Administered Social History Tobacco Use: Social History Observation Description Date Details (start date - stop date) Never Smoker NA - NA Tobacco Use/Smoking Question Answer Notes Patient is a nonsmoker Section Notes: He smokes cigars, and report s sobriety from alcohol for 2 years He smokes a pipe, and report s sobriety from alcohol for since 06/2012. Smokes occ cigar; reports so 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 glass of wine Smokes occ cigar; reports so 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 glass of wine Problems Problem Type SNOMED Code ICD Code Onset Dates Problem Status W/U Status Risk Notes Problem [id number] Encounter for screening for malignant neoplasm of colon (Z12.11) Active confirmed Problem History of polyp of colon (situation) (228036710) Personal history of colonic polyps (Z86.010) Active confirmed Problem Diverticular disease of colon (748319252) Diverticulosis of large intestine without perforation or abscess without bleeding (K57.30) Active confirmed Problem 395373971 Family history o f colon cancer (Z80.0) Active confirmed Problem 610479726 Long-term use of aspirin therapy (Z79.82) Active confirmed Problem 535015746 Hx of adenomatou s colonic polyps (Z86.010) Active confirmed Vital Signs Temperature 97.8 degrees Fahrenheit 09/17/2023 Blood pressure diastolic 00 mm Hg 09/17/2023 Height 67.25 in 09/17/2023 Blood pressure systolic 000 mm Hg 09/17/2023 Weight 158 lb 2 oz lbs 09/17/2023 BMI 24.58 kg/m2 09/17/2023 Encounters Encounter Location Date Provider [place] [facility] [place] [address] [place] [phone] 12/20/2023 Jarrod Pathak Encounter for screen ing colonoscopy Z12.11 ; Personal history of colonic polyps Z86.010 ; Angiodysplasia K55.20 ; Diverticulosis of large intestine without perforation or abscess without bleeding K57.30 and Other hemorrhoids K64.8 [facility] [address] [place] [address] 09/17/2023 Jarrod Pathak Hx of adenomatous colonic polyps Z86.010 ; Long-term use of aspirin therapy Z79.82 ; Encounter for screening for malignant neoplasm of colon Z12.11 and Family history of colon cancer Z80.0 Assessments Encounter Date Diagnosis (ICD Code) Assessment Notes Treatment Notes Treatment Clinical Notes Section Notes 12/20/2023 Encounter for screening colonoscopy (ICD-10 - Z12.11) 12/20/2023 Personal history of colonic polyps (ICD-10 - Z86.010) 09/17/2023 Long-term use of aspirin therapy (ICD-10 - Z79.82) Overall, Mr. Beck appears well. He does not appear to be having any new or worrisome GI complaints. Given his personal history of tubular adenomas of the colon, and we history rectal cancer, and his last colonoscopy being just over 5 years ago, I did recommend a followup colonoscopy for further screening purposes. We did review the rationale for this In regard to colon cancer prevention. Full consent was obtained from him for this, including risks of bleeding and perforation. The procedure will be done with monitored anesthesia care. He was given the below instructions regarding adjustment of his medications for the procedure. Mr. Beck was comfortable with this plan. Thank you again for allowing me to participate in Mr. Beck's care. I shall continue to keep you advised of his progress. 09/17/2023 Hx of adenomatous colonic polyps (ICD-10 - Z86.010) Overall, Mr. Beck appears well. He does not appear to be having any new or worrisome GI complaints. Given his personal history of tubular adenomas of the colon, and we history rectal cancer, and his last colonoscopy being just over 5 years ago, I did recommend a followup colonoscopy for further screening purposes. We did review the rationale for this In regard to colon cancer prevention. Full consent was obtained from him for this, including risks of bleeding and perforation. The procedure will be done with monitored anesthesia care. He was given the below instructions regarding adjustment of his medications for the procedure. Mr. Beck was comfortable with this plan. Thank you again for allowing me to participate in Mr. Beck's care. I shall continue to keep you advised of his progress. 12/20/2023 Angiodysplasia (ICD-10 - K55.20) 09/17/2023 Encounter for screening for malignant neoplasm of colon (ICD-10 - Z12.11) Do not take the aspirin, fish oil, nor Turmeric for 1 week before the colonoscopy Do not take the Metfrominn the night before nor on the morning of the colonoscopy Overall, Mr. Beck appears well. He does not appear to be having any new or worrisome GI complaints. Given his personal history of tubular adenomas of the colon, and we history rectal cancer, and his last colonoscopy being just over 5 years ago, I did recommend a followup colonoscopy for further screening purposes. We did review the rationale for this In regard to colon cancer prevention. Full consent was obtained from him for this, including risks of bleeding and perforation. The procedure will be done with monitored anesthesia care. He was given the below instructions regarding adjustment of his medications for the procedure. Mr. Beck was comfortable with this plan. Thank you again for allowing me to participate in Mr. Beck's care. I shall continue to keep you advised of his progress. 12/20/2023 Diverticulosis of large intestine without perforation or abscess without bleeding (ICD-10 - K57.30) 09/17/2023 Family history of colon cancer (ICD-10 - Z80.0) Overall, Mr. Beck appears well. He does not appear to be having any new or worrisome GI complaints. Given his personal history of tubular adenomas of the colon, and we history rectal cancer, and his last colonoscopy being just over 5 years ago, I did recommend a followup colonoscopy for further screening purposes. We did review the rationale for this In regard to colon cancer prevention. Full consent was obtained from him for this, including risks of bleeding and perforation. The procedure will be done with monitored anesthesia care. He was given the below instructions regarding adjustment of his medications for the procedure. Mr. Beck was comfortable with this plan. Thank you again for allowing me to participate in Mr. Beck's care. I shall continue to keep you advised of his progress. 12/20/2023 Other hemorrhoids (ICD-10 - K64.8) Plan Of Treatment Future Test Test Name Order Date COLONOSCOPY 11/02/2012 COLONOSCOPY 05/20/2018 COLONOSCOPY 09/17/2023 Insurance Providers Payer Name Payer Address Payer Phone Subscriber Number Group Number Insured Name Patient Relationship to Insured Coverage Start Date Coverage End Date MEDICARE OF [place] [address] [place] [address] [id number] NATIVIDAD BECK Self - patient is the insured [employer] [address] [place] [phone] [id number] NATIVIDAD BECK Self - patient is the insured Medical (General) History Medical History History ICD Code Screening colonoscopy 03-19-2008--1 smal l tubular adenoma removed Hyperlipidemia NIDDM Alcohol abuse--last EtOH in 06/2012 Denies SC, stroke, and renal disease Thrombophlebitis and varicose veins Denies SC,CVA,Lung disease,renal disease Cervical radiculopathy--cerv ical disc disease--seeing Dr. Stiles from neurosurgery Upper endoscopy in 05/2011-HH , no sig. esophagitis--biopsies were negative for celiac disease and negative for eosinophilic esophagitis Anxiety Reports C. diff infection in 2010 Negative colonoscopy in 01/2013 Colonoscopy 07/2018 with 2 tubular adenom as removed Pulmonary empyema with pneumonia on the right 2022-needed a chest tube Surgical History Surgery Date(Month/Year) appendectomy hernia surgery--bilateral inguinal and u mbilical surgery for varicose veins in both legs knee surgery-right
--- OUTSIDE RECORDS SUMMARY | 2024-08-21 17:23 | XMS_ITS | Data Portability ---
Author Organization [facility], [facility] Address [address] [place] [address] Care Team Providers Care Metaphysics Teacher Name Role Phone SAMIRA LEON Primary Care Provider [phone] Assessment No assessment recorded. Plan of Treatment Reminders Order Date Submit Date Provider Last Modified By Organization Details Last Modified Time Details Appointments None record ed. Lab None record ed. Referral None record ed. Procedures None record ed. Surgeries None record ed. Imaging None record ed. Medication Orders None record ed. Patient TargetsNo targets recorded. Patient Instructions Encounter Date Encounter Id Patient Instructions Last Modified By Organization Details Last Modified Time 09/09/2015 [id number] Discussed to leonila dorsey diabetes under control for healthy eyes. Discussed cataract. Glasses Rx was given. Not available 09/09/2015 09:46:33 04/28/2017 [id number] Stable cataract OU. Stable no retinopathy related with DM both eyes.. Not available 04/28/2017 14:06:04 05/19/2018 [id number] Glasses Rx was given. Discussed cataract eval options OU. Stable no retinopathy related with DM both eyes. RTC in 1 year or sooner as needed. Not available 05/19/2018 14:46:37 05/23/2019 [id number] Glasses Rx was given. Discussed cataract eval options OU. Stable no retinopathy related with DM both eyes. C/o to keep diabetes under control for health eyes. RTC in 1 year or sooner as needed. Not available 05/23/2019 17:20:54 07/09/2020 [id number] Glasses Rx was given. Hold glasses Rx for now. Discussed decreased vision currently and cataract eval OU. Stable no retinopathy related with DM both eyes. C/o to keep diabetes under control for health eyes. RTC in 1 year or sooner as needed. Not available 07/09/2020 11:30:19 Reason for Referral None Reported. Problems Name Problem SNOMED Code Status Onset Date Resolution Date Notes Provider Name and Address Organization Details Recorded Time Mixed hyperlipid emia 707826931 Active 2000 Not Available [facility] 3 03:09:57 Contusion 700680670 Completed 200303/29/2013 Not Available [facility] 3 02:02:47 Disorder of tendon of shoulder region 64133182 Completed 200403/29/2013 Not Available [facility] 3 02:02:36 Presbyopia 71174740 Active 2001 Latanya Bah, OD [address] [place], [id number] [place] [address] 6 09:46:33 Precordial pain 09036794 Completed 200303/29/2013 Not Available [facility] 3 02:02:30 Extrinsic asthma with asthma attack Active 2002 Not Available [facility] 3 03:09:57 Pruritic disorder 239886695 Active 2003 Not Available [facility] 3 03:09:57 Actinic keratosis 522724179 Completed 200003/29/2013 Not Available [facility] 3 02:03:15 Disorder of prostate 34975428 Active 2002 Not Available [facility] 3 03:09:57 Hypermetro lópez 92336170 Active 2001 Not Available [facility] 3 03:09:57 Common cold 02674038 Completed 200203/29/2013 Not Available [facility] 3 02:00:26 Diabetes mellitus 77466286 Active 1999 Not Available [facility] 3 03:09:57 Panic disorder without agoraphobi a 05705861 Active 2000 Not Available [facility] 3 03:09:57 Type 2 diabetes mellitus without complicati on 144246029 Active 2000 Latanya Bah, OD [address] [place], [address] , [facility] 6 09:46:33 Sprain of knee and leg Completed 200403/29/2013 Not Available [facility] 3 02:03:04 Hyperlipid emia 58344462 Active 2002 Not Available [facility] 3 03:09:57 Alopecia 18805233 Active 2004 Not Available [facility] 3 03:09:57 Degenerati ve joint disease involving multiple joints 132639677 Active 2003 Not Available [facility] 3 03:09:57 Bicipital tenosynovi tis 64094689 Completed 200403/29/2013 Not Available [facility] 3 02:04:13 Problem Notes None recorded. Procedures Surgical History Date Name Laterality Status Provider Name and Address Organization Details Recorded Time 07/09/2020 Refraction completed Latanya Bah, OD [address] [place], [address], [facility] [place] 07/09/2020 10:46:05 05/23/2019 Refraction completed Matthewsparkle Luevano [facility] 05/23/2019 09:42:03 05/19/2018 Refraction completed Latanya Bah, OD [address] [place], [address], [facility] [place] 05/19/2018 13:18:35 09/09/2015 Refraction completed Latanya Bah, OD [address] [place], [address], [facility] [place] 09/09/2015 09:38:01 Imaging Results None recorded. Procedure Notes None recorded. Medical Equipment None Reported. Allergies No known drug allergies Medications Name Sig Start Date Stop Date Status Note LastModified by Organization Details LastModified Time metformin 500 mg tablet TAKE 1 TABLET BY MOUTH EVERY DAY active Not Available Not Available No t Available doxycyclin e hyclate 100 mg capsule TAKE 1 CAPSULE BY MOUTH TWICE A DAY FOR 10 DAYS active Not Available Not Available No t Available cetirizine 10 mg tablet TAKE 1 TABLET BY MOUTH EVERY DAY active Not Available Not Available No t Available atorvastat in 10 mg tablet TAKE 1 TABLET BY MOUTH EVERY DAY active Not Available Not Available No t Available azithromyc in 250 mg tablet TAKE 2 TABLETS BY MOUTH TODAY, THEN TAKE 1 TABLET DAILY FOR 4 DAYS active Not Available Not Available No t Available ibuprofen 800 mg tablet TAKE 1 TABLET BY MOUTH 3 TIMES A DAY FOR 10 DAYS active Not Available Not Available No t Available hydrocodon e 5 mg-acetami nophen 325 mg tablet TAKE 1-2 TABLETS BY MOUTH EVERY 6 HOURS NEEDED FOR PAIN active Not Available Not Available No t Available naltrexone 50 mg tablet TAKE 1 TABLET BY MOUTH ONCE DAILY active Not Available Not Available No t Available prednisone 20 mg tablet TAKE 2 TABLETS BY MOUTH EVERY DAY FOR 3 DAYS active Not Available Not Available No t Available sulfametho xazole 800 mg-trimeth oprim 160 mg tablet TAKE 1 TABLET BY MOUTH 2 TIMES A DAY,X21 DAYS active Not Available Not Available No t Available simvastati n 40 mg tablet 04/28 completed Take 1.00 tabs every night at bedtim e; Left msg for pt that needs appt prior to any more refill s-12/21 Not Available Not Available Not Available disulfiram 250 mg tablet TAKE 1 TABLET BY MOUTH EVERY DAY active Not Available Not Available No t Available oxycodone- acetaminop hen 5 mg-325 mg tablet 04/28 completed Not Available Not Available Not Available citalopram 20 mg tablet TAKE 1 TABLET BY MOUTH EVERY DAY active Not Available Not Available No t Available diclofenac potassium 50 mg tablet 04/28 completed Not Available Not Available Not Available fluticason e propionate 50 mcg/actuat ion nasal spray,susp ension active Not Available Not Available Not Available doxycyclin e hyclate 100 mg tablet TAKE 1 TABLET BY MOUTH TWICE A DAY FOR 10 DAYS WITH FLUIDS active Not Available Not Available No t Available naproxen 500 mg tablet active Not Available Not Available Not Available oxycodone 5 mg tablet active Not Available Not Available Not Available neomycin-p olymyxin-h ydrocort 3.5 mg-10,000 unit/mL-1 % ear drops,susp INSTILL 5 DROPS INTO LEFT EAR 4 TIMES A DAY active Not Available Not Available No t Available Cialis 5 mg tablet TAKE 1 TABLET BY MOUTH AT THE SAME TIME EACH DAY active Not Available Not Available No t Available Chantix Continuing Month Box 1 mg tablet TAKE 1 TABLET BY MOUTH TWICE A DAY active Not Available Not Available No t Available Fluzone High-Dose 6815-3657 (PF) 180 mcg/0.5 mL intramuscu lar syringe TO BE ADMINISTE RED BY PHARMACIS T FOR IMMUNIZAT ION active Not Available Not Available No t Available Fluzone High-Dose 0770-4851 (PF) 180 mcg/0.5 mL intramuscu lar syringe TO BE ADMINISTE RED BY PHARMACIS T FOR IMMUNIZAT ION active Not Available Not Available No t Available Vitals None Recorded Social History None recorded. Functional Status None recorded. Mental Status None recorded. Family History Nothing Reported. Medical History No medical history recorded. Past Encounters Encounter ID Performer Location Encounter Start Date Encounter Closed Date Diagnosis/Indication Diagnosis SNOMED-CT Code Diagnosis ICD10 Code Diagnosis Note [id number] [facility], OFFICE [address] [place] [address] 04/15/2000 16:15:00 05/30/2008 02:02:29 [id number] [facility], OFFICE [address] [place] [address] 04/14/2001 14:45:00 05/30/2008 02:02:29 [id number] [facility], OFFICE [address] [place] [address] 10/17/2001 15:24:58 05/30/2008 02:02:29 [id number] [facility] - [address] [place] [address] 02/09/2002 07:49:52 05/30/2008 02:02:29 [id number] Eye [address] [place] [address] 02/15/2002 09:59:18 05/30/2008 02:02:29 [id number] [facility], OFFICE [address] [place] [address] 08/08/2002 17:10:31 05/30/2008 02:02:29 [id number] [facility] - [address] [place] [address] 09/07/2002 07:33:13 05/30/2008 02:02:29 [id number] [facility] - [address] [place] [address] 12/12/2002 07:41:10 05/30/2008 02:02:29 [id number] [facility], OFFICE [address] [place] [address] 12/26/2002 15:50:01 05/30/2008 02:02:29 [id number] [facility], OFFICE [address] [place] [address] 03/02/2003 10:24:22 03/02/2003 16:33:20 [id number] Eye Care, [facility] [address] [place] [address] 03/02/2003 11:09:59 03/02/2003 13:46:22 [id number] LAB - [facility] [address] [place] [address] 03/15/2003 07:45:44 03/15/2003 14:48:23 [id number] LAB - [facility] [address] [place] [address] 08/20/2003 09:19:11 08/20/2003 09:49:28 [id number] [facility], OFFICE [address] [place] [address] 09/03/2003 14:57:59 09/05/2003 08:01:39 [id number] [facility] [address] [place] [address] 02/01/2004 09:45:33 02/04/2004 08:42:14 [id number] LAB - [facility] [address] [facility] [place] [address] 02/29/2004 09:43:10 02/29/2004 16:44:08 [id number] [facility], [facility] [address] [place] [address] 03/19/2004 16:27:09 03/20/2004 09:15:[id number] [facility], OFFICE [address] [place] [address] 05/31/2004 11:08:30 06/02/2004 09:41:19 [id number] [facility], OFFICE [address] [place] [address] 07/01/2004 15:16:49 07/01/2004 16:59:05 [id number] [facility], OFFICE [address] [place] [address] 09/24/2004 08:03:25 09/25/2004 08:02:16 [id number] Eye Care, [facility] [address] [place] [address] 10/02/2004 10:44:41 10/02/2004 11:41:01 [id number] [facility], OFFICE [address] [place] [address] 02/02/2005 09:34:31 02/03/2005 09:11:06 [id number] [facility], OFFICE [address] [place] [address] 05/27/2005 15:48:58 05/28/2005 08:40:16 [id number] [facility], OFFICE [address] [place] [address] 06/11/2005 16:31:55 06/12/2005 08:45:10 [id number] [facility], OFFICE [address] [place] [address] 07/24/2005 15:42:57 07/27/2005 08:54:34 [id number] Eye Care, [address] [place] [address] 09/28/2005 11:04:41 09/28/2005 14:54:13 [id number] [facility], OFFICE [address] [place] [address] 11/02/2005 16:41:33 11/03/2005 08:14:44 [id number] Eye Care, [address] [place] [address] 01/11/2007 13:36:24 01/11/2007 14:49:50 [id number] Eye Care, [address] [place] [address] 2008 10:17:47 2008 12:05:53 [id number] Latanya Bah, OD Eye Care, [address] [address] 09/09/2015 08:38:31 09/09/2015 09:46:37 Presbyopia 41325702 H52.4 Astigmatism 48546435 H52 .223 Cataract 869930296 H25.1 3 Type 2 manisha betes mellitus without complication 965275546 E11.9 [id number] Latanya Bah, OD Eye Care, [address] [address] 04/28/2017 12:51:07 04/29/2017 07:25:52 Bilateral cataracts 65952114 H26.9 Type 2 manisha betes mellitus without complication 290739196 E11.9 [id number] Latanya Bah, OD [facility], [address] [address] 05/19/2018 12:56:43 05/19/2018 14:49:13 Bilateral cataracts 92336378 H26.9 Type 2 manisha betes mellitus without complication 003905898 E11.9 Presbyopia 40689068 H52. 4 [id number] Latanya Maximino Bah, OD [facility], [address] [address] 05/23/2019 12:57:09 05/24/2019 11:48:18 Presbyopia 89510501 H52.4 Bilateral cataracts 9572 2003 H26.9 Type 2 manisha betes mellitus without complication 881799236 E11.9 [id number] Latanya Maximino Bah, OD Eye Care, [address] [address] 07/09/2020 09:55:17 07/09/2020 12:21:04 Presbyopia 19751916 H52.4 Bilateral cataracts 9572 2003 H26.9 Type 2 manisha betes mellitus without complication 764118599 E11.9 Hypermetropia 92275349 H 52.03 Health Concerns Section Related Observation LastModified by Organization Detai ls LastModified Time None Recorded Concern Status LastModified by Organization Details LastModified Time None Recorded Advance Directives Directive None Recorded Payers Encounter Date Sequence Insurance Name Policy Number Policy Neal Covered Member ID Neal Member ID Guarantor Name 09/09/2015 1 MEDICARE B-UT: [employer] Adelard E Jodoin [id number] Adelard E Jodoin 09/09/2015 2 [facility] (MEDICARE SUPPLEMENT) Adelard E Jodoin [id number] Adelard E Jodoin 04/28/2017 1 MEDICARE B-UT: [employer] Adelard E Jodoin [id number] Adelard E Jodoin 04/28/2017 2 [facility] (MEDICARE SUPPLEMENT) Adelard E Jodoin [id number] Adelard E Jodoin 05/19/2018 1 MEDICARE B-[employer]: [employer] Adelard E Jodoin [id number] Adelard E Jodoin 05/19/2018 2 [facility] (MEDICARE SUPPLEMENT) Adelard E Jodoin [id number] Adelard E Jodoin 05/23/2019 1 MEDICARE B-UT: [employer] Adelard E Jodoin [id number] Adelard E Jodoin 05/23/2019 2 [facility] (MEDICARE SUPPLEMENT) Adelard E Jodoin [id number] Adelard E Jodoin 07/09/2020 1 MEDICARE B-UT: [employer] Adelard E Jodoin [id number] 75 Adelard E Jodoin 07/09/2020 2 [facility] (MEDICARE SUPPLEMENT) Adelard E Jodoin [id number] Adelard E Jodoin Notes Date Note Type Note Provider Name and Address Organization Details Recorded Time 09/09/2015 text/html Comprehensive Ey e ExamReported bypatient.Quality:1 year exam Context:currently wears glasses Modifying factors:wears glasses for distance and near Associated Symptoms:no redness; no itching; no floaters; no dryness Latanya Bah, OD [address] [place] [address], [address], [facility] [place] 09/09/2015 09:47:26 04/28/2017 text/html Comprehensive Ey e ExamReported bypatient.Quality:1 year exam; no blurred vision Location:bilateral Context:currently wears glasses Modifying factors:wears glasses for distance and near Associated Symptoms:no redness; no itching; no floaters; no drynessDiabetic Eye ExamReported bypatient.Quality:typ e II diabetes Severity:well controlled; not requiring insulin Duration:9 years history of diabetes Context:no history of retinopathy; normal average blood sugar ; A1C: 6.7 Associated Symptoms:normal vision; no changes on Amsler grid Latanya Stanton Olvin, OD [address] [place] [address], [address], [facility] 04/28/2017 16:44:26 05/19/2018 text/html Comprehensive Ey e ExamReported bypatient.Quality:1 year exam; no blurred vision Location:bilateral Context:currently wears glasses Modifying factors:wears glasses for distance and near Associated Symptoms:no redness; no itching; no floaters; no drynessDiabetic Eye ExamReported bypatient.Quality:typ e II diabetes Severity:well controlled; not requiring insulin Duration:10 years history of diabetes Context:no history of retinopathy; normal average blood sugar ; A1C: 6.1 Associated Symptoms:normal vision; no changes on Amsler grid Latanya Bah, OD [address] [place], [address], [facility] 05/19/2018 14:47:37 05/23/2019 text/html Diabetic Eye ExamReported bypatient.Quality:typ e II diabetes Severity:not requiring insulin Duration:13+ years history of diabetes Context:no history of retinopathy; A1C: 6.7 Associated Symptoms:impaired night vision(not as good, glare reported) Latanya Bah, OD [address] [place], [address], [facility] 05/23/2019 17:21:40 07/09/2020 text/html Comprehensive Ey e ExamReported bypatient.Quality:1 year exam; no blurred vision Context:currently wears glasses Modifying factors:wears glasses for distance and near Associated Symptoms:no redness; no itching; no floaters; no drynessDiabetic Eye ExamReported bypatient.Quality:typ e II diabetes Severity:not requiring insulin Duration:13+ years history of diabetes Context:no history of retinopathy; A1C: 6.7 (per patient) Associated Symptoms:impaired night vision(not as good, glare reported) Latanya Bah, OD [address] [place], [address], [facility] 07/09/2020 11:31:07
--- OUTSIDE RECORDS SUMMARY | 2024-08-21 17:23 | XMS_ITS ---
Author Organization [facility] Address [address] [place] [address] Care Team Providers Care Hair Worker Name Role Phone Pravin Santo MD Primary Care Provider Unavailabl e Black, Cyndee Unavailable [phone] Allergies Allergen (clinical drug ingredient) Drug/Non Drug Allergy documented on EMR Reaction Allergy Type Onset Date Status amoxicillin Amoxicillin Unknown Drug Allergy Act kiana Penicillin Unknown Drug Allergy Active Pollen Pollen hay fever symptoms Allergy Active REASON FOR VISIT Toe Irritation, At Risk Footcare Medications Medication SIG (Take, Route, Frequency, Duration) Notes Start Date End Date Status Osteo Bi-Flex Adv Double St Not-Taking Disulfiram 250 MG 1 tablet Orally Once a day Active Aspir-81 Active amLODIPine Besylate Not-Taking Glucosamine Active Turmeric Active Ginkgo Biloba Active Mini Fish Oil Active metFORMIN HCl 500 MG 1 tablet with meals Orally Twice a day Active Vitamin E Active Garlic Active Cetirizine HCl Activ e Extra Depth Orthopedic Shoes (1 Pair) with Customized Heat Molded Multidensity Innersoles (3 Pair) as directed Dx: NIDDM/Polyneuropathy (E11.42), Hammertoe Foot Deformity (M20.41,M20.42), Preulcerative Skin Lesion(s) (L85.1 Active Citracal +D3 Active Citalopram Hydrobromide Active Extra Depth Orthopedic Shoes (1 Pair) with Customized Heat Molded Multidensity Innersoles (3 Pair) as directed Dx: NIDDM/Polyneuropathy (E11.42), Hammertoe Foot Deformity (M20.41,M20.42), Preulcerative Skin Lesion(s) (L85.1 07/19/2017 Active Extra Depth Orthopedic Shoes (1 Pair) with Customized Heat Molded Multidensity Innersoles (3 Pair) as directed Dx: NIDDM/Polyneuropathy (E11.42), Hammertoe Foot Deformity (M20.41,M20.42), Preulcerative Skin Lesion(s) (L85.1 10/26/2016 Not-Taking Centrum Silver Activ e Atorvastatin Calcium 10 MG 1 tablet Orally Once a day Active Social History Tobacco Use: Social History Observation Description Date Details (start date - stop date) Current Smoker NA - NA Tobacco Use/Smoking Question Answer Notes Are you [...] Are you an other tobacco user? No Vital Signs Height 5 ft 7 in in 11/18/2023 Weight 160 lbs 11/18/2023 BMI 25.06 kg/m2 11/18/2023 Procedures Procedure Date Ordered Date Performed Result Body Sit e 41365-DTZHAGB NAIL, 1-5 11/18/2023 N/A 74070-HERP SKIN LESIONS, 2 TO 4 11/18/2023 N/A F3312-AZFHAZAW DYSTROPHIC NAILS ANY # 11/18/2023 N/A Encounters Encounter Location Date Provider Diagnosis [facility] [address] [place] [address] 11/18/2023 Cyndee Black Other hammer toe(s) (acquired), right foot M20.41 ; Other hammer toe(s) (acquired), left foot M20.42 ; Type 2 diabetes mellitus with diabetic polyneuropathy E11.42 ; Pain in right toe(s) M79.674 and Tinea unguium B35.1 Assessments Encounter Date Diagnosis (ICD Code) Assessment Notes Treatment Notes Treatment Clinical Notes Section Notes 11/18/2023 Other hammer toe(s) (acquired), right foot (ICD-10 - M20.41) 11/18/2023 Other hammer toe(s) (acquired), left foot (ICD-10 - M20.42) 11/18/2023 Type 2 diabetes mellitus with diabetic polyneuropathy (ICD-10 - E11.42) Patient Educated with: DIABETIC FOOT CARE INSTRUCTIONS. pdf (DIABETIC FOOT CARE INSTRUCTIONS. pdf) 11/18/2023 Pain in right toe(s) (ICD-10 - M79.674) 11/18/2023 Tinea unguium (ICD-10 - B35.1) Plan Of Treatment Medication Medication Name Sig Start Date Stop Date Notes Extra Depth Orthopedic Shoes (1 Pair) with Customized Heat Molded Multidensity Innersoles (3 Pair) as directed Dx: NIDDM/Polyneuropathy (E11.42), Hammertoe Foot Deformity (M20.41,M20.42), Preulcerative Skin Lesion(s) (L85.1 Treatment Notes Assessment Notes Type 2 diabetes mellitus wit h diabetic polyneuropathy Patient Educated with: DIABETIC FOOT CARE INSTRUCTIONS.pdf (DIABETIC FOOT CARE INSTRUCTIONS.pdf) Pending Test Test Name Order Date 11637-LYOFHBN NAIL, 1-5 11/18/2023 30409-LDPS SKIN LESIONS, 2 TO 4 11/18/19 24 Q8692-LJSHOBCB DYSTROPHIC NAILS ANY # Next Appt Details Follow Up: 1 Year, Reason: Provider Name:Cyndee Seo , 11/16/2024 01:30:00 PM, [address] [place] [address], [phone], Procedure Notes * Category Sub-Category Detail Notes Keratoma Treatment Parring or Cutting o f Benign Hyperkeratotic Lesion(s) 64868 ( 2-4 Lesions ) - The Benign hyperkeratotic lesions, as described above were pared, and/or cut utilizing a sterile 15 blade, tissue nippers, and/or dremel Debride Nails 1-5 Procedure: Nail debrideme nt performed extensively to reduce/remove overall nail length and girth, subungual debris, and necrotic tissue, by manual and electrical means by use of a nail nipper and/or dremel, to more viable healthy nail plate or bed tissue 1-5. Silver nitrate used for any petechial bleeding as necessary. Patient chooses, Formula 7 topical antifungal, tx (19521) Nail Reduction Nail Reduction Trimming of dyst rophic nails performed to reduce/remove overall nail length and girth, by manual and electrical means with use of a nail nipper and/or dremel, to more viable healthy nail plate or bed tissue 6-10 (G0127) Progress Notes * Magui BECKomerDOB: 6 (78 yo M)Acc No.[id number]:11/18/2023 Progress Note Patient:?Zander Beck Provider:?Cyndee Seo DPM :1945???Age:78 Y???Sex:Male Tavo e:11/18/2023 Address:[address] [place], [place] [id number] Pcp:Pravin Santo MD Subjective: * Chief Complaints: * ???Toe IrritationAt Risk Danii tcare * HPI: ???At Risk footcare:?Pt States Last PCP Visit:?Date?09/30/2023 ???Toe pain:?Location:?B/L feet.?Duration:?several years.?Aggrevated by:?shoes, any pressure.?Treatments:?change in shoes.? * ROS:?General/Constitutional:?Nausea?denies.?Vomiting?denies.?Hunger Thirst?denies.?Loss appetite?denies.?Chills?denies.?Fatigue?denies.?Fever?denies.?Night Sweats?denies.?Unexplained weight loss?denies.?Unexplained weight gain?denies.?HEENTM:?Dentures?denies.?Dizziness?denies.?Glasses/contacts?admits.?Retinopathy?de nies.?Blurred/double vision?denies.?TMJ?denies.?Discharge/drainage?denies.?Implants?denies.?Sore throat?denies.?Dental implants?denies.?Hard of hearing ?denies.?Difficulty chewing/swallowing/speaking?denies.?Nose bleeds?denies.?Sore mouth?denies.?Respiratory:?On Oxygen?denies.?Pneumonia/pleurisy?denies.?Bronchitis?admits.?Emphysema?denies.?C oughing?denies.?Cough blood?denies.?Shortness of breath?denies.?Wheezing?denies.?Cardiovascular:?Pacemaker?denies.?MVP?denies.?WPW?denies.?CHF?denies.?Heart attack?denies.?Septal defect?denies.?Rapid beat?denies.?Chest pain ?denies.?Atrial Fib.?denies.?Murmur/Palpitations?denies.?Gastrointestinal:?Hemorrhoids?denies.?Stomach/Abdominal pain?denies.?Dark blood stool?denies.?Irritable bowel ?denies.?Constipation?denies.?Diarrhea?denies.?Hematology:?Swelling?denies.?Clots?denies.?Varicose Veins?denies.?Bruising?denies.?Bleeding problem?denies.?Genitourinary:?Blood urine?denies.?Frequent/Painfu/urination/bladder control?denies.?Kidney stones?denies.?Infection (UTI)?denies.?Nephropathy?denies.?sex trans dis (STD)?denies.?Prostate?denies.?Musculoskeletal:?Hammertoes?denies.?Bunions?denies.?Back Pain?denies.?Muscle Cramps/ Resting?admits.?Muscle cramps / walking?denies.?Generalized aches and pains?denies.?Weakness?denies.?Integ.:?Escalear?denies.?Scars?denies.?Corns/calluses?denies.?Ingrown nails?admits.?Painful nails?denies.?Open Sores?denies.?Rashes?denies.?Neurologic:?Difficulty sleeping?denies.?Brain disorder?denies.?Numbness?admits.?Balance trouble?denies.?Confusion?denies.?Fainting/blackouts?denies.?Tingling?admits.?Tr emors?denies.? * Medical History:? * Surgical History:?hernia per forated appendix Surgery right knee 04/25/17cataract surgery 09/10/20,09/30/20 * Hospitalization/Major Diagno stic Procedure:?[facility] hospital- Chest infection 03/2023 * Family History:?Mother: dece ased.?Father: alive, diagnosed with Diabetic - NIDDM.?Spouse: alive.? * Social History:?Tobacco Use:?Tobacco Use/Smoking?Are you a:?current smoker ?How often do you smoke cigarettes??every day ?How many cigarettes a day do you smoke??5 or less ?How soon after you wake up do you smoke your first cigarette??after 60 minutes ?Are you interested in quitting??Not ready to quit ?Additional Findings: Tobacco User?Light cigarette smoker ((1-9 cigs/day) ?Tobacco use other than smoking?Are you an other tobacco user??No ???Drugs/Alcohol:?Drugs?Have you used drugs other than those for medical reasons in the past 12 months??No ?Alcohol Screen?Did you have a drink containing alcohol in the past year??Yes ?Points?0 ?Interpretation?Negative ???Miscellaneous:?Caffeine: yes, 2-3 cups per day. ?Children: yes, 2. ?Exercise: yes, skiing, sailing, carpentry, gardening, photography, travel. ?Marital status: . ?Occupation: retired. * Medications:?TakingExtra Dep th Orthopedic Shoes (1 Pair) with Customized Heat Molded Multidensity Innersoles (3 Pair) as directed Dx: NIDDM/Polyneuropathy (E11.42), Hammertoe Foot Deformity (M20.41,M20.42), Preulcerative Skin Lesion(s) (L85.1Atorvastatin Calcium 10 MG Tablet 1 tablet Orally Once a dayCentrum Silver Cetirizine HCl Citalopram Hydrobromide Citracal +D3 Garlic Ginkgo Biloba metFORMIN HCl 500 MG Tablet 1 tablet with meals Orally Twice a dayMini Fish Oil Turmeric Vitamin E Glucosamine - Disulfiram 250 MG Tablet 1 tablet Orally Once a dayExtra Depth Orthopedic Shoes (1 Pair) with Customized Heat Molded Multidensity Innersoles (3 Pair) as directed Dx: NIDDM/Polyneuropathy (E11.42), Hammertoe Foot Deformity (M20.41,M20.42), Preulcerative Skin Lesion(s) (L85.1Taking Extra Depth Orthopedic Shoes (1 Pair) with Customized Heat Molded Multidensity Innersoles (3 Pair) as directed Dx: NIDDM/Polyneuropathy (E11.42), Hammertoe Foot Deformity (M20.41,M20.42), Preulcerative Skin Lesion(s) (L85.1Taking Atorvastatin Calcium 10 MG Tablet 1 tablet Orally Once a dayTaking Centrum Silver Taking Cetirizine HCl Taking Citalopram Hydrobromide Taking Citracal +D3 Taking Garlic Taking Ginkgo Biloba Taking metFORMIN HCl 500 MG Tablet 1 tablet with meals Orally Twice a dayTaking Mini Fish Oil Taking Turmeric Taking Vitamin E Taking Glucosamine Taking - Taking Disulfiram 250 MG Tablet 1 tablet Orally Once a dayTaking Extra Depth Orthopedic Shoes (1 Pair) with Customized Heat Molded Multidensity Innersoles (3 Pair) as directed Dx: NIDDM/Polyneuropathy (E11.42), Hammertoe Foot Deformity (M20.41,M20.42), Preulcerative Skin Lesion(s) (L85.1Not-Taking/PRNamLODIPine Besylate Osteo Bi- Flex Adv Double St Extra Depth Orthopedic Shoes (1 Pair) with Customized Heat Molded Multidensity Innersoles (3 Pair) as directed Dx: NIDDM/Polyneuropathy (E11.42), Hammertoe Foot Deformity (M20.41,M20.42), Preulcerative Skin Lesion(s) (L85.1Medication List reviewed and reconciled with the patientNot-Taking/PRN amLODIPine Besylate Not-Taking/PRN Osteo Bi-Flex Adv Double St Not-Taking/PRN Extra Depth Orthopedic Shoes (1 Pair) with Customized Heat Molded Multidensity Innersoles (3 Pair) as directed Dx: NIDDM/Polyneuropathy (E11.42), Hammertoe Foot Deformity (M20.41,M20.42), Preulcerative Skin Lesion(s) (L85.1Medication List reviewed and reconciled with the patient * Allergies:?Penicillin: Aller gyAmoxicillinPollen: hay fever symptomsyes[Allergies Verified] Objective: * Vitals:?Ht: 5 ft 7 in, Wt: 1 60, BMI: 25.06, Shoe size: 11W, Wt-k.57 kg. * ???Past Orders: ???Lab:HEMOGLOBIN A1C (GLYCO HEMOGLOBIN) (Order Date - 11/05/2022) (Collection Date - 10/21/2022) ? Value Reference Range ?TOTAL HEMOGLOBIN (HGBA1C) 6.9 * Examination: ???Ophthalmology Referral: ?DIABETES EYE EXAM?Diabetic Retinopathy Screening:?Yes ?Findings of Diabetic Eye Exam:?no retinopathy?General Examination: ?GENERAL APPEARANCE:?Reveals a pleasant, alert, well nourished, well developed, well hydrated individual, who demonstrates proper attention to hygene/body habitus, and is in no acute distress.?ORIENTED:?person, place, and time.?FOOT EXAM:?Lower Extremity Neurological Exam performed:?Yes ?Visual exam of foot performed:?Yes ?Date?11/18/2023 ?Sensory testing performed:?sensations diminished ?Sensory and motor testing performed:?sensations diminished ?Pedal pulse taking performed:?2+ ?Footwear Evaluation?Footwear Evaluation performed:?Yes?Neurological: ?SENSORY:?Neurological exam demonstrates, reduced vibration sensation, B/L, Pt relates, anesthesia, B/L, 5.07 monofilament test performed at plantar aspects of 5 varied sites per foot shows sensation, reduced , B/L, reduced sharp/dull pin prick discrimination , reduced light touch sensation.?Vascular: ?DORSALIS PEDIS PULSE:?2/4, B/L.?POSTERIOR TIBIAL PULSE:?2/4, B/L.?CAPILLARY REFILL:?instantaneous, B/L.?TEMPERATURE GRADIENT:?within normal limits.?Orthopedic: ?DIGITAL DEFORMITIES:?Digital contracture, PIPJ, 2-5 B/L, incompl-reducable to push-up test, no over, nor underlapping , , with evidence of shoe producing skin irritation.?MPJ PATHOLOGY:? Plantarflexed MT/MPJ, Pain, swelling, and inflammation to plantar MPJ(s), 1st, RIGHT.?FOOTWEAR:?worn, nonsupportive , shoe gear properties exacerbate patients foot/toe deformity.?Dermatologic: ?SKIN FINDINGS:?Skin exam reveals Keratotic lesion(s) located at, , , SUB MTH (s) , 1 , B/L , Heel(s) , B/L , TA.?Nails: ?NAILS are:? Elongated, overgrown, dystrophic, lytic, greater than 3mm thick, discolored and friable with crumbly malodorous subungual debris, , with dull to no pain on palpation due to neuropathy, T5, remaining nails are elongated, overgrown, dystrophic.? Assessment: * Assessment: 1.?Other hammer toe(s) (acqu ired), right foot - M20.41 (Primary), Chronic problem, Worse (4)?2.?Other hammer toe(s) (acquired), left foot - M20.42, Chronic problem, Worse (4)?3. Type 2 diabetes mellitus with diabetic polyneuropathy - E11.42?4.?Pain in right toe(s) - M79.674?5.?Tinea unguium - B35.1? Plan: * Treatment: 2.?Tinea unguium?Procedure: 36171-RIDFPQV NAIL, 1-5 * Procedures:?Debride Nails 1-5:?Procedure:?Nail debridement performed extensively to reduce/remove overall nail length and girth, subungual debris, and necrotic tissue, by manual and electrical means by use of a nail nipper and/or dremel, to more viable healthy nail plate or bed tissue 1-5. Silver nitrate used for any petechial bleeding as necessary. Patient chooses, Formula 7 topical antifungal, tx (33731).?Keratoma Treatment:?Parring or Cutting of Benign Hyperkeratotic Lesion(s)?23242 ( 2-4 Lesions ) - The Benign hyperkeratotic lesions, as described above were pared, and/or cut utilizing a sterile 15 blade, tissue nippers, and/or dremel.?Nail Reduction:?Nail Reduction?Trimming of dystrophic nails performed to reduce/remove overall nail length and girth, by manual and electrical means with use of a nail nipper and/or dremel, to more viable healthy nail plate or bed tissue 6-10 (G0127).? * Procedure Codes:?51077 DEBRI DE NAIL, 1-5, Modifiers: XS 46668 TRIM SKIN LESIONS, 2 TO 4, Modifiers: XS G0127 TRIMMING DYSTROPHIC NAILS ANY #, Modifiers: XS * Preventive Medicine:? ??Counseling:?Discussion:?-14: Office or other outpatient visit for the evaluation and management of an established patient, which required a medically appropriate history and/or examination and MODERATE level of DECISION MAKING for: 1 OR MORE CHRONIC PROBLEM(S) THATS WORSENING, 2 STABLE CHRONIC PROBLEMS, A NEWLY DIAGNOSED PROBLEM WITH UNCERTAIN PROGNOSIS, AN ACUTE COMPLICATED INJURY WITH MULTIPLE TREATMENT OPTIONS, OR AN ACUTE PROBLEM WITH ACCOMPANYING SYSTEMIC SYMPTOMS, THAT POSE(S) A MODERATE RISK OF MORBIDITY. THIS CONDITION MAY ALSO INCLUDE RX DRUG MANAGEMENT, OR A DECISON FOR MINOR SURGERY. The visit on the day of the encounter encompassed interpreting the data and educating the patient as to the nature of their condition, treatment options available according to their individual PMH, meds, allergies, and overall health/living conditions, as well as any potential risks or complications that may occur from a failure to adhere to, and participate in, the recommended course of therapy. The discussion included a complete verbal, and/or written explanation of the examination results, any x-rays taken, the proposed diagnosis, and outline of the treatment plan. A schedule for future care needs was also explained. The patient verbalized an understanding of the instructions at this time and agreed to be an active participant in their treatment. If the patient should think of any questions or concerns after the visit, I have encouraged the patient to call the office.?Digital Treatment:?HT- I explained to the patient the possible etiologies of Hammertoes, including genetics/foot type/shoegear/activity level/exercise routine and the risks/benefits of all the different treatment options for their pain including: No treatment at all, Rest, Ice, New/supportive/wider/deeper Shoegear, Digital Padding/Strapping/Taping/Bracing/Gel protective sleeves, Foot/Ankle AFO Bracing, Stretching exercises, Deep Tissue Massage, Arch support/shoe inserts with splay metatarsal padding, and Custom orthoses. I insisted that any digital devices be removed daily and not worn overnight for safety. The patient is to carefully examine the toes daily for any skin irritation while using any splinting or padding device. The advantages and disadvantages of each option were discussed and the patients questions re: shoegear, padding, custom vs prefabricated inserts, activity level, and consistency in home treatment regimens for optimal success were answered to their verbally confirmed satisfaction, Rx: Extra Depth Diabetic Shoes with 3 pair of custom heat-molded inserts.? * Follow Up:?1 Year * Images: * Sign off status: Completed true * Provider:?Cyndee Seo DPM Date:?2023 Generated for Jamarcus conner/Karsten/Angela on:?08/21/2024 05:23 PM EDT History and Physical Notes * HPI (History of Present Illness) Category Sub-Category Detail Notes Category Not es Toe pain Location: B/L feet Duration: several years Aggravated by: shoes, any pressure Treatments: change in shoes At Risk footcare Pt States Last PCP Visit: Date: 4 Examination Category Sub-Category Detail Notes Category Not es Neurological SENSORY: Neurological exa m demonstrates, reduced vibration sensation, B/L, Pt relates, anesthesia, B/L, 5.07 monofilament test performed at plantar aspects of 5 varied sites per foot shows sensation, reduced , B/L, reduced sharp/dull pin prick discrimination , reduced light touch sensation Dermatologic SKIN FINDINGS: Skin exam reveal s Keratotic lesion(s) located at, , , SUB MTH (s) , 1 , B/L , Heel(s) , B/L , TA Orthopedic FOOTWEAR EVALUATION: worn, nonsu pportive , shoe gear properties exacerbate patients foot/toe deformity DIGITAL DEFORMITIES: Digital contracture , PIPJ, 2-5 B/L, incompl-reducable to push-up test, no over, nor underlapping , , with evidence of shoe producing skin irritation MPJ PATHOLOGY: Plantarflexed MT/MPJ , Pain, swelling, and inflammation to plantar MPJ(s), 1st, RIGHT Vascular DORSALIS PEDIS PULSE: 2/4, B/L CAPILLARY REFILL: instantaneous, B/L TEMPERATURE GRADIENT: within normal limi ts POSTERIOR TIBIAL PULSE: 2/4, B/L General Examination GENERAL APPEARANCE: Reveals a pleasant, alert, well nourished, well developed, well hydrated individual, who demonstrates proper attention to hygene/body habitus, and is in no acute distress FOOT EXAM: Lower Extremity Neurological Exa m performed:: Yes Visual exam of foot performed:: Yes Date: 11/18/2023 Sensory testing performed:: sensations d iminished Sensory and motor testing performed:: se nsations diminished Pedal pulse taking performed:: 2+ ORIENTED: person, place, and t edgar Footwear Evaluation Footwear Evaluation performe d:: Yes Ophthalmology Referral DIABETES EYE EXAM Diabetic Retinopa thy Screening:: Yes Findings of Diabetic Eye Exam:: no retin opathy Nails NAILS are: Elongated, overg rown, dystrophic, lytic, greater than 3mm thick, discolored and friable with crumbly malodorous subungual debris, , with dull to no pain on palpation due to neuropathy, T5, remaining nails are elongated, overgrown, dystrophic
--- OUTSIDE RECORDS SUMMARY | 2024-08-21 17:23 | XMS_ITS ---
Author Organization [facility] Address [address] [place] [address] Care Team Providers Care Sanding Machine Tender Automatic Name Role Phone Pravin Santo MD Primary Care Provider Jarrod Block [phone] Allergies Allergen (clinical drug ingredient) Drug/Non Drug Allergy documented on EMR Reaction Allergy Type Onset Date Status Penicillin Unknown Drug Allergy Active REASON FOR VISIT Patient presents today for a colon screening Medications Medication SIG (Take, Route, Frequency, Duration) Notes Start Date End Date Status Disulfiram 250 MG 1 tablet Orally Once a day for 30 day(s) Active Citalopram Hydrobromide 20 MG 1 tablet Orally Once a day Active Mini Fish Oil 645 MG as directed Orally Active Aspir-81 81 MG 1 tablet Orally Once a day Active metFORMIN HCl 500 MG 1 tablet with a shiva l Orally Once a day Active Atorvastatin Calcium 10 MG 1 tablet Oral ly Once a day for 30 day(s) Active Magnesium 400 MG as directed Orally Active Turmeric 500 MG as directed Orally QD Active Vcdj-Vjtis-CKQ-Boswellia-Vi t D - as directed Orally Active Multi Vitamin/Minerals - as directed Orally QD Active Cetirizine HCl 10 MG 1 tablet Orally Onc e a day Active Ginkgo Biloba 60 MG as directed Orally qd Active Vitamin E 400 UNIT 1 capsule Orally Onc e a day Active Garlic 1000 MG as directed Orally e very day Active Citracal + D 400mg 1 po QD A ctive Social History Tobacco Use: Social History Observation Description Date Details (start date - stop date) Never Smoker NA - NA Tobacco Use/Smoking Question Answer Notes Patient is a nonsmoker Section Notes: Smokes occ cigar; reports so 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 glass of wine Vital Signs Temperature 97.8 degrees Fahrenheit 09/17/19 24 Blood pressure systolic 000 mm Hg 09/17/19 24 Blood pressure diastolic 00 mm Hg 024 Height 67.25 in 09/17/2023 Weight 158 lb 2 oz lbs 09/17/2023 BMI 24.58 kg/m2 09/17/2023 Encounters Encounter Location Date Provider Diagnosis [facility] [address] [place] [address] 09/17/2023 Jarrod Pathak Hx of adenomatous colonic polyps Z86.010 ; Long-term use of aspirin therapy Z79.82 ; Encounter for screening for malignant neoplasm of colon Z12.11 and Family history of colon cancer Z80.0 Assessments Encounter Date Diagnosis (ICD Code) Assessment Notes Treatment Notes Treatment Clinical Notes Section Notes 09/17/2023 Hx of adenomatous colonic polyps (ICD-10 [...] keep you advised of his progress. 09/17/2023 Long-term use of aspirin therapy (ICD-10 [...] keep you advised of his progress. 09/17/2023 Encounter for screening for malignant neoplasm [...] for allowing me to participate in Mr. Beck'minerva care. I shall continue to keep you advised of his progress. 09/17/2023 Family history of colon cancer (ICD-10 [...] for allowing me to participate in Mr. Zafar care. I shall continue to keep you advised of his progress. Plan Of Treatment Treatment Notes Assessment Notes Encounter for screening for malignant neoplasm of colon Do not take the aspirin, fish oil, nor Turmeric for 1 week before the colonoscopy Do not take the Metfrominn the night before nor on the morning of the colonoscopy Future Test Test Name Order Date COLONOSCOPY 09/17/2023 Next Appt Details Follow Up: prn, Reason: Progress Notes * NATIVIDAD BECK EDOB: [birth year] (78 yo M)Acc No.[id number]:09/17/2023 Progress Notes Patient:?NATIVIDAD BECK Provider:?Jarrod Pathak MD :1945???Age:78 Y???Sex:Male Tavo e:09/17/2023 Address:[address] [place] [address], [id number] Pcp:Pravin Santo MD Subjective: * Chief Complaints: * ???Patient presents today fo r a colon screening * HPI: ???incontinence:? I saw Mr. Beck in the office today for evaluation of his personal history of tubular adenomas of the colon, family history rectal cancer, and need for colorectal cancer screening. ?I last saw Mr. Beck in July of 2018, which time he underwent a colonoscopy for screening purposes with the removal of small tubular adenomas. He presently feels well. He enjoys a good appetite, without any significant heartburn or dysphagia. His bowel movements have been regular, without any hematochezia nor melena. He has abdominal pain, jaundice, nor weight loss. His father did have rectal cancer although he was in his 90s at that time. * ROS:?General/Constitutional:?Change in appetite?denies.?Chills?denies.?Fatigue?denies.?Ophthalmologic:?Patient denies? Negative..?ENT:?Patient denies?Negative..?Respiratory:?Patient denies?No coughing/hemoptysis..?Cardiovascular:?Patient denies? No chest pain/orthopnea..?Gastrointestinal:?Comments?See HPI for details.?Genitourinary:?Patient denies? No dysuria/hematuria..?Musculoskeletal:?Patient complaining of? Neck pain.?Skin:?Patient denies?No rash/pruritus..?Neurologic:?Patient denies? No headaches/seizures..?Psychiatric:?Patient denies?Negative..? * Medical History:? * Surgical History:?appendecto my hernia surgery--bilateral inguinal and umbilical surgery for varicose veins in both legs knee surgery-right * Hospitalization/Major Diagno stic Procedure:?No Hospitalization History. * Family History:?Father: dece ased, rectal cancer in his 90's, diagnosed with Heart disease, Colon cancer, Diabetes.?Mother: .? No family history of liver cancer. * Social History:?Tobacco Use:?Tobacco Use/Smoking?Patient is a?nonsmoker.?Drugs/Alcohol:?Alcohol Screen?Points: 0, Interpretation: Negative.?Miscellaneous:?Marital status: . Occupation: Retired. 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 glass of wine. * Medications:?TakingGluc-Sánchez x-SXJ-Qujhevcnl-Vit D - Tablet as directed Orally Magnesium 400 MG Capsule as directed Orally Mini Fish Oil 645 MG Capsule as directed Orally Disulfiram 250 MG Tablet 1 tablet Orally Once a dayCitalopram Hydrobromide 20 MG Tablet 1 tablet Orally Once a dayAspir-81 81 MG Tablet Delayed Release 1 tablet Orally Once a daymetFORMIN HCl 500 MG Tablet 1 tablet with a meal Orally Once a dayGarlic 1000 MG Capsule as directed Orally every dayCitracal + D 400mg 1 po QDGinkgo Biloba 60 MG Capsule as directed Orally qdVitamin E 400 UNIT Capsule 1 capsule Orally Once a dayMulti Vitamin/Minerals - Tablet as directed Orally QDCetirizine HCl 10 MG Tablet 1 tablet Orally Once a dayAtorvastatin Calcium 10 MG Tablet 1 tablet Orally Once a dayTurmeric 500 MG Capsule as directed Orally QDTaking Ughz-Xhdqw-PEX-Boswellia-Vit D - Tablet as directed Orally Taking Magnesium 400 MG Capsule as directed Orally Taking Mini Fish Oil 645 MG Capsule as directed Orally Taking Disulfiram 250 MG Tablet 1 tablet Orally Once a dayTaking Citalopram Hydrobromide 20 MG Tablet 1 tablet Orally Once a dayTaking Aspir-81 81 MG Tablet Delayed Release 1 tablet Orally Once a dayTaking metFORMIN HCl 500 MG Tablet 1 tablet with a meal Orally Once a dayTaking Garlic 1000 MG Capsule as directed Orally every dayTaking Citracal + D 400mg 1 po QDTaking Ginkgo Biloba 60 MG Capsule as directed Orally qdTaking Vitamin E 400 UNIT Capsule 1 capsule Orally Once a dayTaking Multi Vitamin/Minerals - Tablet as directed Orally QDTaking Cetirizine HCl 10 MG Tablet 1 tablet Orally Once a dayTaking Atorvastatin Calcium 10 MG Tablet 1 tablet Orally Once a dayTaking Turmeric 500 MG Capsule as directed Orally QDDiscontinuedVitamin C 500 MG Capsule 1 tablet Orally Once a dayOsteo Bi-Flex Regular Strength 250-200 MG Tablet 1 tablet with a meal Orally Once a dayMedication List reviewed and reconciled with the patientDiscontinued Vitamin C 500 MG Capsule 1 tablet Orally Once a dayDiscontinued Osteo Bi-Flex Regular Strength 250-200 MG Tablet 1 tablet with a meal Orally Once a dayMedication List reviewed and reconciled with the patient * Allergies:?Penicillinyes[All ergies Verified] Objective: * Vitals:?Wt: 158 lb 2 oz, Ht: 67.25 in, BMI:24.58 Index, BP: 000/00 mm Hg, Temp: 97.8. * Examination: ???General Examination: ?GENERAL APPEARANCE:?pleasant, well nourished, well developed, in no acute distress.?EYES:?sclera non-icteric.?ORAL CAVITY:?mucosa moist.?NECK/THYROID:?Not examined due to is wearing a cervical collar.?SKIN:?nonjaundiced, no spider angiomata..?HEART:?S1, S2 normal.?LUNGS:?clear to auscultation bilaterally.?ABDOMEN:?normal bowel sounds, no guarding or rigidity, no hepatosplenomegaly, no masses palpable, soft, nontender, nondistended.?EXTREMITIES:?no edema.?NEUROLOGIC:?alert and oriented.? Assessment: * Assessment: 1.?Long-term use of aspirin therapy - Z79.82 (Primary)?2.?Hx of adenomatous colonic polyps - Z86.010?3.?Encounter for screening for malignant neoplasm of colon - Z12.11?4.?Family history of colon cancer - Z80.0? Overall, Mr. Beck appears well. He does [...] to keep you advised of his progress. Plan: * Treatment: 2.?Encounter for screening for malignant neoplasm of colon?Procedure: COLONOSCOPY (Ordered for 09/17/2023)* with MACsched for 12/20/23 at 1:10 pmmiralax Notes: Do not take the aspirin, fish oil, nor Turmeric for 1 week before the colonoscopy Do not take the Metfrominn the night before nor on the morning of the colonoscopy??3.?Family history of colon cancer?Procedure: COLONOSCOPY (Ordered for 09/17/2023)* with MACsched for 12/20/23 at 1:10 pmmiralax * Procedure Codes:?G9902 Pt sc rn tbco and id as [id number] BP SCR NOT PRFRM REC REASON NOS * Follow Up:?prn * * Sign off status: Completed true * Provider:?Jarrod Pathak MD Date:? 024 Generated for Jamarcus conner/Karsten/Angela on:?08/21/2024 05:23 PM EDT History and Physical Notes * HPI (History of Present Illness) Category Sub-Category Detail Notes Category Not es incontinence I saw Mr. Beck in the office today for evaluation of his personal history of tubular adenomas of the colon, family history rectal cancer, and need for colorectal cancer screening. I last saw Mr. Beck in July of 2018, which time he underwent a colonoscopy for screening purposes with the removal of small tubular adenomas. He presently feels well. He enjoys a good appetite, without any significant heartburn or dysphagia. His bowel movements have been regular, without any hematochezia nor melena. He has abdominal pain, jaundice, nor weight loss. His father did have rectal cancer although he was in his 90s at that time. Examination Category Sub-Category Detail Notes Category Not es General Examination GENERAL APPEARANCE: pleasant , well nourished, well developed, in no acute distress EYES: sclera non-icteric NECK/THYROID: Not examined due to is wearing a cervical collar HEART: S1, S2 normal LUNGS: clear to auscultatio n bilaterally ABDOMEN: normal bowel sounds, no guarding or rigidity, no hepatosplenomegaly, no masses palpable, soft, nontender, nondistended NEUROLOGIC: alert and oriented SKIN: nonjaundiced, no spi chaz angiomata. EXTREMITIES: no edema ORAL CAVITY: mucosa moist
--- OUTSIDE RECORDS SUMMARY | 2024-08-21 17:24 | XMS_ITS | Patient Health Record ---
Author Organization [facility] Address [address] [place] [address] Care Team Providers Care Home Demonstration Agent Name Role Phone Pravin Santo MD Primary Care Provider Unavailabl e Rayray Cyndee Unavailable [phone] Allergies Allergen (clinical drug ingredient) Drug/Non Drug Allergy documented on EMR Reaction Allergy Type Onset Date Status amoxicillin Amoxicillin Unknown Drug Allergy Act kiana Penicillin Unknown Drug Allergy Active Pollen Pollen hay fever symptoms Allergy Active Reason For Referral No Information Medications Medication SIG (Take, Route, Frequency, Duration) Notes Start Date End Date Status Cetirizine HCl Activ e Disulfiram 250 MG 1 tablet Orally Once a day Active Extra Depth Orthopedic Shoes (1 Pair) with Customized Heat Molded Multidensity Innersoles (3 Pair) as directed Dx: NIDDM/Polyneuropathy (E11.42), Hammertoe Foot Deformity (M20.41,M20.42), Preulcerative Skin Lesion(s) (L85.1 Active Centrum Silver Activ e Aspir-81 Active Citracal +D3 Active amLODIPine Besylate Not-Taking Citalopram Hydrobromide Active Atorvastatin Calcium 10 MG 1 tablet Orally Once a day Active Glucosamine Active Vitamin E Active Extra Depth Orthopedic Shoes (1 Pair) with Customized Heat Molded Multidensity Innersoles (3 Pair) as directed Dx: NIDDM/Polyneuropathy (E11.42), Hammertoe Foot Deformity (M20.41,M20.42), Preulcerative Skin Lesion(s) (L85.1 07/19/2017 Active Turmeric Active Ginkgo Biloba Active Extra Depth Orthopedic Shoes (1 Pair) with Customized Heat Molded Multidensity Innersoles (3 Pair) as directed Dx: NIDDM/Polyneuropathy (E11.42), Hammertoe Foot Deformity (M20.41,M20.42), Preulcerative Skin Lesion(s) (L85.1 10/26/2016 Not-Taking Garlic Active Osteo Bi-Flex Adv Double St Not-Taking Mini Fish Oil Active metFORMIN HCl 500 MG 1 tablet with meals Orally Twice a day Active Immunizations Vaccine Route Administration Date Status Comme nts Influenza Unknown 02/18/2016 Administered Influenza Unknown 02/05/2017 Administered Influenza Unknown 01/08/2018 Administered Influenza Unknown 01/08/2023 Administered Social History Tobacco Use: Social History [...] Are you an other tobacco user? No Problems Problem Type SNOMED Code ICD Code Onset Dates Problem Status W/U Status Risk Notes Problem Acquired hammer toe of right foot (0981219988308581 ) Other hammer toe(s) (acquired), right foot (M20.41) Active confirmed Problem Acquired hammer toe of left foot (5670014338321902 ) Other hammer toe(s) (acquired), left foot (M20.42) Active confirmed Problem Acquired hammer toe of right foot (7061490982630658 ) Other hammer toe(s) (acquired), right foot (M20.41) Active confirmed Problem Polyneuropathy due to type 2 diabetes mellitus (222181233) Type 2 diabetes mellitus with diabetic polyneuropathy (E11.42) Active confirmed Vital Signs Height 5 ft 7 in in 11/18/2023 Weight 160 lbs 11/18/2023 BMI 25.06 kg/m2 11/18/2023 Procedures Procedure Date Ordered Date Performed Result Body Sit e 47001-HYPYYEZ NAIL, 1-5 11/18/2023 N/A 31929-ZYGD SKIN LESIONS, 2 TO 4 11/18/2023 N/A D6348-TVOBUWDN DYSTROPHIC NAILS ANY # 11/18/2023 N/A Encounters Encounter Location Date Provider Diagnosis [address] [address] 11/18/2023 Cyndee Rayray Other hammer toe(s) (acquired), right foot M20.41 ; Other hammer toe(s) (acquired), left foot M20.42 ; Type 2 diabetes mellitus with diabetic polyneuropathy E11.42 ; Pain in right toe(s) M79.674 and Tinea unguium [facility].[address] [facility] [address] 11/18/2023 Cyndee Rayray Assessments Encounter Date Diagnosis (ICD Code) Assessment [...] unguium (ICD-10 - B35.1) Plan Of Treatment Pending Test Test Name Order Date X ray : Foot, right 3V 10/26/2016 67414-LCHDBLK NAIL, -02/25/2017 28049-CAPKMAQ NAIL, -05/27/2017 99452-LUPCSYD NAIL, -07/19/2017 63131-KRRPWJU NAIL, -11/18/2017 87779-WLVPLUL NAIL, -08/18/2018 35943-ONCNZXP NAIL, -10/24/2020 74575-POTNVIX NAIL, -10/30/2021 85390-GZGILZE NAIL, 1-5 11/05/2022 68270-LUKQVMT NAIL, 1-5 11/18/2023 34536 I&D ABSCESS- SIMPLE,SINGLE 022 56498-IDFW SKIN LESIONS, 2 TO 4 11/18/19 24 89986-ITRY SKIN LESIONS, 2 TO 4 11/06/19 23 76550-LTRD SKIN LESION 10/24/2020 10690-LUPZ SKIN LESION 10/30/2021 90193-ZOGQ SKIN LESION 10/26/2016 40964-ESKP SKIN LESION 08/18/2018 62290-UWWQ SKIN LESION 07/19/2017 16528-OCUG SKIN LESION 11/18/2017 24338-LAFV SKIN LESION 05/27/2017 18926-ZRND SKIN LESION 02/25/2017 49334-XTSC SKIN LESION 2016 10657-QCPG NAIL(S) 05/27/2017 37412-IAEZ NAIL(S) 07/19/2017 90058-FYAQ NAIL(S) 11/18/2017 12536-SZZR NAIL(S) 10/30/2021 75772-CXSK NAIL(S) 10/24/2020 21809-FKMV NAIL(S) 08/18/2018 D1213-XWMGEBDZ DYSTROPHIC NAILS ANY # 33549- Removal of Foreign Body, Subcut 0 10/26/2016 Next Appt Details Provider Name:Cyndee Seo , 11/16/2024 01:30:00 PM, [address] [facility], [place], [address], Insurance Providers Payer Name Payer Address Payer Phone Subscriber Number Group Number Insured Name Patient Relationship to Insured Coverage Start Date Coverage End Date Medicare National [employer] [address] [place] [address] [phone] [id number] Zander Mcdermott Self - patient is the insured [facility] [address] [place] [address] [id number] Zander Mcdermott Self - patient is the insured Medical (General) History Medical History History ICD Code Anxiety type II diabetes Measles Numbness Raynauds syndrome Surgical History Surgery Date(Month/Year) hernia perforated appendix Surgery right knee 04/25/17 cataract surgery 09/10/20,09/30/20 Hospitalization History Reason Date(Month/Year) [facility]- Chest infection 03/2023
== END 2024-08-21 15:50 | disposition home or self-care (01) ==
PROVIDERS: Physician Assistant Medical; Emergency Provider Emergency Medicine; PCP Internal Medicine
DX: R55 Syncope and collapse (principal); E11.9 Type 2 diabetes mellitus without complications; F12.90 Cannabis use, unspecified, uncomplicated; R11.0 Nausea; R00.1 Bradycardia, unspecified; Z79.84 Long term (current) use of oral hypoglycemic drugs; F17.210 Nicotine dependence, cigarettes, uncomplicated; Z51.81 Encounter for therapeutic drug level monitoring; Z79.899 Other long term (current) drug therapy
CPT/HCPCS: 36415; 70450; 80053; 80307; 81003; 83735; 84484; 85025; 85610; 93005; 96360; 99284; 99285

== ENCOUNTER → 2024-08-21 13:40 | Outpatient (BNV) | payer MEDICARE, OTHER, SELFPAY | PROVIDERS: Emergency Provider Emergency Medicine; PCP Internal Medicine; Visit Provider Internal Medicine Cardiovascular Disease | DX: I49.1 Atrial premature depolarization (principal); R00.1 Bradycardia, unspecified | CPT/HCPCS: 93010 ==

== ENCOUNTER → 2024-08-21 14:03 | Outpatient (BNV) | payer MEDICARE, OTHER, SELFPAY | PROVIDERS: Emergency Provider Emergency Medicine; PCP Internal Medicine; Visit Provider Radiology Diagnostic Radiology | DX: R55 Syncope and collapse (principal) | CPT/HCPCS: 70450 ==

== ENCOUNTER 2025-03-05 11:37 | Emergency (ER) | payer MEDICARE, OTHER, SELFPAY ==
--- OUTSIDE RECORDS SUMMARY | 2023-12-20 09:10 | XMS_ITS ---
Author Organization [facility] Address [address] [place] [address] Care Team Providers Care Life Scientist Name Role Phone Hansa URIAS, Pravin Primary Care Provider Jarrod Block [phone] REASON FOR VISIT screening,hx polyps,fam hx colon cancer Problems Problem Type SNOMED Code ICD Code Onset Dates Problem Status W/U Status Risk Notes Problem History of polyp of colon (situation) (376782498) Personal history of colonic polyps (Z86.010) Active confirmed Problem Diverticular disease of colon (714859111) Diverticulosis of large intestine without perforation or abscess without bleeding (K57.30) Active confirmed Encounters Encounter Location Date Provider Diagnosis [facility] Outpatient [address] [place] [id number] 12/20/2023 Jarrod Pathak Encounter for scre ening colonoscopy Z12.11 ; Personal history of colonic polyps Z86.010 ; Angiodysplasia K55.20 ; Diverticulosis of large intestine without perforation or abscess without bleeding K57.30 and Other hemorrhoids K64.8 Assessments Encounter Date Diagnosis (ICD Code) Assessment Notes Treatment Notes Treatment Clinical Notes Section Notes 12/20/2023 Encounter for screening colonoscopy (ICD-10 - Z12.11) 12/20/2023 Personal history of colonic polyps (ICD-10 - Z86.010) 12/20/2023 Angiodysplasia (ICD-10 - K55.20) 12/20/2023 Diverticulosis of large intestine without perforation or abscess without bleeding (ICD-10 - K57.30) 12/20/2023 Other hemorrhoids (ICD-10 - K64.8) Plan Of Treatment No Information Progress Notes * NATIVIDAD BECK EDOB: [birth year] (79 yo M)Acc No.[id number]:12/20/2023 COLON WITH MAC Patient: NATIVIDAD TORRES Provider: Phillip Pathak MD :1945 A ge:78 Y S ex:Male Date:12/20/2023 Address:[address] [place] [address], [facility] [place], [id number] Pcp:Pravin Santo MD Subjective: * Chief Complaints: * 1 . Screening,hx polyps,fam hx colon cancer. * Medical History: Objective: * Vitals: Assessment: * Assessment: 1. E ncounter for screening colonoscopy - Z12.11 (Primary) 2 . P ersonal history of colonic polyps - Z86.010 3 . A ngiodysplasia - K55.20 4 . D iverticulosis of large intestine without perforation or abscess without bleeding - K57.30 5. O ther hemorrhoids - K64.8 Plan: * Treatment: * Procedure Codes: G 0105 COLOREC CANCR SCR; COLNSCPY HI RISK, 0529F INTRVL 3+YRS PTS CLNSCP DOCD, Modifiers: 8P , 0528F RCMND FLW-UP 10 YRS DOCD, Modifiers: 1P * Preventive Medicine: JANETT Screening: C olonoscopy W as interval between colonoscopies three years or more? Y es, W as last colonoscopy performed three or more years ago? Y es. * * The named appointment provid er may or may not be the originator of this progress note, and it is not deemed complete until electronically signed by the appointment provider. Sign off status: Pending * Provider: Phillip Pathak MD Date: 0 12/20/2023 Generated for Jamarcus conner/Karsten/Thuanitting on: 1 03:41 PM EDT
--- NOTE | ~2025-03-05 | CT_ITS ---
EXAMINATION: CT CHEST WITHOUT IV CONTRAST INDICATION: fall in shower COMPARISON: There are no prior studies available for comparison. TECHNIQUE: Helical CT scan of the chest was performed without intravenous contrast. Coronal and sagittal reformatted images were generated and reviewed. This CT exam was performed with one or more of the following dose reduction techniques: automated exposure control, adjustment of the mA and/or kV according to patient size, use of iterative reconstruction technique. DLP: 500 mGy-cm CHEST: THYROID: The thyroid is unremarkable. LUNGS: There are moderate emphysematous changes. There is scarring in the right upper lobe. There is moderate dependent atelectasis at the lung bases. MEDIASTINUM: There is no mediastinal lymphadenopathy. DAVID: Evaluation of the hilar regions is limited by lack of intravenous contrast material. CARDIOVASCULATURE: The heart is normal in size. There is no pericardial effusion. The thoracic aorta is normal in caliber. DEGREE OF CORONARY CALCIFICATION: severe PLEURA: There is a small right pleural effusion. There is no left pleural effusion. No pneumothorax. MAIN AIRWAYS: The mainstem bronchi and proximal branches are patent. AXILLA: There is no axillary lymphadenopathy. BONES AND SOFT TISSUES: There are fractures of the posterior aspects of the right 10th and 11th ribs. The 11th rib is also fractured posterior laterally. There are also fractures of the heads of the right 8th, 9th, 10th, 11th ribs. UPPER ABDOMEN: There is a moderate hiatal hernia. There is a 10 mm probable cyst in the left lobe of the liver. The visualized portions of the spleen and adrenals have an unremarkable unenhanced appearance. CT/CT chest wo IV con IMPRESSION: 1. Fractures of the posterior aspects of the right 10th and 11th ribs. The 11th rib is also fractured posterior laterally. 2. Additional fractures of the heads of the right 8th, 9th, 10th, 11th ribs. 3. Small right pleural effusion. Electronically signed by: Jarrod Diallo MD 03/05/2025 01:36 PM EDT
--- NOTE | ~2025-03-05 | CT_ITS ---
EXAM: CT HEAD WITHOUT CONTRAST CT CERVICAL SPINE INDICATION: fall in shower unwitnessed TECHNIQUE: A noncontrast CT scan was performed from the skull base to the vertex. A noncontrast CT scan of the cervical spine was performed from the base of the skull through T1 at 2.5 mm and 0.625 mm collimation. Coronal and sagittal reformats were obtained at the acquisition workstation. This CT examination was performed using dose optimization techniques as appropriate, variously including the following: * Automated exposure control * Adjustment of mA and/or kV according to patient size (this includes techniques or standardized protocols for targeted exams where dose is matched to indication/reason for exam; i.e. extremities or head) * Use of iterative reconstruction technique Dose length product is 720 mGy-cm. COMPARISON: CT evidence of cervical spine 10/06/2023. FINDINGS: Head: There is no evidence of acute intracranial hemorrhage or edematous large vessel territorial infarction. No abnormal mass effect or midline shift is seen. Lawson to white matter differentiation is well preserved. No abnormal extra-axial fluid collections are identified. Commensurate prominence of the ventricles and sulci is compatible with generalized parenchymal volume loss. There is moderate periventricular and subcortical white matter hypoattenuation, most likely representing microangiopathic disease. Similar basal ganglia mineralization.. Bilateral lens extraction. No acute calvarial fracture.. Paranasal sinuses and mastoid air cells are well-aerated. Cervical Spine: The atlantooccipital and atlantoaxial articulations remain well aligned. Straightening of the normal cervical lordosis. Stable grade 1 anterolisthesis of C4 on C5, C5-6, and C6-7.. No evidence of acute cervical spine fracture or traumatic subluxation. Multilevel disc degeneration, more prominent findings of moderate C3-4, moderate-severe C6-7 disc degeneration. Multilevel facet degeneration. Bones are osteopenic. No prevertebral soft tissue swelling. Mild biapical pleural parenchymal scarring. CT/CT cervical spine wo IV con IMPRESSION: * No CT evidence of acute intracranial hemorrhage or edematous territorial infarction. * Chronic brain findings as detailed above. * No CT evidence of acute cervical spine fracture. * Chronic cervical spine findings as detailed above. Electronically signed by: Juanito Schofield MD 03/05/2025 01:39 PM EDT
[2025-03-05 11:43] VITALS: BP 140/68; PULSE 60; O2SAT 94
[2025-03-05 12:03] VITALS: BP 134/71; PULSE 60; RESP 18; TEMP 36.3; O2SAT 96; BMI 24.6
[2025-03-05 12:08] VITALS: BP 134/71; PULSE 60; RESP 18; TEMP 36.3; O2SAT 96
--- NOTE | 2025-03-05 12:11 | PC.NURSE ---
79 M presents to ED via EMS after fall in shower, found by laying on bench, denies LOC or head strike. Pt c/o R side and R back pain 12/17, no other complaints. Pt has dementia, base line confusion and acting baseline per . A+Ox1-2 to person/place/situation. RR even and unlabored, denies CP or SOB.
--- NOTE | 2025-03-05 12:17 | ECG_ITS ---
Test Reason : weakness Blood Pressure : */* mmHG Vent. Rate : 58 BPM Atrial Rate : 58 BPM P-R Int : 174 ms QRS Dur : 104 ms QT Int : 434 ms P-R-T Axes : 79 61 70 degrees QTcB Int : 426 ms Sinus bradycardia Otherwise normal ECG When compared with ECG of 21-Aug-2024 13:43, Aberrant conduction is no longer Present Referred By: Shelby Carballo Electronically Signed By: ORI AMARAL
--- NOTE | 2025-03-05 12:19 | ED.FALL ---
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 states patient was in the shower & she continuously was checking on him however then found him lying on the floor of the shower, states fell on right side. Unknown head trauma. Denies LOC. Takes baby ASA. Patient reports right-sided rib pain. Denies head/neck or back pain, SOB, weakness. Patient himself poor historian secondary to cognitive impairment Related Data Home Medications ?Medication ?Instructions ?Recorded ?Confirmed atorvastatin 10 mg tablet 10 tab PO BEDTIME 09/10/20 12/16/23 cetirizine 10 mg tablet 1 tab PO DAILY 09/10/20 12/16/23 citalopram 20 mg tablet 20 tab PO DAILY 09/10/20 12/16/23 disulfiram 250 mg tablet 1 tab PO DAILY 09/10/20 12/16/23 metformin 500 mg tablet 500 tab PO BID 09/10/20 12/16/23 aspirin 81 mg tablet,delayed 81 mg PO DAILY 12/16/23 12/16/23 release calcium ER 600 mg (as carb,cit)-D3 1 tab PO DAILY 12/16/23 12/16/23 12.5 mcg (500 unit) tablet, ext.rel (Citracal-D3 Slow Release) garlic 1,000 mg capsule 1,000 mg PO DAILY 12/16/23 12/16/23 ginkgo biloba leaf extract 60 mg 60 mg PO DAILY 12/16/23 12/16/23 capsule magnesium oxide 400 mg PO DAILY 12/16/23 12/16/23 multivitamin 1 tab PO DAILY 12/16/23 12/16/23 omega-3s 720 mg-dha 300 mg-epa 360 1 cap PO DAILY 12/16/23 12/16/23 mg-fish oil 1,200 mg capsule turmeric root extract 500 mg tablet 500 mg PO DAILY 12/16/23 12/16/23 vitamin E acetate 134 mg (200 268 mg PO DAILY 12/16/23 12/16/23 unit) capsule Allergies Allergy/AdvReac Type Severity Reaction Status Date / Time Penicillins Allergy Mild HIVES/FEVER Verified 03/05/25 12:07 Review of Systems Review of Systems: Yes all other systems are reviewed and are negative Constitutional: Constitutional: Reports as per HPI Neurologic: Denies Abnormal speech present [facility] Past Medical History Attestation statement: The following information was validated with the patient. Source: old records reviewed Medical History BAILEE (obstructive sleep apnea) Empyema of lung Hx of Clostridium difficile infection Cervical disc disease COVID-19 vaccine series completed Smoker Raynauds syndrome Osteoarthritis Hypercholesterolemia Hx of varicose veins Erectile dysfunction Diabetes mellitus History of diverticulosis Depression History of Clostridioides difficile colitis Anxiety History of ETOH abuse Allergic rhinitis Surgical History Hx of varicose vein ligation and stripping Hx of knee surgery Hx of bilateral cataract extraction Hx of inguinal hernia repair History of esophagogastroduodenoscopy (EGD) Hx of colonoscopy Hx of appendectomy Social History Social History Household Members: Spouse Alcohol intake: former Year quit: 2019 Comment: fell off ladder 08/2020 rib injury Patient Tobacco Use Status: Current everyday Tobacco user Tobacco use type: Cigar Smoked in Last 30 Days: No Use of substances other than those prescribed or required for medical reasons: No Substance Use Type: Marijuana Advance Directives: No Advance Directives Information Provided: Yes Do you have a plan to hurt others: No Plan Physical Exam Vital Signs: Vital Signs: Last Vital Signs Temp 97.4 F 03/05/25 12:08 Pulse 60 03/05/25 14:20 Resp 16 03/05/25 14:20 BP 170/77 H 03/05/25 14:20 Pulse Ox 95 03/05/25 14:20 O2 Del Method Room Air 03/05/25 14:20 BMI result Body Mass Index 24.6 Const: General: cooperative, healthy appearing and no acute distress Orientation/consciousness: patient oriented x3 Limitations: no limitations HEENT: Head: Yes normal to inspection and Yes atraumatic Ears: hearing grossly normal bilaterally General nose exam: Normal external nose present Face and sinus: Yes normal facial exam Mouth: Normal oral and palatal mucosa present Throat: Yes posterior oropharynx normal and Yes uvula midline Eyes: General: appearance normal, both eyes and all related structures Pupils: Equal, round and reactive pupils present EOM: EOMs intact bilaterally Neck: Other: C-collar in place Neck: Yes normal visual inspection and Yes no meningeal signs Chest: Other: + swelling noted to right posterior lateral chest wall. No erythema or ecchymosis. No flail chest. + Reproducible tenderness to palpation. No crepitus. Resp: Effort & Inspection: normal respiratory effort and no respiratory distress Auscultation: clear to auscultation bilaterally Cardio: Rate: regular rate Heart sounds: S1 normal heart sound present and S2 normal heart sound present GI: Inspection: Yes normal to inspection Palpation (GI): Soft to palpation, nontender, no guarding and not rigid Back/Spine/Pelvis: Other: No midline cervical/thoracic/lumbar spinous tenderness/step-off or deformity Skin: Rashes: no rashes Wounds: no wounds Neuro: Other: Baseline cognitive impairment, A&O x3 General: patient oriented x3, tone normal, moves all extremities, no meningeal signs, no focal motor deficits and CN's II-XI intact bilaterally Cranial nerves: Yes CN's II-XII intact bilaterally, Yes Equal, round and reactive pupils present and Yes Bilaterally intact EOM present Speech: No Abnormal speech present Motor exam (neuro): 5/5 motor strength present throughout Extrem: Other: pelvis stable General: Yes normal to inspection Course Course Course Narrative: -1347--BUN acute on chronically elevated. CT head/brain wo IV con / CT cervical spine wo IV con IMPRESSION: * No CT evidence of acute intracranial hemorrhage or edematous territorial infarction. * Chronic brain findings as detailed above. * No CT evidence of acute cervical spine fracture. * Chronic cervical spine findings as detailed above. CT chest wo IV con IMPRESSION: 1. Fractures of the posterior aspects of the right 10th and 11th ribs. The 11th rib is also fractured posterior laterally. 2. Additional fractures of the heads of the right 8th, 9th, 10th, 11th ribs. 3. Small right pleural effusion. > plan for trauma transfer 1352. Will contact [facility] [phone]--spoke with trauma surgeon Dr. Campa at [facility]. Recommended adequate pain control and transfer to their facility for trauma consult. 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 On exam vital signs stable, NAD, nontoxic appearing, physical exam as noted above. No midline spinous tenderness. Reproducible right posterior lateral rib tenderness. No flail chest. No focal deficits. Concern for ICH vs fractures. Rule out ACS vs infectious vs metabolic abnormality use. Unlikely dissection or PE Plan: EKG, labs, CT, re-evaluate Please refer to course for remaining clinical decision making, interpretation of labs/imaging results, and discussions with consultants and/or family members. Differential Diagnosis Differential Diagnoses: The differential diagnosis associated with the presentation includes As above Admission/Observation Consideration of admission/observation: Escalation of care including admission/observation considered Consult Healthcare Provider Management of the patient was discussed with: Leadership Program Intern Lab Data [facility] Lab Attestation statement: I reviewed the patient's lab results. 03/05/25 13:21 03/05/25 13:21 Labs: Lab Results 03/05/25 03/05/25 Range/Units 13:21 14:14 WBC 9.4 (4.8-10.8) X10*3/uL RBC 4.28 L (4.60-5.80) X10*6/uL Hgb 14.0 (14.0-18.0) g/dl Hct 41.6 L (42.0-52.0) % MCV 97.2 (80.0-98.0) fL MCH 32.7 (27.0-33.0) pg MCHC 33.7 (31.0-36.0) g/dl RDW 13.0 (11.0-16.0) % Plt Count 181 (160-400) X10*3/uL MPV 10.7 (9.4-12.4) fL Immature Gran % (Auto) 0.4 (0.0-0.4) % Neut % (Auto) 80.0 H (45-73) % Lymph % (Auto) 9.6 L (20-40) % [place] % (Auto) 9.1 (2-11) % Eos % (Auto) 0.7 (0-4) % Baso % (Auto) 0.2 (0-2) % Lymph # (Auto) 0.9 L (1.2-4.9) X10*3/uL [place] # (Auto) 0.9 (0.1-1.2) X10*3/uL Eos # (Auto) 0.1 (0.0-0.4) X10*3/uL Baso # (Auto) 0.0 (0.0-0.2) X10*3/uL Abs Immat Gran (auto) 0.04 H (0.00-0.03) X10*3/uL Absolute Neuts (auto) 7.5 (2.0-8.3) x10*3/uL Absolute Nucleated RBC 0.000 (0.0-0.012) X10*3/uL Nucleated RBC % (auto) 0.0 (0.0-0.2) /100WBC Sodium 141 (135-145) mmol/L Potassium 4.5 (3.3-5.1) mmol/L Chloride 108 (96-108) mmol/L Carbon Dioxide 26 (22-29) mmol/L Anion Gap 12 (12-20) BUN 29 H (9-16) mg/dL Creatinine 1.00 (0.5-1.4) mg/dL Estim Creat Clear Calc 56.9 Estimated GFR > 60 Random Glucose 148 H (60-115) mg/dL Calcium 8.9 (8.4-10.2) mg/dL Magnesium 2.1 (1.6-2.6) mg/dL Total Bilirubin 0.3 (0.0-1.0) mg/dL Direct Bilirubin 0.2 (0.0-0.5) mg/dL AST 32 (5-37) U/L ALT 24 (0-40) U/L Alkaline Phosphatase 74 (39-117) U/L Troponin I High Sens < 2.7 (<3.5-35.0) ng/L Total Protein 6.6 (6.5-8.0) g/dL Albumin 4.0 (3.5-5.0) g/dL Urine Color Yellow Urine Appearance Clear Urine pH 7.5 (5.0-9.0) Ur Specific [place] 1.025 (1.005-1.025) Urine Protein Negative (Neg-Trace) mg/dL Urine Glucose (UA) 100 H (Negative) mg/dL Urine Ketones Negative (Negative) mg/dL Urine Blood Negative (Negative) Urine Nitrite Negative (Negative) Ur Leukocyte Esterase Negative (Negative) Ethyl Alcohol < 10 mg/dL Independent Interpretation I performed an independent interpretation of an: EKG and CT Scan Radiology Impression Discussion of test interpretation with radiology: I have reviewed the radiologist's reading. Independent Historian Clinical information obtained from an independent historian. History obtained from or confirmed by: Spouse and EMS External Record Review External record reviewed: Inpatient record, Office record, Outpatient record, Prior outpatient labs, Prior outpatient radiology, Primary care record and Outside ED record Tests considered The following testing was considered but not selected: As above Prescription Management I considered prescription management with: Pain Medication Chronic Conditions Patient?s care impacted by: Other Social Determinants Patient?s care significantly limited by Social Determinants of Health including: Inadequate housing, Alcoholism and drug addiction in family, Problems related to primary support group and Other Social Determinant of Health Critical Care Time Critical Care Time Critical Care Time: Yes Total Critical Care Time: 40 Attestation: I have personally provided critical care time exclusive of time spent on separately billable procedures. Time includes review of lab data, radiology results, discussion with consultants, and monitoring for potential decompensation. Intervention performed as documented. Discharge Plan Discharge Clinical Impression: Multiple fractures of ribs, Fall Patient Disposition: Xfer Acute Care Hospital Transfer Details: [facility] Prescriptions: No Action metformin 500 mg tablet 500 tab PO BID cetirizine 10 mg tablet 1 tab PO DAILY atorvastatin 10 mg tablet 10 tab PO BEDTIME disulfiram 250 mg tablet 1 tab PO DAILY citalopram 20 mg tablet 20 tab PO DAILY multivitamin Tablet 1 tab PO DAILY aspirin [Aspirin Low-Strength] 81 mg Tablet,Delayed Release (Dr/Ec) 81 mg PO DAILY garlic 1,000 mg Capsule 1,000 mg PO DAILY ginkgo biloba leaf extract 60 mg Capsule 60 mg PO DAILY Rx Instructions: give with meal/snack calcium carb, citrate-vit D3 [Citracal-D3 Slow Release] 600 mg-12.5 mcg (500 unit) Tablet Extended Release 1 tab PO DAILY vitamin E acetate 134 mg (200 unit) Capsule 268 mg PO DAILY andoa-9g-sep-epa-fish oil [Fish Oil] 720-1,200 mg Capsule 1 cap PO DAILY magnesium oxide 400 mg magnesium Tablet 400 mg PO DAILY turmeric root extract 500 mg Tablet 500 mg PO DAILY Referrals: Pravin Santo MD [Primary Care Provider, Medical] Print Language: [place] Citizen
[2025-03-05 13:27] LABS: MANUAL DIFF FLAG NO
[2025-03-05 13:29] LABS: Hematocrit 41.6 % (42.0-52.0); Hemoglobin 14.0 g/dl (14.0-18.0); Imm Gran Abs Auto 0.04 X10*3/uL (0.00-0.03); Imm Gran Pct Auto 0.4 % (0.0-0.4); Lymphocytes Absolute Auto 0.9 X10*3/uL (1.2-4.9); Mean Corpuscular HGB Conc 33.7 g/dl (31.0-36.0); Mean Corpuscular Hemoglobin 32.7 pg (27.0-33.0); Mean Corpuscular Volume 97.2 fL (80.0-98.0); NRBC Abs Auto 0.000 X10*3/uL (0.0-0.012); NRBC Pct Auto 0.0 /100WBC (0.0-0.2); Platelet Count 181 X10*3/uL (160-400); Red Blood Count 4.28 X10*6/uL (4.60-5.80); White Blood Count 9.4 X10*3/uL (4.8-10.8)
[2025-03-05 13:43] LABS: Alanine Aminotransferase 24 U/L (0-40); Albumin Level 4.0 g/dL (3.5-5.0); Alkaline Phosphatase 74 U/L (39-117); Anion Gap 12 (12-20); Aspartate Amino Transferase 32 U/L (5-37); Blood Urea Nitrogen 29 mg/dL (9-16); Calcium 8.9 mg/dL (8.4-10.2); Carbon Dioxide 26 mmol/L (22-29); Chloride 108 mmol/L (96-108); Creatinine Clr Calc Pharmacy 56.9; Estimated Glomerular Filt Rate > 60; Magnesium 2.1 mg/dL (1.6-2.6); Potassium 4.5 mmol/L (3.3-5.1); Sodium 141 mmol/L (135-145); Total Protein 6.6 g/dL (6.5-8.0)
[2025-03-05 13:51] LABS: Troponin-I High Sensitivity < 2.7 ng/L (<3.5-35.0)
[2025-03-05 14:20] VITALS: BP 170/77; PULSE 60; RESP 16; O2SAT 95
[2025-03-05 14:23] LABS: Appearance Urine Clear; Glucose Urine UA 100 mg/dL (Negative); PH 7.5 (5.0-9.0); Specific Gravity - Urine 1.025 (1.005-1.025)
[2025-03-05] MEDS: Lidocaine 4 % Patch ADH..PATCH 1 PATCH TRANSDERMA (14:55)
--- NOTE | 2025-03-05 15:02 | PC.NURSE ---
patient's (Kacy) took belongings and cane home with her.
--- NOTE | 2025-03-05 15:12 | PC.NURSE ---
Called [facility] ER to attempt to call report, was on hold for 10 minutes until geting the 'line is busy' tone. Unable to call report at this time.
[2025-03-05 15:32] VITALS: BP 137/72; PULSE 68; RESP 18; O2SAT 96
--- OUTSIDE RECORDS SUMMARY | 2025-03-05 15:41 | XMS_ITS | Patient Health Record ---
Author Organization [facility] Address [address] [place] [address] Care Team Providers Care Chemical Inspector Name Role Phone Pravin Santo MD Primary Care Provider Jarrod Block [phone] Allergies Allergen (clinical drug ingredient) Drug/Non Drug Allergy documented on EMR Reaction Allergy Type Onset Date Status Penicillin Unknown Drug Allergy Active Reason For Referral No Information Medications Medication SIG (Take, Route, Frequency, Duration) Notes Start Date End Date Status Disulfiram 250 MG 1 tablet Orally Once a day; Duration: 30 day(s) Active Atorvastatin Calcium 10 MG 1 tablet Oral ly Once a day; Duration: 30 day(s) Active Citalopram Hydrobromide 20 MG [...] shiva l Orally Once a day Active Fcem-Aszkb-RXS-Boswellia-Vi t D - as directed Orally Active [...] Problem Status W/U Status Risk Notes Problem Screening for malignant neoplasm of colon (568401936) Encounter for screening for malignant neoplasm of colon (Z12.11) Active confirmed Problem History of polyp of colon (situation) (090777633) Personal history of colonic polyps (Z86.010) Active confirmed Problem Diverticular disease of colon (856843263) Diverticulosis of large intestine without perforation or abscess without bleeding (K57.30) Active confirmed Problem Family History of Cancer of Colon (Situation) (330613411) Family history of colon cancer (Z80.0) Active confirmed Problem Long-term current use of antiplatelet drug (834958804682793 ) Long-term use of aspirin therapy (Z79.82) Active confirmed Problem History of adenomatous polyp of colon (107405789) Hx of adenomatous colonic polyps (Z86.010) Active confirmed Plan Of Treatment Future Test Test Name Order Date COLONOSCOPY 11/02/2012 COLONOSCOPY 05/20/2018 COLONOSCOPY 09/17/2023 Insurance Providers Payer Name Payer Address Payer Phone Subscriber Number Group Number Insured Name Patient Relationship to Insured Coverage Start Date Coverage End Date MEDICARE OF [place] [address] [place] [address] [id number] NATIVIDAD BECK Self - patient is the insured [facility] [address] [place] [phone] [id number] NATIVIDAD BECK Self - patient is the insured Medical (General) History Medical History History ICD Code Screening colonoscopy 03-19-2008--1 smal l tubular adenoma removed Hyperlipidemia NIDDM Alcohol abuse--last EtOH in 06/2012 Denies VT, stroke, and renal disease Thrombophlebitis and varicose veins Denies VT,CVA,Lung disease,renal disease Cervical radiculopathy--cerv ical disc disease--seeing [...]
--- OUTSIDE RECORDS SUMMARY | 2025-03-05 15:41 | XMS_ITS | Clinical Summary ---
Author Organization [facility] Address [address] [place] [address] Care Team Providers Care Commercial Lending Relationship Manager Name Role Phone Pravin Santo Primary Care Provider [phone] Allergies Active Allergy Reactions Criticality Noted Date [...] 75+ series) 2021 COVID-19 Vaccine ( - 2024-2 6 season) 2025 Influenza (#1) 2025 HPV Vaccine (No Doses Required) Completed Hep A Aged Out No longer eligi [...] Date of Phone Billing Address Personal/Family [address] [address] MEDICARE PART B FFS MEDICARE-SUPPLEMENTAL Care Teams Commercial Lending Relationship Manager Relationship Specialty Start Date End Date Pravin Santo [facility] [address] [place] [address] PCP - General Internal Medicine 02/08/14
--- OUTSIDE RECORDS SUMMARY | 2025-03-05 15:42 | XMS_ITS | Patient Health Record ---
Author Organization [facility] Address [address] [place] [address] Care Team Providers Care Residential Real Estate Assistant Name Role Phone Pravin Santo MD Primary Care Provider Unavailabl e Black, Cyndee Unavailable [phone] Allergies Allergen (clinical drug ingredient) Drug/Non Drug Allergy documented on EMR Reaction Allergy Type Onset Date Status amoxicillin Amoxicillin Unknown Drug Allergy Act kiana Penicillin Unknown Drug Allergy Active Pollen Pollen hay fever symptoms Allergy Active Results Component Value Reference Range Notes HEMOGLOBIN A1C (GLYCOHEMOGLO BIN) Reviewed date:11/16/2024 01:41:58 PM Interpretation: Performing Lab: Notes/Report: HEMOGLOBIN A1C % (HH) 6.7 Reason For Referral No Information Medications Medication SIG (Take, Route, Frequency, Duration) Notes Start Date End Date Status Atorvastatin Calcium 10 MG 1 tablet Orally Once a day Active Glucosamine Active Vitamin E Active Cetirizine HCl Activ e Disulfiram 250 MG 1 tablet Orally Once a day Active Centrum Silver Activ e Aspir-81 Active Turmeric Active Mini Fish Oil Active Extra Depth Orthopedic Shoes (1 Pair) with Customized Heat Molded Multidensity Innersoles (3 Pair) as directed Dx: NIDDM/Polyneuropathy (E11.42), Hammertoe Foot Deformity (M20.41,M20.42), Preulcerative Skin Lesion(s) (L85.1 Active metFORMIN HCl 500 MG 1 tablet with meals Orally Twice a day Active Citracal +D3 Active Osteo Bi-Flex Adv Double St Not-Taking Citalopram Hydrobromide Active amLODIPine Besylate Not-Taking Ginkgo Biloba Active Garlic Active Extra Depth Orthopedic Shoes (1 Pair) with Customized Heat Molded Multidensity Innersoles (3 Pair) as directed Dx: NIDDM/Polyneuropathy (E11.42), Hammertoe Foot Deformity (M20.41,M20.42), Preulcerative Skin Lesion(s) (L85.1 10/26/2016 Not-Taking Immunizations Vaccine Route Administration Date Status Comme nts Influenza Unknown 02/18/2016 Administered Influenza Unknown 02/05/2017 Administered Influenza Unknown 01/08/2018 Administered Influenza Unknown 01/08/2023 Administered Social History Tobacco Use: Social History Observation Description Date Details (start date - stop date) Current Smoker NA - NA Tobacco use other than smoking: Question Answer Notes Are you an other tobacco user? Yes C igars Tobacco Control (Standard) Question Answer Notes Tobacco use: Current smoker How often do you smoke cigarettes? Every day How many cigarettes a day do you smoke? 5 or les s How soon after you wake up d o you smoke your first cigarette? 31-60 minutes Are you interested in quitting? Thinking about q uitting Additional Findings: Tobacco non-user Current no nsmoker AUDIT-C (Standard) Question Answer Notes Did you have a drink containing alcohol in the p ast year? No Points 0 Interpretation Negative Problems Problem Type SNOMED Code ICD Code Onset Dates Problem Status W/U Status Risk Notes Problem Acquired hammer toe of right foot (6924822357833331 ) Other hammer toe(s) (acquired), right foot (M20.41) Active confirmed Problem Acquired hammer toe of left foot (0949937779439398 ) Other hammer toe(s) (acquired), left foot (M20.42) Active confirmed Problem Polyneuropathy due to type 2 diabetes mellitus (215858189) Type 2 diabetes mellitus with diabetic polyneuropathy (E11.42) Active confirmed Vital Signs Heart Rate 55 /min 11/16/2024 Blood pressure diastolic 70 mm Hg 11/16/2024 Height 5 ft 7 in in 11/16/2024 Blood pressure systolic 132 mm Hg 11/16/2024 Weight 157 lbs 11/16/2024 BMI 24.59 kg/m2 11/16/2024 Procedures Procedure Date Ordered Date Performed Result Body Sit e 41480-VJKIFFY NAIL, 1-5 11/16/2024 N/A 82360-HEHK SKIN LESIONS, OVER 4 11/16/2024 N/A P7627-XFPVELZU DYSTROPHIC NAILS ANY # 11/16/2024 N/A Encounters Encounter Location Date [facility] [address] [address] 11/16/2024 Cyndee Seo Other hammer toe(s) (acquired), right foot M20.41 ; Other hammer toe(s) (acquired), left foot M20.42 ; Type 2 diabetes mellitus with diabetic polyneuropathy E11.42 ; Pain in right toe(s) M79.674 and Tinea unguium B35.[address] [facility] [address] 11/16/2024 Cyndee Seo Assessments Encounter Date Diagnosis (ICD Code) Assessment Notes Treatment Notes Treatment Clinical Notes Section Notes 11/16/2024 Other hammer toe(s) (acquired), right foot (ICD-10 - M20.41) 11/16/2024 Other hammer toe(s) (acquired), left foot (ICD-10 - M20.42) 11/16/2024 Type 2 diabetes mellitus with diabetic polyneuropathy (ICD-10 - E11.42) Patient Educated with: DIABETIC FOOT CARE INSTRUCTIONS. pdf (DIABETIC FOOT CARE INSTRUCTIONS. pdf) 11/16/2024 Pain in right toe(s) (ICD-10 - M79.674) 11/16/2024 Tinea unguium (ICD-10 - B35.1) Plan Of Treatment Pending Test Test Name Order Date X ray : Foot, right 3V 10/26/2016 95352-YDLBSXJ NAIL, -02/25/2017 58443-FDZHAUY NAIL, -05/27/2017 45095-AQDJKWB NAIL, 05-1407/19/2017 84221-BTGWQJV NAIL, -11/18/2017 24027-NSFGTFV NAIL, -08/18/2018 07800-EARJPTI NAIL, -10/24/2020 32146-LBSNOGL NAIL, -10/30/2021 14243-WRBXZTM NAIL, -11/05/2022 42151-XKESAZG NAIL, -11/18/2023 05690-LPEQPXH NAIL, 1-5 11/16/2024 11255 I&D ABSCESS- SIMPLE,SINGLE 022 23817-OHHP SKIN LESIONS, OVER 4 11/17/19 25 39760-JKKZ SKIN LESIONS, 2 TO 4 11/18/19 24 33032-NPZW SKIN LESIONS, 2 TO 4 11/06/19 23 22000-PHVS SKIN LESION 10/24/2020 12542-UIIS SKIN LESION 10/30/2021 55551-YPYP SKIN LESION 10/26/2016 10191-LAGB SKIN LESION 08/18/2018 25105-EGKH SKIN LESION 07/19/2017 89995-QHED SKIN LESION 11/18/2017 11821-EFYD SKIN LESION 05/27/2017 65971-JBSD SKIN LESION 02/25/2017 33285-ZSRD SKIN LESION 2016 97834-ALSU NAIL(S) 05/27/2017 83240-SKGV NAIL(S) 07/19/2017 14759-KRON NAIL(S) 11/18/2017 16986-JBCA NAIL(S) 10/30/2021 25429-BRKF NAIL(S) 10/24/2020 09445-PBSB NAIL(S) 08/18/2018 F9114-PJZAVBWD DYSTROPHIC NAILS ANY # M9864-JYXSARDM DYSTROPHIC NAILS ANY # 61578- Removal of Foreign Body, Subcut 0 10/26/2016 Next Appt Details Provider Name:Cyndee Seo , 11/22/2025 01:30:00 PM, [address], [place], [address], Insurance Providers Payer Name Payer Address Payer Phone Subscriber Number Group Number Insured Name Patient Relationship to Insured Coverage Start Date Coverage End Date Medicare [employer] [facility] [address] [place] [address] [id number] Zander Mcdermott Self - patient is the insured [place] [address] [place] [phone] [id number] Zander Mcdermott Self - patient is the insured Medical (General) History Medical History History ICD Code Anxiety type II diabetes Measles Numbness Raynauds syndrome Surgical History Surgery Date(Month/Year) hernia perforated appendix Surgery right knee 04/25/17 cataract surgery 09/10/20,09/30/20 Hospitalization History Reason Date(Month/Year) [facility]- Chest infection 03/2023
[2025-03-05 15:55] VITALS: BP 137/72; PULSE 68; RESP 18; TEMP -17.7; TEMP 0; O2SAT 96
== END 2025-03-05 15:30 | disposition short-term general hospital (02) ==
PROVIDERS: Physician Assistant; Emergency Provider Emergency Medicine; PCP Internal Medicine
DX: S22.49XA Multiple fractures of ribs, unspecified side, initial encounter for closed fracture (principal); M54.50 Low back pain, unspecified; G47.33 Obstructive sleep apnea (adult) (pediatric); E11.9 Type 2 diabetes mellitus without complications; G31.84 Mild cognitive impairment of uncertain or unknown etiology; W19.XXXA Unspecified fall, initial encounter; Y93.9 Activity, unspecified; Y92.9 Unspecified place or not applicable; Y99.9 Unspecified external cause status; Z79.899 Other long term (current) drug therapy
CPT/HCPCS: 36415; 70450; 71250; 72125; 80048; 80076; 80307; 81003; 83735; 84484; 85025; 93005; 99285

== ENCOUNTER → 2025-03-05 12:17 | Outpatient (BNV) | payer MEDICARE, OTHER, SELFPAY | PROVIDERS: Emergency Provider Emergency Medicine; PCP Internal Medicine; Visit Provider Radiology Diagnostic Radiology | DX: M54.50 Low back pain, unspecified (principal); W18.2XXA Fall in (into) shower or empty bathtub, initial encounter | CPT/HCPCS: 71250 ==

== ENCOUNTER → 2025-03-05 12:17 | Outpatient (BNV) | payer MEDICARE, OTHER, SELFPAY | PROVIDERS: Emergency Provider Emergency Medicine; PCP Internal Medicine; Visit Provider Internal Medicine | DX: R00.1 Bradycardia, unspecified (principal) | CPT/HCPCS: 93010 ==